=== PATIENT | female | born 1960 | race Caucasian/White ===

== ENCOUNTER → 2017-06-28 07:54 | Outpatient (CLI) | payer OTHER, SELFPAY ==
[2017-06-28 11:01] LABS: T4 Free Direct 1.04 ng/dL (0.76-1.46); Thyroid Stim Hormone (TSH) 3.73 uIU/mL (0.358-3.74)
== END ==
PROVIDERS: Nurse Practitioner Family; Family Provider Internal Medicine; PCP Internal Medicine; Visit Provider Internal Medicine
DX: E03.9 Hypothyroidism, unspecified (principal)
CPT/HCPCS: 36415; 84439; 84443

== ENCOUNTER → 2018-01-20 15:39 | Outpatient (CLI) | payer OTHER, SELFPAY | PROVIDERS: Family Provider Internal Medicine; PCP Internal Medicine; Visit Provider Nurse Practitioner Women's Health | DX: Z12.31 Encounter for screening mammogram for malignant neoplasm of breast (principal) | CPT/HCPCS: 77063; 77067 ==

== ENCOUNTER → 2018-03-27 09:25 | Outpatient (CLI) | payer OTHER, SELFPAY ==
[2018-03-27 10:38] LABS: Absolute Lymphocyte Count 1.65 X10^3/ul (0.83-4.51); Absolute Neutrophil Count 3.3 X10^3/uL (2.0-7.7); Basophil# 0.04 X10^3/uL; Basophil% 0.7 % (0-1); Eosinophil# 0.07 X10^3/uL; Eosinophils% 1.2 % (0-5); Hematocrit 44.8 % (37-47); Hemoglobin 14.3 g/dl (12.0-15.0); Lymphocyte # 1.65 X10^3/ul (4.0); Lymphocyte % 28.7 % (19-41); Mean Corp Hgb Conc 31.9 g/gl (32-36); Mean Corpuscular Hgb 27.3 pg (27.0-32.0); Mean Corpuscular Volume 85.7 fL (81-99); Mean Platelet Vol. 10.9 fl (6.2-12.0); Monocyte# 0.67 X10^3/uL; Monocyte% 11.7 % (0-10); Neutrophil # 3.31 X10^3/uL (2.7-7.7); Neutrophil % 57.7 % (47-70); Platelet Count 213 K/mm3 (150-450); RBC Distribution Width CV 13.8 % (11.6-14.6); Red Blood Count 5.23 M/mm3 (4.2-5.4); White Blood Count 5.7 K/mm3 (4.4-11.0)
[2018-03-27 10:39] LABS: POSITIVE COUNT NO; POSITIVE DIFFERENTIAL NO; POSITIVE MORPHOLOGY NO
[2018-03-27 11:15] LABS: AST(SGOT) 17 U/L (15-37); Alanine Aminotransfer ALT/SGPT 26 U/L (13-56); Albumin, Serum 3.5 g/dL (3.2-5.0); Alkaline Phosphatase 82 U/L (45-117); Anion Gap 6 (5-15); BUN 16 mg/dL (7-18); BUN/Creat Ratio 19.5 RATIO (10-20); Calcium,Total 8.9 mg/dL (8.5-10.1); Chloride 107 mmol/L (98-107); Cholesterol 219 mg/dL (200); Creatinine, Serum 0.82 mg/dL (0.55-1.02); EST Glomerular Filtration Rate 76 mL/min (>60); Est Glom Filt Rate - Afr Amer 92 mL/min (>60); Globulin 3.5 g/dL (2.2-4.2); Glucose 79 mg/dL (74-106); High Density Lipoprotein 45 mg/dL; Potassium 3.9 mmol/L (3.5-5.1); Sodium Level 140 mmol/L (136-145); Triglycerides 165 mg/dL; Very Low Density Lipoprotein 33 mg/dL (5-40)
== END ==
PROVIDERS: Family Provider Internal Medicine; PCP Internal Medicine; Referring Provider Internal Medicine; Visit Provider Internal Medicine
DX: Z00.00 Encounter for general adult medical examination without abnormal findings (principal)
CPT/HCPCS: 36415; 80053; 80061; 85025

== ENCOUNTER → 2018-09-24 | Outpatient (CLI) | payer OTHER, SELFPAY ==
[2018-09-11 18:24] VITALS: BMI 31.9
[2018-09-24 14:37] LABS: T4 Free Direct 1.04 ng/dL (0.76-1.46); Thyroid Stim Hormone (TSH) 2.18 uIU/mL (0.358-3.74)
== END | disposition home or self-care (01) ==
LOC: BIMLAB 09:08
PROVIDERS: Family Provider Internal Medicine; PCP Internal Medicine; Visit Provider Internal Medicine
DX: E03.9 Hypothyroidism, unspecified (principal)
CPT/HCPCS: 36415; 84439; 84443

== ENCOUNTER → 2019-01-21 14:27 | Outpatient (CLI) | payer OTHER, SELFPAY ==
[2018-07-22 13:49] VITALS: BMI 31.9
[2018-10-04 11:37] VITALS: BMI 31.9
--- NOTE | 2019-01-21 14:31 | BI_ITS ---
MAMMOGRAPHY - BILATERAL SCREENING REASON FOR EXAM: Female, 58 years old. Routine annual screening examination. PERTINENT HISTORY: Non-contributory. TECHNIQUE: Digital bilateral breast yandel (3D mammographic acquisition) in the CC and MLO projections. 2-D mediolateral oblique (MLO) and craniocaudad (CC) views of both breasts were obtained. CAD: Full Field Digital Mammography with Computer Added Detection was performed. COMPARISON: Comparison is made with prior study dated January 20, 2018. FINDINGS: Breast Composition: The breasts are heterogeneously dense, which may obscure small masses. There are no dominant masses or suspicious calcifications. No other significant abnormalities are identified. There has been no significant change since the prior study. BI/SCREEN MAMM (CAD) W/YANDEL BILAT IMPRESSION: Stable bilateral screening mammogram. Yearly follow-up mammogram recommended. (A) ASSESSMENT CATEGORY: BIRADS Category 1: Negative. A letter regarding these results will be sent to the patient by the facility within 30 days. Approximately 10% of breast cancers are not detected by mammography. A normal mammogram should not delay biopsy of a clinically suspicious abnormality. [id number] Electronically Signed: Irineo Cruz, at 8:14 EDT , Service support ,
== END ==
PROVIDERS: Family Provider Internal Medicine; PCP Internal Medicine; Referring Provider Nurse Practitioner Women's Health; Visit Provider Nurse Practitioner Women's Health
DX: Z12.31 Encounter for screening mammogram for malignant neoplasm of breast (principal)
CPT/HCPCS: 77063; 77067

== ENCOUNTER → 2019-03-13 08:18 | Outpatient (CLI) | payer OTHER, SELFPAY ==
[2019-03-11 17:56] VITALS: BMI 33.1
[2019-03-13 10:42] LABS: Absolute Lymphocyte Count 1.73 X10^3/uL (0.83-4.51); Absolute Neutrophil Count 2.8 X10^3/uL (2.0-7.7); Basophil# 0.06 X10^3/uL; Basophil% 1.1 % (0-1); Eosinophil# 0.09 X10^3/uL; Eosinophils% 1.7 % (0-5); Hematocrit 48.7 % (37-47); Hemoglobin 15.2 g/dL (12.0-15.0); Lymphocyte # 1.73 X10^3/ul (4.0); Lymphocyte % 32.9 % (19-41); Mean Corp Hgb Conc 31.2 g/dL (32-36); Mean Corpuscular Hgb 27.1 pg (27.0-32.0); Mean Platelet Vol. 10.9 fl (6.2-12.0); Monocyte# 0.53 X10^3/uL; Monocyte% 10.1 % (0-10); NRBC Flagged by Analyzer 0 % (0-5); Neutrophil # 2.84 X10^3/uL (2.7-7.7); Platelet Count 222 K/mm3 (150-450); RBC Distribution Width CV 13.1 % (11.6-14.6); RBC Distribution Width SD 41.8 fl (35.1-43.9); White Blood Count 5.3 K/mm3 (4.4-11.0)
[2019-03-13 10:44] LABS: ALB/GLOB Ratio 1.1 RATIO (0.9-2.4); AST(SGOT) 14 U/L (15-37); Alanine Aminotransfer ALT/SGPT 26 U/L (13-56); Albumin, Serum 3.8 g/dL (3.2-5.0); Alkaline Phosphatase 86 U/L (45-117); Anion Gap 5 (5-15); BUN 15 mg/dL (7-18); BUN/Creat Ratio 16.7 RATIO (10-20); Calcium,Total 9.3 mg/dL (8.5-10.1); Chloride 106 mmol/L (98-107); Cholesterol 237 mg/dL (200); EST Glomerular Filtration Rate 68 mL/min (>60); Est Glom Filt Rate - Afr Amer 82 mL/min (>60); Globulin 3.5 g/dL (2.2-4.2); Glucose 89 mg/dL (74-106); High Density Lipoprotein 47 mg/dL; Potassium 4.1 mmol/L (3.5-5.1); Protein, Total 7.3 g/dL (6.4-8.2); Sodium Level 141 mmol/L (136-145); Triglycerides 216 mg/dL; Very Low Density Lipoprotein 43 mg/dL (5-40)
== END ==
PROVIDERS: Family Provider Internal Medicine; PCP Internal Medicine; Referring Provider Internal Medicine; Visit Provider Internal Medicine
DX: E78.5 Hyperlipidemia, unspecified (principal); M25.561 Pain in right knee; M19.90 Unspecified osteoarthritis, unspecified site; K21.9 Gastro-esophageal reflux disease without esophagitis
CPT/HCPCS: 36415; 80053; 80061; 85025

== ENCOUNTER → 2019-03-13 08:33 | Outpatient (CLI) | payer OTHER, SELFPAY ==
[2019-03-11 17:56] VITALS: BMI 33.1
--- NOTE | 2019-03-13 08:35 | RAD_ITS ---
STUDY: X-RAY - RIGHT KNEE REASON FOR EXAM: Female, 59 years old. Right knee pain without reported injury TECHNIQUE: 4 view(s) of the knee. COMPARISON: None. FINDINGS: Normal visualized distal femur. Normal visualized proximal tibia and fibula. Normal proximal tibiofibular articulation. There is moderate degenerative arthrosis of the medial femorotibial compartment with moderate joint space narrowing. There is mild degenerative arthrosis of the lateral femorotibial compartment. There is moderate degenerative arthrosis of the patellofemoral articulation. There is a soft tissue prominence in the suprapatellar region suggesting a small volume joint effusion. The soft tissue structures are unremarkable. RAD/Knee 4 or More Views IMPRESSION: No fracture or malalignment. Tricompartmental osteoarthrosis. Trace joint effusion. Electronically Signed: Lazaro Mendieta MD ([place]) at 12:10 EDT , Service support ,
== END ==
PROVIDERS: Family Provider Internal Medicine; PCP Internal Medicine; Referring Provider Internal Medicine; Visit Provider Internal Medicine
DX: M17.11 Unilateral primary osteoarthritis, right knee (principal)
CPT/HCPCS: 73564

== ENCOUNTER 2019-05-18 15:00 | Outpatient (RCR) | payer OTHER, SELFPAY ==
[2019-04-07 14:59] VITALS: BMI 33.1
--- NOTE | 2019-04-17 10:47 | HP.PTEVAL_ITS ---
Patient's Visit Information SANDRA HO is a 59 year old F referred to Physical Therapy by Selene Gramajo DO with a diagnosis of Right Knee OA. Date of Evaluation: 04/17/19 Physical Therapist: Kavya Yates DPT - Visit Plan Frequency: 2x /Week Duration: 4 Weeks Plan: Right Knee OA-Focus on LE and core s/s for functional mobility - Subjective Findings: Patient reports that the right knee has been bothering her for years- she has OA an swells under the knee cap. Days it hurts to put weight on it and other days where its not so bad. Slowed her down a lot this summer not able to garden due to pain. Had a cortisone injection last week. Does have tenderness in the knee but its not to bad- she can get up and walk around. She works from home and sits at a desk all day. Pain is located on the medial and lateral joint line-Pain radiates to the whole leg when its really bad. Describes the pain as dull and achy but does have some sharp pains at night. Worst: 2/10 since the injection Agg: kneeling on it, walking long distances. Eases: ice, cortisone injection, sitting. X-rays- tricompartmental OA. Sleep:once in awhile but its better. PMHX/Meds: no changes. - Objective Posture: FH, RS- can correct but does not maintain. Gait: slight deviation- decreased stance and heel/toe pattern on the right. Stairs asc/desc 8 recip with 1 HR poor control with descent. HR/TR: able without UE A. SLS: 30 sec without LOB but does have increase muscle activation. Palpation: not tender touch. ROM: 10-120 degrees- reports feeling like it needs to crack at 120 degrees. Strength: Core: fair minus, Hip: 4/5 throughout, Knee: 4+/5, Ankle: 5/5. Flex: HS: moderate, Gastroc: moderate - Goals Goal 1:: Patient will be I with HEP and progression Goal Time Frame: 4-6 Weeks Goal 2:: Patient will maintain proper posture t/o tx session to demo increased core s/s Goal Time Frame: 4-6 Weeks Goal 3:: Patient will demo 5/5 strength in LE Goal Time Frame: 4-6 Weeks Goal 4:: Patient will asc/desc 8 stairs recip with 1 HR and good control Goal Time Frame: 8-12 Weeks - Rehabilitation Potential Physical Therapy Diagnosis: Patient presents with hypomobility- she has decreased strength and muscular endurnace leading to increased pain with ADL's Rehabilitation Potential: Good - Anticipated Interventions Patient/Client Instruction: Educate patient on: Benefits of Fitness Program Therapeutic Exercise to Include: Strength training, Endurance training, Balance training, Agility training, Body mechanics, Postural training, Flexibilty training, Gait and locomotor training, Dynamic Lumbar Stabilization, Scapular Strength/Stabilization For the Purpose of:: To improve muscle performance and motor function TENS: Yes Cryotherapy (ice pack, ice massage): Yes Thermo therapy (hot pack): Yes Ultrasound (thermal/non thermal): Yes For the Purpose of:: To decrease pain Thank you for the opportunity to evaluate your patient. For Medicare and Medicare HMO plans, please review the plan of care and approve it. It will need to be FAXED BACK to us at [phone] for Medicare purposes. For Medicare only, by signing this I certify the plan of care. Please let me know if there are questions or concerns regarding this plan of care. Physician Si gnature: Date:
--- NOTE | 2019-05-18 15:27 | HP.PTDCSUM ---
HP - PT D/C Summary It has been my pleasure to treat SANDRA OH under orders from Selene Gramajo DO, for the diagnosis of Right Knee OA for a total of 9 visit(s). Discharge Date: Please see the following information for a summary of their discharge status. - Subjective Subjective: Patient reports that her knee is doing really well. She has tenderness and a little bit of pain every once in awhile but nothing like it was before. She went to [place] for a trade show and she walked a ton and she only had to take Advil one time and did not keep her up at night. - Pain right knee Pain Intensity (Out of 10): 0 - Objective Objective/Function: Posture: FH, RS- can correct but does not maintain. Gait: no deviation noted Stairs asc/desc 8 recip with 1 HR good control. HR/TR: able without UE A. SLS: 30 sec without LOB but does have increase muscle activation. Palpation: not tender touch. ROM: 0-120 degrees. Strength: Core: fair, Hip: 4/5 throughout, Knee: 4+/5, Ankle: 5/5. Flex: HS: moderate, Gastroc: moderate - Goals Goal 1:: Patient will be I with HEP and progression Goal Progress: Goal Met Goal 2:: Patient will maintain proper posture t/o tx session to demo increased core s/s Goal Progress: Progressing Goal 3:: Patient will demo 5/5 strength in LE Goal Progress: Progressing Goal 4:: Patient will asc/desc 8 stairs recip with 1 HR and good control Goal Progress: Goal Met - Plan Plan: Discharge to I HEP - D/C Information If there are questions or concerns regarding this patient's physical therapy, please feel free to call me at [phone]. Thank you for the referral of this patient. Sincerely, DALI OliveiraT
== END 2019-05-18 19:00 | disposition home or self-care (01) ==
LOC: PT 15:00
PROVIDERS: Family Provider Internal Medicine; PCP Internal Medicine; Referring Provider Orthopaedic Surgery; Visit Provider Orthopaedic Surgery
DX: M17.11 Unilateral primary osteoarthritis, right knee (principal)
CPT/HCPCS: 97110; 97161; 97164

== ENCOUNTER 2019-06-05 09:10 | Day surgery (SDC) | payer OTHER, SELFPAY ==
[2019-04-30 16:07] VITALS: BMI 33.1
--- NOTE | 2019-06-04 19:56 | PCM.HP.BLA ---
History and Physical Date of Admission: 06/05/19 HISTORY OF PRESENT ILLNESS 59 year old woman presents with a soft tissue mass anterior frontal scalp that has increased in size over the last several months. She denies trauma. She denies infection. It becomes irritated when she brushes her hair. She has also noted some thinning of hair in this area of her anterior frontal scalp. She denies drainage. She also has concerns about a mass on her volar radial aspect left wrist that is clinically consistent with a ganglion cyst. She denies any pain in the cyst. She denies trauma. She has no functional issues with her left hand. She denies numbness. She presents at this time for further evaluation and treatment. PAST MEDICAL HISTORY GERD (gastroesophageal reflux disease) Osteoarthritis Hypothyroidism Frequent headaches History of recurrent UTIs PAST SURGICAL HISTORY bladder repair surgery hysterectomy tonsillectomy wisdom tooth extraction ALLERGIES diclofenac MEDICATIONS calcium carbonate and lactate 200 mg calcium-vitamin D3 omeprazole levothyroxine estradiol FAMILY HISTORY Mother - Diabetes, Hypertension, CVA (cerebral vascular accident) Brother - Diabetes Daughter - Primary malignant neuroendocrine neoplasm of pancreas, Diabetes SOCIAL HISTORY Smoking Status: Former smoker how long ago did patient quit smokin alcohol intake: current alcohol intake frequency: 0-2 drinks per day substance use type: does not use REVIEW OF SYSTEMS General - Denies fever, fatigue, and weight loss. Eyes - Denies cataracts and glaucoma. ENT - Denies nasal congestion and sore throat. Endocrine - Denies excessive thirst and urination. Has thyroid disease. Skin - Denies skin cancer. Has an enlarging soft tissue mass anterior frontal scalp. Musculoskeletal - Has joint pain, joint stiffness, and arthritis. Denies weakness of muscles and joints, back pain. Has a ganglion cyst volar radial aspect left wrist. Neuro - Denies headaches. Cardiovascular - Denies chest pain, fatigue, and shortness of breath with exertion. Psych - Denies anxiety and depression. Respiratory - Denies chronic cough and shortness of breath. Patient is a former smoker. Gastrointestinal - Denies nausea, vomiting, diarrhea, and constipation. Hematologic - Denies abnormal bruising and bleeding. Genitourinary - Denies hematuria and urinary frequency. PHYSICAL EXAMINATION General - Alert and Oriented. HEENT - PERRL. EOMI. Throat is clear. On the anterior frontal scalp is a soft tissue mass that measures 1.5 cm. Mild alopecia present. Mass is mobile. Slight tenderness to palpation and when brushing her hair. No ulceration. No evidence of infection. Neck - Supple and nontender. No cervical adenopathy. Lungs - Clear to auscultation. Heart - Regular rate and rhythm. Abdomen - Soft and nondistended. Extremities - FROM. No axillary adenopathy. Radial pulses are palpable. On the left volar radial wrist is a ganglion cyst that measures 1.5 cm. Cristi test is ok. No sensory deficits to pinprick in her left hand. No ulceration. It is nontender. Neuro - CN II-XII grossly intact. Psych - Normal mood and affect. ASSESSMENT 1. 1.5 cm painful soft tissue mass anterior frontal scalp. 2. 1.5 cm ganglion cyst volar radial aspect left wrist. 3. Former smoker. PLAN Recommend excision of this enlarging soft tissue mass anterior frontal scalp. Will send tissue to Pathology for analysis to rule out carcinoma. Generally these masses are benign. However if there is a recurrence then carcinoma can develop. In that situation, extra skin would need to be excised with the scar to minimize recurrence. Reconstruction would be with skin grafting. The soft tissue mass is clinically consistent with a trichilemmal cyst. Surgery would be done under local anesthesia and IV sedation on an outpatient basis. If the mass is adherent to the skin then additional scalp skin would need to be removed with probable skin graft reconstruction. After healing has occurred with the scalp mass, can proceed with excision of her ganglion cyst volar radial aspect left wrist. Will discuss at future visits. She would need an x-ray of the left wrist before the surgery occurs. She voiced understanding. Patient was informed of the risks and complications of the procedure including alternatives to surgery. These were discussed with the patient personally. Patient voices understanding and wishes to proceed. Some of the risks and complications were included in a form from the [employer].
[2019-06-05] VITALS (8 sets, daily range): BP systolic 96–126; BP diastolic 65–76; PULSE 46–58; RESP 16; TEMP 36.3–36.6; O2SAT 93–95; BMI 32.7
[2019-06-05] MEDS: Lactated Ringers 1,000 ML 100 ML IV (09:43)
--- NOTE | 2019-06-05 10:45 | MASS_PTH ---
PATIENT: SANDRA OH LOC: [facility] – [place] U#:[id number] AGE/SX: 59/F ROOM: RE06/05/[address]: Dr. Scooter Aguilar MD : 1960 BED: DIS: 06/05/2019 SPEC #: [id number] RECD: 06/05/19 12:59 STATUS: ANJALI RELewis #: [id number] MARICRUZ: 06/05/19 10:[address]: Scooter Aguilar DEPT: SURGICAL PATHOLOGY RECD BY: Yinka Henderson ENTERED: 06/05/19 13:22 SP TYPE: Mass OTHR DR: Dr. Katy Lindsey MD Tissues: Scalp, NOS Procedures: Surgery Specimen Level III HEADER OPERATION: Anterior frontal scalp mass excision PRE-OP DIAGNOSIS: 1.5 cm painful soft tissue mass anterior frontal scalp TISSUE SUBMITTED: Anterior frontal scalp mass MICROSCOPIC DIAGNOSIS Anterior frontal scalp mass, excisional biopsy: Trichilemmal cyst with focal calcifications. SJ:tatiana 06/08/19 MICROSCOPIC DESCRIPTION Slides are reviewed. GROSS DESCRIPTION Received in fixative is one container labeled with the patient's name and designated anterior frontal scalp mass. The specimen consists of light robles skin measuring 1.2 x 0.2 cm. Attached to this is a robles-white, firm nodule measuring 1.5 cm in greatest diameter. Cut sections of the nodule reveal cystic area containing granular robles material. The specimen is serially sectioned and totally submitted in two cassettes. / AM:tatiana 06/05/19 TC:5 CPT: 51676
[2019-06-05] MEDS: Mupirocin Ointment 22gm Tube 1 APPLIC (11:50)
--- NOTE | 2019-06-05 11:57 | PCM.OPRPT ---
Report of Operation Date of Procedure: 06/05/19 Pre-Operative Diagnosis: 1. 1.5 cm painful soft tissue mass anterior frontal scalp. 2. Former smoker. Post-Operative Diagnosis: Same. Surgery/Procedure Performed:: Excision 1.5 cm painful soft tissue mass anterior frontal scalp with 1.5 cm layered closure.. Description of Surgical Findings:: 59 year old woman presents with a soft tissue mass anterior frontal scalp that has increased in size over the last several months. She denies trauma. She denies infection. It becomes irritated when she brushes her hair. She has also noted some thinning of hair in this area of her anterior frontal scalp. She denies drainage. Patient was informed of the risks and complications of the procedure including alternatives to surgery. These were discussed with the patient personally. Patient voices understanding and wishes to proceed. Some of the risks and complications were included in a form from the [employer]. auto service dispatcher: None Type of Anesthesia:: Local MAC - xylocaine with epinephrine and IV sedation. Specimen's removed: Painful soft tissue mass anterior frontal scalp to Pathology. Drains: None. Estimated Blood Loss (mL): 5 ml. Description of Procedure: Patient was taken to OR in supine position and was given IV sedation. The scalp and right neck areas were prepped and draped in the usual fashion. SCD's were placed for DVT prophylaxis. Perioperative antibiotics were given intravenously. The soft tissue mass anterior frontal scalp was infiltrated with xylocaine and epinephrine. After waiting 5 minutes for the anesthetic to take effect, I made an oblique incision across the mass and dissected into the subcutaneous tissue. There was a well encapsulated mass present consistent with a trichilemmal cyst. I dissected the mass off the galea and sent it to Pathology for analysis to rule out carcinoma. The wound was irrigated with saline. Hemostasis was obtained with electrocautery. The skin edges appeared strong enough for closure without having to excise more tissue and place a skin graft for closure. I proceeded with a layered closure with 5-0 Monocryl interrupted sutures for the deep dermis and subcutaneous tissue. The skin was approximated with 5-0 Monocryl interrupted sutures. The length of the wound closure was 1.5 cm. Antibiotic ointment was applied to the incision. Patient tolerated the procedure well and was sent to PACU in satisfactory condition. Patient will be sent home on antibiotics and pain medication. She will keep her head elevated during the initial postoperative period. Patient will followup in a week for a wound check and for discussion of the pathology report. Grafts/Implants Used: None. - Complications None. - Admit VTE Documentation VTE Present on Admission: No VTE Mechan Device Prophylaxis: SCD's VTE Pharm Prophylaxis ordered?: No Code Visit Surgery Charges CPT - 71239 ICD-10 - R22.0, R20.8, Z87.891 94949 R22.0, R20.8, Z87.891
--- NOTE | 2019-06-05 12:03 | PCM.DC ---
You will use the following diet at home:: No restrictions Discharge Activity: May not drive while taking narcotic pain medications., May Shower - in two days., - - no heavy lifting. keep head elevated. May shower in (days): 2 May resume sexual activity in: No Restrictions Weight Bearing Status: Weight bearing as tolerated Lifting Restrictions: 20 lbs. Keep extremity elevated above heart level: - - elevate head. Call your doctor if your incision/area has: Continuous Slow Oozing, Sudden Increased Bleeding, Increased Pain/ Swelling, Increased Redness, Foul Smelling Discharge, Swelling at the incision site Call your doctor if you observe: Fever of 101 or Higher, Coldness, Increased Pain, Shortness of breath, Chest pain, Calf discomfort, Uncontrolled pain Suture Line Care: - - apply antibiotic ointment to suture line daily. Cleanse incision/area with: - - may get the incision wet in the shower in two days. Allergies/Adverse Reactions: Allergies diclofenac Allergy (Severe, Verified 06/05/19 09:44) Rash Medications to take at Discharge calcium carbonat and lactate 200 mg calcium-vitamin D3 250 unit tablet 1 tab PO DAILY 07/03/17 omeprazole 40 mg capsule,delayed release 40 mg PO DAILY #90 cap 07/22/18 levothyroxine 150 mcg tablet 150 mcg PO QDAY #90 tab 09/26/18 estradiol 10 mcg vaginal tablet 10 mcg VAGINAL .COMPLEX #24 tab 01/21/19 Clindamycin HCl [Cleocin] 300 mg PO TID #15 cap 06/05/19 Oxycodone HCl/Acetaminophen [Percocet 5/325] 1 tablet PO TID PRN PRN 7 Days #20 tablet 06/05/19 The following prescriptions were given: Clindamycin HCl [Cleocin] 300 mg PO TID #15 cap Transmission Status: Pending to [address] Oxycodone HCl/Acetaminophen [Percocet 5/325] 1 tablet PO TID PRN PRN 7 Days #20 tablet PRN Reason: Pain Score 4-5/10 Transmission Status: Sent to [address] Primary Care Physician: Katy Lindsey MD [Primary Care Provider] - Test Results: Test results from this visit will be discussed in further detail at your follow-up appointment, if applicable. Please Follow Up With: Scooter Aguilar MD When: one week. call [phone] for appt. Proposed Discharge Date: 06/05/19
[2019-06-05] MEDS: Acetaminophen 325 MG Tablet 650 MG PO (12:51)
== END 2019-06-05 13:05 | disposition home or self-care (01) ==
LOC: SDC 09:10 → AC 09:11
PROVIDERS: Family Provider Internal Medicine; PCP Internal Medicine; Referring Provider Surgery; Visit Provider Surgery
PROC: (CPT 11422; principal; 2019-06-05 10:30)
DX: L72.12 Trichodermal cyst (principal); E78.00 Pure hypercholesterolemia, unspecified; E03.9 Hypothyroidism, unspecified; K21.9 Gastro-esophageal reflux disease without esophagitis; M19.90 Unspecified osteoarthritis, unspecified site; M67.432 Ganglion, left wrist; Z87.891 Personal history of nicotine dependence
CPT/HCPCS: 00300; 11422; 12031; 88304; 88305; J7120; J2405

== ENCOUNTER → 2019-07-17 | Outpatient (CLI) | payer OTHER, SELFPAY ==
[2019-07-10 10:30] VITALS: BMI 32.7
== END | disposition home or self-care (01) ==
LOC: LABSPEC 17:21
PROVIDERS: PCP Internal Medicine; Visit Provider Nurse Practitioner Family
DX: L98.492 Non-pressure chronic ulcer of skin of other sites with fat layer exposed (principal); L72.12 Trichodermal cyst; R20.8 Other disturbances of skin sensation
CPT/HCPCS: 87070; 87075; 87205

== ENCOUNTER → 2019-11-20 10:37 | Outpatient (CLI) | payer OTHER, SELFPAY ==
[2019-11-20 10:06] VITALS: BMI 32.7
[2019-11-20 13:04] LABS: Cholesterol 246 mg/dL (200); High Density Lipoprotein 50 mg/dL; Thyroid Stim Hormone (TSH) 2.08 uIU/mL (0.358-3.74); Triglycerides 178 mg/dL; Very Low Density Lipoprotein 36 mg/dL (5-40)
== END ==
PROVIDERS: PCP Internal Medicine; Referring Provider Internal Medicine; Visit Provider Internal Medicine
DX: E78.5 Hyperlipidemia, unspecified (principal); E03.9 Hypothyroidism, unspecified
CPT/HCPCS: 36415; 80061; 84443

== ENCOUNTER → 2020-01-01 11:56 | Outpatient (CLI) | payer OTHER, SELFPAY ==
[2019-12-18 13:28] VITALS: BMI 32.7
[2019-12-29 11:59] VITALS: BMI 32.7
--- NOTE | 2020-01-01 11:57 | BI_ITS ---
MAMMOGRAPHY - BILATERAL SCREENING REASON FOR EXAM: Female, 59 years old. Routine annual screening examination. PERTINENT HISTORY: Non-contributory. TECHNIQUE: Digital bilateral breast yandel (3D mammographic acquisition) in the CC and MLO projections. 2-D mediolateral oblique (MLO) and craniocaudad (CC) views of both breasts were obtained. CAD: Full Field Digital Mammography with Computer Added Detection was performed. COMPARISON: Comparison is made with prior examination dated 01/21/2019 and 01/20/2018. FINDINGS: Breast Composition: The breasts are heterogeneously dense, which may obscure small masses. There are no dominant masses or suspicious calcifications. Stable benign-appearing bilateral axillary lymph nodes. No other significant abnormalities are identified. There has been no significant change since the prior study. BI/SCREEN MAMM (CAD) W/YANDEL BILAT IMPRESSION: Stable bilateral screening mammogram. Yearly follow-up mammogram recommended. (A) ASSESSMENT CATEGORY: BIRADS Category 2: Benign. A letter regarding these results will be sent to the patient by the facility within 30 days. Approximately 10% of breast cancers are not detected by mammography. A normal mammogram should not delay biopsy of a clinically suspicious abnormality. [id number] Electronically Signed: Irineo Cruz, at 13:25 EDT , Service support ,
== END ==
PROVIDERS: PCP Internal Medicine; Referring Provider Nurse Practitioner Women's Health; Visit Provider Nurse Practitioner Women's Health
DX: Z12.31 Encounter for screening mammogram for malignant neoplasm of breast (principal)
CPT/HCPCS: 77063; 77067

== ENCOUNTER 2020-01-18 06:57 | Day surgery (SDC) | payer OTHER, SELFPAY ==
--- NOTE | 2019-12-18 01:33 | HP_ITS ---
Intake Vital Signs 12/18/19 BMI 32.7 12/18/19 Height 5 ft 5 in 12/18/19 Weight: 200 lb 12/18/19 BMI 33.3 12/18/19 BP 118/76 12/18/19 Blood Pressure Location Rt brachial 12/18/19 Position Sitting 12/18/19 Respiration 18 12/18/19 Pulse 60 12/18/19 Pulse Source Monitor 12/18/19 Temp 98.0 F 12/18/19 Temp Source Temporal 12/18/19 Pulse Oximetry (%) 99 12/18/19 Oxygen Delivery Method room air Intake Visit Reasons: CSCOPE/ EGD Chief Complaint: EGD/C-scope consult [employer] Operator Required: No Is patient in pain?: No Allergies diclofenac Allergy (Severe, Verified 12/18/19 13:28) Rash Medications calcium carbonat and lactate 200 mg calcium-vitamin D3 250 unit tablet 1 tab PO DAILY 07/03/17 [History Confirmed 12/18/19] estradiol 10 mcg vaginal tablet 10 mcg VAGINAL .COMPLEX #24 tab 01/21/19 [Rx Confirmed 12/18/19] omeprazole 40 mg capsule,delayed release See Rx Instructions .ROUTE .COMPLEX #90 cap 07/17/19 [Rx Confirmed 12/18/19] levothyroxine 150 mcg tablet 150 mcg PO QDAY #90 tab 08/04/19 [Rx Confirmed 12/18/19] [facility] Medical History Trichilemmal cyst (Chronic) GERD (gastroesophageal reflux disease) (Chronic) Osteoarthritis (Chronic) Seasonal allergies (Chronic) Hypothyroidism (Chronic) Barretts esophagus (Acute) Allergies (Acute) Frequent headaches (Acute) History of recurrent UTIs (Acute) Surgical History H/O: hysterectomy (Acute) History of bladder repair surgery (Acute) History of hysterectomy (Acute) History of tonsillectomy (Acute) History of wisdom tooth extraction (Acute) History of wisdom tooth extraction (Acute) H/O local excision of skin lesion (Chronic) Family History Mother Diabetes Hypertension CVA (cerebral vascular accident) Brother Diabetes Daughter Primary malignant neuroendocrine neoplasm of pancreas Diabetes Social History (Updated 12/18/19 @ 13:[address] Sam Mclean MD) number of children: 2 current occupational status: employed current occupation: [email or web address] Smoking Status: Former smoker how long ago did patient quit smokin alcohol intake: current alcohol intake frequency: 0-2 drinks per day substance use type: does not use what type of physical activity do you participate in: none seatbelt use: always do you feel safe at home: Yes additional social history: Harvey Works for the [employer] DOES USE ASPIRIN NEEDED DOES USE IBUPROFEN NEEDED Female Reproductive History Menstrual Ab spontaneous: 2 HPI HPI Surgical H&P: Yes HPI: SANDRA OH, is a 59 F who presents to the office today for Evaluation for Lopez's esophagus. I last did an EGD on her on 09/17/2016 she was noted to have a Z line at 38 cm I did multiple biopsies of her distal esophagus all of these came back as chronically inflamed gastric cardiac type mucosa with reactive epithelial changes. It was negative for intestinal metaplasia or dysplasia. She has not been having any difficulty with eating. She is not complaining of any epigastric pain. She had a colonoscopy completed on January 09, 2011. It was a normal colonoscopy. No biopsies were obtained. It was for screening. She has no family history of colon cancer. She will need another colonoscopy January 09, 2021. ROS General General: No weight change, appetite, fatigue, colon cancer, breast cancer or weakness HEENT HEENT: No difficulty swallowing, eye injury, eye surgery, swollen glands or hoarseness Endo Endocrine: Yes thyroid disease; no diabetes mellitus, thyroid cancer, Hair loss, heat intolerance or cold intolerance Skin Skin: Yes rash; no changing moles Breast Breast: No left breast lump, right breast lump, nipple discharge, breast pain, abnormal mammogram, abnormal US or breast enlargement Musc Musculoskeletal: Yes arthritis; no back problems, rheumatoid arthritis, gout or joint pain Cardio Cardiovascular: No murmur, pacemaker, heart disease, atrial fibrillation, high blood pressure, heart attack, heart stent, palpitations, shortness of breat with exertion or chest pain Psych Psychiatric: No depression, anxiety or hearing voices Resp Respiratory: No shortness of breath, No sleep apnea, No cough, No COPD, No asthma, No emphysema, No wheezing Gastro Gastrointestinal: No abdominal pain, No nausea or vomiting, No diarrhea, No constipation, No blood in stool, Yes acid reflux, Yes hemorrhoids, No ulcers, No gallbladder problem, No black,tarry stools Sylvester Hematologic: No blood thinners, No blood disorders, No bleeding, No anemia, No blood clots Neuro Neurologic: No system reviewed and no additional complaints, except as docu, No as per HPI, No abnormal walking, No abnormal hearing, No abnormal movements, No abnormal speech, No behavioral changes, No burning sensations, No confusion, No seizure-like activity, No unsteadiness, No dizziness, No localized weakness, No frequent falls, No headache(s), No lack of coordination, No loss of vision, No memory loss, No numbness, No other visual disturbances, No radiating pain, No restless legs, No sensory deficit, No fainting, No tingling, No tremor(s), No weakness, No other Exam Const General: no acute distress, well developed, well hydrated Orientation: oriented to person, oriented to place, oriented to time [facility] Head: normocephalic, atraumatic Ears: external ears normal Mouth: moist mucous membranes Eyes Sclera: sclerae normal Pupils: normal by confrontation Neck Neck: no lymphadenopathy noted Neck mass: No Thyroid: thyroid normal, symmetrical Chest Chest palpation & inspection: normal inspection of the chest Breast Palpation: No nipple discharge Resp Effort & Inspection: normal respiratory effort Auscultation: clear to auscultation bilaterally Percussion: percussion normal Cardio Rate: regular rate Rhythm: regular rhythm Heart Sounds: no murmurs GI Palpation: soft, no hepatosplenomegaly, no masses, nontender Rectal Exam: other Other: Rectal exam deferred. Extrem General: normal to inspection, no clubbing, cyanosis or edema Assessment & Plan Problems 1. History of Lopez's esophagus Z87.19 Plan I have discussed the above with the patient. I have offered the patient esophagogastroduodenoscopy for evaluation. I have explained the risks/benefits of the procedure and described the procedure. I have discussed the risks with the patient, including but not limited to: infection, bleeding, perforation of the GI tract requiring emergency surgery, inability to complete the procedure, injury to any internal organs, complications of anesthesia, etc. - the patient understands and agrees to proceed. I have answered all the patient's questions to the patient's satisfaction and the patient has no further questions. The patient has been given instructions for the colon cleansing preparation. We will be doing distal esophageal biopsies. Coding Level of Care Code Off vis,new,level 3 Diagnoses History of Lopez's esophagus Z87.19 COVID (Procedure Consent) Procedure Criteria Procedure Criteria: Yes Elective The surgeon/proceduralist and patient have discussed in detail the risk of exposure to and/or potential harm posed by the COVID-19 virus with having a surgery/procedure at this time versus the risk of? delaying the surgery/procedure. It is not possible to know either the risk of delaying the surgery or procedure or chance of getting an infection with perfect accuracy, but a joint decision was made between the patient and the surgeon/proceduralist ?to proceed at this time with the scheduled surgery/procedure as indicated on the consent form. 12/18/19 [id number] <Electronically signed by Sam bennett MD> Date _ Sam Mclean MD I have re-examined the patient. There are no clinical changes since date of exam.
[2019-12-18 13:28] VITALS: BMI 32.7
[2019-12-29 11:59] VITALS: BMI 32.7
[2020-01-18] VITALS (7 sets, daily range): BP systolic 88–107; BP diastolic 55–62; PULSE 44–54; RESP 14–16; TEMP 36.3–36.7; O2SAT 93–96; BMI 33.3
[2020-01-18] MEDS: Lactated Ringers 1,000 ML 100 ML IV (07:40)
--- NOTE | 2020-01-18 08:00 | EGD_PTH ---
PATIENT: SANDRA OH LOC: EN U#:[id number] AGE/SX: 59/F ROOM: RE01/18/[address]: Dr. Sam Mclean MD : 1960 BED: DIS: 01/18/2020 SPEC #: [id number] RECD: 01/18/20 08:37 STATUS: ANJALI SAMMY #: [id number] MARICRUZ: 01/18/20 08:[address]: Sam Mclean DEPT: SURGICAL PATHOLOGY RECD BY: Yinka Henderson ENTERED: 01/18/20 09:13 SP TYPE: EGD BIOPSY OT DR: Dr. Katy Lindsey MD Tissues: A - Gastric mucous membrane B - Esophageal mucous membrane Procedures: Special Stain Group II Surgery Specimen Level IV Alcian Blue/PAS (control) HEADER OPERATION: EGD ([facility] [place]) PRE-OP DIAGNOSIS: Lopez's esophagus TISSUE SUBMITTED: A - Antrum biopsy for H. pylori and path, B - Distal esophagus biopsy MICROSCOPIC DIAGNOSIS A. Gastric antrum, biopsy: Mild chronic gastritis. See comment. B. Distal esophagus, biopsy: Gastroesophageal junctional mucosa with mild chronic inflammation. No evidence of intestinal metaplasia. Focal changes of reflux. See comment. AM:tatiana 01/19/20 COMMENT A. The results of immunohistochemistry for Helicobacter pylori will be reported separately ([id number]). B. Alcian blue/PAS stain with matched control is used in the evaluation of the specimen. MICROSCOPIC DESCRIPTION Slides are reviewed. GROSS DESCRIPTION A - Received in fixative is one container labeled with the patient's name and designated antrum biopsy. The specimen consists of one irregular fragment of light robles soft tissue that measures 0.6 x 0.2 x 0.1 cm. The specimen is totally submitted in one cassette. B - Received in fixative is one container labeled with the patient's name and designated distal esophagus biopsy. The specimen consists of multiple irregular fragments of light robles soft tissue that in aggregate measure 1.5 x 0.5 x 0.1 cm. The specimen is totally submitted in one cassette. / SJ:tatiana 01/18/20 TC:5 CPT: 83891 x2, 65810
--- NOTE | 2020-01-18 08:00 | IMM_PTH ---
PATIENT: SANDRA OH LOC: EN U#:[id number] AGE/SX: 59/F ROOM: RE01/18/[address]: Dr. Sam Mclean MD : 1960 BED: DIS: 01/18/2020 SPEC #: [id number] RECD: 01/18/20 12:16 STATUS: ANJALI REQ #: [id number] MARICRUZ: 01/18/20 08:[address]: Sam Mclean DEPT: IMMUNOHISTOCHEMISTRY RECD BY: Lupe Justice ENTERED: 01/18/20 12:16 SP TYPE: IMMUNO OTHR DR: Dr. Katy Lindsey MD Tissues: A - Stomach, NOS Procedures: H Pylori (initial) PHYSICIAN & INSTITUTION [place] [id number] SPECIMEN INFORMATION: Tissue Source: A - Antrum biopsy Clinical Info: Lopez's esophagus Specimen Number: [id number] CPT code: 90290 METHODOLOGY: Deparaffinized sections of prefer/formalin-fixed tissue or PAP/DQ stained slides are incubated with monoclonal/polyclonal antibodies/oligonucleotide probes. Localization is made via biotin free immunoperoxidase method. Appropriate controls are performed and reacted as expected. Results on target cell population are indicated in the following table: RESULTS: ANTIBODY / CLONE RESULT Block A H Pylori (polyclonal) negative These tests were developed and their performance characteristics determined by [facility]. They may not have been cleared or approved by the U.S. Food and Drug Administration. The FDA has determined that such clearance or approval is not necessary. INTERPRETATION: A. Antrum biopsy: Negative for Helicobacter pylori organisms. AM:tatiana 01/19/20
--- NOTE | 2020-01-18 08:15 | OP.CCLET_ITS ---
01/18/2020 Katy Lindsey MD [address] [place] [address] [place] [address] Re : Upper GI endoscopy procedure for Natasha Holder Dear Dr. Lindsey This procedure was performed on Saturday, January 18, 2020. My impressions and recommendations are as follows: Impressions : - Non-severe reflux esophagitis. Rule out Lopez's esophagus. Biopsied. - Normal stomach. Biopsied. - Normal examined duodenum. No specimens collected. Recommendations : - Discharge patient to home. - Resume previous diet. - Continue present medications. - Await pathology results. - Repeat upper endoscopy in 3 years for surveillance based on pathology results. - Return to my office in 1 week. My findings are described in the full procedure note, which is enclosed. If I can be of further assistance, please feel free to contact me at Doctor phone number(s): , Fax: [phone], Work: . Sincerely, MD Sam Stokes MD 01/18/2020 8:14:26 AM This report has been signed electronically.
--- NOTE | 2020-01-18 08:15 | OP.EGD_ITS ---
Patient Name: Natasha Holder Procedure Date: 01/18/2020 7:59 AM Date of : 1960 Age: 59 Procedure: Upper GI endoscopy Indications: Follow-up of Lopez's esophagus Providers: Sam Mclean MD Referring MD: Katy Lindsey MD Medicines: See the Anesthesia note for documentation of the administered medications Patient Profile: This is a 59 year old female. Refer to note in patient chart for documentation of history and physical. Complications: No immediate complications. Procedure: Pre-Anesthesia Assessment: - Prior to the procedure, a History and Physical was performed, and patient medications and allergies were reviewed. The patient's tolerance of previous anesthesia was also reviewed. The risks and benefits of the procedure and the sedation options and risks were discussed with the patient. All questions were answered, and informed consent was obtained. Prior Anticoagulants: The patient has taken no previous anticoagulant or antiplatelet agents. ASA Grade Assessment: II - A patient with mild systemic disease. After reviewing the risks and benefits, the patient was deemed in satisfactory condition to undergo the procedure. After obtaining informed consent, the endoscope was passed under direct vision. Throughout the procedure, the patient's blood pressure, pulse, and oxygen saturations were monitored continuously. The gastroscope was introduced through the mouth, and advanced to the second part of duodenum. The upper GI endoscopy was accomplished without difficulty. The patient tolerated the procedure well. Scope In: 8:06:53 AM Scope Out: 8:10:32 AM Total Procedure Duration Time 0 hours 3 minutes 39 seconds Findings: Non-severe esophagitis with no bleeding was found in the distal esophagus. Biopsies were taken with a cold forceps for histology. The entire examined stomach was normal. Biopsies were taken with a cold forceps for Helicobacter pylori testing. The examined duodenum was normal. No biopsies or other specimens were collected for this exam. Impression: - Non-severe reflux esophagitis. Rule out Lopez's esophagus. Biopsied. - Normal stomach. Biopsied. - Normal examined duodenum. No specimens collected. Recommendation: - Discharge patient to home. - Resume previous diet. - Continue present medications. - Await pathology results. - Repeat upper endoscopy in 3 years for surveillance based on pathology results. - Return to my office in 1 week. Procedure Code(s): --- Professional --- 14594, Esophagogastroduodenoscopy, flexible, transoral; with biopsy, single or multiple Diagnosis Code(s): --- Professional --- K21.0, Gastro-esophageal reflux disease with esophagitis K22.70, Lopez's esophagus without dysplasia CPT copyright 2017 [employer]. All rights reserved. The codes documented in this report are preliminary and upon brick paver review may be revised to meet current compliance requirements. MD Sam Stokes MD 01/18/2020 8:14:26 AM This report has been signed electronically. Number of Addenda: 0 Note Initiated On: 01/18/2020 7:59 AM
== END 2020-01-18 09:09 | disposition home or self-care (01) ==
LOC: EN 06:57 → AC 06:59
PROVIDERS: Anesthesiology; PCP Internal Medicine; Referring Provider Internal Medicine; Visit Provider Surgery
PROC: 0DJ08ZZ Inspection of Upper Intestinal Tract, Via Natural or Artificial Opening Endoscopic (ICD-10-PCS; CPT 43235; principal; 2020-01-18 07:55)
DX: K22.70 Barrett's esophagus without dysplasia (principal); K21.0 Gastro-esophageal reflux disease with esophagitis; K29.50 Unspecified chronic gastritis without bleeding; E03.9 Hypothyroidism, unspecified; M19.90 Unspecified osteoarthritis, unspecified site; Z87.891 Personal history of nicotine dependence; Z20.828 Contact with and (suspected) exposure to other viral communicable diseases
CPT/HCPCS: 43239; 87635; 88305; 88313; 88342; 94799; J7120; J2405; U0003

== ENCOUNTER → 2020-04-28 08:14 | Outpatient (CLI) | payer OTHER, SELFPAY ==
[2020-03-07 08:18] VITALS: BMI 33.3
[2020-04-28 13:05] LABS: ALB/GLOB Ratio 1.2 RATIO (0.9-2.4); AST(SGOT) 16 U/L (15-37); Alanine Aminotransfer ALT/SGPT 34 U/L (13-56); Albumin, Serum 4.1 g/dL (3.2-5.0); Alkaline Phosphatase 90 U/L (45-117); Anion Gap 4 (5-15); BUN 16 mg/dL (7-18); Calcium,Total 9.5 mg/dL (8.5-10.1); Chloride 107 mmol/L (98-107); Creatinine, Serum 0.89 mg/dL (0.55-1.02); EST Glomerular Filtration Rate 69 mL/min (>60); Est Glom Filt Rate - Afr Amer 83 mL/min (>60); Globulin 3.5 g/dL (2.2-4.2); Glucose 93 mg/dL (74-106); Protein, Total 7.6 g/dL (6.4-8.2); Sodium Level 138 mmol/L (136-145)
== END ==
PROVIDERS: PCP Internal Medicine; Referring Provider Internal Medicine; Visit Provider Internal Medicine
DX: E78.5 Hyperlipidemia, unspecified (principal)
CPT/HCPCS: 36415; 80053

== ENCOUNTER → 2020-09-16 08:22 | Outpatient (CLI) | payer OTHER, SELFPAY ==
[2020-06-14 13:04] VITALS: BMI 33.1
[2020-09-16 12:39] LABS: Absolute Lymphocyte Count 1.78 X10^3/uL (0.83-4.51); Basophil# 0.06 X10^3/uL; Basophil% 1.1 % (0-1); Eosinophil# 0.09 X10^3/uL; Eosinophils% 1.7 % (0-5); Hematocrit 48.3 % (37-47); Hemoglobin 14.6 g/dL (12.0-15.0); Lymphocyte # 1.78 X10^3/ul (0.83-4.51); Lymphocyte % 32.8 % (19-41); Mean Corp Hgb Conc 30.2 g/dL (32-36); Mean Corpuscular Hgb 26.2 pg (27.0-32.0); Mean Corpuscular Volume 86.6 fL (81-99); Mean Platelet Vol. 10.9 fl (6.2-12.0); Monocyte# 0.44 X10^3/uL; Monocyte% 8.1 % (0-10); NRBC Flagged by Analyzer 0 % (0-5); Neutrophil # 3.04 X10^3/uL (2.7-7.7); Neutrophil % 56.1 % (47-70); Platelet Count 239 K/mm3 (150-450); RBC Distribution Width CV 13.7 % (11.6-14.6); RBC Distribution Width SD 43.6 fl (35.1-43.9); Red Blood Count 5.58 M/mm3 (4.2-5.4); White Blood Count 5.4 K/mm3 (4.4-11.0)
[2020-09-16 13:09] LABS: ALB/GLOB Ratio 1.1 RATIO (0.9-2.4); AST(SGOT) 17 U/L (15-37); Alanine Aminotransfer ALT/SGPT 27 U/L (13-56); Albumin, Serum 3.7 g/dL (3.2-5.0); Alkaline Phosphatase 91 U/L (45-117); Anion Gap 4 (5-15); BUN 13 mg/dL (7-18); BUN/Creat Ratio 16.5 RATIO (10-20); Calcium,Total 9.3 mg/dL (8.5-10.1); Chloride 107 mmol/L (98-107); Cholesterol 177 mg/dL (200); Creatinine, Serum 0.79 mg/dL (0.55-1.02); EST Glomerular Filtration Rate 79 mL/min (>60); Est Glom Filt Rate - Afr Amer 95 mL/min (>60); Globulin 3.4 g/dL (2.2-4.2); Glucose 87 mg/dL (74-106); High Density Lipoprotein 45 mg/dL; Potassium 4.1 mmol/L (3.5-5.1); Protein, Total 7.1 g/dL (6.4-8.2); Sodium Level 141 mmol/L (136-145); Thyroid Stim Hormone (TSH) 1.84 uIU/mL (0.358-3.74); Triglycerides 167 mg/dL; Very Low Density Lipoprotein 33 mg/dL (5-40)
== END ==
PROVIDERS: PCP Internal Medicine; Referring Provider Internal Medicine; Visit Provider Internal Medicine
DX: I10 Essential (primary) hypertension (principal); E78.5 Hyperlipidemia, unspecified; E03.9 Hypothyroidism, unspecified
CPT/HCPCS: 36415; 80053; 80061; 84443; 85025

== ENCOUNTER → 2020-10-13 15:45 | Outpatient (CLI) | payer OTHER, SELFPAY ==
[2020-09-30 09:24] VITALS: BMI 33.1
--- NOTE | 2020-10-13 15:55 | BD_ITS ---
STUDY: DUAL ENERGY X-RAY ABSORPTIOMETRY / DXA REASON FOR EXAM: Female, 60 years old. Post menopausal screening TECHNIQUE: Bone Mineral Density (BMD) measurements of lumbar spine and bilateral hips were obtained. COMPARISON: None. FINDINGS: Lumbar Spine (L1-L4): g/cm2 (1.123) / T-score (-0.6) / Z-score (0.7) Findings are suggestive of normal bone density with a low fracture risk. Left Femur Total: g/cm2 (0.815) / T-score (-1.5) / Z-score (-0.5) Left Femoral Neck: g/cm2 (0.762) / T-score (-2.0) / Z-score (-0.7) Right Femur Total: g/cm2 (0.767) / T-score (-1.9) / Z-score (-0.9) Right Femoral Neck: g/cm2 (0.772) / T-score (-1.9) / Z-score (-0.6) BD/Dexa Bone Density Study IMPRESSION: The patient is considered osteopenic as outlined below according to World Johnny Organization (WHO) criteria with a moderate fracture risk. Reference Information: The T-score is the number of standard deviations above or below the standard which is normal for young adults at their peak bone mineral density. The World Health Organization (WHO) interprets the T-scores as follows: Above -1 Normal bone density Between -1 and -2.5 Osteopenia Equal to / or below -2.5 Osteoporosis As a practical clinical guideline, osteopenia may be graded as follows: Mild -1 through -1.5 Moderate -1.6 through -2.0 Severe -2.1 through -2.4 The Z-score is the number of standard deviations above or below age-matched controls. A Z-score of less than -1.5 would be considered abnormal. References: 1. NIH Osteoporosis and Related Bone Diseases www osteo.org 2. International Society for Clinical Densitometry www iscd.org 3. National Osteoporosis Foundation www nof.org Electronically Signed: Marcin Littlejohn MD at 8:19 EDT , Service support ,
== END ==
PROVIDERS: PCP Internal Medicine; Referring Provider Internal Medicine; Visit Provider Internal Medicine
DX: Z13.820 Encounter for screening for osteoporosis (principal); Z78.0 Asymptomatic menopausal state
CPT/HCPCS: 77080

== ENCOUNTER → 2021-01-02 10:17 | Outpatient (CLI) | payer OTHER, SELFPAY ==
[2019-12-29 11:59] VITALS: BMI 32.7
[2020-12-30 09:47] VITALS: BMI 33.1
--- NOTE | 2021-01-02 10:19 | BI_ITS ---
MAMMOGRAPHY - BILATERAL SCREENING REASON FOR EXAM: Female, 60 years old. Routine annual screening examination. PERTINENT HISTORY: Non-contributory. TECHNIQUE: Digital bilateral breast yandel (3D mammographic acquisition) in the CC and MLO projections. 2-D mediolateral oblique (MLO) and craniocaudad (CC) views of both breasts were obtained. CAD: Full Field Digital Mammography with Computer Added Detection was performed. COMPARISON: Comparison is made with prior study dated 01/01/2020 and 01/21/2019. FINDINGS: Breast Composition: The breasts are heterogeneously dense, which may obscure small masses. There are no dominant masses or suspicious calcifications. Stable small benign-appearing bilateral axillary lymph nodes. No other significant abnormalities are identified. There has been no significant change since the prior study. BI/SCRN MAMM (CAD)W/YANDEL BILAT IMPRESSION: Stable bilateral screening mammogram. Yearly follow-up mammogram recommended. (A) ASSESSMENT CATEGORY: BIRADS Category 2: Benign. A letter regarding these results will be sent to the patient by the facility within 30 days. Approximately 10% of breast cancers are not detected by mammography. A normal mammogram should not delay biopsy of a clinically suspicious abnormality. [id number] Electronically Signed: Irineo Cruz MD at 11:51 EDT , Service support ,
== END ==
PROVIDERS: PCP Internal Medicine; Referring Provider Nurse Practitioner Women's Health; Visit Provider Nurse Practitioner Women's Health
DX: Z12.31 Encounter for screening mammogram for malignant neoplasm of breast (principal)
CPT/HCPCS: 77063; 77067

== ENCOUNTER → 2021-02-13 12:57 | Outpatient (CLI) | payer OTHER, SELFPAY ==
--- NOTE | 2021-02-13 13:00 | RAD_ITS ---
STUDY: X-RAY CHEST REASON FOR EXAM: Female, 61 years old. covid TECHNIQUE: PA and lateral views of the chest. COMPARISON: None. FINDINGS: Elevation of the right hemidiaphragm. Mild increased markings at the lung bases suggestive mild degree of scarring. No focal infiltrate is seen. There is no demonstrated pleural abnormality. Normal size heart. Normal mediastinum and benjy. Normal visualized pulmonary arteries. Normal visualized aortic arch and descending thoracic aorta. There are diffuse degenerative changes of the visualized thoracic spine. Normal visualized ribs, clavicles, and shoulders. There is no demonstrated abnormality of the visualized soft tissue structures of the upper abdomen. RAD/Chest PA and Lateral IMPRESSION: Findings suggest mild degree of bibasilar scarring. Electronically Signed: Irineo Cruz MD at 15:25 EDT , Service support ,
== END ==
PROVIDERS: PCP Internal Medicine; Referring Provider Internal Medicine; Visit Provider Internal Medicine
DX: U07.1 COVID-19 (principal)
CPT/HCPCS: 71046

== ENCOUNTER → 2021-09-19 | Outpatient (CLI) | payer OTHER, SELFPAY ==
[2021-09-19 09:20] LABS: Absolute Lymphocyte Count 1.75 X10^3/uL (0.83-4.51); Absolute Neutrophil Count 2.7 X10^3/uL (2.0-7.7); Basophil# 0.05 X10^3/uL; Eosinophil# 0.14 X10^3/uL; Eosinophils% 2.7 % (0-5); Hematocrit 43.7 % (37-47); Hemoglobin 14.1 g/dL (12.0-15.0); Lymphocyte # 1.75 X10^3/ul (0.83-4.51); Lymphocyte % 33.9 % (19-41); Mean Corp Hgb Conc 32.3 g/dL (32-36); Mean Corpuscular Hgb 27.8 pg (27.0-32.0); Mean Platelet Vol. 11.1 fl (6.2-12.0); Monocyte# 0.52 X10^3/uL; Monocyte% 10.1 % (0-10); NRBC Flagged by Analyzer 0 % (0-5); Neutrophil # 2.69 X10^3/uL (2.7-7.7); Neutrophil % 52.1 % (47-70); Platelet Count 206 K/mm3 (150-450); RBC Distribution Width CV 13.5 % (11.6-14.6); Red Blood Count 5.08 M/mm3 (4.2-5.4); White Blood Count 5.2 K/mm3 (4.4-11.0)
[2021-09-19 09:56] LABS: AST(SGOT) 14 U/L (15-37); Alanine Aminotransfer ALT/SGPT 23 U/L (13-56); Albumin, Serum 3.5 g/dL (3.2-5.0); Alkaline Phosphatase 78 U/L (45-117); Anion Gap 2 (5-15); BUN 9 mg/dL (7-18); BUN/Creat Ratio 11.7 RATIO (10-20); Calcium,Total 9.1 mg/dL (8.5-10.1); Chloride 110 mmol/L (98-107); Cholesterol 171 mg/dL (200); Creatinine, Serum 0.77 mg/dL (0.55-1.02); EST Glomerular Filtration Rate 80 mL/min (>60); Est Glom Filt Rate - Afr Amer 97 mL/min (>60); Globulin 3.4 g/dL (2.2-4.2); Glucose 89 mg/dL (74-106); High Density Lipoprotein 48 mg/dL; Protein, Total 6.9 g/dL (6.4-8.2); Sodium Level 141 mmol/L (136-145); Thyroid Stim Hormone (TSH) 0.77 uIU/mL (0.358-3.74); Triglycerides 171 mg/dL; Very Low Density Lipoprotein 34 mg/dL (5-40)
== END | disposition home or self-care (01) ==
LOC: LAB 07:47
PROVIDERS: PCP Internal Medicine; Referring Provider Nurse Practitioner Family; Visit Provider Nurse Practitioner Family
DX: I10 Essential (primary) hypertension (principal); E03.9 Hypothyroidism, unspecified; E78.5 Hyperlipidemia, unspecified; M19.90 Unspecified osteoarthritis, unspecified site; K21.9 Gastro-esophageal reflux disease without esophagitis
CPT/HCPCS: 36415; 80053; 80061; 84443; 85025

== ENCOUNTER → 2022-01-03 | Outpatient (CLI) | payer OTHER, SELFPAY ==
[2021-01-02 10:46] VITALS: BMI 33.1
--- NOTE | 2022-01-03 13:13 | BI_ITS ---
MAMMOGRAPHY - BILATERAL SCREENING REASON FOR EXAM: Female, 61 years old. Routine annual screening examination. PERTINENT HISTORY: Non-contributory. TECHNIQUE: Digital bilateral breast yandel (3D mammographic acquisition) in the CC and MLO projections. 2-D mediolateral oblique (MLO) and craniocaudad (CC) views of both breasts were obtained. CAD: Full Field Digital Mammography with Computer Added Detection was performed. COMPARISON: Comparison is made with prior study dated 01/02/2021 and 01/01/2020. FINDINGS: Breast Composition: The breasts are heterogeneously dense, which may obscure small masses. There are no dominant masses or suspicious calcifications. Stable small benign appearing bilateral axillary lymph nodes. No other significant abnormalities are identified. There has been no significant change since the prior study. BI/SCRN MAMM (CAD)W/YANDEL BILAT IMPRESSION: Stable bilateral screening mammogram. Yearly follow-up mammogram recommended. (A) ASSESSMENT CATEGORY: BIRADS Category 2: Benign. A letter regarding these results will be sent to the patient by the facility within 30 days. Approximately 10% of breast cancers are not detected by mammography. A normal mammogram should not delay biopsy of a clinically suspicious abnormality. [id number] Electronically Signed: Irineo Cruz MD at 14:02 EDT ,
== END | disposition home or self-care (01) ==
PROVIDERS: PCP Internal Medicine; Visit Provider Nurse Practitioner Women's Health
DX: Z12.31 Encounter for screening mammogram for malignant neoplasm of breast (principal)
CPT/HCPCS: 77063; 77067

== ENCOUNTER → 2022-03-30 | Outpatient (CLI) | payer OTHER, SELFPAY ==
[2022-03-30 12:57] LABS: Thyroid Stim Hormone (TSH) 0.49 uIU/mL (0.358-3.74)
== END | disposition home or self-care (01) ==
LOC: BIMLAB 09:39
PROVIDERS: PCP Internal Medicine; Referring Provider Nurse Practitioner Family; Visit Provider Nurse Practitioner Family
DX: E03.9 Hypothyroidism, unspecified (principal)
CPT/HCPCS: 36415; 84443

== ENCOUNTER → 2022-10-05 | Outpatient (CLI) | payer OTHER, SELFPAY ==
[2022-10-05 12:37] LABS: Absolute Lymphocyte Count 1.52 X10^3/uL (0.83-4.51); Absolute Neutrophil Count 2.7 X10^3/uL (2.0-7.7); Basophil# 0.08 X10^3/uL; Basophil% 1.6 % (0-1); Eosinophil# 0.17 X10^3/uL; Eosinophils% 3.5 % (0-5); Hematocrit 45.8 % (37-47); Hemoglobin 14.9 g/dL (12.0-15.0); Lymphocyte # 1.52 X10^3/ul (0.83-4.51); Mean Corp Hgb Conc 32.5 g/dL (32-36); Mean Corpuscular Hgb 28.1 pg (27.0-32.0); Mean Corpuscular Volume 86.3 fL (81-99); Mean Platelet Vol. 11.2 fl (6.2-12.0); Monocyte# 0.49 X10^3/uL; NRBC Flagged by Analyzer 0 % (0-5); Neutrophil # 2.65 X10^3/uL (2.7-7.7); Neutrophil % 53.9 % (47-70); Platelet Count 227 K/mm3 (150-450); RBC Distribution Width CV 13.2 % (11.6-14.6); RBC Distribution Width SD 41.5 fl (35.1-43.9); Red Blood Count 5.31 M/mm3 (4.2-5.4); White Blood Count 4.9 K/mm3 (4.4-11.0)
[2022-10-05 13:28] LABS: ALB/GLOB Ratio 1.1 RATIO (0.9-2.4); AST(SGOT) 16 U/L (15-37); Alanine Aminotransfer ALT/SGPT 30 U/L (13-56); Albumin, Serum 3.7 g/dL (3.2-5.0); Alkaline Phosphatase 92 U/L (45-117); Anion Gap 7 (5-15); BUN 12 mg/dL (7-18); BUN/Creat Ratio 14.5 RATIO (10-20); Calcium,Total 9.4 mg/dL (8.5-10.1); Chloride 110 mmol/L (98-107); Cholesterol 155 mg/dL (200); Creatinine, Serum 0.82 mg/dL (0.55-1.02); EST Glomerular Filtration Rate 74 mL/min (>60); Est Glom Filt Rate - Afr Amer 90 mL/min (>60); Globulin 3.4 g/dL (2.2-4.2); Glucose 96 mg/dL (74-106); High Density Lipoprotein 44 mg/dL; Potassium 3.9 mmol/L (3.5-5.1); Protein, Total 7.1 g/dL (6.4-8.2); Sodium Level 143 mmol/L (136-145); Thyroid Stim Hormone (TSH) 0.19 uIU/mL (0.358-3.74); Triglycerides 136 mg/dL; Very Low Density Lipoprotein 27 mg/dL (5-40)
== END | disposition home or self-care (01) ==
LOC: BIMLAB 09:05
PROVIDERS: PCP Internal Medicine; Referring Provider Nurse Practitioner Family; Visit Provider Nurse Practitioner Family
DX: Z00.00 Encounter for general adult medical examination without abnormal findings (principal)
CPT/HCPCS: 36415; 80053; 80061; 84443; 85025

== ENCOUNTER → 2022-11-02 | Outpatient (CLI) | payer OTHER, SELFPAY ==
--- NOTE | 2022-11-02 10:55 | RAD_ITS ---
HISTORY: Chronic cough. TECHNIQUE: XR Chest 2 Views. COMPARISON: 02/13/2021. FINDINGS: CARDIOMEDIASTINAL BORDERS: Cardiac silhouette within normal limits in size. Mediastinal contour unremarkable with calcification of the aorta. LUNGS: Chronic interstitial opacities with a peripheral and bibasilar predominance. Chronic elevation of the right hemidiaphragm. PLEURA: No pleural effusion or pneumothorax seen. OSSEOUS STRUCTURES: Degenerative change. RAD/Chest PA and Lateral IMPRESSION: Chronic interstitial scarring or lung disease. Electronically Signed: Karmen Gonzalez MD at 9:05 EDT ,
== END | disposition home or self-care (01) ==
LOC: RAD 10:54
PROVIDERS: PCP Internal Medicine; Referring Provider Internal Medicine; Visit Provider Internal Medicine
DX: R05.3 Chronic cough (principal)
CPT/HCPCS: 71046

== ENCOUNTER → 2022-11-06 | Outpatient (CLI) | payer OTHER, SELFPAY ==
--- NOTE | 2022-11-06 16:06 | PFT_ITS ---
INTRODUCTION: The patient is a 62-year-old female that presents for pulmonary function studies secondary to a diagnosis of cough. Respiratory therapy reported good patient effort. Bronchodilators were used during testing. INTERPRETATION: Forced expiration spirometry demonstrates no evidence of a large airways obstructive ventilatory defect. There was no significant response to aerosolized bronchodilators. Spirograms are of good quality and plateau normally. Body plethysmography was performed and revealed a decreased TLC to 4.14 L, 82% of predicted, indicative of a mild restrictive ventilatory impairment. Diffusing capacity by single breath CO was within normal limits. IMPRESSION: Mild restrictive ventilatory impairment with preserved diffusing capacity, like ly secondary to body habitus.
== END | disposition home or self-care (01) ==
PROVIDERS: PCP Internal Medicine; Referring Provider Internal Medicine; Visit Provider Internal Medicine
DX: R05.3 Chronic cough (principal)
CPT/HCPCS: 94060; 94726; 94729

== ENCOUNTER → 2022-12-07 | Outpatient (CLI) | payer OTHER, SELFPAY ==
[2022-12-07 12:59] LABS: Thyroid Stim Hormone (TSH) 0.51 uIU/mL (0.358-3.74)
== END | disposition home or self-care (01) ==
LOC: BIMLAB 08:02
PROVIDERS: PCP Internal Medicine; Referring Provider Nurse Practitioner Family; Visit Provider Nurse Practitioner Family
DX: E03.9 Hypothyroidism, unspecified (principal)
CPT/HCPCS: 36415; 84443

== ENCOUNTER → 2022-12-21 | Outpatient (CLI) | payer OTHER, SELFPAY ==
--- NOTE | 2022-12-21 07:49 | CT_ITS ---
STUDY: CT CHEST WITHOUT CONTRAST REASON FOR EXAM: Female, 62 years old. Abnormal Chest X-ray. Lung scarring. COUGH X 1 YEAR RADIATION DOSAGE (If Supplied By Facility): CTDIvol = ( 14.79 ) mGy, DLP = ( 539.70 ) mGycm TECHNIQUE: Transaxial imaging was performed without the administration of intravenous contrast material. Multiplanar coronal and sagittal images were reformatted. Individualized dose optimization techniques were used for this CT. COMPARISON: Comparison is made with prior chest radiograph dated November 02, 2022. FINDINGS: CHEST Small benign-appearing bilateral axillary lymph nodes. Increased interstitial markings in both lungs in a preferential peripheral pattern worse in the lower lobes. There is evidence of a subpleural scarring as well as a blebs. This is suggestive of a chronic interstitial fibrosis. There is no demonstrated pleural abnormality. There are calcifications of the coronary arteries. There are multiple small lymph nodes within the mediastinum, which are normal in size and morphology most compatible with reactive lymph hyperplasia. Normal hilar regions. Normal unenhanced pulmonary arteries. Normal aorta arch and descending thoracic aorta. There are multi-level degenerative changes of the thoracic spine. Small gallstones. Small hiatal hernia. CT/Chest without Contrast IMPRESSION: Findings suggestive of a chronic interstitial fibrosis. Electronically Signed: Irineo Cruz MD at 10:52 EDT ,
== END | disposition home or self-care (01) ==
LOC: CT 07:48
PROVIDERS: PCP Internal Medicine; Referring Provider Internal Medicine; Visit Provider Internal Medicine
DX: R93.89 Abnormal findings on diagnostic imaging of other specified body structures (principal); R05.3 Chronic cough
CPT/HCPCS: 71250

== ENCOUNTER → 2023-01-04 | Outpatient (CLI) | payer OTHER, SELFPAY ==
[2023-01-04 12:31] LABS: Thyroid Stim Hormone (TSH) 0.15 uIU/mL (0.358-3.74)
== END | disposition home or self-care (01) ==
LOC: BIMLAB 10:22
PROVIDERS: PCP Internal Medicine; Referring Provider Internal Medicine; Visit Provider Internal Medicine
DX: E03.9 Hypothyroidism, unspecified (principal)
CPT/HCPCS: 36415; 84443

== ENCOUNTER → 2023-01-08 | Outpatient (CLI) | payer OTHER, SELFPAY ==
--- NOTE | 2023-01-08 15:07 | BI_ITS ---
MAMMOGRAPHY - BILATERAL SCREENING REASON FOR EXAM: Female, 62 years old. Routine annual screening examination. PERTINENT HISTORY: Non-contributory. TECHNIQUE: Digital bilateral breast yandel (3D mammographic acquisition) in the CC and MLO projections. 2-D mediolateral oblique (MLO) and craniocaudad (CC) views of both breasts were obtained. CAD: Full Field Digital Mammography with Computer Added Detection was performed. COMPARISON: Comparison is made with prior study dated January 12, 2022 and January 02, 2021. FINDINGS: Breast Composition: The breasts are heterogeneously dense, which may obscure small masses. There are no dominant masses or suspicious calcifications. Stable small benign appearing bilateral axillary lymph nodes. No other significant abnormalities are identified. There has been no significant change since the prior study. BI/SCRN MAMM (CAD)W/YANDEL BILAT IMPRESSION: Stable bilateral screening mammogram. Yearly follow-up mammogram recommended. (A) ASSESSMENT CATEGORY: BIRADS Category 2: Benign. A letter regarding these results will be sent to the patient by the facility within 30 days. Approximately 10% of breast cancers are not detected by mammography. A normal mammogram should not delay biopsy of a clinically suspicious abnormality. [id number] Electronically Signed: Irineo Cruz MD at 8:12 EDT ,
== END | disposition home or self-care (01) ==
PROVIDERS: PCP Internal Medicine; Referring Provider Nurse Practitioner Women's Health; Visit Provider Nurse Practitioner Women's Health
DX: Z12.31 Encounter for screening mammogram for malignant neoplasm of breast (principal)
CPT/HCPCS: 77063; 77067; 87070; 87205

== ENCOUNTER → 2023-01-14 | Outpatient (CLI) | payer OTHER, SELFPAY ==
[2023-01-14 10:37] LABS: Erythrocyte Sedimentation Rate 12 mm/hr (0-30)
[2023-01-14 14:45] LABS: CRP < 2.90 mg/L (0.0-3.0); Rheumatoid Factor < 10.0 IU/mL (<15)
[2023-01-15 12:08] LABS: ANTINUCLEAR ANTIBODIES DIRECT Negative (Negative)
[2023-01-15 13:07] LABS: CCP IgG Antibodies 6 units (0-19); Cytoplasmic Ab (C-ANCA) <1:20 titer (Neg:<1:20); Perinuclear Ab (P-ANCA) <1:20 titer (Neg:<1:20)
== END | disposition home or self-care (01) ==
PROVIDERS: PCP Internal Medicine; Referring Provider Internal Medicine Critical Care Medicine; Visit Provider Internal Medicine Critical Care Medicine
DX: J84.10 Pulmonary fibrosis, unspecified (principal)
CPT/HCPCS: 36415; 85652; 86038; 86140; 86200; 86225; 86235; 86256; 86431

== ENCOUNTER → 2023-01-17 | Outpatient (CLI) | payer OTHER, SELFPAY ==
[2023-01-17 11:54] VITALS: PULSE 70; PULSE 74; PULSE 79; PULSE 80; PULSE 82; PULSE 84; PULSE 85; O2SAT 94; O2SAT 95; O2SAT 97; O2SAT 98
--- NOTE | 2023-01-17 11:57 | BD_ITS ---
STUDY: DUAL ENERGY X-RAY ABSORPTIOMETRY / DXA REASON FOR EXAM: Female, 62 years old. Osteopenia TECHNIQUE: Bone Mineral Density (BMD) measurements of lumbar spine and bilateral hips were obtained. COMPARISON: Comparison is made with prior study dated October 13, 2020. FINDINGS: Lumbar Spine (L1-L4): g/cm2 (1.039) / T-score (-0.1) / Z-score (1.6) Findings are suggestive of normal bone density with a low fracture risk. Left Femur Total: g/cm2 (0.794) / T-score (-1.2) / Z-score (-0.1) Left Femoral Neck: g/cm2 (0.673) / T-score (-1.6) / Z-score (-0.1) Right Femur Total: g/cm2 (0.743) / T-score (-1.6) / Z-score (-0.5) Right Femoral Neck: g/cm2 (0.656) / T-score (-1.7) / Z-score (-0.3) The T-Scores on the most recent prior examination were: Lumbar Spine (L1-L4): There has been worsening of bone density since the previous examination. Left Femur Total: which represents an improvement of 5.1%. Right Femur Total: which represents an improvement of 5%. BD/Dexa Bone Density Study IMPRESSION: The patient is considered osteopenic as outlined below according to World Johnny Organization (WHO) criteria with a moderate fracture risk. There has been improvement of bone density since the previous examination. Reference Information: The T-score is the number of standard deviations above or below the standard which is normal for young adults at their peak bone mineral density. The World Health Organization (WHO) interprets the T-scores as follows: Above -1 Normal bone density Between -1 and -2.5 Osteopenia Equal to / or below -2.5 Osteoporosis As a practical clinical guideline, osteopenia may be graded as follows: Mild -1 through -1.5 Moderate -1.6 through -2.0 Severe -2.1 through -2.4 The Z-score is the number of standard deviations above or below age-matched controls. A Z-score of less than -1.5 would be considered abnormal. References: 1. NIH Osteoporosis and Related Bone Diseases www osteo.org 2. International Society for Clinical Densitometry www iscd.org 3. National Osteoporosis Foundation www nof.org Electronically Signed: Irineo Cruz MD at 15:41 EDT ,
--- NOTE | 2023-01-21 07:52 | WT_ITS ---
PSN 6 Minute Walk Test 6 Minute Walk Test 6 Minute Walk Test: 6 Minute Walk Test PSN:6-Minute Walk Test Start: 01/17/23 11:54 Freq: Status: Active Protocol: RESP.6MINW Document 01/17/23 11:54 [facility] (Rec: 01/17/23 11:57 [facility] [id number]) 6 Minute Walk Test Date Performed 01/17/23 Time Performed 11:30 Height 5 ft 5 in Weight: 200 lb Weight in Pounds 200.[address]: Lobo Marcano Assistive device used: None Pre-test Oxygen Delivery Method Room Air Pulse Ox 97 Pulse Rate (60-100) 70 Dyspnea Tj Scale (0-10) 0 1st minute Oxygen Delivery Method Room Air Pulse Ox 98 Pulse Rate (60-100) 74 Dyspnea Tj Scale (0-10) 0 Number of Rests Taken 0 2nd minute Oxygen Delivery Method Room Air Pulse Ox 95 Pulse Rate (60-100) 80 Dyspnea Tj Scale (0-10) 1 Number of Rests Taken 0 3rd minute Oxygen Delivery Method Room Air Pulse Ox 95 Pulse Rate (60-100) 82 Dyspnea Tj Scale (0-10) 1 Number of Rests Taken 0 4th minute Oxygen Delivery Method Room Air Pulse Ox 95 Pulse Rate (60-100) 84 Dyspnea Tj Scale (0-10) 1 Number of Rests Taken 0 5th minute Oxygen Delivery Method Room Air Pulse Ox 95 Pulse Rate (60-100) 84 Dyspnea Tj Scale (0-10) 1 Number of Rests Taken 0 6th minute Oxygen Delivery Method Room Air Pulse Ox 94 Pulse Rate (60-100) 85 Dyspnea Tj Scale (0-10) 1 Number of Rests Taken 0 Post-test Oxygen Delivery Method Room Air Pulse Ox 98 Pulse Rate (60-100) 79 Dyspnea Tj Scale (0-10) 0 Full Laps Walked 21 Partial Lap, Number of Tiles Walked 0 Total Distance Walked (ft) 1239 Interpretation Interpretation: The patient ambulated 1239 feet over the course of 6 minutes beginning on room air without assistive devices. Pretesting oxygen saturation was noted to be 97% on room air. With ambulation, the efrain oxygen saturation was 94%. There was no significant exertional oxygen desaturation. Recommendations Recommendations: There is no indication for the use of supplemental oxygen at this time.
== END | disposition home or self-care (01) ==
PROVIDERS: PCP Internal Medicine; Referring Provider Nurse Practitioner Women's Health; Visit Provider Nurse Practitioner Women's Health
DX: J84.10 Pulmonary fibrosis, unspecified (principal); M85.80 Other specified disorders of bone density and structure, unspecified site
CPT/HCPCS: 77080; 94618

== ENCOUNTER → 2023-05-10 | Outpatient (CLI) | payer OTHER, SELFPAY ==
[2023-05-10 12:25] LABS: Absolute Lymphocyte Count 2.05 X10^3/uL (0.83-4.51); Absolute Neutrophil Count 4.2 X10^3/uL (2.0-7.7); Basophil# 0.06 X10^3/uL; Basophil% 0.8 % (0-1); Eosinophil# 0.13 X10^3/uL; Eosinophils% 1.8 % (0-5); Hematocrit 49.1 % (37-47); Hemoglobin 15.2 g/dL (12.0-15.0); Lymphocyte # 2.05 X10^3/ul (0.83-4.51); Lymphocyte % 28.6 % (19-41); Mean Corpuscular Hgb 26.3 pg (27.0-32.0); Mean Corpuscular Volume 85.1 fL (81-99); Mean Platelet Vol. 10.9 fl (6.2-12.0); Monocyte# 0.75 X10^3/uL; Monocyte% 10.4 % (0-10); NRBC Flagged by Analyzer 0 % (0-5); Neutrophil # 4.17 X10^3/uL (2.7-7.7); Neutrophil % 58.1 % (47-70); Platelet Count 255 K/mm3 (150-450); RBC Distribution Width CV 13.2 % (11.6-14.6); RBC Distribution Width SD 40.9 fl (35.1-43.9); Red Blood Count 5.77 M/mm3 (4.2-5.4); White Blood Count 7.2 K/mm3 (4.4-11.0)
[2023-05-10 12:38] LABS: Thyroid Stim Hormone (TSH) 0.22 uIU/mL (0.358-3.74)
== END | disposition home or self-care (01) ==
LOC: BIMLAB 11:09
PROVIDERS: PCP Internal Medicine; Referring Provider Internal Medicine; Visit Provider Internal Medicine
DX: E03.9 Hypothyroidism, unspecified (principal)
CPT/HCPCS: 36415; 84443; 85025

== ENCOUNTER → 2023-06-28 | Outpatient (CLI) | payer OTHER, SELFPAY ==
--- NOTE | 2023-06-28 12:44 | PFTCOMP_ITS ---
COMPLETE PULMONARY FUNCTION TEST INTERPRETATION Brief HPI: Patient is a 63-year-old female, currently under the care of myself, who presents to [facility] for complete pulmonary function tests secondary to diagnosis of pulmonary fibrosis. Respiratory therapist reports good effort and reproducible results. Interpretation: Forced expiration spirometry shows no large airways obstructive ventilatory defect with an FEV1 of 113% predicted. There is no significant bronchodilator response by strict ATS criteria. Spirograms are of good quality and plateau normally. The respiratory flow volume loop shows a normal pattern. Lung volumes by body plethysmography show a normal total lung capacity at 4.28 L, 84% predicted. All other lung volumes are within normal limits. Diffusion capacity by carbon monoxide is slightly decreased at 73% predicted. The airway resistance is slightly elevated. Compared to previous pulmonary function tests from 11/06/2022, there has been no significant change. Impression: Grossly normal pulmonary function test with diffusion capacity at the lower limit of normal, but no significant change compared to October 2022
== END | disposition home or self-care (01) ==
PROVIDERS: PCP Internal Medicine; Referring Provider Internal Medicine Critical Care Medicine; Visit Provider Internal Medicine Critical Care Medicine
DX: J84.10 Pulmonary fibrosis, unspecified (principal); Z87.891 Personal history of nicotine dependence
CPT/HCPCS: 94060; 94726; 94729

== ENCOUNTER → 2023-09-18 | Outpatient (CLI) | payer OTHER, SELFPAY ==
[2023-09-18 13:11] LABS: Thyroid Stim Hormone (TSH) 0.31 uIU/mL (0.358-3.74)
== END | disposition home or self-care (01) ==
LOC: BIMLAB 08:04
PROVIDERS: PCP Internal Medicine; Visit Provider Internal Medicine
DX: E03.9 Hypothyroidism, unspecified (principal)
CPT/HCPCS: 36415; 84443

== ENCOUNTER → 2023-10-24 | Outpatient (CLI) | payer OTHER, SELFPAY ==
[2023-10-24 17:03] LABS: Absolute Neutrophil Count 4.7 X10^3/uL (2.0-7.7); Basophil# 0.09 X10^3/uL; Basophil% 1.1 % (0-1); Eosinophil# 0.17 X10^3/uL; Eosinophils% 2.1 % (0-5); Hematocrit 46.5 % (37-47); Hemoglobin 14.6 g/dL (12.0-15.0); Lymphocyte % 28.8 % (19-41); Mean Corp Hgb Conc 31.4 g/dL (32-36); Mean Corpuscular Hgb 26.6 pg (27.0-32.0); Mean Corpuscular Volume 84.7 fL (81-99); Mean Platelet Vol. 10.9 fl (6.2-12.0); Monocyte# 0.71 X10^3/uL; Monocyte% 8.9 % (0-10); NRBC Flagged by Analyzer 0 % (0-5); Neutrophil % 58.8 % (47-70); Platelet Count 251 K/mm3 (150-450); RBC Distribution Width CV 13.7 % (11.6-14.6); RBC Distribution Width SD 42.3 fl (35.1-43.9); Red Blood Count 5.49 M/mm3 (4.2-5.4)
[2023-10-24 17:29] LABS: AST(SGOT) 18 U/L (15-37); Alanine Aminotransfer ALT/SGPT 24 U/L (13-56); Albumin, Serum 3.7 g/dL (3.2-5.0); Alkaline Phosphatase 100 U/L (45-117); Anion Gap 5 (5-15); BUN 10 mg/dL (7-18); BUN/Creat Ratio 9.7 RATIO (10-20); Calcium,Total 9.6 mg/dL (8.5-10.1); Chloride 106 mmol/L (98-107); Cholesterol 189 mg/dL (200); Creatinine, Serum 1.03 mg/dL (0.55-1.02); EST Glomerular Filtration Rate 57 mL/min (>60); Est Glom Filt Rate - Afr Amer 69 mL/min (>60); Globulin 3.6 g/dL (2.2-4.2); Glucose 98 mg/dL (74-106); High Density Lipoprotein 46 mg/dL; Potassium 4.2 mmol/L (3.5-5.1); Protein, Total 7.3 g/dL (6.4-8.2); Sodium Level 139 mmol/L (136-145); Thyroid Stim Hormone (TSH) 0.72 uIU/mL (0.358-3.74); Triglycerides 230 mg/dL; Very Low Density Lipoprotein 46 mg/dL (5-40)
== END | disposition home or self-care (01) ==
LOC: BIMLAB 15:27
PROVIDERS: PCP Internal Medicine; Visit Provider Internal Medicine
DX: Z00.00 Encounter for general adult medical examination without abnormal findings (principal); E03.9 Hypothyroidism, unspecified
CPT/HCPCS: 36415; 80053; 80061; 84443; 85025

== ENCOUNTER → 2023-12-02 | Outpatient (CLI) | payer OTHER, SELFPAY ==
[2023-12-02 12:56] LABS: Anion Gap 4 (5-15); BUN 13 mg/dL (7-18); BUN/Creat Ratio 14.9 RATIO (10-20); Calcium,Total 9.5 mg/dL (8.5-10.1); Chloride 107 mmol/L (98-107); Creatinine, Serum 0.87 mg/dL (0.55-1.02); EST Glomerular Filtration Rate 69 mL/min (>60); Est Glom Filt Rate - Afr Amer 84 mL/min (>60); Glucose 81 mg/dL (74-106); Potassium 4.5 mmol/L (3.5-5.1); Sodium Level 139 mmol/L (136-145)
== END | disposition home or self-care (01) ==
LOC: BIMLAB 09:47
PROVIDERS: PCP Internal Medicine; Referring Provider Internal Medicine; Visit Provider Internal Medicine
DX: I10 Essential (primary) hypertension (principal)
CPT/HCPCS: 36415; 80048

== ENCOUNTER → 2024-01-14 | Outpatient (CLI) | payer OTHER, SELFPAY ==
--- NOTE | 2024-01-14 14:31 | BI_ITS ---
MAMMOGRAPHY - BILATERAL SCREENING REASON FOR EXAM: Female, 63 years old. Routine annual screening examination. PERTINENT HISTORY: Non-contributory. TECHNIQUE: Digital bilateral breast yandel (3D mammographic acquisition) in the CC and MLO projections. 2-D mediolateral oblique (MLO) and craniocaudad (CC) views of both breasts were obtained. CAD: Full Field Digital Mammography with Computer Added Detection was performed. COMPARISON: Comparison is made with prior study January 08, 2023 and January 03, 2022. FINDINGS: Breast Composition: The breasts are heterogeneously dense, which may obscure small masses. There are no dominant masses or suspicious calcifications. No other significant abnormalities are identified. There has been no significant change since the prior study. BI/SCRN MAMM (CAD)W/YANDEL BILAT IMPRESSION: Stable bilateral screening mammogram. Yearly follow-up mammogram recommended. (A) ASSESSMENT CATEGORY: BIRADS Category 1: Negative. A letter regarding these results will be sent to the patient by the facility within 30 days. Approximately 10% of breast cancers are not detected by mammography. A normal mammogram should not delay biopsy of a clinically suspicious abnormality. [id number] Electronically Signed: Irineo Cruz MD at 15:25 EDT ,
== END | disposition home or self-care (01) ==
LOC: OPBD 14:31
PROVIDERS: PCP Internal Medicine; Referring Provider Nurse Practitioner Women's Health; Visit Provider Nurse Practitioner Women's Health
DX: Z12.31 Encounter for screening mammogram for malignant neoplasm of breast (principal)
CPT/HCPCS: 77063; 77067

== ENCOUNTER → 2024-01-16 | Outpatient (CLI) | payer OTHER, SELFPAY | END | disposition home or self-care (01) | LOC: LABSPEC 10:03 | PROVIDERS: PCP Internal Medicine; Referring Provider Physician Assistant Surgical; Visit Provider Physician Assistant Surgical | DX: N39.0 Urinary tract infection, site not specified (principal) | CPT/HCPCS: 87086; 87088; 87186 ==

== ENCOUNTER 2024-02-26 15:30 | Outpatient (RCR) | payer OTHER, SELFPAY ==
--- NOTE | 2024-01-21 15:24 | HP.PTEVAL ---
Patient's Visit Information Visit Information Visit Information: SANDRA OH is a 63 year old F referred to Physical Therapy by Dr. Isai Gage DO with a diagnosis of R knee OA. Date of Evaluation: 01/15/24 Physical Therapist: Bridger Bryson DPT Visit Plan Frequency: 2x /Week Duration: 6 Weeks Plan: Start with quad, hip core strengthening. Initially OKC progressing to CKC. Add in knee flexion/extension ROM and HS stretching. Consider tibialfemoral joint mobs grade III/IV Bike to work on ROM as well. Subjective Subjective: Pt. is here today for her initial evaluation with diagnosis of R knee OA. Pt. reports she was about to have a R TKA just prior to the COVID pandemic. Pt. decided not to have it done due to this. She is now back at the point where she considering this again. 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 She reports not being able to leave her computer much and has been more stationary than previously. Pt. is hopeful to increase her ROM and strength prior to having a TKA. She was concerned about some of the potential side effects of surgery, I did talk with her about yes than can occur, but typically they do not. Pt. reports having some comfort after talking about this as well. Pain R knee: Pain Intensity (Out of 10): 2 Pain Intensity Range: 0 and 4 Objective Objective: POSTURE: Pt. has fairly normal posture in stance. No obvious lateral weight shifting noted. PALPATION: PT. has tenderness at medial joint line, but not much else. NEURO: normal throughout BLEs. ROM: lacking 8 deg of extension, but did improve after stretching. Flexion 113deg. with progressive flexion ROM this date. MMT: RLE: knee: ext 13.7#, flexion 12.9#; hip flexion 11.3#, abd 13.4#. LLE: knee: ext 19.7#, flexion 15.3#; hip: flexion 15.3#, abd 13.4#. Core strength: fair-. GAIT: Pt. has fairly normal gait pattern, slight lack of TKE on R knee with stance phase. No marked pain with her mobility. Slight hip ER with R stance phase, no circumduction noted. STAIRS: mild increase in symptoms with controlled descending. Uses 2 HR to complete. Balance/Special Test Scores Lower Extremity Functional Score: 55 Goals Goal 1:: LTG: Pt. to be I with HEP for R knee ROM and strengthening. Goal Time Frame: 4-6 Weeks Goal 2:: LTG: Pt. to be able to ambulate with normal gait pattern without increase in symptoms. Goal Time Frame: 4-6 Weeks Goal 3:: LTG: Pt. to have increased R knee ROM to 0-0-120deg. Goal Time Frame: 4-6 Weeks Goal 4:: LTG: Pt. to have symmetrical strength between BLEs, note to quad, HS, hip abd allowing for increased stability with gait and functional mobility. Goal Time Frame: 4-6 Weeks Goal 5:: LTG: Pt. to complete stair negotiation with 1 HR with reciprocal pattern without increase in R knee pain. Goal Time Frame: 4-6 Weeks Rehabilitation Potential Physical Therapy Diagnosis: Pt. has signs and symptoms consistent with R knee OA. Pt. has marked hypomobility, weakness of her RLE. These limitations are limiting her general functional mobility. Rehabilitation Potential: Excellent Anticipated Interventions Patient/Client Instruction: Educate patient on: Condition, Plan of Care, Risk Factors and Benefits of Fitness Program For the Purpose of:: To improve self management, To prevent re-injury, To improve ability to perform tasks related to life management and To improve tolerance to ADL's Therapeutic Exercise to Include: Strength training, Power training, Postural training and Dynamic Lumbar Stabilization For the Purpose of:: To decrease pain, To increase ROM, To increase oxygenation perfusion, To increase flexibility/ROM, To improve endurance, To improve balance and To improve safety with gait Manual Therapy Techniques to Include: Mobilization and Passive ROM For the Purpose of:: To decrease pain, To increase ROM, To improve gait and locomotor functions and To decrease soft tissue restriction Text: Thank you for the opportunity to evaluate your patient. For Medicare and Medicare HMO plans, please review the plan of care and approve it. It will need to be FAXED BACK to us at [phone] for Medicare purposes. For Medicare only, by signing this I certify the plan of care. Please let me know if there are questions or concerns regarding this plan of care. Physician Signature: Date:
--- NOTE | 2024-07-02 10:52 | HP.PTDCSUM ---
Discharge Summary D/C summary: It has been my pleasure to treat SANDRA OH referred by Dr. Isai Gage DO, with the diagnosis of R knee OA for a total of 12 visit(s). Discharge Date: 02/26/24 Please see the following information for a summary of their discharge status. Subjective Subjective: Pt reporting she is ready for d/c- feels good about HEP and gym routine at [facility] Pain R knee: Pain Intensity (Out of 10): 2 Overall Improvement % Improvement: 20 Objective Objective/Function: Pt feels like she has a good program to cont with at home and at center for strengthening. reviewed gym equip ex's again today with pt. Goals Goal 1:: LTG: Pt. to be I with HEP for R knee ROM and strengthening. Goal Progress: Progressing Goal 2:: LTG: Pt. to be able to ambulate with normal gait pattern without increase in symptoms. Goal Progress: Progressing Goal 3:: LTG: Pt. to have increased R knee ROM to 0-0-120deg. Goal Progress: Goal Met Goal 4:: LTG: Pt. to have symmetrical strength between BLEs, note to quad, HS, hip abd allowing for increased stability with gait and functional mobility. Goal Progress: Goal Met Goal 5:: LTG: Pt. to complete stair negotiation with 1 HR with reciprocal pattern without increase in R knee pain. Goal Progress: Progressing Plan Plan: re- check by PT today. Pt has a copy of ex log for her to complete [facility]. Pt is still pending TKR but its not scheduled yet. Good understanding of gym/home ex's D/C Information d/c sentence: If there are questions or concerns regarding this patient's physical therapy, please feel free to call me at [phone]. Thank you for the referral of this patient. Sincerely, Bridger Simmonsos, DPT Balance/Gait/Functional tests Balance/Special Test Scores Lower Extremity Functional Score: 64 Improvement % Improvement: 20
== END 2024-02-26 19:00 | disposition home or self-care (01) ==
LOC: PT 15:30
PROVIDERS: PCP Internal Medicine; Referring Provider Orthopaedic Surgery; Visit Provider Orthopaedic Surgery
DX: M17.11 Unilateral primary osteoarthritis, right knee (principal)
CPT/HCPCS: 97110; 97161; 97530

== ENCOUNTER → 2024-05-02 | Outpatient (CLI) | payer OTHER, SELFPAY ==
[2024-05-02 10:34] LABS: AST(SGOT) 12 U/L (15-37); Alanine Aminotransfer ALT/SGPT 25 U/L (13-56); Albumin, Serum 3.6 g/dL (3.2-5.0); Alkaline Phosphatase 106 U/L (45-117); Anion Gap 0 (5-15); BUN 10 mg/dL (7-18); BUN/Creat Ratio 13.2 RATIO (10-20); Calcium,Total 9.2 mg/dL (8.5-10.1); Chloride 110 mmol/L (98-107); Cholesterol 150 mg/dL (200); Creatinine, Serum 0.76 mg/dL (0.55-1.02); EST Glomerular Filtration Rate 82 mL/min (>60); Est Glom Filt Rate - Afr Amer 99 mL/min (>60); Globulin 3.6 g/dL (2.2-4.2); Glucose 95 mg/dL (74-106); High Density Lipoprotein 48 mg/dL; Potassium 4.5 mmol/L (3.5-5.1); Protein, Total 7.2 g/dL (6.4-8.2); Sodium Level 141 mmol/L (136-145); Thyroid Stim Hormone (TSH) 0.676 uIU/mL (0.358-3.740); Triglycerides 106 mg/dL; Very Low Density Lipoprotein 21 mg/dL (5-40)
== END | disposition home or self-care (01) ==
LOC: LAB 08:46
PROVIDERS: PCP Internal Medicine; Referring Provider Internal Medicine; Visit Provider Internal Medicine
DX: I10 Essential (primary) hypertension (principal); E03.9 Hypothyroidism, unspecified
CPT/HCPCS: 36415; 80053; 80061; 84443

== ENCOUNTER → 2024-06-13 | Outpatient (CLI) | payer OTHER, SELFPAY ==
[2024-06-13 09:17] LABS: ALB/GLOB Ratio 0.9 RATIO (0.9-2.4); AST(SGOT) 14 U/L (15-37); Alanine Aminotransfer ALT/SGPT 19 U/L (13-56); Albumin, Serum 3.5 g/dL (3.2-5.0); Alkaline Phosphatase 104 U/L (45-117); Anion Gap 1 (5-15); BUN 13 mg/dL (7-18); Calcium,Total 9.5 mg/dL (8.5-10.1); Chloride 109 mmol/L (98-107); Creatinine, Serum 0.93 mg/dL (0.55-1.02); EST Glomerular Filtration Rate 64 mL/min (>60); Est Glom Filt Rate - Afr Amer 78 mL/min (>60); Globulin 3.7 g/dL (2.2-4.2); Glucose 98 mg/dL (74-106); Potassium 4.2 mmol/L (3.5-5.1); Protein, Total 7.2 g/dL (6.4-8.2); Sodium Level 140 mmol/L (136-145)
== END | disposition home or self-care (01) ==
PROVIDERS: PCP Internal Medicine; Referring Provider Internal Medicine; Visit Provider Internal Medicine
DX: I10 Essential (primary) hypertension (principal)

== ENCOUNTER → 2024-08-04 | Outpatient (CLI) | payer OTHER, SELFPAY | END | disposition home or self-care (01) | LOC: LABSPEC 08:49 | PROVIDERS: PCP Internal Medicine; Visit Provider Physician Assistant | DX: R30.0 Dysuria (principal) | CPT/HCPCS: 87086; 87088 ==

== ENCOUNTER → 2024-10-17 | Outpatient (CLI) | payer OTHER, SELFPAY ==
[2024-10-17 08:42] LABS: Absolute Lymphocyte Count 1.72 X10^3/uL (0.83-4.51); Absolute Neutrophil Count 4.5 X10^3/uL (2.0-7.7); Basophil# 0.08 X10^3/uL; Basophil% 1.1 % (0-1); Eosinophils% 1.4 % (0-5); Hematocrit 46.9 % (37-47); Hemoglobin 15.1 g/dL (12.0-15.0); Lymphocyte # 1.72 X10^3/ul (0.83-4.51); Lymphocyte % 24.6 % (19-41); Mean Corp Hgb Conc 32.2 g/dL (32-36); Mean Corpuscular Hgb 27.3 pg (27.0-32.0); Mean Corpuscular Volume 84.8 fL (81-99); Mean Platelet Vol. 10.6 fl (6.2-12.0); Monocyte# 0.59 X10^3/uL; Monocyte% 8.5 % (0-10); NRBC Flagged by Analyzer 0 % (0-5); Neutrophil # 4.48 X10^3/uL (2.7-7.7); Neutrophil % 64.3 % (47-70); Platelet Count 243 K/mm3 (150-450); RBC Distribution Width CV 14.1 % (11.6-14.6); RBC Distribution Width SD 43.5 fl (35.1-43.9); Red Blood Count 5.53 M/mm3 (4.2-5.4)
[2024-10-17 09:22] LABS: ALB/GLOB Ratio 1.5 RATIO (0.9-2.4); AST(SGOT) 19 U/L (<=31); Alanine Aminotransfer ALT/SGPT 13 U/L (<=34); Albumin, Serum 4.3 g/dL (3.4-4.8); Alkaline Phosphatase 97 U/L (35-104); Anion Gap 9 (5-15); BUN 14 mg/dL (4-19); BUN/Creat Ratio 15.8 RATIO (10-20); Calcium,Total 9.8 mg/dL (7.6-11.0); Carbon Dioxide 26.2 mmol/L (21.0-32.0); Chloride 105 mmol/L (98-108); Cholesterol 174 mg/dL (<=200); Creatinine, Serum 0.86 mg/dL (0.70-1.20); EST Glomerular Filtration Rate 75 (>60); Globulin 2.8 g/dL (2.2-4.2); Glucose 100 mg/dL (70-99); High Density Lipoprotein 46 mg/dL; Low Density Lipoprotein Calc. 98 mg/dL; Potassium 4.5 mmol/L (3.3-5.1); Protein, Total 7.1 g/dL (5.9-8.4); Sodium Level 140 mmol/L (133-145); Total Bilirubin 0.57 mg/dL (0.00-1.30); Triglycerides 148 mg/dL; Very Low Density Lipoprotein 30 mg/dL (5-40); cholesterol:hdl ratio screen 3.77
== END | disposition home or self-care (01) ==
LOC: LAB 08:03
PROVIDERS: PCP Internal Medicine; Referring Provider Internal Medicine; Visit Provider Internal Medicine
DX: Z00.00 Encounter for general adult medical examination without abnormal findings (principal); E03.9 Hypothyroidism, unspecified
CPT/HCPCS: 36415; 80053; 80061; 84443; 85025

== ENCOUNTER 2024-11-17 09:27 | Outpatient (CLI) | payer OTHER, SELFPAY | END 2024-11-17 23:59 | disposition home or self-care (01) | LOC: PSN 09:28 | PROVIDERS: PCP Internal Medicine; Referring Provider Internal Medicine; Visit Provider Nurse Practitioner Acute Care | DX: J84.10 Pulmonary fibrosis, unspecified (principal); G47.10 Hypersomnia, unspecified | CPT/HCPCS: 94060; 94726; 94729; 95811 ==

== ENCOUNTER → 2024-11-17 | Outpatient (CLI) | payer OTHER, SELFPAY | END | disposition home or self-care (01) | PROVIDERS: PCP Internal Medicine; Referring Provider Internal Medicine; Visit Provider Internal Medicine | DX: G47.10 Hypersomnia, unspecified (principal) | CPT/HCPCS: 95811 ==

== ENCOUNTER → 2024-11-18 | Outpatient (CLI) | payer OTHER, SELFPAY ==
--- NOTE | 2024-11-18 12:16 | CT_ITS ---
PROCEDURE: CHEST WITHOUT CONTRAST 11/18/2024 REASON FOR EXAM: PULMONARY FIBROSIS TECHNIQUE: Chest CT without contrast. Coronal and Sagittal reconstruction series were provided. One or more dose reduction techniques were used (e.g., Automated exposure control, adjustment of the mA and/or kV according to patient size, use of iterative reconstruction technique RADIATION DOSE SUMMARY: CTDlvol: 16.63 mGy DLP: 606.59 mGycm COMPARISON: Prior study dated December 21, 2022. FINDINGS: Hardware: None Lymph nodes: Small benign-appearing mediastinal lymph nodes. Heart and Vasculature: The heart is not enlarged. Coronary Artery Calcifications: Present Lungs and Airways: Since prior study, there has been progression of increased interstitial markings in both lungs involving both upper and lower lobes Pleura: No pleural effusion. Upper Abdomen: Unremarkable Bones: Degenerative changes of the thoracic spine. CT/Chest without Contrast IMPRESSION: Coronary artery calcification (CAC) is is present Progressive interstitial markings in the both lungs as described. Reading Location: [id number]
[2024-11-18 12:37] VITALS: PULSE 66; PULSE 67; PULSE 74; PULSE 80; PULSE 87; PULSE 88; PULSE 89; O2SAT 90; O2SAT 91; O2SAT 92; O2SAT 94; O2SAT 96
--- NOTE | 2024-11-20 10:54 | PCM.PSN.6M ---
PSN 6 Minute Walk Test 6 Minute Walk Test 6 Minute Walk Test: 6 Minute Walk Test PSN:6-Minute Walk Test Start: 11/18/24 12:37 Freq: Status: Active Protocol: RESP.6MINW Document 11/18/24 12:37 [facility] (Rec: 11/18/24 12:39 [facility] [id number]) 6 Minute Walk Test Date Performed 11/18/24 Time Performed 12:20 Height 5 ft 5 in Weight: 200 lb Weight in Pounds 200.[address]: Olena Cervantes [employer] Assistive device None used: Pre-test Oxygen Delivery Room Air Method Pulse Ox (%) 96 Pulse Rate (60-100 67 beats/min) Dyspnea Tj Scale ( 0.5 0-10) Exertion Tj Scale 6 (6-20) 1st minute Oxygen Delivery Room Air Method Pulse Ox (%) 94 Pulse Rate (60-100 74 beats/min) 2nd minute Oxygen Delivery Room Air Method Pulse Ox (%) 90 Pulse Rate (60-100 80 beats/min) 3rd minute Oxygen Delivery Room Air Method Pulse Ox (%) 91 Pulse Rate (60-100 87 beats/min) 4th minute Oxygen Delivery Room Air Method Pulse Ox (%) 91 Pulse Rate (60-100 88 beats/min) 5th minute Oxygen Delivery Room Air Method Pulse Ox (%) 91 Pulse Rate (60-100 89 beats/min) 6th minute Oxygen Delivery Room Air Method Pulse Ox (%) 92 Pulse Rate (60-100 89 beats/min) Dyspnea Tj Scale ( 3 0-10) Exertion Tj Scale 13 (6-20) Post-test Oxygen Delivery Room Air Method Pulse Ox (%) 96 Pulse Rate (60-100 66 beats/min) Full Laps Walked 18 Partial Lap, Number 27 of Tiles Walked Total Distance 1089 Walked (ft) Interpretation Interpretation: The patient ambulated 1089 feet over the course of 6 minutes beginning on room air without assistive devices. Pretesting oxygen saturation was noted to be 96% on room air. With ambulation, the efrain oxygen saturation was 90%. This represents a significant exertional oxygen desaturation, consistent with a pulmonary limitation to exercise tolerance. Recommendations Recommendations: There is no indication for the use of supplemental oxygen at this time. However, close interval follow-up is recommended, given the degree of oxygen desaturation noted during this study.
== END | disposition home or self-care (01) ==
PROVIDERS: PCP Internal Medicine; Referring Provider Nurse Practitioner Acute Care; Visit Provider Nurse Practitioner Acute Care
DX: J84.10 Pulmonary fibrosis, unspecified (principal)
CPT/HCPCS: 71250; 94618

== ENCOUNTER → 2024-11-30 | Outpatient (CLI) | payer OTHER, SELFPAY ==
[2024-12-01 12:08] LABS: ANTINUCLEAR ANTIBODIES DIRECT Negative (Negative)
[2024-12-03 16:09] LABS: Aspirgillus flavus Negative (Neg:<1:1); Aspirgillus fumigatus Negative (Neg:<1:1); Aspirgillus niger Negative (Neg:<1:1); Cytoplasmic Ab (C-ANCA) <1:20 titer (Neg:<1:20); Perinuclear Ab (P-ANCA) <1:20 titer (Neg:<1:20)
== END | disposition home or self-care (01) ==
LOC: LAB 12:02
PROVIDERS: PCP Internal Medicine; Referring Provider Internal Medicine Critical Care Medicine; Visit Provider Internal Medicine Critical Care Medicine
DX: J84.9 Interstitial pulmonary disease, unspecified (principal)
CPT/HCPCS: 36415; 82785; 86037; 86038; 86225; 86606

== ENCOUNTER → 2025-01-19 | Outpatient (CLI) | payer OTHER, SELFPAY ==
--- NOTE | 2025-01-19 16:24 | BI_ITS ---
EXAM: SCRN MAMM (CAD)W/YANDEL BILAT DATE: 01/19/2025 CLINICAL HISTORY: F, Age 64 y/o , SCREEN FOR BREAST CANCER No family history. TECHNIQUE: SCRN MAMM (CAD)W/YANDEL BILAT COMPARISON: Prior exam(s) dated prior study dated January 14, 2024.. FINDINGS: TISSUE DENSITY: The breasts are heterogeneously dense, which may obscure small masses. Bilateral Breast Mammographic Findings: No significant masses, calcifications or other abnormalities are identified. Stable bilateral fat containing axillary lymph nodes. No suspicious masses, areas of developing architectural distortion, or suspicious calcifications. There has been no significant interval change. BI/SCRN MAMM (CAD)W/YANDEL BILAT IMPRESSION: Stable examination. OVERALL FINAL ASSESSMENT BI-RADS 2: BENIGN RECOMMENDATION: Routine annual follow-up in 1 Year A letter with findings and recommendations will be mailed to the patient. Reading Location: [id number]
--- NOTE | 2025-01-19 16:28 | BD_ITS ---
PROCEDURE: DEXA BONE DENSITY STUDY 01/19/2025 REASON FOR EXAM: ROUTINE SCREENING FOR OSTEO F, age 64 y/o . Postmenopausal. TECHNIQUE: DEXA BONE DENSITY STUDY COMPARISON: Prior study dated January 17, 2023. FINDINGS: BMD and T-SCORES Lumbar spine: 1.003 g/cm2, T-score -0.4 Levels: L1 through L4 Change from prior: Loss of 3.5%. Left femoral neck: 0.605 g/cm2, T-score -2.2 Femoral neck comparison data not recommended for monitoring change. Left total hip: 0.732 g/cm2, T-score -1.7 Change from prior: Loss of 7.8%. Right femoral neck: 0.623 g/cm2, T-score -2.0 Femoral neck comparison data not recommended for monitoring change. Right total hip: 0.703 g/cm2, T-score -2.0 Change from prior: Loss of 5.5%. The World Health Organization has defined the following categories based on bone density: Normal bone density: T-score equal to or greater than -1.0 Osteopenia: T-score between -1.0 and -2.5 Osteoporosis: T-score equal to or less than -2.5 FRAX (or Comparable) Fracture Risk Assessment: 10 Year Probability of Fracture: Major Osteoporotic Fracture: 17% Hip Fracture: 3.2% (Note: FRAX is not to be reported in setting of normal range bone density, osteoporosis on DEXA, known history of osteoporosis, prior osteoporotic hip or vertebral fracture, or for any patient undergoing pharmacological treatment for bone loss.) The National Osteoporosis Foundation (NOF) recommends pharmacological treatment for patients with a FRAX 10-year risk of 3% or higher for a hip fracture, or 20% or higher for a major osteoporotic fracture, to prevent osteoporosis and reduce fracture risk. The patient does meet the pharmacological treatment recommendations for prevention of osteoporosis. BD/Dexa Bone Density Study IMPRESSION: OSTEOPENIA. Recommend follow-up as clinically warranted. Reading Location: [id number]
== END | disposition home or self-care (01) ==
LOC: OPBD 16:24
PROVIDERS: PCP Internal Medicine; Referring Provider Nurse Practitioner Women's Health; Visit Provider Nurse Practitioner Women's Health
DX: Z12.31 Encounter for screening mammogram for malignant neoplasm of breast (principal); Z13.820 Encounter for screening for osteoporosis
CPT/HCPCS: 77063; 77067; 77080

== ENCOUNTER → 2025-01-26 | Outpatient (CLI) | payer OTHER, SELFPAY ==
--- OUTSIDE RECORDS SUMMARY | 2025-01-26 23:34 | XMS RPT_ITS | CCD ---
Author Organization [facility] CliniSyme Care Team Providers Care Chain Maker Hand Name Role Phone Dr. Karli Lindsey Primary Care Provider [phone] Dr. Karli Lindsey Referring Provider [phone] rAian [employer], [employer] Elmer Attending Provider [phone] Pham [employer], [employer] Celeste Attending Provider [phone] Dr. Karli Lindsey Primary Care Provider [phone] Dr. Karli Lindsey Referring Provider [phone] HUNG Ortiz Attending Provider Dr. Karli Lindsey Attending Provider [phone] Arian [employer], [employer] Elmer Attending Provider [phone] Dr. Karli Lindsey Other Provider [phone] Dr. Caleb Bah Attending Provider Dr. Karli Lindsey Primary Care Provider [phone] Dr. Karli Lindsey Referring Provider [phone] [employer], [employer] Celeste Attending Provider [phone] Dr. Lobo Marcano Attending Provider [employer], [employer] Celeste Referring Provider [phone] Pham [employer], [employer] Celeste Other Provider Dr. Karli Lindsey Primary Care Provider [phone] Dr. Karli Lindsey Referring Provider [phone] Dr. Lobo Marcano Attending Provider Pham [employer], [employer] Celeste Referring Provider Pham [employer], [employer] Celeste Other Provider Dr. Caleb Bah Attending Provider Dr. Karli Lindsey Attending Provider [phone] RICKIE Boyce Attending Provider Unavailable Dr. Karli Lindsey Primary Care Provider Dr. Karli Lindsey Referring Provider [phone] Dr. Lobo Marcano Attending Provider Jeet, Dr. Diamond Referring Provider Jeet, Dr. Diamond Other Provider Karli Lindsey MD Primary Care Provider [phone] Dr. Karli Lindsey Primary Care Provider [phone] Dr. Lobo Marcano Attending Provider Jeet, Dr. Diamond Referring Provider Jeet, Dr. Diamond Other Provider Dr. Karli Lindsey Referring Provider [phone] Karli Lindsey MD Primary Care Provider [phone] SAM DOMINGUEZ Attending Unavailable KARLI LINDSEY B Primary Care Unavailable GI GALICIA Referring Unavailable SAM DOMINGUEZ Attending Unavailable KARLI LINDSEY B Primary Care Unavailable Dr. Karli Lindsey MD Primary Care Provider Dr. Karli Lindsey MD Attending Provider [phone] Dr. Karli Lindsey MD Referring Provider [phone] Olena Braun Attending Provider Darien Marie Attending Provider Silver Swanson Attending Provider Rosalia KEITH, Dr. Burns Primary Care Provider Rosalia KEITH, Dr. Burns Referring Provider [phone] Rosalia KEITH, Dr. Burns Attending Provider [phone] Billy [employer], Olena Attending Provider Billy [employer], Olena Referring Provider Billy [employer], Olena Other Provider Dr. Caleb Bah DO Attending Provider Rosalia KEITH, Dr. Burns Primary Care Provider Rosalia KEITH, Dr. Burns Referring Provider [phone] Darien Marie Attending Provider Dr. Caleb Bah DO Referring Provider Oleghe, Efewongbe Primary Care Unavailable Oleghe, Efewongbe Referring Unavailable Darien Marie Attending Unavailable Oleghe, Efewongbe Attending Unavailable Oleghe, Efewongbe Primary Care Unavailable Oleghe, Efewongbe Referring Unavailable Oleghe, Efewongbe Referring Unavailable Caleb Bah Attending Unavailable Oleghe, Efewongbe Primary Care Unavailable Oleghe, Efewongbe Primary Care Unavailable Billy LOPEZ, Olena Attending Unavailable Oleghe, Efewongbe Referring Unavailable Pham [employer]eleste Attending Unavailable Oleghe, Efewongbe Primary Care Unavailable Hickman [employer], Celeste Referring Unavailable Oleghe, Efewongbe Primary Care Unavailable Cervantes [employer], Olena Attending Unavailable Billy [employer], Olena Referring Unavailable Caleb Bah Referring Unavailable Caleb Bah Attending Unavailable Oleghe, Efewongbe Primary Care Unavailable Oleghe, Efewongbe Attending Unavailable Oleghe, Efewongbe Primary Care Unavailable Oleghe, Efewongbe Referring Unavailable Oleghe, Efewongbe Attending Unavailable Oleghe, Efewongbe Primary Care Unavailable Oleghe, Efewongbe Referring Unavailable Oleghe, Efewongbe Attending Unavailable Oleghe, Efewongbe Primary Care Unavailable Oleghe, Efewongbe Referring Unavailable Oleghe, Efewongbe Referring Unavailable Pham [employer], Celeste Attending Unavailable Oleghe, Efewongbe Primary Care Unavailable Caleb Bah Attending Unavailable Oleghe, Efewongbe Primary Care Unavailable Billy [employer], Olena Referring Unavailable Caleb Bah Attending Unavailable Oleghe, Efewongbe Primary Care Unavailable Billy [employer], Olena Consulting Unavailable Billy [employer], Olena Referring Unavailable Oleghe, Efewongbe Primary Care Unavailable Oleghe, Efewongbe Referring Unavailable Darien Marie Attending Unavailable Oleghe, Efewongbe Referring Unavailable Oleghe, Efewongbe Primary Care Unavailable Isai Gage Attending Unavailable Oleghe, Efewongbe Attending Unavailable Oleghe, Efewongbe Referring Unavailable Oleghe, Efewongbe Primary Care Unavailable Oleghe, Efewongbe Referring Unavailable Oleghe, Efewongbe Primary Care Unavailable Billy [employer], Olena Attending Unavailable Oleghe, Efewongbe Primary Care Unavailable Darien Marie Attending Unavailable Oleghe, Efewongbe Attending Unavailable Oleghe, Efewongbe Referring Unavailable Oleghe, Efewongbe Primary Care Unavailable Oleghe, Efewongbe Primary Care Unavailable Billy [employer], Olena Referring Unavailable Billy [employer], Olena Attending Unavailable Oleghe, Efewongbe Attending Unavailable Oleghe, Efewongbe Primary Care Unavailable Oleghe, Efewongbe Referring Unavailable Billy [employer], Olena Attending Unavailable Oleghe, Efewongbe Referring Unavailable Oleghe, Efewongbe Primary Care Unavailable Isai Gage Referring Unavailable Isai Gage Attending Unavailable Oleghe, Efewongbe Primary Care Unavailable Oleghe, Efewongbe Referring Unavailable Silver Martinez Attending Unavailable Alfredghe Dr. Karli KEITH Primary Care Provider Dr. Karli Lindsey MD Referring Provider [employer]el[employer] Attending Provider Pham [employer] Referring Provider Allergies Allergy Classification Reported Allergen(s) Allergy Type Date of Onset Reaction(s) Facility (20 sources) Diclofenac; Translations: [DICLOFENAC] Drug Allergy 09-12-2016 Hives [facility] (1 source) Diclofenac Drug Allergy 11-30-2024 [facility] Repository Medications Current Medications Medication Drug Class(es) Dates Sig (Normalized) Sig (Original) calcium citrate 1500 mg / cholecalciferol 250 unt oral tablet (20 sources) Vitamin D Start: 01-02-2021 Nctbwej-M0-Ypco-C opper-Tomi 325 mg-12.5 mcg -2.75 mg tablet Active 1 {tbl} PO TWICE A DAY January 02, 2021 11:00am supplement Start: 01-02-2021 take 1 tablet by april th twice daily Rmkbiul-U8-Zkde-Copper-Tomi Active 1 T ABLET PO TWICE A DAY January 02, 2021 11:00am Start: 01-04-2020 End: 01-02-2021 take 1 tablet by mouth once daily Wpzktur-O2-Fcbt-Copper-Tomi 1 EACH tab let Discontinued 1 NMA PO DAILY January 04, 2020 12:00am January 02, 2021 11:00am supplement Start: 01-04-2020 End: 01-02-2021 Qyovidv-G6-Xnif-Copper-Manga n Discontinued 1 EACH PO DAILY January 04, 2020 12:00am January 02, 2021 11:00am estradiol 0.1 mg/ml vaginal cream (20 sources) Estrogen Start: 01-26-2025 Estradiol 0.01 % (0.1 mg/gram) cream Active 0 VAGINAL .COMPLEX 42.5 2 January 26, 2025 12:00am small amount(.25mg) as directed vaginal every other day X 4 weeks then twice a week; Start: 04-30-2018 End: 01-26-2025 Estradiol (Yuvafem) 10 mcg t ablet Discontinued 10 ug VAGINAL .COMPLEX 24 January 20, 2024 3:19pm January 26, 2025 3:34pm 10 mcg VAGINAlly twice a week Start: 04-30-2018 End: 01-08-2023 Estradiol (Yuvafem) 10 mcg t ablet Discontinued 10 MCG VAGINAL .COMPLEX January 03, 2022 1:56pm January 08, 2023 2:51pm 10 mcg VAGINAlly twice a week Start: 01-20-2018 End: 04-30-2018 Estradiol (Yuvafem) 10 mcg t ablet Discontinued 10 ug VAGINAL .COMPLEX 24 January 20, 2018 12:00am April 30, 2018 2:10pm 10 mcg VAGINAL daily X 2 weeks then twice a week Start: 01-20-2018 End: 04-30-2018 Estradiol (Yuvafem) 10 mcg t ablet Discontinued 10 MCG VAGINAL .COMPLEX January 20, 2018 12:00am April 30, 2018 2:10pm 10 mcg VAGINAL daily X 2 weeks then twice a week levothyroxine sodium 0.137 mg oral tablet (20 sources) l-Thyroxine Start: 05-10-2023 End: 01-26-2025 Levothyroxine 137 mcg tablet Active 137 ug PO DAILY 90 January 26, 2025 1:03pm 1 tab 6 days, on one day take 1/2 tab Start: 10-09-2022 End: 05-10-2023 take 1 tablet by mouth once daily Levothyroxine 137 mcg tablet Discontinued 0 .ROUTE .COMPLEX May 10, 2023 5:11pm May 10, 2023 5:15pm TAKE 1 TABLET BY MOUTH EVERY DAY Start: 10-30-2016 End: 01-04-2023 take 1 tablet by mouth once daily Levothyroxine 150 mcg tablet Discontinued 150 ug PO daily 90 August 23, 2022 9:27am January 04, 2023 9:42am Start: 09-07-2016 End: 07-03-2017 take 0.15 mg by mouth once daily Synthroid Discontinued 0.15 mg PO DAILY September 07, 2016 12:00am July 03, 2017 7:20pm Comment on above: 1 tablet daily 6 day s a week, and one half tablet one day a week. pantoprazole 40 mg delayed release oral tablet (20 sources) Proton Pump Inhibitor Start: 4 End: 5 take 1 tablet by mouth once daily Pantoprazole 40 mg tablet,delayed release (DR/EC) Active 40 mg PO daily 90 October 14, 2024 3:34pm Completed/Discontinued Medications Medication Drug Class(es) Dates Sig (Normalized) Sig (Original) acetaminophen 325 mg / oxyCODONE hydrochloride 5 mg oral tablet (20 sources) Opioid Agonist Start: 06-05-2019 End: 06-12-2019 Oxycodone-Acetaminoph en 1 TABLET tablet Discontinued 1 {tbl} PO 3 TIMES DAILY NEEDED as needed for Pain Score 4-5/10 20 7 0 June 05, 2019 June 11, 2019 1:00am June 12, 2019 1:08am Other acute postprocedural pain 20 tabs (twenty) Start: 06-05-2019 End: 06-12-2019 take 1 tablet by mouth three times daily as needed Oxycodone-Acetaminophen Discontinued 1 TABLET PO 3 TIMES DAILY NEEDED 20 7 June 05, 2019 June 12, 2019 1:08am 20 tabs (twenty) [id number] 200 actuat albuterol 0.09 mg/actuat metered dose inhaler (20 sources) beta2-Adrenergic Agonist Start: 01-04-2023 End: 01-26-2025 Albuterol Sulfate 90 mcg/actuation HFA aerosol inhaler Discontinued 2 NMA INHALATION EVERY 6 HOURS as needed for shortness of breath or wheezing 8.5 2 April 16, 2023 11:59am October 21, 2024 10:13am Start: 01-04-2023 End: 04-16-2023 take 1 puff(s) by inhalation every six hours Albuterol Sulfate Active 2 PUFF INHALATION EVERY 6 HOURS 8.5 April 16, 2023 11:59am amoxicillin 875 mg / clavulanate 125 mg oral tablet (20 sources) Penicillin-class Antibacterial Start: 07-22-2019 End: 07-31-2019 Amoxicillin-Pot Clavulanate (Augmentin) 875-125 mg tablet Discontinued 1 {tbl} PO TWICE A DAY 20 10 0 July 22, 2019 1:00am July 31, 2019 1:00am July 31, 2019 11:39am Non-pressure chronic ulcer of skin of other sites with fat layer exposed atorvastatin 10 mg oral tablet (20 sources) HMG-CoA Reductase Inhibitor Start: 06-14-2020 End: 10-01-2024 take 1 tablet by mouth at bedtime Atorvastatin 10 mg tablet Discontinued 10 mg PO AT BEDTIME 90 1 June 24, 2024 2:07pm October 01, 2024 1:02pm Comment on above: Take 10 mg by mouth once daily. azithromycin 250 mg oral tablet (20 sources) Macrolide Antimicrobial Start: 08-15-2022 End: 09-24-2022 take 2-5 tablets by mouth once daily Azithromycin 250 mg tablet Discontinued 0 PO .COMPLEX 6 0 August 15, 2022 12:00am September 24, 2022 3:11pm take 500 mg today (day 1), then 250 mg for 4 days (days 2-5) PO Benzocaine (1 source) Standardized Chemical Allergen Start: 10-17-2023 End: 10-17-2023 benzocaine 20% 1 [place] (TOPEX) benzonatate 100 mg oral capsule (20 sources) Non-narcotic Antitussive Start: 09-24-2022 End: 05-10-2023 Benzonatate 100 mg capsule Discontinued 100 mg PO 2 to 3 times per day as needed for cough 90 September 24, 2022 12:00am May 10, 2023 11:43am biotin 5 mg oral capsule (20 sources) Start: 09-29-2021 End: 09-24-2022 take 1 capsule by mouth once daily Biotin 5 mg capsule Discontinued 5 mg PO DAILY September 29, 2021 12:00am September 24, 2022 3:16pm Budesonide (20 sources) Corticosteroid Start: 10-26-2024 End: 01-26-2025 take 180 ug by inhalation twice daily Budesonide (Pulmicort Flexhaler) 180 mcg/actuation aerosol powdr breath activated Discontinued 1 NMA INHALATION TWICE A DAY 3 3 October 26, 2024 3:17pm January 26, 2025 3:19pm Start: 10-26-2024 take 180 ug by inhal ation twice daily Budesonide (Pulmicort Flexhaler) 180 mcg/actuation aerosol powdr breath activated Active 1 NMA INHALATION TWICE A DAY 3 3 October 26, 2024 3:17pm Start: 10-26-2024 take 180 ug by inhal ation twice daily Budesonide (Pulmicort Flexhaler) 180 mcg/actuation aerosol powdr breath activated Active 1 NMA INHALATION TWICE A DAY 3 October 26, 2024 3:17pm Start: 04-20-2024 End: 09-14-2024 take 180 ug by inhalation twice daily Budesonide (Pulmicort Flexhaler) 180 mcg/actuation aerosol powdr breath activated Discontinued 1 NMA INHALATION TWICE A DAY 3 3 April 20, 2024 9:27am September 14, 2024 2:47pm Start: 04-20-2024 End: 09-14-2024 take 180 ug by inhalation twice daily Budesonide (Pulmicort Flexhaler) 180 mcg/actuation aerosol powdr breath activated Discontinued 1 NMA INHALATION TWICE A DAY 3 April 20, 2024 9:27am September 14, 2024 2:47pm Start: 04-20-2024 take 180 ug by inhal ation twice daily Budesonide (Pulmicort Flexhaler) 180 mcg/actuation aerosol powdr breath activated Active 1 NMA INHALATION TWICE A DAY 3 April 20, 2024 9:27am Start: 08-15-2023 take 1 puff(s) by in halation twice daily PULMICORT FLEXHALER 180 mcg/actuation aepb Inhale 1 Puff as instructed two times a day. 0 08/15/2023 Active Start: 07-30-2023 End: 04-20-2024 take 1 puff(s) by inhalation twice daily Budesonide (Pulmicort Flexhaler) 180 mcg/actuation aerosol powdr breath activated Discontinued 0 .ROUTE .COMPLEX 3 0 July 30, 2023 5:48pm April 20, 2024 9:28am INHALE 1 PUFF TWICE A DAY Start: 07-30-2023 End: 04-20-2024 take 1 puff(s) by inhalation twice daily Budesonide (Pulmicort Flexhaler) 180 mcg/actuation aerosol powdr breath activated Discontinued 0 .ROUTE .COMPLEX 3 July 30, 2023 5:48pm April 20, 2024 9:28am INHALE 1 PUFF TWICE A DAY Start: 07-30-2023 take 1 puff(s) by in halation twice daily Budesonide (Pulmicort Flexhaler) 180 mcg/actuation aerosol powdr breath activated Active 0 .ROUTE .COMPLEX 3 July 30, 2023 5:48pm INHALE 1 PUFF TWICE A DAY Start: 04-22-2023 End: 07-30-2023 Budesonide 180 mcg/actuation aerosol powdr breath activated Discontinued 1 NMA INHALATION TWICE A DAY 1 2 April 22, 2023 9:33am July 30, 2023 5:48pm Start: 04-22-2023 End: 07-30-2023 Budesonide 180 mcg/actuation aerosol powdr breath activated Discontinued 1 NMA INHALATION TWICE A DAY 1 April 22, 2023 9:33am July 30, 2023 5:48pm Start: 04-22-2023 End: 07-30-2023 Budesonide Discontinued 1 IN H INHALATION TWICE A DAY 1 April 22, 2023 9:33am July 30, 2023 5:48pm Start: 04-22-2023 Budesonide Act shirin 1 INH INHALATION TWICE A DAY 1 April 22, 2023 8:33am Start: 01-16-2023 End: 04-22-2023 Budesonide 180 mcg/actuation aerosol powdr breath activated Discontinued 1 NMA INHALATION TWICE A DAY 1 2 January 16, 2023 5:14pm April 22, 2023 9:33am Start: 01-16-2023 End: 04-22-2023 Budesonide 180 mcg/actuation aerosol powdr breath activated Discontinued 1 NMA INHALATION TWICE A DAY 1 January 16, 2023 5:14pm April 22, 2023 9:33am Start: 01-16-2023 End: 04-22-2023 Budesonide Discontinued 1 IN H INHALATION TWICE A DAY 1 January 16, 2023 5:14pm April 22, 2023 9:33am Start: 01-16-2023 End: 04-22-2023 Budesonide Discontinued 1 IN H INHALATION TWICE A DAY 1 January 16, 2023 4:14pm April 22, 2023 8:33am Start: 01-16-2023 Budesonide Act shirin 1 INH INHALATION TWICE A DAY 1 January 16, 2023 5:14pm Start: 09-24-2022 End: 01-16-2023 Budesonide 180 mcg/actuation aerosol powdr breath activated Discontinued 1 NMA INHALATION TWICE A DAY 1 2 September 24, 2022 12:00am January 16, 2023 5:14pm Start: 09-24-2022 End: 01-16-2023 Budesonide 180 mcg/actuation aerosol powdr breath activated Discontinued 1 NMA INHALATION TWICE A DAY September 24, 2022 12:00am January 16, 2023 5:14pm Start: 09-24-2022 End: 01-16-2023 Budesonide Discontinued 1 IN H INHALATION TWICE A DAY 1 September 23, 2022 11:00pm January 16, 2023 4:14pm Start: 09-24-2022 End: 01-16-2023 Budesonide Discontinued 1 IN H INHALATION TWICE A DAY September 24, 2022 12:00am January 16, 2023 5:14pm Start: 09-24-2022 Budesonide Act shirin 1 INH INHALATION TWICE A DAY September 24, 2022 12:00am calcium chloride 0.0014 meq/ml / potassium chloride 0.004 meq/ml / sodium chloride 0.103 meq/ml / sodium lactate 0.028 meq/ml injectable solution (1 source) Start: 10-17-2023 End: 10-17-2023 lactated ringers iv infusion cetirizine hydrochloride 10 mg oral tablet (20 sources) Histamine-1 Receptor Antagonist Start: 05-10-2023 End: 01-26-2025 take 1 tablet by mouth once daily as needed Cetirizine (Zyrtec) 10 mg tablet Discontinued 10 mg PO DAILY as needed May 10, 2023 1:00am January 26, 2025 3:20pm Start: 09-07-2016 End: 07-03-2017 take 1 tablet by mouth once daily Cetirizine 10 MG tablet Discontinued 10 mg PO DAILY 14 September 07, 2016 12:00am July 03, 2017 7:19pm clindamycin 300 mg oral capsule (20 sources) Lincosamide Antibacterial Start: 06-05-2019 End: 06-26-2019 take 1 capsule by mouth three times daily Clindamycin Hcl 300 MG capsule Discontinued 300 mg PO THREE TIMES A DAY 15 June 05, 2019 1:00am June 26, 2019 11:31am famotidine 20 mg oral tablet (20 sources) Histamine-2 Receptor Antagonist Start: 09-07-2016 End: 07-03-2017 take 1 tablet by mouth twice daily Famotidine 20 MG tablet Discontinued 20 mg PO TWICE A DAY 28 September 07, 2016 12:00am July 03, 2017 7:19pm 1 ml fentaNYL 0.05 mg/ml injection (1 source) Opioid Agonist Start: 10-17-2023 End: 10-17-2023 fentaNYL 50 mcg/mL 25-100 mcg injection (SUBLIMAZE) fexofenadine hydrochloride 60 mg oral tablet (20 sources) Histamine-1 Receptor Antagonist Start: 10-02-2022 End: 05-10-2023 take 1 tablet by mouth once daily Fexofenadine (Amarilis Allergy) 60 mg tablet Discontinued 60 mg PO DAILY October 02, 2022 12:00am May 10, 2023 11:43am fluconazole 150 mg oral tablet (17 sources) Azole Antifungal Start: 01-13-2023 End: 05-10-2023 Fluconazole 150 mg tablet Discontinued 150 mg PO .COMPLEX 2 0 January 13, 2023 12:00am May 10, 2023 11:43am 150 mg PO take one po now and repeat in 3 days fluticasone propionate 0.05 mg/actuat metered dose nasal spray (20 sources) Corticosteroid Start: 08-15-2022 End: 01-26-2025 take 50 ug nasal route once daily as needed Fluticasone Propionate (Flonase Allergy Relief) 50 mcg/actuation spray,suspension Discontinued 1 NMA INTRANASAL DAILY as needed August 15, 2022 12:00am January 26, 2025 3:20pm administer into each nostril Start: 08-15-2022 take 1 spray(s) nasa l route once daily Fluticasone Propionate (Flonase Allergy Relief) 50 mcg/actuation spray,suspension Active 1 SPRAY INTRANASAL DAILY August 15, 2022 12:00am administer into each nostril Fluticasone Propion-Salmeterol (10 sources) Corticosteroid, beta2-Adrenergic Agonist Start: 09-14-2024 End: 01-26-2025 Fluticasone Propion-Salmeterol (Advair Hfa) 230-21 mcg/actuation HFA aerosol inhaler Discontinued 2 NMA INHALATION TWICE A DAY 1 September 14, 2024 12:00am January 26, 2025 3:20pm Start: 09-14-2024 Fluticasone Pr opion-Salmeterol (Advair Hfa) 230-21 mcg/actuation HFA aerosol inhaler Active 2 NMA INHALATION TWICE A DAY 1 September 14, 2024 12:00am Start: 09-14-2024 Fluticasone Pr opion-Salmeterol (Advair Hfa) 230-21 mcg/actuation HFA aerosol inhaler Active 2 NMA INHALATION TWICE A DAY 1 September 14, 2024 12:00am ipratropium bromide 0.021 mg/actuat metered dose nasal spray (9 sources) Anticholinergic Start: 10-21-2024 End: 01-26-2025 Ipratropium [place] 21 mcg (0.03 %) spray,non-aerosol Discontinued 2 NMA INTRANASAL TWICE A DAY 23 08October 21, 2024 12:00am January 26, 2025 3:20pm Interstitial pulmonary fibrosis Pulmonary fibrosis, unspecified administer into each nostril lansoprazole 30 mg disintegrating oral tablet (20 sources) Proton Pump Inhibitor Start: 07-03-2017 End: 07-22-2018 take 1 tablet by mouth once daily Lansoprazole (Prevacid Solutab) 30 mg tablet,disintegrat, delay rel Discontinued 30 mg PO daily July 03, 2017 1:00am July 22, 2018 12:34pm levocetirizine dihydrochloride 5 mg oral tablet (20 sources) Histamine-1 Receptor Antagonist Start: 08-15-2022 End: 10-02-2022 take 1 tablet by mouth once daily in the evening as needed Levocetirizine (Xyzal) 5 mg tablet Discontinued 5 mg PO EVERY EVENING as needed August 15, 2022 12:00am October 02, 2022 3:01pm meloxicam 15 mg oral tablet (20 sources) Nonsteroidal Anti-inflammatory Drug Start: 07-18-2021 End: 01-06-2024 take 1 tablet by mouth once daily as needed for pain Meloxicam 15 mg tablet Discontinued 15 mg PO DAILY as needed for knee pain 90 0 May 29, 2022 9:51am January 06, 2024 3:39pm Start: 07-07-2021 End: 07-18-2021 take 1 tablet by mouth once daily as needed for pain Meloxicam (Mobic) 7.5 mg tablet Discontinued 7.5 mg PO DAILY as needed for knee pain 30 July 07, 2021 1:00am July 18, 2021 11:04am methylPREDNISolone 4 mg oral tablet (20 sources) Corticosteroid Start: 08-08-2024 End: 10-21-2024 take 1 tablet by mouth once Methylprednisolone (Medrol (Irving)) 4 mg tablets,dose pack Discontinued 0 PO per package directions August 08, 2024 12:00am October 21, 2024 9:22am PO PER PKG DIR Start: 08-15-2022 End: 08-21-2022 take 1 tablet by mouth once Methylprednisolone (Medrol (Irving)) 4 mg tablets,dose pack Discontinued 4 mg PO per package directions 21 6 0 August 15, 2022 12:00am August 20, 2022 12:00am August 21, 2022 12:04am 5 ml midazolam 1 mg/ml injection (1 source) Benzodiazepine Start: 10-17-2023 End: 10-17-2023 midazolam (PF) 1-5 mg injection (VERSED) montelukast 10 mg oral tablet (20 sources) Leukotriene Receptor Antagonist Start: 01-21-2024 End: 01-26-2025 take 1 tablet by mouth once daily in the evening Montelukast 10 mg tablet Discontinued 10 mg PO EVERY EVENING 90 3 May 18, 2024 1:22pm October 21, 2024 10:13am multivitamin capsule (11 sources) Start: 07-03-2017 End: 03-11-2019 take 1 capsule by mouth once daily in the morning multivitamin capsule Discontinued 1 CAP PO EVERY MORNING July 03, 2017 12:00am March 11, 2019 4:55pm Start: 07-03-2017 End: 03-11-2019 take 1 capsule by mouth once daily in the morning multivitamin capsule Discontinued 1 CAP PO EVERY MORNING July 03, 2017 1:00am March 11, 2019 5:55pm Multivitamin capsule (11 sources) Start: 07-03-2017 End: 03-11-2019 Multivitamin capsule Discontinued 1 NMA PO EVERY MORNING July 03, 2017 1:00am March 11, 2019 5:55pm nitrofurantoin, macrocrystals 25 mg / nitrofurantoin, monohydrate 75 mg oral capsule (20 sources) Nitrofuran Antibacterial Start: 08-04-2024 End: 08-09-2024 take 1 capsule by mouth every twelve hours at mealtime Nitrofurantoin Monohyd/M-Cryst (Macrobid) 100 mg capsule Discontinued 100 mg PO Q12H 10 5 0 August 04, 2024 12:00am August 08, 2024 12:00am August 09, 2024 12:15am must administer with a meal/food Start: 01-16-2024 End: 01-23-2024 take 1 capsule by mouth every twelve hours at mealtime Nitrofurantoin Monohyd/M-Cryst 100 mg capsule Discontinued 1 NMA PO Q12H 14 7 0 January 16, 2024 12:00am January 22, 2024 12:00am January 23, 2024 12:03am administer with a meal/food; swallow whole; do not open, crush, dissolve , or chew omeprazole 40 mg delayed release oral capsule (20 sources) Proton Pump Inhibitor Start: 10-29-2016 End: 03-11-2024 take 1 capsule by mouth once daily Omeprazole 40 mg capsule,delayed release(DR/EC) Discontinued 40 mg PO DAILY 90 3 July 15, 2023 6:20pm March 11, 2024 3:21pm gerd TAKE 1 CAPSULE DAILY Comment on above: Take 1 capsule by [facility] once daily. predniSONE 20 mg oral tablet (20 sources) Start: 09-07-2016 End: 07-03-2017 take 3 tablets by mouth once daily Prednisone 20 MG tablet Discontinued 60 mg PO DAILY 15 September 07, 2016 12:00am July 03, 2017 7:20pm Start: 09-07-2016 End: 07-03-2017 take 60 mg by mouth once daily Prednisone Discontinued 60 MG PO DAILY September 07, 2016 12:00am July 03, 2017 7:20pm rosuvastatin calcium 10 mg oral tablet (20 sources) HMG-CoA Reductase Inhibitor Start: 02-19-2020 End: 06-14-2020 take 1 tablet by mouth once daily Rosuvastatin 10 mg tablet Discontinued 10 mg PO DAILY 60 2 February 19, 2020 12:00am June 14, 2020 2:28pm Problems Active Problems Problem Classification Problem Date Documented Date Episodic/Chronic Acute bronchitis (5 sources) Acute bronchitis; Translations: [Acute bronchitis, unspecified] 08-15-2022 Episodic Chronic ulcer of skin (20 sources) Chronic ulcer of skin; Translations: [Non-pressure chronic ulcer of skin of other sites with fat layer exposed] 08-02-2019 Chronic Comment on above: anterior frontal sca lp Disorders of lipid metabolism (20 sources) Hyperlipidemia; Translations: [Hyperlipidemia, unspecified] Onset: 04-16-2008 Chronic Esophageal disorders (20 sources) Gastroesophageal reflux disease; Translations: [Gastro-esophageal reflux disease without esophagitis] Onset: 05-04-2010 07-03-2017 Chronic Essential hypertension (20 sources) Hypertensive disorder; Translations: [Essential (primary) hypertension] Onset: 07-01-2024 02-19-2020 Chronic Inflammatory diseases of female pelvic organs (3 sources) Acute vaginitis; Translations: [Vaginitis and vulvovaginitis, unspecified] 01-08-2023 Episodic Influenza (20 sources) Influenza due to Influenza A virus; Translations: [Influenza due to other identified influenza virus with other respiratory manifestations] 08-08-2024 Episodic Menopausal disorders (20 sources) Atrophic vaginitis; Translations: [Postmenopausal atrophic vaginitis] Chronic Comment on above: yuvafem Osteoarthritis (20 sources) Osteoarthritis; Translations: [Unspecified osteoarthritis, unspecified site] Chronic Osteoporosis (1 source) Age-related osteoporosis without current pathological fracture; Translations: [Age-related osteoporosis without current pathological fracture] Onset: 01-19-2025 Chronic Other bone disease and musculoskeletal deformities (17 sources) Osteopenia; Translations: [Other specified disorders of bone density and structure, unspecified site] 01-08-2023 Episodic Other bone disease and musculoskeletal deformities (3 sources) Other specified disorders of bone density and structure, unspecified site; Translations: [Disorder of bone and cartilage, unspecified] 01-08-2023 Episodic Other connective tissue disease (11 sources) Ganglion of wrist; Translations: [Ganglion, left wrist] 06-04-2019 Episodic Other connective tissue disease (11 sources) Ganglion cyst of left volar wrist; Translations: [Ganglion, left wrist] 05-02-2019 Episodic Comment on above: 1.5 cm ganglion cyst volar radial aspect left wrist Other lower respiratory disease (19 sources) Fibrosis of lung; Translations: [Pulmonary fibrosis, unspecified] 12-21-2022 Chronic Other lower respiratory disease (12 sources) Pulmonary fibrosis, unspecified; Translations: [Postinflammatory pulmonary fibrosis] Onset: 12-08-2024 01-04-2023 Chronic Other lower respiratory disease (6 sources) Interstitial lung disease; Translations: [Interstitial pulmonary disease, unspecified] 11-30-2024 Chronic Other lower respiratory disease (1 source) Interstitial pulmonary disease, unspecified; Translations: [Interstitial pulmonary disease, unspecified] Onset: 12-03-2024 Chronic Other lower respiratory disease (20 sources) Chronic cough; Translations: [Chronic cough] Onset: 10-21-2024 09-24-2022 Episodic Other nervous system disorders (20 sources) Dysesthesia of scalp; Translations: [Other disturbances of skin sensation] 06-04-2019 Episodic Comment on above: 1.5 cm painful soft tissue mass anterior frontal scalp Other nutritional; endocrine; and metabolic disorders (4 sources) Obesity; Translations: [Obesity, unspecified] Onset: 12-29-2012 12-29-2012 Chronic Other screening for suspected conditions (not mental disorders or infectious disease) (10 sources) Imaging of thorax abnormal; Translations: [Abnormal findings on diagnostic imaging of other specified body structures] 11-05-2022 Chronic Other screening for suspected conditions (not mental disorders or infectious disease) (4 sources) Patient encounter status; Translations: [Encounter for screening for malignant neoplasm of colon] Onset: 11-10-2020 Resolved: 11-10-2020 11-10-2020 Episodic Other skin disorders (20 sources) Trichilemmal cyst; Translations: [Trichodermal cyst] 06-28-2019 Episodic Comment on above: 1.5 cm trichilemmal cyst anterior frontal scalp Other upper respiratory disease (20 sources) Seasonal allergic rhinitis; Translations: [Other seasonal allergic rhinitis] 10-04-2018 Chronic Other upper respiratory disease (20 sources) Allergic rhinitis; Translations: [Allergic rhinitis, unspecified] 03-30-2022 Chronic Residual codes; unclassified (13 sources) Hypersomnia; Translations: [Hypersomnia, unspecified] 10-26-2024 Chronic Residual codes; unclassified (4 sources) Obstructive sleep apnea syndrome; Translations: [Obstructive sleep apnea (adult) (pediatric)] 12-01-2024 Chronic Residual codes; unclassified (1 source) Hypersomnia, unspecified; Translations: [Hypersomnia, unspecified] Onset: 11-23-2024 Chronic Residual codes; unclassified (20 sources) History of vaccination; Translations: [Personal history of other drug therapy] 12-30-2020 Episodic Residual codes; unclassified (20 sources) Postmenopausal state; Translations: [Asymptomatic menopausal state] 09-30-2020 Episodic Screening and history of mental health and substance abuse codes (20 sources) Ex-smoker; Translations: [Personal history of nicotine dependence] 06-04-2019 Episodic Thyroid disorders (20 sources) Hypothyroidism; Translations: [Hypothyroidism, unspecified] Onset: 10-14-2024 07-03-2017 Chronic Viral infection (20 sources) COVID-19; Translations: [Severe acute respiratory syndrome coronavirus 2 (SARS-CoV-2) detected] 01-03-2022 Episodic Comment on above: 02/05/21 Past or Other Problems Problem Classification Problem Date Documented Da te Episodic/Chronic Cardiac dysrhythmias (4 sources) Bradycardia; Translations: [Bradycardia, unspecified] Onset: 07-06-2014 07-06-2014 Episodic Genitourinary symptoms and ill-defined conditions (2 sources) Painful micturition, unspecified; Translations: [Dysuria] Onset: 08-13-2024 Episodic Mood disorders (3 sources) Depressive disorder; Translations: [Other specified depressive episodes] Resolved: 08-04-2015 08-04-2015 Chronic Other connective tissue disease (4 sources) Disorder of Achilles tendon; Translations: [Achilles tendinitis, unspecified leg] Onset: 10-05-2010 10-05-2010 Episodic Other connective tissue disease (4 sources) Pain in limb; Translations: [Pain in unspecified limb] Onset: 10-05-2010 10-05-2010 Episodic Results Test Name Value Interpretation Reference Range Facility Dexa Bone Density Studyon Dexa Bone Density Study [facility] Imaging Services [address] [place] [id number] Dexa Bone Density Study MR#: [id number] Acct: [id number] Name: NATASHA HOLDER Rep #: [id number] : 1960 F 64 From: Irineo ortiz MD PCP: Dr. Karli Lindsey MD Status: [facility] Study: Dexa Bone Density Study Date of Exam: 01/19/25 Exam# [id number] Ordering Dr: Celeste Nath [employer] PROCEDURE: DEXA BONE DENSITY STUDY 01/19/2025 REASON FOR EXAM: ROUTINE SCREENING FOR OSTEO F, age 64 y/o . Postmenopausal. TECHNIQUE: DEXA BONE DENSITY STUDY COMPARISON: Prior study dated January 17, 2023. FINDINGS: BMD and T-SCORES Lumbar spine: 1.003 g/cm2, T-score -0.4 Levels: L1 through L4 Change from prior: Loss of 3.5%. Left femoral neck: 0.605 g/cm2, T-score -2.2 Femoral neck comparison data not recommended for monitoring change. Left total hip: 0.732 g/cm2, T-score -1.7 Change from prior: Loss of 7.8%. Right femoral neck: 0.623 g/cm2, T-score -2.0 Femoral neck comparison data not recommended for monitoring change. Right total hip: 0.703 g/cm2, T-score -2.0 Change from prior: Loss of 5.5%. The World Health Organization has defined the following categories based on bone density: Normal bone density: T-score equal to or greater than -1.0 Osteopenia: T-score between -1.0 and -2.5 Osteoporosis: T-score equal to or less than -2.5 FRAX (or Comparable) Fracture Risk Assessment: 10 Year Probability of Fracture: Major Osteoporotic Fracture: 17% Hip Fracture: 3.2% (Note: FRAX is not to be reported in setting of normal range bone density, osteoporosis on DEXA, known history of osteoporosis, prior osteoporotic hip or vertebral fracture, or for any patient undergoing pharmacological treatment for bone loss.) The National Osteoporosis Foundation (NOF) recommends pharmacological treatment for patients with a FRAX 10-year risk of 3% or higher for a hip fracture, or 20% or higher for a major osteoporotic fracture, to prevent osteoporosis and reduce fracture risk. The patient does meet the pharmacological treatment recommendations for prevention of osteoporosis. BD/Dexa Bone Density Study IMPRESSION: OSTEOPENIA. Recommend follow-up as clinically warranted. Reading Location: [id number] CC: HILLARY Nath; Dr. Karli Lindsey MD Title Lawyer: Signed Normal [facility] SCRN MAMM (CAD)W/YANDEL BILATo n 01-19-2025 SCRN MAMM (CAD)W/YANDEL BILAT [facility] Imaging Services [address] [place] [address] SCRN MAMM (CAD)W/YANDEL BILAT MR#: [id number] Acct: [id number] Name: NATASHA HOLDER Rep #: [id number] : 1960 F 64 From: Irineo ortiz MD PCP: Dr. Karli Lindsey MD Status: REG CLI Study: SCRN MAMM (CAD)W/YANDEL BILAT Date of Exam: 12/26 11/18 Exam# [id number] Ordering Dr: Celeste Nath NP, NP -Neeraj EXAM: SCRN MAMM (CAD)W/YANDEL BILAT DATE: 01/19/2025 CLINICAL HISTORY: F, Age 64 y/o , SCREEN FOR BREAST CANCER No family history. TECHNIQUE: SCRN MAMM (CAD)W/YANDEL BILAT COMPARISON: Prior exam(s) dated prior study dated January 14, 2024.. FINDINGS: TISSUE DENSITY: The breasts are heterogeneously dense, which may obscure small masses. Bilateral Breast Mammographic Findings: No significant masses, calcifications or other abnormalities are identified. Stable bilateral fat containing axillary lymph nodes. No suspicious masses, areas of developing architectural distortion, or suspicious calcifications. There has been no significant interval change. BI/SCRN MAMM (CAD)W/YANDEL BILAT IMPRESSION: Stable examination. OVERALL FINAL ASSESSMENT BI-RADS 2: BENIGN RECOMMENDATION: Routine annual follow-up in 1 Year A letter with findings and recommendations will be mailed to the patient. Reading Location: [id number] CC: HILLARY Nath; Dr. Karli Lindsey MD Title Lawyer: Signed Normal [facility] L3410.9992on 12-07-2024 [facility] COMMENT Normal . [facility] Comment on above: Order Comment: [id number] 0PNEUMONITIS PROF, SERUM RMT Result Comment: Test Ordered: [id number] Hypersensitivity Pneumonitis Aspergillus fumigatus IgG Negative BN Reference Range: Negative Micropolyspora faeni IgG Negative BN Reference Range: Negative Thermoactinomyces vulgaris IgG Negative BN Reference Range: Negative Aureobasidium pullulans IgG Negative BN Reference Range: Negative Thermoactinomyces sacchari IgG Negative BN Reference Range: Negative Gideon Serum IgG Negative BN Reference Range: Negative Performed at: [facility] [address] [id number] Quality Assurance Lead: Monica Kessler MD, Phone: [phone] Performed at: [facility] [place] [id number] Quality Assurance Lead: Cristian Titus PhD, Phone: [phone] Performed By: #### L 3410.9992, L3500.3600, L3200.1600, L3300.1200, L3100.5450 ####[facility] [address] [place], [place], [id number] ANCAon 12-03-2024 Atypical pANCA <1:20 Normal Neg:<1:20 [facility] Comment on above: Result Comment: The atypical pANCA pattern has been observed in a significant percentage of patients with ulcerative colitis, primary sclerosing cholangitis and autoimmune hepatitis. Performed By: #### L 3410.9992, L3500.3600, L3200.1600, L3300.1200, L3100.5450 ####[facility] [address] [place], [address] Cytoplasmic Ab <1:20 Normal Neg:<1:20 [facility] Comment on above: Performed By: #### L 3410.9992, L3500.3600, L3200.1600, L3300.1200, L3100.5450 ####[facility] [address] [place], [place], [id number] Perinuclear Ab. <1:20 Normal Neg:<1:20 [facility] Comment on above: Result Comment: The presence of positive fluorescence exhibiting P-ANCA or C-ANCA patterns alone is not specific for the diagnosis of Arvind's Granulomatosis (WG) or microscopic polyangiitis. Decisions about treatment should not be based solely on ANCA IFA results. The International ANCA Group Consensus recommends follow up testing of positive sera with both PA- 3 and MPO-ANCA enzyme immunoassays. As many as 5% serum samples are positive only by EIA. Ref. AM J Clin Pathol 1999;111:507-513. Performed By: #### L 3410.9992, L3500.3600, L3200.1600, L3300.1200, L3100.5450 ####[facility] [address] [place], [address] Aspergillus Antibodieson Asp. flavus Negative Normal Neg:<1:1 [facility] Comment on above: Performed By: #### L 3410.9992, L3500.3600, L3200.1600, L3300.1200, L3100.5450 ####[facility] [address] [place], [address] Asp. fumigatus Negative Normal Neg:<1:1 [facility] Comment on above: Performed By: #### L 3410.9992, L3500.3600, L3200.1600, L3300.1200, L3100.5450 ####[facility] [address] [place], [address] Asp. niger Negative Normal Neg:<1:1 [facility] Comment on above: Performed By: #### L 3410.9992, L3500.3600, L3200.1600, L3300.1200, L3100.5450 ####[facility] [address] [place], [address] Immunoglobulin Ricci 5 IMMUNOGLOB E QN 6 IU/mL Normal 6-495 [facility] Comment on above: Result Comment: Perf ormed at: [facility] [address] [id number] Quality Assurance Lead: Cristian Titus PhD, Phone: [phone] Performed at: [facility] [address] [id number] Quality Assurance Lead: Monica Kessler MD, Phone: [phone] Performed By: #### L 3410.9992, L3500.3600, L3200.1600, L3300.1200, L3100.5450 ####[facility] [address] [place], [address] EFREN w/ Reflex Mult Confirmon 12-02-2024 ANTI-DNA (DS)AB TNP Normal [facility] Comment on above: Performed By: #### L 3410.9992, L3500.3600, L3200.1600, L3300.1200, L3100.5450 ####[facility] [address] [place], [address] ANTI-SS-A TNP Normal [facility] Comment on above: Performed By: #### L 3410.9992, L3500.3600, L3200.1600, L3300.1200, L3100.5450 ####[facility] [address] [place], [address] ANTI-SS-B TNP Normal [facility] Comment on above: Performed By: #### L 3410.9992, L3500.3600, L3200.1600, L3300.1200, L3100.5450 ####[facility] [address] [place], [address] IgEOrdered By: Caleb valencia 11-30-2024 IgE 6 IU/mL 6-495 [facility] Comment on above: Performed at: [employer] [facility] [employer] [address] [id number] Director: Cristian Titus PhD, Phone: [phone] at: [facility] [address] [id number] Director: Monica Kessler MD, Phone: [phone] Pulmonary Visit Reporton Pulmonary Visit Report [facility] [address] [place] [address] OFFICE VISIT Date of Service: 11/30/24 MR#: [id number] Acct: [id number] Name: NATASHA HOLDER Rep #: [id number] : 1960 Provider: Dr. Caleb Bah DO Age/Sex: 64/F Location: [facility] Status: Signed Assessment and Plan Assessment and Plan (1) Interstitial lung disease: Status: Acute Plan: The patient has evidence of basilar predominant interstitial lung disease on CT imaging of the chest of unclear etiology. Given that it has been approximately 2 years since her last autoimmune workup, we will plan to repeat a rheumatologic workup and we will also plan to check a hypersensitivity pneumonitis panel. At a minimum, I would recommend that we continue to follow the patient serially with repeat PFTs in 6 to 12 months. If there is further decline in the patient's TLC and/or DLCO, high-resolution chest CT should be obtained. Ultimately, if there is progressive interstitial disease/fibrosis, we will consider the initiation of antifibrotic therapy. (2) Chronic cough: Status: Chronic Plan: Most likely related to upper airway cough syndrome in the setting of postnasal drip due to allergic rhinitis, which has improved with allergy injections over the course of the last year. From my perspective, bronchodilator therapy can be discontinued. Continue PPI therapy given the patient's history of GERD/Lopez's esophagus. (3) CARLTON (obstructive sleep apnea): Status: Acute Plan: This was newly identified based upon split-night sleep study in October 2024, ordered by the patient's PCP. The patient is awaiting delivery of her equipment. I have asked that the patient return to our office for a review of her compliance report within 90 days. Orders: Orders [facility] Misc. 11/30/24 J84.9 - Interstitial pulmonary disease, unspecified Immunoglobulin E 11/30/24 J84.9 - Interstitial pulmonary disease, unspecified Aspergillus Antibodies 11/30/24 J84.9 - Interstitial pulmonary disease, unspecified ANCA 11/30/24 J84.9 - Interstitial pulmonary disease, unspecified EFREN w/ Reflex Mult Confirm 11/30/24 J84.9 - Interstitial pulmonary disease, unspecified HPI HPI Comments Details: The patient is a 64-year-old female who presents to the clinic today for a routine scheduled follow- up office visit. If you recall, the patient was previously under the care of Dr. Marcano until his departure. The patient has been followed in our office due to a history of chronic cough and seasonal allergic rhinitis. In addition, the patient has radiographic evidence of interstitial lung disease of unclear etiology. The patient does not currently keep any animals as pets in her home environment. She does continue to work remotely from home. She has never had any significant environmental or occupational exposure history. She does endorse a history of gastroesophageal reflux disease, which is controlled on pantoprazole. The patient has been followed by allergy/immunology and currently receives weekly allergy shots. The patient also recently completed a split-night sleep study in October 2024 which revealed evidence of moderate obstructive sleep apnea, for which nocturnal CPAP with a pressure support of 9 cm of water was recommended. The patient's primary care provider is apparently ordering the patient's CPAP machine and supplies. She has yet to be set up with any equipment yet. The patient's most recent pulmonary function studies demonstrated evidence of a mild restrictive ventilatory impairment with symmetric reduction in diffusing capacity. A 6-minute walk test was also completed which demonstrated significant exertional oxygen desaturation. However, there was no indication for the use of supplemental oxygen. CT chest completed on November 18, 2024 demonstrated bilateral lower lobe predominant subpleural interstitial septal thickening and groundglass changes. Today, the patient reported that her chronic cough has improved somewhat, but it is unclear as to what led to the improvement in her symptoms, as the patient has been placed on a myriad of different medications over the course of the last year. The patient indicated that the previously prescribed inhalers never led to any significant improvement in her symptoms. She denies any chest tightness or wheezing. Intake Vital Signs 11/18/24 12:37 11/30/24 07:18 Height 5 ft 5 in 5 ft 5 in Weight: 202 lb BMI 33.6 BP 145/90 H Blood Pressure Location Rt brachial Position Sitting Respiration 18 Pulse 59 L Pulse Source Monitor Temp 97.4 F L Temperature Source Temporal Artery Pulse Oximetry (%) 94 Oxygen Delivery Method room air Intake Visit Reasons: Follow up Chief Complaint: Annual Distance Education Coordinator Required: No Accompanied by: Allergi (more content not included)... Normal [facility] Serum Aspergillus flavus ant ibody detection by immunodiffusionOrdered By: Caleb Bah on 11-30-2024 A. flavus Ab Immune diff Ql (S) Negative Neg:<1:1 [facility] Serum Aspergillus fumigatus antibody detection by immunodiffusionOrdered By: Caleb Bah on 11-30-2024 A. fumigatus Ab Immune diff Ql (S) Negative Neg:<1:1 [facility] Serum Aspergillus niger anti body detection by immunodiffusionOrdered By: Caleb Bah on 11-30-2024 A. niger Ab Immune diff Ql (S) Negative Neg:<1:1 [facility] Serum DNA double strand anti body assay (units/volume)Ordered By: Caleb Bah on 11-30-2024 DNA double strand Ab Qn (S) [facility] Comment on above: Test not performed Serum Scl-70 antibody assay (units/volume)Ordered By: Caleb Bah on 11-30-2024 SCL-70 extractable nuclear Ab Qn (S) [facility] Comment on above: Test not performed Serum classic neutrophil cyt oplasmic antibody assay (units/volume)Ordered By: Caleb Bah on 11-30-2024 Neutrophil cytoplasmic Ab.classic Qn (S) <1:20 titer Neg:<1:20 [facility] Serum perinuclear neutrophil cytoplasmic antibody titer by immunofluorescenceOrdered By: Caleb Bah on 11-30-2024 Neutrophil cytoplasmic Ab.perinuclear IF (S) [Titer] <1:20 titer Neg:<1:20 [facility] Comment on above: The presence of posi tive fluorescence exhibiting P-ANCA orC-ANCA patterns alone is not specific for the diagnosis ofWegener's Granulomatosis (WG) or microscopic polyangiitis.Decisions about treatment should not be based solely onANCA IFA results. The International ANCA Group Consensusrecommends follow up testing of positive sera with both PA-3 and MPO-ANCA enzyme immunoassays. As many as 5% serumsamples are positive only by EIA. Ref. AM J Clin Cvqfpp1788;111:507-513. 6 Minute Walk Teston 025 6 Minute Walk Test y [facility] Pulmonary Services/Neurology [address] [place] [address] MR#: [id number] Acct: [id number] Name: NATASHA HOLDER Rep #: [id number] : 1960 64 From: Caleb Bah DO Referring Dr: Olena Cervantes [employer] Status: REG CLI Location: CT Date: Sex: F C PSN 6 Minute Walk Test 6 Minute Walk Test 6 Minute Walk Test: 6 Minute Walk Test PSN:6-Minute Walk Test Start: 11/18/24 12:37 Freq: Status: Active Protocol: RESP.6MINW Document 11/18/24 12:37 ALFREDOON (Rec: 11/18/24 12:39 PERICOON [id number]) 6 Minute Walk Test Date Performed 11/18/24 Time Performed 12:20 Height 5 ft 5 in Weight: 200 lb Weight in Pounds 200.[address]: Olena Cervantes [employer] Assistive device None used: Pre-test Oxygen Delivery Room Air Method Pulse Ox (%) 96 Pulse Rate (60-100 67 beats/min) Dyspnea Tj Scale ( 0.5 0-10) Exertion Tj Scale 6 (6-20) 1st minute Oxygen Delivery Room Air Method Pulse Ox (%) 94 Pulse Rate (60-100 74 beats/min) 2nd minute Oxygen Delivery Room Air Method Pulse Ox (%) 90 Pulse Rate (60-100 80 beats/min) 3rd minute Oxygen Delivery Room Air Method Pulse Ox (%) 91 Pulse Rate (60-100 87 beats/min) 4th minute Oxygen Delivery Room Air Method Pulse Ox (%) 91 Pulse Rate (60-100 88 beats/min) 5th minute Oxygen Delivery Room Air Method Pulse Ox (%) 91 Pulse Rate (60-100 89 beats/min) 6th minute Oxygen Delivery Room Air Method Pulse Ox (%) 92 Pulse Rate (60-100 89 beats/min) Dyspnea Tj Scale ( 3 0-10) Exertion Tj Scale 13 (6-20) Post-test Oxygen Delivery Room Air Method Pulse Ox (%) 96 Pulse Rate (60-100 66 beats/min) Full Laps Walked 18 Partial Lap, Number 27 of Tiles Walked Total Distance 1089 Walked (ft) Interpretation Interpretation: The patient ambulated 1089 feet over the course of 6 minutes beginning on room air without assistive devices. Pretesting oxygen saturation was noted to be 96% on room air. With ambulation, the efrain oxygen saturation was 90%. This represents a significant exertional oxygen desaturation, consistent with a pulmonary limitation to exercise tolerance. Recommendations Recommendations: There is no indication for the use of supplemental oxygen at this time. However, close interval follow-up is recommended, given the degree of oxygen desaturation noted during this study. 11/20/24 1055 Date Caleb Bah DO CC: Date Dictated: 11/20/24 1054 Date Transcribed: 11/20/241053 Title Lawyer: Dr. Caleb Bah DO Signed Normal [facility] Chest without Contraston Chest without Contrast [facility] Imaging Services [address] [place] [address] Chest without Contrast MR#: [id number] Acct: [id number] Name: NATASHA HOLDER Rep #: [id number] : 1960 F 64 From: Irineo ortiz MD PCP: Dr. Karli Lindsey MD Status: REG CLI Study: Chest without Contrast Date of Exam: 11/18/24 Exam# [id number] Ordering Dr: Olena Cervantes NP [employer] PROCEDURE: CHEST WITHOUT CONTRAST 11/18/2024 REASON FOR EXAM: PULMONARY FIBROSIS TECHNIQUE: Chest CT without contrast. Coronal and Sagittal reconstruction series were provided. One or more dose reduction techniques were used (e.g., Automated exposure control, adjustment of the mA and/or kV according to patient size, use of iterative reconstruction technique RADIATION DOSE SUMMARY: CTDlvol: 16.63 mGy DLP: 606.59 mGycm COMPARISON: Prior study dated December 21, 2022. FINDINGS: Hardware: None Lymph nodes: Small benign-appearing mediastinal lymph nodes. Heart and Vasculature: The heart is not enlarged. Coronary Artery Calcifications: Present Lungs and Airways: Since prior study, there has been progression of increased interstitial markings in both lungs involving both upper and lower lobes Pleura: No pleural effusion. Upper Abdomen: Unremarkable Bones: Degenerative changes of the thoracic spine. CT/Chest without Contrast IMPRESSION: Coronary artery calcification (CAC) is is present Progressive interstitial markings in the both lungs as described. Reading Location: [id number] CC: [employer] Olena Cervantes; Dr. Karli Lindsey MD Title Lawyer: Signed Normal [facility] Internal Medicine Office Vis jenifer 10-26-2024 Internal Medicine Office Visit [facility] [address] [place] [address] [place] [address] OFFICE VISIT Date of Service: 10/26/24 MR#: [id number] Acct: [id number] Name: NATASHA HOLDER Rep #: [id number] : 1960 Provider: Dr. Karli vigil MD Age/Sex: 64/F Location: [facility] Status: Signed Intake Vital Signs 08/04/24 08:04 10/21/24 07:51 10/26/24 15:26 Height 5 ft 5 in 5 ft 5 in 5 ft 5 in Weight: 203 lb BMI 33.7 BP 118/82 H Blood Pressure Location Lt brachial Position Sitting Respiration 18 Pulse 63 Pulse Source Monitor Temp 97.6 F L Temp Source Temporal Pulse Oximetry (%) 96 Oxygen Delivery Method room air Intake Visit Reasons: annual Chief Complaint: Annual Distance Education Coordinator Required: No Is patient in pain?: No Allergies diclofenac Allergy (Severe, Verified 10/26/24 15:08) Rash Medications ???Medication ???Instructions ???Recorded ???Confirmed ???Type calcium 325 mg-vit D3 12.5 1 tab PO BID supplement 01/02/21 0 10/26/24 History mcg-zinc 2.75 te-valiup-acdcbyqdg tablet fluticasone propionate 50 1 spray intranasal DAILY PRN 08/1510/26/24 History mcg/actuation nasal spray,suspension (Flonase Allergy Relief) cetirizine 10 mg tablet (Zyrtec) 10 mg PO DAILY PRN 05/10/23 History estradiol 10 mcg vaginal tablet 10 mcg vaginal .COMPLEX #24 tabs 0 01/20/24 10/26/24 Rx (Yuvafem) levothyroxine 137 mcg tablet 137 mcg PO DAILY #90 tabs 07/28/24 10/26/24 Rx fluticasone propionate 230 2 inh inhalation BID #1 ea 2 5 10/26/24 Rx mcg-salmeterol 21 mcg/actuation HFA inhaler (Advair HFA) atorvastatin 10 mg tablet 10 mg PO QHS #90 TABLETS 10/01/24 10/26/24 Rx pantoprazole 40 mg tablet,delayed 40 mg PO QDAY #90 tabs 10/14/24 0 10/26/24 Rx release albuterol sulfate 90 mcg/actuation 2 puff inhalation Q6H PRN 10/26/24 Rx aerosol inhaler shortness of breath or wheezing #8.5 grams ipratropium bromide 21 mcg (0.03 2 spray intranasal BID #30 mL 09/2510/26/24 Rx %) nasal spray montelukast 10 mg tablet 10 mg PO QPM #90 tabs 10/21/2407/21 Rx budesonide 180 mcg/actuation 1 inh inhalation BID #3 ea 5 10/26/24 Rx breath activated powder inhaler (Pulmicort Flexhaler) Have you fallen in the past year?: No Nurse's Note: Pt states her has been telling her more frequently she quits breathing for a few seconds at a time, and she does snore, pt has daytime somnolence. Is requesting a sleep study. [facility] Medical History (Updated 10/26/24 @ 15:[address] Karli Lindsey MD) Hypersomnolence Normal colonoscopy Preventative health care Pulmonary interstitial fibrosis Chronic cough Allergic rhinitis SARS-CoV-2 positive COVID-19 vaccine series completed Osteoarthritis Post-menopausal Chronic gastritis Barretts esophagus Trichilemmal cyst Frequent headaches History of recurrent UTIs Allergies GERD (gastroesophageal reflux disease) Osteoarthritis Seasonal allergies Hypothyroidism Surgical History (Updated 10/26/24 @ 15:19 by Koki Steiner MA) History of esophagogastroduodenoscop y (EGD) ( 01/18/20) H/O local excision of skin lesion History of bladder repair surgery History of wisdom tooth extraction H/O: hysterectomy History of tonsillectomy Family History Mother Diabetes Hypertension CVA (cerebral vascular accident) Brother Diabetes Daughter Primary malignant neuroendocrine neoplasm of pancreas Diabetes Social History (Updated 10/26/24 @ 15:24 by Koki Steiner MA) adopted: No household members: spouse and children number of children: 2 current occupational status: employed 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 pets and animals: No sexually active: Yes Smoking Status: Former smoker Tobacco: How many years used: 10 how long ago did patient quit smokin alcohol intake: current alcohol intake frequency: a few times a week details: <3 in 1 sitting substance use type: does not use caffeine: No (3-4) frequency: 1-2 times per week seatbelt use: always do you feel safe at home: Yes additional social history: Harvey Works for the [employer] [place] DOES USE ASPIRIN NEEDED DOES USE IBUPROFEN NEEDED Female Reproductive History Menstrual Ab spontaneous: 2 HPI HPI Chief Complaint: Annual Details: NATASHA HOLDER, is a 64 F who presents to the office today for her annual/ yearly visit. Overall, stable. Since her last visit, she states that her noted that she stops breathing in her sleep and has been snoring really loud. She now attests to fatigue which she had initially attributed to chronic cough. She states that she frequently takes naps during the (more content not included)... Normal [facility] Pulmonary Visit Reporton Pulmonary Visit Report [facility] [place] [address] [place] [address] [address] [place] [address] OFFICE VISIT Date of Service: 10/21/24 MR#: [id number] Acct: [id number] Name: NATASHA HOLDER Rep #: [id number] : 1960 Provider: HILLARY Cervantes Age/Sex: 64/F Location: [facility] Status: Signed Assessment and Plan Assessment and Plan (1) Chronic cough: Status: Chronic Plan: The patient is concerned over persistent chronic cough despite compliance with allergy shots and GERD treatment. Previously noted pulmonary fibrosis on CT scan. It has been quite sometime since we performed a pulmonary function test and a 6-minute walk test. I am going to repeat a CT scan of the chest to reevaluate for progression of pulmonary fibrosis, also obtaining pulmonary function test and pulmonary stress test. Return to the office in approximately 6 to 8 weeks to discuss test results. If you recall, autoimmune disease was previously ruled out. (2) Allergic rhinitis: Status: Chronic Qualifiers: Allergic rhinitis trigger: pollen Allergic rhinitis seasonality: seasonal Qualified Code(s): J30.1 - Allergic rhinitis due to pollen Plan: Management per ENT on allergy shots. (3) Seasonal allergies: Status: Chronic Qualifiers: Allergic rhinitis trigger: unspecified Qualified Code(s): J30.2 - Other seasonal allergic rhinitis Plan: Symptomatically stable. No maintenance medication changes. NIOX procedure performed in the office today returned within normal limits. This indicates that the patient does not require any additional corticosteroids. Orders: Orders NIOX Today R05.3 - Chronic cough Chest without Contrast Today J84.10 - Pulmonary fibrosis, unspecified PFT Complete - DLCO, Spirometry b/a bronchodilators, lung volumes Today J84.10 - Pulmonary fibrosis, unspecified Simple Pulmonary Exercise Test Today J84.10 - Pulmonary fibrosis, unspecified Medications: New ipratropium bromide administer into each nostril 2 sprays intranasal BID 30 mL 3RF J84.10 - Pulmonary fibrosis, unspecified Refilled albuterol sulfate 90 mcg/actuation 2 puffs inhalation Q6H PRN 8.5 grams 2RF shortness of breath or wheezing J84.10 - Pulmonary fibrosis, unspecified montelukast 10 mg PO QPM 90 tabs 3RF J84.10 - Pulmonary fibrosis, unspecified Plan Details Additional Comments: This note was generated with [employer]or[employer] dictation software. It may contain incorrect words, spelling, and punctuation that were not noted in checking the note before signing. Follow Up: 2 Months (CSM or DMB) HPI 6 M FU Chief Complaint: Chronic cough HPI Comments Details: This patient presents to the office today for follow-up of her chronic cough. She is ambulatory and currently on room air. She she was seen in the urgent care a few weeks ago and diagnosed with a cold. She has not recently required any antibiotics or prednisone for any breathing problems. She is not currently on a maintenance inhaler. It was not covered by her insurance provider. She does not believe symptoms are worse after stopping a daily maintenance inhaler. She is compliant with Flonase and Zyrtec daily. She has not recently tried the albuterol. She continues compliance with pantoprazole for reflux. She is not having difficulty with shortness of breath. She reports a daily cough. The cough is persistent. It can be productive of clear-colored sputum. It is problematic and bothersome. She has postnasal drip. She has occasional wheezing but denies any chest tightness, chest pain or palpitations. She denies any fever, chills or body aches. If you recall, she has a light smoking history. She smoked approximately 1 pack/week up until 2015. Intake Vital Signs 04/20/24 07:20 08/04/24 08:04 10/21/24 07:51 Height 5 ft 5 in 5 ft 5 in 5 ft 5 in Weight: 203 lb BMI 33.7 BP 135/83 H Blood Pressure Location Lt brachial Position Sitting Respiration 18 Pulse 64 Pulse Source NIBP Temp 97.4 F L Temperature Source Temporal Artery Pulse Oximetry (%) 96 Oxygen Delivery Method room air Intake Visit Reasons: 6 M FU Chief Complaint: Follow-up chronic conditions Distance Education Coordinator Required: No Accompanied by: Self Is patient in pain?: Yes (Muscle pain from coughing) Allergies diclofenac Allergy (Severe, Verified 10/21/24 09:21) Rash Medications ???Medication ???Instructions ???Recorded ???Confirmed ???Type calcium 325 mg-vit D3 12.5 1 tab PO BID supplement 01/02/21 0 10/21/24 History mcg-zinc 2.75 ti-mpiidf-tdytcvrqa tablet fluticasone propionate 50 1 spray intranasal DAILY PRN 08/1510/21/24 History mcg/actuation nasal spray,suspension (Flonase Allergy Relief) cetirizine 10 mg tablet (Zyrtec) 10 mg PO DAILY PRN 05/10/23 History estradiol 10 mcg (more content not included)... Normal [facility] Absolute lymphocyte countOrd ered By: Karli Lindsey on 10-17-2024 Lymphocytes Auto (Unsp spec) [#/Vol] 1.72 10*3/uL 0.83-4.51 [facility] Absolute neutrophil countOrd ered By: Karli Lindsey on 10-17-2024 Neutrophils (Bld) [#/Vol] 4.5 10*3/uL 2.0-7.7 [facility] Anion gap in Serum or Plasma Ordered By: Karli Lindsey on 10-17-2024 Anion gap [Moles/Vol] 9 mmol/L - [facility] Automated lymphocyte count a s percentage of total leukocytesOrdered By: Karli Lindsey on 10-17-2024 Lymphocytes/100 WBC Auto (Unsp spec) 24.6 % - [facility] BUN/creatinine ratioOrdered By: Karli Lindsey on 10-17-2024 Urea nitrogen/Creatinine [Mass ratio] 15.8 mg/mg 10- [facility] Basophil percentageOrdered B y: Karli Lindsey on 10-17-2024 Basophils/100 WBC (Bld) 1.1 % High 0-1 [facility] Bilirubin, totalOrdered By: Karli Lindsey on 10-17-2024 Bilirubin [Mass/Vol] 0.57 mg/dL 0.00-1.30 [facility] CBC W/Diff, Automatedon 09-25 Absolute Lymph 1.72 X10 3/uL Normal 0.83-4.51 [facility] Comment on above: Performed By: #### L 500.4050, L500.4100, L100.0100, [id number] #### [facility] [address] [place], [address] Absolute Neut 4.5 X10 3/uL Normal 2.0-7.7 [facility] Comment on above: Performed By: #### L 500.4050, L500.4100, L100.0100, [id number] #### [facility] [address] [place], [address] Basophils/100 WBC (Bld) 1.1 % High 0-1 [facility] Comment on above: Performed By: #### L 500.4050, L500.4100, L100.0100, [id number] #### [facility] [address] [place], [address] Eosinophils/100 WBC (Bld) 1.4 % Normal 0-5 [facility] Comment on above: Performed By: #### L 500.4050, L500.4100, L100.0100, [id number] #### [facility] [address] [place], [address] Erythrocyte distribution width (RBC) [Ratio] 14.1 % Normal 11.6-14.6 [facility] Comment on above: Performed By: #### L 500.4050, L500.4100, L100.0100, [id number] #### [facility] [address] [place], [address] Hematocrit (Bld) [Volume fraction] 46.9 % Normal 37-47 [facility] Comment on above: Performed By: #### L 500.4050, L500.4100, L100.0100, [id number] #### [facility] [address] [place], [address] Hemoglobin (Bld) [Mass/Vol] 15.1 g/dL High 12.0-15.0 [facility] Comment on above: Performed By: #### L 500.4050, L500.4100, L100.0100, [id number] #### [facility] [address] [place], [address] IG% 0.100 Normal 0.0-0.9 [facility] Comment on above: Result Comment: IG% - Immature Granulocytes (promyelocytes, myelocytes and metamyelocytes) > 1% indicates that a LEFT SHIFT is Present. Performed By: #### L 500.4050, L500.4100, L100.0100, L501.9520 #### [facility] [address] [place], [address] Lymphocytes/100 WBC (Bld) 24.6 % Normal 19-41 [facility] Comment on above: Performed By: #### L 500.4050, L500.4100, L100.0100, [id number] #### [facility] [address] [place], [address] MCH (RBC) [Entitic mass] 27.3 pg Normal 27.0-32.0 [facility] Comment on above: Performed By: #### L 500.4050, L500.4100, L100.0100, [id number] #### [facility] [address] [place], [address] MCHC (RBC) [Mass/Vol] 32.2 g/dL Normal 32-36 [facility] Comment on above: Performed By: #### L 500.4050, L500.4100, L100.0100, [id number] #### [facility] [address] [place], [address] MCV (RBC) [Entitic vol] 84.8 fL Normal 81-99 [facility] Comment on above: Performed By: #### L 500.4050, L500.4100, L100.0100, [id number] #### [facility] [address] [place], [address] Monocytes/100 WBC (Bld) 8.5 % Normal 0-10 [facility] Comment on above: Performed By: #### L 500.4050, L500.4100, L100.0100, [id number] #### [facility] [address] [place], [address] Neutrophils/100 WBC (Bld) 64.3 % Normal 47-70 [facility] Comment on above: Performed By: #### L 500.4050, L500.4100, L100.0100, [id number] #### [facility] [address] [place], [address] Nucleated RBC (Bld) [#/Vol] 0 10*3/uL Normal 0-5 [facility] Comment on above: Performed By: #### L 500.4050, L500.4100, L100.0100, [id number] #### [facility] [address] [place], [address] Platelet mean volume (Bld) [Entitic vol] 10.6 fL Normal 6.2-12.0 [facility] Comment on above: Performed By: #### L 500.4050, L500.4100, L100.0100, L501.9520 #### [facility] [address] [place], [address] Platelets (Bld) [#/Vol] 243 10*3/uL Normal 150-450 [facility] Comment on above: Performed By: #### L 500.4050, L500.4100, L100.0100, [id number] #### [facility] [address] [place], [address] RBC (Bld) [#/Vol] 5.53 10*6/uL High 4.2-5.4 [facility] Comment on above: Performed By: #### L 500.4050, L500.4100, L100.0100, [id number] #### [facility] [address] [place], [address] RDW SD 43.5 fl Normal 35.1-43.9 [facility] Comment on above: Performed By: #### L 500.4050, L500.4100, L100.0100, L501.9520 #### [facility] [address] [place], [address] WBC (Bld) [#/Vol] 7.0 10*3/uL Normal 4.4-11.0 [facility] Comment on above: Performed By: #### L 500.4050, L500.4100, L100.0100, L501.9520 #### [facility] [address] [place], [address] Calculated very low density lipoprotein (VLDL) cholesterol measurementOrdered By: Karli Lindsey on 10-17-2024 Calculated very low density lipoprotein (VLDL) cholesterol measurement 30 mg/dL 5-40 [facility] Carbon dioxide, total [Moles /volume] in Central venous bloodOrdered By: Karli Lindsey on 10-17-2024 CO2 [Moles/Vol] 26.2 mmol/L 21.0-32.0 [facility] Chloride assayOrdered By: Estrella omidmarlon Lindsey on 10-17-2024 Chloride [Moles/Vol] 105 mmol/L 98-108 [facility] Comprehensive Metabolic Prof ilon 10-17-2024 Albumin [Mass/Vol] 4.3 g/dL Normal 3.4-4.8 [facility] Comment on above: Performed By: #### L 500.4050, L500.4100, L100.0100, L501.9520 #### [facility] [address] [place], [address] Albumin/Globulin [Mass ratio] 1.5 {ratio} Normal 0.9-2.4 [facility] Comment on above: Performed By: #### L 500.4050, L500.4100, L100.0100, L501.9520 #### [facility] [address] [place], [address] ALK PHOS 97 U/L Normal 35-104 [facility] Comment on above: Performed By: #### L 500.4050, L500.4100, L100.0100, L501.9520 #### [facility] [address] [place], [address] ALT [Catalytic activity/Vol] 13 U/L Normal <=34 [facility] Comment on above: Performed By: #### L 500.4050, L500.4100, L100.0100, L501.9520 #### [facility] [address] [place], [address] AST [Catalytic activity/Vol] 19 U/L Normal <=31 [facility] Comment on above: Performed By: #### L 500.4050, L500.4100, L100.0100, L501.9520 #### [facility] [address] [place], [address] Bilirubin [Mass/Vol] 0.57 mg/dL Normal 0.00-1.30 [facility] Comment on above: Performed By: #### L 500.4050, L500.4100, L100.0100, L501.9520 #### [facility] [address] [place], [address] BUN/CRE 15.8 RATIO Normal 10-20 [facility] Comment on above: Performed By: #### L 500.4050, L500.4100, L100.0100, L501.9520 #### [facility] [address] [place], [address] Calcium [Mass/Vol] 9.8 mg/dL Normal 7.6-11.0 [facility] Comment on above: Performed By: #### L 500.4050, L500.4100, L100.0100, L501.9520 #### [facility] [address] [place], [address] Chloride [Moles/Vol] 105 mmol/L Normal 98-108 [facility] Comment on above: Performed By: #### L 500.4050, L500.4100, L100.0100, L501.9520 #### [facility] [address] [place], [address] CO2 [Moles/Vol] 26.2 mmol/L Normal 21.0-32.0 [facility] Comment on above: Performed By: #### L 500.4050, L500.4100, L100.0100, L501.9520 #### [facility] [address] [place], [address] Creatinine [Mass/Vol] 0.86 mg/dL Normal 0.70-1.20 [facility] Comment on above: Performed By: #### L 500.4050, L500.4100, L100.0100, L501.9520 #### [facility] [address] [place], [address] GAP 9 Normal 5-15 [facility] Comment on above: Performed By: #### L 500.4050, L500.4100, L100.0100, L501.9520 #### [facility] [address] [place], [address] GFR/1.73 sq M.predicted among non-blacks MDRD (S/P/Bld) [Vol rate/Area] 75 mL/min/{1.73_m2} Normal >60 [facility] Comment on above: Result Comment: mL/m in/1.73m2 CKD-EPI Creatinine Equation (2020) Performed By: #### L 500.4050, L500.4100, L100.0100, L501.9520 #### [facility] [address] [place], [address] Globulin (S) [Mass/Vol] 2.8 g/dL Normal 2.2-4.2 [facility] Comment on above: Performed By: #### L 500.4050, L500.4100, L100.0100, L501.9520 #### [facility] [address] [place], [address] Glucose [Mass/Vol] 100 mg/dL High 70-99 [facility] Comment on above: Performed By: #### L 500.4050, L500.4100, L100.0100, L501.9520 #### [facility] [address] [place], [address] Potassium [Moles/Vol] 4.5 mmol/L Normal 3.3-5.1 [facility] Comment on above: Performed By: #### L 500.4050, L500.4100, L100.0100, L501.9520 #### [facility] [address] [place], [address] Sodium [Moles/Vol] 140 mmol/L Normal 133-145 [facility] Comment on above: Performed By: #### L 500.4050, L500.4100, L100.0100, L501.9520 #### [facility] [address] [place], [address] T PROT 7.1 g/dL Normal 5.9-8.4 [facility] Comment on above: Performed By: #### L 500.4050, L500.4100, L100.0100, L501.9520 #### [facility] [address] [place], [address] Urea nitrogen [Mass/Vol] 14 mg/dL Normal 4-19 [facility] Comment on above: Performed By: #### L 500.4050, L500.4100, L100.0100, L501.9520 #### [facility] [address] [place], [address] Eosinophil percentageOrdered By: Karli Lindsey on 10-17-2024 Eosinophils/100 WBC (Bld) 1.4 % 0-5 [facility] Erythrocyte distribution wid th ratioOrdered By: Karli Lindsey on 10-17-2024 Erythrocyte distribution width (RBC) [Ratio] 14.1 % 11.6-14.6 [facility] Erythrocyte distribution wid th standard deviationOrdered By: Ginacromwellgloria Lindsey on 10-17-2024 Erythrocyte distribution width (RBC) [Ratio] 43.5 fl 35.1-43.9 [facility] Glomerular filtration rate ( GFR) estimation/1.73 sq m using serum, plasma, or whole bOrdered By: Karli Lindsey on 10-17-2024 GFR/1.73 sq M.predicted among non-blacks MDRD (S/P/Bld) [Vol rate/Area] 75 mL/min/{1.73_m2} >60 [facility] Comment on above: mL/min/1.73m2 CKD-EP I Creatinine Equation (2020) Hematocrit Auto (Bld) [Volum e fraction]Ordered By: Karli Lindsey on 10-17-2024 Hematocrit (Bld) [Volume fraction] 46.9 % 37-47 [facility] Hemoglobin measurementOrdere d By: Chrisgloria Simonsweetiedominga on 10-17-2024 Hemoglobin (Bld) [Mass/Vol] 15.1 g/dL High 12.0-15.0 [facility] Immature granulocytes/100 WB C Auto (Bld)Ordered By: omidcromwellgloria Simondominga on 10-17-2024 Immature granulocytes/100 WBC (Bld) 0.100 % 0.0-0.9 [facility] Comment on above: IG% - Immature Granu locytes (promyelocytes, myelocytes and metamyelocytes) > 1% indicates that a LEFT SHIFT is Present. LDL calc ser/plasOrdered By: omidcromwellgloria Lindsey on 10-17-2024 Cholesterol in LDL [Mass/Vol] 98 mg/dL [facility] Comment on above: Jvzivsxcbs=204-506 m g/dL & Higher Zjgl=760 mg/dL or greater Laboratory - Chemistry and C hemistry - challengeOrdered By: trish Simondominga on 10-17-2024 AST [Catalytic activity/Vol] 19 U/L <32 [facility] Lipid Profileon 10-17-2024 CHOL:HDL 3.77 Normal [facility] Comment on above: Performed By: #### L 500.4050, L500.4100, L100.0100, L501.9520 ####[facility] [id number] [place], [place], [id number] Cholesterol [Mass/Vol] 174 mg/dL Normal <=200 [facility] Comment on above: Result Comment: Chol esterol level, Desirable <200 mg/dL Borderline high cholesterol 200-239 mg/dL High cholesterol >=240 mg/dL Recommendations of the NCEP Adult Treatment Panel for the following risk-cutoff thresholds for the [place] population. Performed By: #### L 500.4050, L500.4100, L100.0100, L501.9520 ####[facility] [address] [place], [place], [id number] Cholesterol in HDL [Mass/Vol] 46 mg/dL Normal [facility] Comment on above: Result Comment: Kimmy onal Cholesterol Education Program (NCEP) guidelines: <40 mg/dL: Low HDL-cholesterol (major risk factor for CHD) >= 60 mg/dL: High HDL-cholesterol (negative risk factor for CHD) HDL-cholesterol is affected by a number of factors, e.g. smoking, exercise, hormones, sex and age. Performed By: #### L 500.4050, L500.4100, L100.0100, L501.9520 ####[facility] [address] [place], [address] Cholesterol in LDL [Mass/Vol] 98 mg/dL Normal [facility] Comment on above: Result Comment: Bord bbesry=111-771 mg/dL Higher Tlyn=824 mg/dL or greater Performed By: #### L 500.4050, L500.4100, L100.0100, L501.9520 ####[facility] [address] [place], [address] Cholesterol in VLDL [Mass/Vol] 30 mg/dL Normal 5-40 [facility] Comment on above: Performed By: #### L 500.4050, L500.4100, L100.0100, L501.9520 ####[facility] [address] [place], [address] Triglyceride [Mass/Vol] 148 mg/dL Normal [facility] Comment on above: Result Comment: The drugs N-Acetylcysteine and Metamizole may falsely depress this assay. Normal range: <150 mg/dL Borderline High: 150-199 mg/dL High: 200-499 mg/dL Very High: >500 mg/dL Performed By: #### L 500.4050, L500.4100, L100.0100, L501.9520 ####[facility] [address] [place], [address] MCV (mean corpuscular volume ) determinationOrdered By: Karli Lindsey on 10-17-2024 MCV (RBC) [Entitic vol] 84.8 fL 81-99 [facility] Mean corpuscular hemoglobin (MCH) determinationOrdered By: Karli Lindsey on 10-17-2024 MCH (RBC) [Entitic mass] 27.3 pg 27.0-32.0 [facility] Mean corpuscular hemoglobin concentration (MCHC) determinationOrdered By: Karli Lindsey on 10-17-2024 MCHC (RBC) [Mass/Vol] 32.2 g/dL 32-36 [facility] Mean platelet volume determi nationOrdered By: Karli Lindsey on 10-17-2024 Platelet mean volume (Bld) [Entitic vol] 10.6 fL 6.2-12.0 [facility] Monocyte percentageOrdered B y: Karli Lindsey on 10-17-2024 Monocytes/100 WBC (Bld) 8.5 % 0-10 [facility] Neutrophil percentageOrdered By: Karli Lindsey on 10-17-2024 Neutrophils/100 WBC (Bld) 64.3 % 47-70 [facility] Nucleated red blood cell per centageOrdered By: Karli Lindsey on 10-17-2024 Nucleated RBC/100 WBC (Bld) [Ratio] 0 % 0-5 [facility] Platelet countOrdered By: Estrella Lindsey on 10-17-2024 Platelets (Bld) [#/Vol] 243 10*3/uL 150-450 [facility] Potassium measurement (mass/ volume)Ordered By: Karli Lindsey on 10-17-2024 Potassium (Unsp spec) [Mass/Vol] 4.5 mmol/L 3.3-5.1 [facility] RBC Auto (Bld) [#/Vol]Ordere d By: Karli Lindsey on 10-17-2024 RBC (Bld) [#/Vol] 5.53 10*6/uL High 4.2-5.4 [facility] Screening total cholesterol/ high density lipoprotein (HDL) cholesterol ratioOrdered By: Karli Lindsey on 10-17-2024 Cholesterol.total/Cholest darin in HDL [Mass ratio] 3.77 {ratio} [facility] Serum creatinine measurement (mass/volume)Ordered By: Karli Lindsey on 10-17-2024 Creatinine [Mass/Vol] 0.86 mg/dL 0.70-1.20 [facility] Serum globulin measurementOr dered By: Karli Lindsey on 10-17-2024 Globulin (S) [Mass/Vol] 2.8 g/dL 2.2-4.2 [facility] Serum glucose measurement (m ass/volume)Ordered By: Karli Lindsey on 10-17-2024 Glucose [Mass/Vol] 100 mg/dL High 70-99 [facility] Serum or plasma alanine cai otransferase (ALT) measurementOrdered By: Karli Lindsey on 10-17-2024 ALT [Catalytic activity/Vol] 13 U/L <35 [facility] Serum or plasma albumin george urement (mass/volume)Ordered By: Karli Lindsey on 10-17-2024 Albumin [Mass/Vol] 4.3 g/dL 3.4-4.8 [facility] Serum or plasma albumin/glob ulin mass ratioOrdered By: Karli Lindsey on 10-17-2024 Albumin/Globulin [Mass ratio] 1.5 {ratio} 0.9-2.4 [facility] Serum or plasma alkaline abimbola sphatase measurementOrdered By: Karli Lindsey on 10-17-2024 ALP [Catalytic activity/Vol] 97 U/L 35-104 [facility] Serum or plasma calcium george urement (mass/volume)Ordered By: Karli Lindsey on 10-17-2024 Calcium [Mass/Vol] 9.8 mg/dL 7.6-11.0 [facility] Serum or plasma cholesterol in HDL measurement (mass/volume)Ordered By: Karli Lindsey on 10-17-2024 Cholesterol in HDL [Mass/Vol] 46 mg/dL >40 [facility] Comment on above: National Cholesterol Education Program (NCEP) guidelines:<40 mg/dL: Low HDL-cholesterol (major risk factor for CHD)>= 60 mg/dL: High HDL-cholesterol (negative risk factor for CHD)HDL-cholesterol is affected by a number of factors, e.g. smoking, exercise, hormones, sex and age. Serum or plasma cholesterol measurement (mass/volume)Ordered By: Karli Lindsey on 10-17-2024 Cholesterol [Mass/Vol] 174 mg/dL <201 [facility] Comment on above: Cholesterol level, D esirable <200 mg/dLBorderline high cholesterol 200-239 mg/dLHigh cholesterol >=240 mg/dLRecommendations of the NCEP Adult Treatment Panel for the following risk-cutoff thresholds for the [place] population. Serum or plasma urea nitroge n measurement (mass/volume)Ordered By: Karli Lindsey on 10-17-2024 Urea nitrogen [Mass/Vol] 14 mg/dL 4-19 [facility] Sodium levelOrdered By: Gina Lindsey on 10-17-2024 Sodium [Moles/Vol] 140 mmol/L 133-145 [facility] TSH DL <= 0.005 mIU/L QnOrde red By: Karli Lindsey on 10-17-2024 TSH Qn 1.510 uIU/mL 0.300-4.20 0 [facility] Thyroid Stim Hormone (TSH)on 10-17-2024 TSH 1.510 uIU/mL Normal 0.300-4.20 0 [facility] Comment on above: Performed By: #### L 500.4050, L500.4100, L100.0100, L501.9520 ####[facility] [id number] [place], [place], [id number] Total proteinOrdered By: Mathew Lindsey on 10-17-2024 Protein [Mass/Vol] 7.1 g/dL 5.9-8.4 [facility] Triglycerides measurementOrd ered By: Karli Lindsey on 10-17-2024 Triglyceride [Mass/Vol] 148 mg/dL <199 [facility] Comment on above: The drugs N-Acetylcy steine and Metamizole may falsely depress this assay. Normal range: <150 mg/dLBorderline High: 150-199 mg/dLHigh: 200-499 mg/dLVery High: >500 mg/dL White blood cell (WBC) count Ordered By: Karli Lindsey on 10-17-2024 WBC (Bld) [#/Vol] 7.0 10*3/uL 4.4-11.0 [facility] Internal Medicine Office Vis iton 10-14-2024 Internal Medicine Office Visit [facility] [address] [place] [address] [place] [address] OFFICE VISIT Date of Service: 10/14/24 MR#: [id number] Acct: [id number] Name: NATASHA HOLDER Rep #: [id number] : 1960 Provider: Dr. Karli vigil MD Age/Sex: 64/F Location: [facility] [place] Status: Signed Intake Vital Signs 04/15/24 15:06 08/04/24 08:04 10/14/24 15:08 Height 5 ft 5 in 5 ft 5 in 5 ft 5 in Weight: 203 lb 2 oz BMI 33.7 BP 128/80 H Blood Pressure Location Lt brachial Position Sitting Respiration 16 Pulse 73 Pulse Source Monitor Temp 96.5 F L Temp Source Temporal Pulse Oximetry (%) 94 Oxygen Delivery Method room air Intake Visit Reasons: 6 M FU Chief Complaint: Follow-up chronic conditions Distance Education Coordinator Required: No Accompanied by: Self Is patient in pain?: No Allergies diclofenac Allergy (Severe, Verified 10/14/24 15:03) Rash Medications ???Medication ???Instructions ???Recorded ???Confirmed ???Type calcium 325 mg-vit D3 12.5 1 tab PO BID supplement 01/02/21 0 10/14/24 History mcg-zinc 2.75 br-iwcfsv-yingqunhm tablet fluticasone propionate 50 1 spray intranasal DAILY PRN 08/1510/14/24 History mcg/actuation nasal spray,suspension (Flonase Allergy Relief) albuterol sulfate 90 mcg/actuation 2 puff inhalation Q6H PRN 10/14/24 Rx aerosol inhaler shortness of breath or wheezing #8.5 grams cetirizine 10 mg tablet (Zyrtec) 10 mg PO DAILY PRN 05/10/23 History estradiol 10 mcg vaginal tablet 10 mcg vaginal .COMPLEX #24 tabs 0 01/20/24 10/14/24 Rx (Yuvafem) montelukast 10 mg tablet 10 mg PO QPM #90 tabs 05/18/24 Rx levothyroxine 137 mcg tablet 137 mcg PO DAILY #90 tabs 07/28/24 10/14/24 Rx methylprednisolone 4 mg tablets in See Rx Instructions PO PER PKG D IR 08/08/24 10/14/24 Rx a dose pack (Medrol (Irving)) #21 tabs fluticasone propionate 230 2 inh inhalation BID #1 ea 5 10/14/24 Rx mcg-salmeterol 21 mcg/actuation HFA inhaler (Advair HFA) atorvastatin 10 mg tablet 10 mg PO QHS #90 TABLETS 10/01/24 10/14/24 Rx pantoprazole 40 mg tablet,delayed 40 mg PO QDAY #90 tabs 10/14/24 0 10/14/24 Rx release Have you fallen in the past year?: No PFSH Medical History (Updated 10/14/24 @ 15:[address] Karli Lindsey MD) Preventative health care Pulmonary interstitial fibrosis Chronic cough Allergic rhinitis SARS-CoV-2 positive COVID-19 vaccine series completed Osteoarthritis Post-menopausal Chronic gastritis Barretts esophagus Trichilemmal cyst Frequent headaches History of recurrent UTIs Allergies GERD (gastroesophageal reflux disease) Osteoarthritis Seasonal allergies Hypothyroidism Surgical History History of esophagogastroduodenoscop y (EGD) ( 01/18/20) H/O local excision of skin lesion History of bladder repair surgery History of wisdom tooth extraction History of hysterectomy H/O: hysterectomy History of tonsillectomy Family History Mother Diabetes Hypertension CVA (cerebral vascular accident) Brother Diabetes Daughter Primary malignant neuroendocrine neoplasm of pancreas Diabetes Social History adopted: No household members: spouse and children number of children: 2 current occupational status: employed current occupation: [employer] pets and animals: No sexually active: Yes Smoking Status: Former smoker Tobacco: How many years used: 10 how long ago did patient quit smokin alcohol intake: current alcohol intake frequency: a few times a week substance use type: does not use caffeine: Yes (3-4) Type: coffee what type of physical activity do you participate in: none frequency: does not exercise seatbelt use: always do you feel safe at home: Yes additional social history: Harvey Works for the [employer] DOES USE ASPIRIN NEEDED DOES USE IBUPROFEN NEEDED Female Reproductive History Menstrual Ab spontaneous: 2 HPI HPI Chief Complaint: Follow-up chronic conditions Details: NATASHA HOLDER, is a 64 F who presents to the office today for follow-up of her chronic medical conditions. History of chronic cough, she states that over recent months she has noted worsening again. She continues to use her inhaler as prescribed. Was seen at the urgent care for an acute respiratory illness and prescribed prednisone and as before, symptoms completely resolved while she was on prednisone and returned afterwards. Follows up with pulmonary. Also currently on Singulair. While she was away on vacation, she held off coffee/caffeine and noted an improvement in the cough. History of reflux, was sw (more content not included)... Normal [facility] Laboratory - Chemistry and C hemistry - challengeOrdered By: Darien Sheridan on 09-14-2024 Bilirubin Ql (U) Negative [facility] Glucose Ql (U) Negative [facility] Ketones Ql (U) Negative [facility] pH (U) 5.0 [pH] [facility] Specific gravity (U) [Rel density] 1.020 [facility] Urobilinogen (U) [Mass/Vol] 0.9821888 mg/dL [facility] Laboratory - Hematology and Cell countsOrdered By: Darien Sheridan on 09-14-2024 Hemoglobin Ql (U) Negative [facility] Laboratory - Specimen inform ationOrdered By: Darien Sheridan on 09-14-2024 Clarity (U) Clear [facility] Color (U) YELLOW [facility] Laboratory - UrinalysisOrder ed By: Darien Sheridan on 09-14-2024 Nitrite Ql (U) Negative [facility] Protein Ql (U) Negative [facility] No Panel InformationOrdered By: Darien Sheridan on 09-14-2024 Urine Leukocytes Negatve [facility] Urine Non-Hemolyzed Blood Negative [facility] Urgent Care Visit Reporton 0 09-14-2024 Urgent Care Visit Report [facility] [address], [address] [place] [address] OFFICE VISIT Date of Service: 09/14/24 MR#: [id number] Acct: [id number] Name: NATASHA HOLDER Rep #: [id number] : 1960 Provider: HUNG Estrada Age/Sex: 64/F Location: [facility] [place] Status: Signed Intake Vital Signs 08/04/24 08:04 09/14/24 15:11 Height 5 ft 5 in BP 136/92 H 122/88 H Blood Pressure Location Lt brachial Position Sitting Sitting Respiration 14 Pulse 67 64 Pulse Source Monitor Temp 97.7 F L 97.8 F Temp Source Oral Oral Pulse Oximetry (%) 97 94 Oxygen Delivery Method room air room air Intake Visit Reasons: CONCERN FOR UTI Accompanied by: Self Allergies diclofenac Allergy (Severe, Verified 09/14/24 15:10) Rash Medications ???Medication ???Instructions ???Recorded ???Confirmed ???Type calcium 325 mg-vit D3 12.5 1 tab PO BID supplement 01/02/21 0 09/14/24 History mcg-zinc 2.75 eu-niniuj-inizbcsex tablet fluticasone propionate 50 1 spray intranasal DAILY PRN 08/1509/14/24 History mcg/actuation nasal spray,suspension (Flonase Allergy Relief) albuterol sulfate 90 mcg/actuation 2 puff inhalation Q6H PRN 09/14/24 Rx aerosol inhaler shortness of breath or wheezing #8.5 grams cetirizine 10 mg tablet (Zyrtec) 10 mg PO DAILY PRN 05/10/23 History estradiol 10 mcg vaginal tablet 10 mcg vaginal .COMPLEX #24 tabs 0 01/20/24 09/14/24 Rx (Yuvafem) pantoprazole 40 mg tablet,delayed 40 mg PO QDAY 03/11/24 09/14/24 H istory release montelukast 10 mg tablet 10 mg PO QPM #90 tabs 05/18/24 Rx atorvastatin 10 mg tablet 10 mg PO QHS #90 TABLETS 06/24/24 09/14/24 Rx levothyroxine 137 mcg tablet 137 mcg PO DAILY #90 tabs 07/28/24 09/14/24 Rx methylprednisolone 4 mg tablets in See Rx Instructions PO PER PKG D IR 08/08/24 09/14/24 Rx a dose pack (Medrol (Irving)) #21 tabs fluticasone propionate 230 2 inh inhalation BID #1 ea 5 09/14/24 Rx mcg-salmeterol 21 mcg/actuation HFA inhaler (Advair HFA) Have you fallen in the past year?: No Nurse's Note: Patient has UTI symptoms. Patient has pain with urination and she is uncombable. Patient is leaving for Vacation tomorrow. [facility] Medical History Pulmonary interstitial fibrosis Chronic cough Allergic rhinitis SARS-CoV-2 positive COVID-19 vaccine series completed Osteoarthritis Post-menopausal Chronic gastritis Barretts esophagus Trichilemmal cyst Frequent headaches History of recurrent UTIs Allergies GERD (gastroesophageal reflux disease) Osteoarthritis Seasonal allergies Hypothyroidism Surgical History History of esophagogastroduodenoscop y (EGD) ( 01/18/20) H/O local excision of skin lesion History of bladder repair surgery History of wisdom tooth extraction History of hysterectomy H/O: hysterectomy History of tonsillectomy Family History Mother Diabetes Hypertension CVA (cerebral vascular accident) Brother Diabetes Daughter Primary malignant neuroendocrine neoplasm of pancreas Diabetes Social History adopted: No household members: spouse and children number of children: 2 current occupational status: employed current occupation: 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 No complaints of fever, chills, sweats, lightheadedness/dizziness , nausea/vomiting, or chest pain/shortness of breath/dyspnea on exertion/back pain. No changes in color/ character of urine or stool. Leaving out of state tomorrow evening and would appreciate treatment if she has a UTI dx'd today. No sliq-itl-gvoqkbz products taken to assist. No other associated symptoms and no alleviating/aggravating factors. ROS Const Constitutional: No other (As above) Exa (more content not included)... Normal [facility] Laboratory - Microbiology an d Antimicrobial susceptibilityOrdered By: Silver Martinez on 08-08-2024 SARS-CoV-2 (COVID-19) RNA ALONDRA+probe Ql (Unsp spec) Not detected [facility] No Panel InformationOrdered By: Silver Martinez on 08-08-2024 Influenza Types A,B Rapid (Clinic) Detected [facility] Urgent Care Visit Reporton 0 08-08-2024 Urgent Care Visit Report [facility] [address], [address] [place] [address] OFFICE VISIT Date of Service: 08/08/24 MR#: [id number] Acct: [id number] Name: NATASHA HOLDER Rep #: [id number] : 1960 Provider: HUNG Maguire Age/Sex: 64/F Location: [facility] [place] Status: Signed Intake Vital Signs 08/04/24 08:04 08/08/24 10:09 Height 5 ft 5 in BP 136/92 H 108/62 Blood Pressure Location Lt brachial Position Sitting Sitting Respiration 14 Pulse 67 80 Pulse Source Monitor Temp 97.7 F L 98.7 F Temp Source Oral Oral Pulse Oximetry (%) 97 95 Oxygen Delivery Method room air room air Intake Visit Reasons: COUGH/BACK PAIN Accompanied by: Allergies diclofenac Allergy (Severe, Verified 08/08/24 10:08) Rash Medications ???Medication ???Instructions ???Recorded ???Confirmed ???Type calcium 325 mg-vit D3 12.5 1 tab PO BID supplement 01/02/21 0 08/08/24 History mcg-zinc 2.75 np-vtgwsp-xejqovaiu tablet fluticasone propionate 50 1 spray intranasal DAILY PRN 08/1508/08/24 History mcg/actuation nasal spray,suspension (Flonase Allergy Relief) albuterol sulfate 90 mcg/actuation 2 puff inhalation Q6H PRN 08/08/24 Rx aerosol inhaler shortness of breath or wheezing #8.5 grams cetirizine 10 mg tablet (Zyrtec) 10 mg PO DAILY PRN 05/10/23 History estradiol 10 mcg vaginal tablet 10 mcg vaginal .COMPLEX #24 tabs 0 01/20/24 08/08/24 Rx (Yuvafem) pantoprazole 40 mg tablet,delayed 40 mg PO QDAY 03/11/24 08/08/24 H istory release budesonide 180 mcg/actuation 1 inh inhalation BID #3 ea 04/20/2 4 08/08/24 Rx breath activated powder inhaler (Pulmicort Flexhaler) montelukast 10 mg tablet 10 mg PO QPM #90 tabs 05/18/24 Rx atorvastatin 10 mg tablet 10 mg PO QHS #90 TABLETS 06/24/24 08/08/24 Rx levothyroxine 137 mcg tablet 137 mcg PO DAILY #90 tabs 07/28/24 08/08/24 Rx nitrofurantoin 100 mg PO Q12H 5 days #10 caps 04/2008/08/24 Rx monohydrate/macrocrystals 100 mg capsule (Macrobid) methylprednisolone 4 mg tablets in See Rx Instructions PO PER PKG D IR 08/08/24 08/08/24 Rx a dose pack (Medrol (Irving)) #21 tabs Have you fallen in the past year?: No Nurse's Note: Patient has a cough, back pain is lethargic and has had a bad headache for 3-4 days. [facility] Medical History Pulmonary interstitial fibrosis Chronic cough Allergic rhinitis SARS-CoV-2 positive COVID-19 vaccine series completed Osteoarthritis Post-menopausal Chronic gastritis Barretts esophagus Trichilemmal cyst Frequent headaches History of recurrent UTIs Allergies GERD (gastroesophageal reflux disease) Osteoarthritis Seasonal allergies Hypothyroidism Surgical History History of esophagogastroduodenoscop y (EGD) ( 01/18/20) H/O local excision of skin lesion History of bladder repair surgery History of wisdom tooth extraction History of hysterectomy H/O: hysterectomy History of tonsillectomy Family History Mother Diabetes Hypertension CVA (cerebral vascular accident) Brother Diabetes Daughter Primary malignant neuroendocrine neoplasm of pancreas Diabetes Social History adopted: No household members: spouse and children number of children: 2 current occupational status: employed current occupation: [employer] pets and animals: No sexually active: Yes Smoking Status: Former smoker Tobacco: How many years used: 10 how long ago did patient quit smokin alcohol intake: current alcohol intake frequency: a few times a week substance use type: does not use caffeine: Yes (3-4) Type: coffee what type of physical activity do you participate in: none frequency: does not exercise seatbelt use: always do you feel safe at home: Yes additional social history: Harvey Works for the [employer] DOES USE ASPIRIN NEEDED DOES USE IBUPROFEN NEEDED Female Reproductive History Menstrual Ab spontaneous: 2 HPI HPI Details: NATASHA HOLDER, is a 64 F who presents to the office today for persistent cough. Patient states that she has a history asthma for which she takes daily Pulmicort and PRN albuterol. Patient notes that her coughing has seemed to worsen over the past 3-4 days stating I have never coughed this much before. She states that she will have frequent coughing episodes that are non-productive and result in back pain, sore throat, and ear pain due to the severity of the coughing. She states that she has been using her Pulmicort as instructed but has only been taking her albute (more content not included)... Normal [facility] Urine Cultureon 08-05-2024 URC Mixed Gram Pos Gram Neg Org [place] Count 25,000-50,000 MIXC Mixed contaminants. Submit a new specimen if indicated. Normal [facility] Comment on above: Performed By: #### M 100.6882 ####[facility] [id number] [place], [address] Laboratory - Chemistry and C hemistry - challengeOrdered By: Darien Sheridan on 08-04-2024 Bilirubin Ql (U) Small (1+) [facility] Glucose Ql (U) Negative [facility] Ketones Ql (U) Negative [facility] pH (U) 6.5 [pH] [facility] Specific gravity (U) [Rel density] 1.005 [facility] Urobilinogen (U) [Mass/Vol] 0.6792227 mg/dL [facility] Laboratory - Hematology and Cell countsOrdered By: Darien Sheridan on 08-04-2024 Hemoglobin Ql (U) Large [facility] Laboratory - Specimen inform ationOrdered By: Darien Sheridan on 08-04-2024 Clarity (U) Cloudy [facility] Color (U) Yellow [facility] Laboratory - UrinalysisOrder ed By: Darien Sheridan on 08-04-2024 Nitrite Ql (U) Negative [facility] Protein Ql (U) Trace [facility] No Panel InformationOrdered By: Darien Sheridan on 08-04-2024 Urine Leukocytes Positive [facility] Urine Non-Hemolyzed Blood Large [facility] Urgent Care Visit Reporton 0 08-04-2024 Urgent Care Visit Report [facility] [address], [address] [place] [address] OFFICE VISIT Date of Service: 08/04/24 MR#: [id number] Acct: [id number] Name: ALTHEANATASHA GUERRERONE Rep #: [id number] : 1960 Provider: HUNG Estrada Age/Sex: 64/F Location: [facility] Status: Signed Intake Vital Signs 04/20/24 07:20 08/04/24 08:04 Height 5 ft 5 in 5 ft 5 in Weight: 199 lb BMI 33.1 BP 137/84 H 136/92 H Blood Pressure Location Lt brachial Lt brachial Position Sitting Sitting Respiration 20 H 14 Pulse 63 67 Pulse Source Monitor Monitor Temp 98.6 F 97.7 F L Temp Source Oral Pulse Oximetry (%) 98 97 Oxygen Delivery Method room air room air Intake Visit Reasons: CONCERN FOR UTI Chief Complaint: dysuria, pelvic discomfort Distance Education Coordinator Required: No Accompanied by: Self Is patient in pain?: No Allergies diclofenac Allergy (Severe, Verified 08/04/24 08:04) Rash Medications ???Medication ???Instructions ???Recorded ???Confirmed ???Type calcium 325 mg-vit D3 12.5 1 tab PO BID supplement 01/02/21 0 08/04/24 History mcg-zinc 2.75 fm-aggfud-lnhcmwfir tablet fluticasone propionate 50 1 spray intranasal DAILY PRN 08/1508/04/24 History mcg/actuation nasal spray,suspension (Flonase Allergy Relief) albuterol sulfate 90 mcg/actuation 2 puff inhalation Q6H PRN 08/04/24 Rx aerosol inhaler shortness of breath or wheezing #8.5 grams cetirizine 10 mg tablet (Zyrtec) 10 mg PO DAILY PRN 05/10/23 History estradiol 10 mcg vaginal tablet 10 mcg vaginal .COMPLEX #24 tabs 0 01/20/24 08/04/24 Rx (Yuvafem) pantoprazole 40 mg tablet,delayed 40 mg PO QDAY 03/11/24 08/04/24 H istory release budesonide 180 mcg/actuation 1 inh inhalation BID #3 ea 04/20/2 4 08/04/24 Rx breath activated powder inhaler (Pulmicort Flexhaler) montelukast 10 mg tablet 10 mg PO QPM #90 tabs 05/18/2404/20 Rx atorvastatin 10 mg tablet 10 mg PO QHS #90 TABLETS 06/24/24 08/04/24 Rx levothyroxine 137 mcg tablet 137 mcg PO DAILY #90 tabs 07/28/24 08/04/24 Rx nitrofurantoin 100 mg PO Q12H 5 days #10 caps 04/2008/04/24 Rx monohydrate/macrocrystals 100 mg capsule (Macrobid) Have you fallen in the past year?: No PFSH Medical History Pulmonary interstitial fibrosis Chronic cough Allergic rhinitis SARS-CoV-2 positive COVID-19 vaccine series completed Osteoarthritis Post-menopausal Chronic gastritis Barretts esophagus Trichilemmal cyst Frequent headaches History of recurrent UTIs Allergies GERD (gastroesophageal reflux disease) Osteoarthritis Seasonal allergies Hypothyroidism Surgical History History of esophagogastroduodenoscop y (EGD) ( 01/18/20) H/O local excision of skin lesion History of bladder repair surgery History of wisdom tooth extraction History of hysterectomy H/O: hysterectomy History of tonsillectomy Family History Mother Diabetes Hypertension CVA (cerebral vascular accident) Brother Diabetes Daughter Primary malignant neuroendocrine neoplasm of pancreas Diabetes Social History adopted: No household members: spouse and children number of children: 2 current occupational status: employed current occupation: [employer] pets and animals: No sexually active: Yes Smoking Status: Former smoker Tobacco: How many years used: 10 how long ago did patient quit smokin alcohol intake: current alcohol intake frequency: a few times a week substance use type: does not use caffeine: Yes (3-4) Type: coffee what type of physical activity do you participate in: none frequency: does not exercise seatbelt use: always do you feel safe at home: Yes additional social history: Harvey Works for the [employer] DOES USE ASPIRIN NEEDED DOES USE IBUPROFEN NEEDED Female Reproductive History Menstrual Ab spontaneous: 2 HPI HPI Chief Complaint: dysuria, pelvic discomfort Details: NATASHA HOLDER, is a 64 F who presents to the office today [facility] for approximately 3-4 day history of dysuria and urinary frequency with suprapubic pressure. No complaints of fever, chills, sweats, lightheadedness/dizziness , nausea/vomiting, or chest pain/shortness of breath/dyspnea on exertion/back pain. No changes in color/ character of urine or stool; no urethral/ vaginal discharge. No wcwr-fxm-phzfvrv products taken to assist. No other associated symptoms and no alleviating/aggravating factors. ROS Const Constitutional: No other (As above) Exam Const (more content not included)... Normal [facility] Urine cultureOrdered By: Rahul Sheridan on 08-04-2024 Bacteria identified Cx Nom (U) Mixed Gram Pos & Gram Neg Org Abnormal [facility] PT D/C Summary (1)on 025 PT D/C Summary (1) [facility] Physical Therapy [facility] [address] [place] [address] / REHABILITATION SERVICES DISCHARGE SUMMARY MR#: [id number] Acct: [id number] Name: NATASHA HOLDER Rep #: [id number] : 1960 64 From: Bridger Bryson DPT Referring Dr.: Dr. Isai Gage DO Status: R EG RCR Insurance: [employer] SELF PAY INSURANCE Discharge Summary D/C summary: It has been my pleasure to treat NATASHA HOLDER referred by Dr. Isai Gage DO, with the diagnosis of R knee OA for a total of 12 visit(s). Discharge Date: 02/26/24 Please see the following information for a summary of their discharge status. Subjective Subjective: Pt reporting she is ready for d/c- feels good about HEP and gym routine at [facility] Pain R knee: Pain Intensity (Out of 10): 2 Overall Improvement % Improvement: 20 Objective Objective/Function: Pt feels like she has a good program to cont with at home and at center for strengthening. reviewed gym equip ex's again today with pt. Goals Goal 1:: LTG: Pt. to be I with HEP for R knee ROM and strengthening. Goal Progress: Progressing Goal 2:: LTG: Pt. to be able to ambulate with normal gait pattern without increase in symptoms. Goal Progress: Progressing Goal 3:: LTG: Pt. to have increased R knee ROM to 0-0-120deg. Goal Progress: Goal Met Goal 4:: LTG: Pt. to have symmetrical strength between BLEs, note to quad, HS, hip abd allowing for increased stability with gait and functional mobility. Goal Progress: Goal Met Goal 5:: LTG: Pt. to complete stair negotiation with 1 HR with reciprocal pattern without increase in R knee pain. Goal Progress: Progressing Plan Plan: re- check by PT today. Pt has a copy of ex log for her to complete [facility] [place]. Pt is still pending TKR but its not scheduled yet. Good understanding of gym/home ex's D/C Information d/c sentence: If there are questions or concerns regarding this patient's physical therapy, please feel free to call me at [phone]. Thank you for the referral of this patient. Sincerely, Bridger Bryson, DPT Balance/Gait/Functional tests Balance/Special Test Scores Lower Extremity Functional Score: 64 Improvement % Improvement: 07/02/24 1052 CC: Dr. Karli Lindsey MD; Dr. Isai Gage DO CLS Signed Normal [facility] Albumin to globulin ratioOrd ered By: Karli Lindsey on 06-13-2024 Albumin/Globulin [Mass ratio] 0.9 {ratio} 0.9-2.4 [facility] Bilirubin, totalOrdered By: Karli Lindsey on 06-13-2024 Bilirubin [Mass/Vol] 0.50 mg/dL 0.20-1.00 [facility] Comment on above: For patients on eltr ombopag therapy, use of Dimension Jay TBIL is not recommended. Blood urea nitrogen (BUN)/cr eatinine ratioOrdered By: Karli Lindsey on 06-13-2024 Urea nitrogen/Creatinine [Mass ratio] 14.0 mg/mg 10-20 [facility] Carbon dioxide measurementOr dered By: Karli Lindsey on 06-13-2024 CO2 [Moles/Vol] 31.0 mmol/L 21.0-32.0 [facility] Chloride measurementOrdered By: Karli Lindsey on 06-13-2024 Chloride [Moles/Vol] 109 mmol/L High 98-107 [facility] Comprehensive Metabolic Prof ilon 06-13-2024 Albumin [Mass/Vol] 3.5 g/dL Normal 3.2-5.0 [facility] Comment on above: Performed By: #### L [id number] #### [facility] [address] [place], [address] Albumin/Globulin [Mass ratio] 0.9 {ratio} Normal 0.9-2.4 [facility] Comment on above: Performed By: #### L [id number] #### [facility] [address] [place], [address] ALK P 104 U/L Normal 45-117 [facility] Comment on above: Performed By: #### L [id number] #### [facility] [address] [place], [address] ALT [Catalytic activity/Vol] 19 U/L Normal 13-56 [facility] Comment on above: Performed By: #### L [id number] #### [facility] [address] [place], [address] AST [Catalytic activity/Vol] 14 U/L Low 15-37 [facility] Comment on above: Performed By: #### L [id number] #### [facility] [address] [place], [address] Bilirubin [Mass/Vol] 0.50 mg/dL Normal 0.20-1.00 [facility] Comment on above: Result Comment: For patients on eltrombopag therapy, use of Dimension Jay TBIL is not recommended. Performed By: #### L [id number] #### [facility] [address] [place], [address] BUN/CRE 14.0 RATIO Normal 10-20 [facility] Comment on above: Performed By: #### L [id number] #### [facility] [address] [place], [address] CA,Total 9.5 mg/dL Normal 8.5-10.1 [facility] Comment on above: Performed By: #### L [id number] #### [facility] [address] [place], [address] Chloride [Moles/Vol] 109 mmol/L High 98-107 [facility] Comment on above: Performed By: #### L [id number] #### [facility] [address] [place], [address] CO2 [Moles/Vol] 31.0 mmol/L Normal 21.0-32.0 [facility] Comment on above: Performed By: #### L [id number] #### [facility] [address] [place], [address] Creatinine [Mass/Vol] 0.93 mg/dL Normal 0.55-1.02 [facility] Comment on above: Result Comment: The validity of the calculated GFR GFRAA in patients over 70 years has not been determined. Clinical correlation is essential. Performed By: #### L [id number] #### [facility] [address] [place], [address] EST GFR - AA 78 mL/min Normal >60 [facility] Comment on above: Result Comment: Afri can Puerto Rican GFR Calc Performed By: #### L [id number] #### [facility] [address] [place], [address] GAP 1 Low 5-15 [facility] Comment on above: Performed By: #### L [id number] #### [facility] [address] [place], [address] GFR/1.73 sq M.predicted among non-blacks MDRD (S/P/Bld) [Vol rate/Area] 64 mL/min/{1.73_m2} Normal >60 [facility] Comment on above: Result Comment: Non- GFR Calc Performed By: #### L [id number] #### [facility] [address] [place], [address] Globulin (S) [Mass/Vol] 3.7 g/dL Normal 2.2-4.2 [facility] Comment on above: Performed By: #### L [id number] #### [facility] [address] [place], [address] Glucose [Mass/Vol] 98 mg/dL Normal 74-106 [facility] Comment on above: Performed By: #### L [id number] #### [facility] [address] [place], [address] Potassium [Moles/Vol] 4.2 mmol/L Normal 3.5-5.1 [facility] Comment on above: Performed By: #### L [id number] #### [facility] [address] [place], [address] Sodium [Moles/Vol] 140 mmol/L Normal 136-145 [facility] Comment on above: Performed By: #### L [id number] #### [facility] [address] [place], [address] T PROT 7.2 g/dL Normal 6.4-8.2 [facility] Comment on above: Performed By: #### L [id number] #### [facility] [address] [place], [address] Urea nitrogen [Mass/Vol] 13 mg/dL Normal 7-18 [facility] Comment on above: Performed By: #### L [id number] #### [facility] [address] [place], [address] Estimated glomerular filtrat ion rate (GFR) AmericanOrdered By: Karli Lindsey on 06-13-2024 Estimated GFR (MDRD) Amer 78 mL/min >60 [facility] Comment on above: GFR Calc Glomerular filtration rate ( GFR) estimationOrdered By: Karli Lindsey on 06-13-2024 Estimated GFR (MDRD) Non-Af Amer 64 mL/min >60 [facility] Comment on above: Non- GFR Calc Glucose measurementOrdered B y: Karli Lindsey on 06-13-2024 Glucose [Mass/Vol] 98 mg/dL 74-106 [facility] Laboratory - Chemistry and C hemistry - challengeOrdered By: Karli Lindsey on 06-13-2024 AST [Catalytic activity/Vol] 14 U/L Low 15-37 [facility] Potassium measurementOrdered By: Karli Lindsey on 06-13-2024 Potassium [Moles/Vol] 4.2 mmol/L 3.5-5.1 [facility] Serum anion gap measurementO rdered By: Karli Lindsey on 06-13-2024 Anion gap [Moles/Vol] 1 mmol/L Low 5-15 [facility] Serum globulin measurementOr dered By: Karli Lindsey on 06-13-2024 Globulin (S) [Mass/Vol] 3.7 g/dL 2.2-4.2 [facility] Serum or plasma alanine cai otransferase (ALT) measurementOrdered By: Karli Lindsey on 06-13-2024 ALT [Catalytic activity/Vol] 19 U/L 13-56 [facility] Serum or plasma albumin george urement (mass/volume)Ordered By: Karli Lindsey on 06-13-2024 Albumin [Mass/Vol] 3.5 g/dL 3.2-5.0 [facility] Serum or plasma alkaline abimbola sphatase measurementOrdered By: aKrli Lindsey on 06-13-2024 ALP [Catalytic activity/Vol] 104 U/L 45-117 [facility] Serum or plasma calcium george urement (mass/volume)Ordered By: Karli Lindsey on 06-13-2024 Calcium [Mass/Vol] 9.5 mg/dL 8.5-10.1 [facility] Serum or plasma creatinine m easurement (mass/volume)Ordered By: Karli Lindsey on 06-13-2024 Creatinine [Mass/Vol] 0.93 mg/dL 0.55-1.02 [facility] Comment on above: The validity of the calculated GFR & GFRAA in patients over 70 years has not been determined. Clinical correlation is essential. Serum or plasma urea nitroge n measurement (mass/volume)Ordered By: Karli Lindsey on 06-13-2024 Urea nitrogen [Mass/Vol] 13 mg/dL 7-18 [facility] Sodium levelOrdered By: Gina cranewilldominga Lindsey on 06-13-2024 Sodium [Moles/Vol] 140 mmol/L 136-145 [facility] Total proteinOrdered By: Mathew Lindsey on 06-13-2024 Protein [Mass/Vol] 7.2 g/dL 6.4-8.2 [facility] Albumin to globulin ratioOrd ered By: Karli Lindsey on 05-02-2024 Albumin/Globulin [Mass ratio] 1.0 {ratio} 0.9-2.4 [facility] Bilirubin, totalOrdered By: Karli Lindsey on 05-02-2024 Bilirubin [Mass/Vol] 0.40 mg/dL 0.20-1.00 [facility] Comment on above: For patients on eltr ombopag therapy, use of Dimension Jay TBIL is not recommended. Blood urea nitrogen (BUN)/cr eatinine ratioOrdered By: Karli Lindsey on 05-02-2024 Urea nitrogen/Creatinine [Mass ratio] 13.2 mg/mg 10-20 [facility] Carbon dioxide measurementOr dered By: Karli Lindsey on 05-02-2024 CO2 [Moles/Vol] 31.0 mmol/L 21.0-32.0 [facility] Chloride measurementOrdered By: Karli Lindsey on 05-02-2024 Chloride [Moles/Vol] 110 mmol/L High 98-107 [facility] Comprehensive Metabolic Prof ilon 05-02-2024 Albumin [Mass/Vol] 3.6 g/dL Normal 3.2-5.0 [facility] Comment on above: Performed By: #### L 501.9854, [id number], L500.4100 ####[facility] [address] [place], [address] Albumin/Globulin [Mass ratio] 1.0 {ratio} Normal 0.9-2.4 [facility] Comment on above: Performed By: #### L [id number], [id number], L500.4100 ####[facility] [address] [place], [address] ALK P 106 U/L Normal 45-117 [facility] Comment on above: Performed By: #### L [id number], [id number], L500.4100 ####[facility] [address] [place], [address] ALT [Catalytic activity/Vol] 25 U/L Normal 13-56 [facility] Comment on above: Performed By: #### L [id number], [id number], L500.4100 ####[facility] [address] [place], [address] AST [Catalytic activity/Vol] 12 U/L Low 15-37 [facility] Comment on above: Performed By: #### L [id number], [id number], L500.4100 ####[facility] [address] [place], [address] Bilirubin [Mass/Vol] 0.40 mg/dL Normal 0.20-1.00 [facility] Comment on above: Result Comment: For patients on eltrombopag therapy, use of Dimension Jay TBIL is not recommended. Performed By: #### L [id number], [id number], L500.4100 ####[facility] [address] [place], [address] BUN/CRE 13.2 RATIO Normal 10-20 [facility] Comment on above: Performed By: #### L [id number], [id number], L500.4100 ####[facility] [address] [place], [address] CA,Total 9.2 mg/dL Normal 8.5-10.1 [facility] Comment on above: Performed By: #### L [id number], [id number], L500.4100 ####[facility] [address] [place], [address] Chloride [Moles/Vol] 110 mmol/L High 98-107 [facility] Comment on above: Performed By: #### L [id number], [id number], L500.4100 ####[facility] [address] [place], [address] CO2 [Moles/Vol] 31.0 mmol/L Normal 21.0-32.0 [facility] Comment on above: Performed By: #### L 501.9520, [id number], L500.4100 ####[facility] [address] [place], [address] Creatinine [Mass/Vol] 0.76 mg/dL Normal 0.55-1.02 [facility] Comment on above: Result Comment: The validity of the calculated GFR GFRAA in patients over 70 years has not been determined. Clinical correlation is essential. Performed By: #### L 501.9520, [id number], L500.4100 ####[facility] [address] [place], [address] EST GFR - AA 99 mL/min Normal >60 [facility] Comment on above: Result Comment: Afri can Puerto [place]ican GFR Calc Performed By: #### L [id number], [id number], L500.4100 ####[facility] [address] [place], [address] GAP 0 Low 5-15 [facility] Comment on above: Performed By: #### L [id number], [id number], L500.4100 ####[facility] [address] [place], [address] GFR/1.73 sq M.predicted among non-blacks MDRD (S/P/Bld) [Vol rate/Area] 82 mL/min/{1.73_m2} Normal >60 [facility] Comment on above: Result Comment: Non- GFR Calc Performed By: #### L 501.9520, [id number], L500.4100 ####[facility] [address] [place], [address] Globulin (S) [Mass/Vol] 3.6 g/dL Normal 2.2-4.2 [facility] Comment on above: Performed By: #### L [id number], [id number], L500.4100 ####[facility] [address] [place], [address] Glucose [Mass/Vol] 95 mg/dL Normal 74-106 [facility] Comment on above: Performed By: #### L 501.9520, [id number], L500.4100 ####[facility] [address] [place], [address] Potassium [Moles/Vol] 4.5 mmol/L Normal 3.5-5.1 [facility] Comment on above: Performed By: #### L 501.9520, [id number], L500.4100 ####[facility] [address] [place], [address] Sodium [Moles/Vol] 141 mmol/L Normal 136-145 [facility] Comment on above: Performed By: #### L 501.9520, [id number], L500.4100 ####[facility] [address] [place], [address] T PROT 7.2 g/dL Normal 6.4-8.2 [facility] Comment on above: Performed By: #### L 501.9520, [id number], L500.4100 ####[facility] [address] [place], [address] Urea nitrogen [Mass/Vol] 10 mg/dL Normal 7-18 [facility] Comment on above: Performed By: #### L 501.9520, [id number], L500.4100 ####[facility] [address] [place], [address] Estimated glomerular filtrat ion rate (GFR) AmericanOrdered By: Karli Lindsey on 05-02-2024 Estimated GFR (MDRD) Amer 99 mL/min >60 [facility] Comment on above: GFR Calc Glomerular filtration rate ( GFR) estimationOrdered By: Karli Lindsey on 05-02-2024 Estimated GFR (MDRD) Non-Af Amer 82 mL/min >60 [facility] Comment on above: Non- GFR Calc Glucose measurementOrdered B y: Karli Lindsey on 05-02-2024 Glucose [Mass/Vol] 95 mg/dL 74-106 [facility] High density lipoprotein (HD L) measurementOrdered By: Karli Lindsey on 05-02-2024 Cholesterol in HDL [Mass/Vol] 48 mg/dL >40 [facility] Comment on above: The drugs N-Acetylcy steine and Metamizole may falsely depress this assay. Reference Range HDL <40 mg/dL Low HDL Cholesterol HDL >or= 60 mg/dL High HDL Cholesterol Laboratory - Chemistry and C hemistry - challengeOrdered By: Karli Lindsey on 05-02-2024 AST [Catalytic activity/Vol] 12 U/L Low 15-37 [facility] Lipid Profileon 05-02-2024 Cholesterol [Mass/Vol] 150 mg/dL Normal 200 [facility] Comment on above: Result Comment: <200 mg/dL Desirable 200-240 mg/dL Borderline >240 mg/dL High Risk Performed By: #### L [id number], [id number], L500.4100 ####[facility] [address] [place], [address] Cholesterol in HDL [Mass/Vol] 48 mg/dL Normal [facility] Comment on above: Result Comment: The drugs N-Acetylcysteine and Metamizole may falsely depress this assay. Reference Range HDL <40 mg/dL Low HDL Cholesterol HDL >or= 60 mg/dL High HDL Cholesterol Performed By: #### L 501.9520, [id number], L500.4100 ####[facility] [address] [place], [address] Cholesterol in LDL [Mass/Vol] 81 mg/dL Normal 0-130 [facility] Comment on above: Performed By: #### L 501.9520, [id number], L500.4100 ####[facility] [address] [place], [address] Cholesterol in VLDL [Mass/Vol] 21 mg/dL Normal 5-40 [facility] Comment on above: Performed By: #### L [id number], [id number], L500.4100 ####[facility] [address] [place], [address] Triglyceride [Mass/Vol] 106 mg/dL Normal [facility] Comment on above: Result Comment: The drugs N-Acetylcysteine and Metamizole may falsely depress this assay. Serum Triglycerides Reference Interval Normal <150 mg/dL Borderline high 150 - 199 mg/dL High 200 - 499 mg/dL Very High > or = 500 mg/dL Performed By: #### L 501.9520, L500.4050, L500.4100 ####[facility] [address] [place], [address] Low density lipoprotein (LDL ) cholesterol measurementOrdered By: Karli Lindsey on 05-02-2024 Cholesterol in LDL [Mass/Vol] 81 mg/dL 0-130 [facility] Potassium measurementOrdered By: Karli Lindsey on 05-02-2024 Potassium [Moles/Vol] 4.5 mmol/L 3.5-5.1 [facility] Serum anion gap measurementO rdered By: Karli Lindsey on 05-02-2024 Anion gap [Moles/Vol] 0 mmol/L Low 5-15 [facility] Serum globulin measurementOr dered By: Karli Lindsey on 05-02-2024 Globulin (S) [Mass/Vol] 3.6 g/dL 2.2-4.2 [facility] Serum or plasma alanine cai otransferase (ALT) measurementOrdered By: Karli Lindsey on 05-02-2024 ALT [Catalytic activity/Vol] 25 U/L 13-56 [facility] Serum or plasma albumin george urement (mass/volume)Ordered By: Karli Lindsey on 05-02-2024 Albumin [Mass/Vol] 3.6 g/dL 3.2-5.0 [facility] Serum or plasma alkaline abimbola sphatase measurementOrdered By: Karli Lindsey on 05-02-2024 ALP [Catalytic activity/Vol] 106 U/L 45-117 [facility] Serum or plasma calcium george urement (mass/volume)Ordered By: Karli Lindsey on 05-02-2024 Calcium [Mass/Vol] 9.2 mg/dL 8.5-10.1 [facility] Serum or plasma cholesterol measurement (mass/volume)Ordered By: Karli Lindsey 05-02-2024 Cholesterol [Mass/Vol] 150 mg/dL <200 [facility] Comment on above: <200 mg/dL Desirable 200-240 mg/dL Borderline >240 mg/dL High Risk Serum or plasma creatinine m easurement (mass/volume)Ordered By: Karli Lindsey on 05-02-2024 Creatinine [Mass/Vol] 0.76 mg/dL 0.55-1.02 [facility] Comment on above: The validity of the calculated GFR & GFRAA in patients over 70 years has not been determined. Clinical correlation is essential. Serum or plasma urea nitroge n measurement (mass/volume)Ordered By: Karli Lindsey on 05-02-2024 Urea nitrogen [Mass/Vol] 10 mg/dL 7-18 [facility] Sodium levelOrdered By: Gina cranegbe Alfrednewton on 05-02-2024 Sodium [Moles/Vol] 141 mmol/L 136-145 [facility] TSH QnOrdered By: Karli Lindsey on 05-02-2024 Thyroid Stimulating Hormone (TSH) 0.676 uIU/mL 0.358-3.74 0 [facility] Thyroid Stim Hormone (TSH)on 05-02-2024 TSH 0.676 uIU/mL Normal 0.358-3.74 0 [facility] Comment on above: Performed By: #### L 501.9520, L500.4050, L500.4100 ####[facility] [address] [place], [place], [address] Total proteinOrdered By: Mathew mackenzie Alfrednewton on 05-02-2024 Protein [Mass/Vol] 7.2 g/dL 6.4-8.2 [facility] Triglycerides measurementOrd ered By: Karli Alfrednewton on 05-02-2024 Triglyceride [Mass/Vol] 106 mg/dL <199 [facility] Comment on above: The drugs N-Acetylcy steine and Metamizole may falsely depress this assay.Serum Triglycerides Reference Interval Normal <150 mg/dL Borderline high 150 - 199 mg/dL High 200 - 499 mg/dL Very High > or = 500 mg/dL Very low density lipoprotein (VLDL) cholesterol measurementOrdered By: Estrellaomidmarlon Alfrednewton on 05-02-2024 VLDL Cholesterol 21 mg/dL 5-40 [facility] Pulmonary Visit Reporton Pulmonary Visit Report [facility] [place] [address] [place] [address] OFFICE VISIT Date of Service: 04/20/24 MR#: [id number] Acct: [id number] Name: ALTHEANATASHA WANG Rep #: [id number] : 1960 Provider: HILLARY Cervantes Age/Sex: 64/F [place] [facility] Status: Signed Assessment and Plan Assessment and Plan (1) Chronic cough: Status: Chronic Plan: Improving. The patient admits that over the past week and a half she has finally noticed a decrease in her cough frequency after being on allergy shots for 5 weeks. She is going to continue Singulair, as she has noticed a decrease in mucus production. If she decides to trial off of Singulair she was educated to monitor for symptom return. If mucus does return she should resume the use of Singulair. However, if mucus production does not return off of Singulair she may discontinue the medication altogether. She is agreeable with this plan. Follow-up in the office in 6 months to evaluate for continued symptoms, symptom improvement and to evaluate for the ability to de-escalate medications. (2) Allergic rhinitis: Status: Chronic Qualifiers: Allergic rhinitis seasonality: seasonal Allergic rhinitis trigger: pollen Qualified Code(s): J30.1 - Allergic rhinitis due to pollen Plan: Improved, responding well to allergy injections. (3) Seasonal allergies: Status: Chronic Qualifiers: Allergic rhinitis trigger: unspecified Qualified Code(s): J30.2 - Other seasonal allergic rhinitis Plan: Improved at this time. She has been encouraged to contact the office with any exacerbations. She is agreeable. Medications: Changed From budesonide 180 mcg/actuation (Pulmicort Flexhaler) INHALE 1 PUFF TWICE A DAY 3 inserts 0RF To budesonide 180 mcg/actuation (Pulmicort Flexhaler) 1 inh inhalation BID 3 ea 3RF Plan Details Follow Up: 6 Months ([facility]) HPI 3 M FU Chief Complaint: cough HPI Comments Details: This patient presents to the office today for follow-up of her chronic cough. She is ambulatory and currently on room air. She has not recently been seen in the ED or urgent care for any respiratory illness. She has not required any antibiotics or prednisone for any breathing problems. She is compliant with use of Pulmicort twice daily. She does report rinsing her mouth out after each use. She denies any medication side effect such as sore throat or thrush. She is also compliant with Flonase and Zyrtec daily. She has not recently tried the albuterol. She has been on allergy shots for the past 5 weeks with ENT. She is not having difficulty with shortness of breath. Cough frequency significantly reduced. Is not dry. Described as tickling. She denies any hemoptysis. She denies any difficulty with wheezing, chest tightness, chest pain or palpitations. She has not had any fever, chills or body aches. Intake Vital Signs 01/21/24 09:09 04/15/24 15:06 04/20/24 07:20 Height 5 ft 5 in 5 ft 5 in 5 ft 5 in Weight: 201 lb 203 lb 199 lb BMI 33.4 33.7 33.1 BP 131/88 H 118/76 137/84 H Blood Pressure Location Lt brachial Lt brachial Lt brachial Position Sitting Sitting Sitting Respiration 18 17 20 H Pulse 67 76 63 Pulse Source Monitor Monitor Monitor Temp 97.4 F L 97.8 F 98.6 F Temperature Source Temporal Artery Temporal Artery Pulse Oximetry (%) 95 97 98 Oxygen Delivery Method room air room air room air Intake Visit Reasons: 3 M FU Distance Education Coordinator Required: No DME Vendor: n/a Accompanied by: Self Is patient in pain?: No Allergies diclofenac Allergy (Severe, Verified 04/20/24 08:15) Rash Medications ???Medication ???Instructions ???Recorded ???Confirmed ???Type calcium 325 mg-vit D3 12.5 1 tab PO BID supplement 01/02/21 04/20/24 History mcg-zinc 2.75 zz-nfmldv-tpgrrfeqn tablet fluticasone propionate 50 1 spray intranasal DAILY PRN 08/15/22 04/20/24 History mcg/actuation nasal spray,suspension (Flonase Allergy Relief) albuterol sulfate 90 mcg/actuation 2 puff inhalation Q6H PRN 04/16/23 04/20/24 Rx aerosol inhaler shortness of breath or wheezing #8.5 grams cetirizine 10 mg tablet (Zyrtec) 10 mg PO DAILY PRN 05/10/23 04/20/24 History atorvastatin 10 mg tablet 10 mg PO QHS #90 TABLETS 11/21/23 04/20/24 Rx estradiol 10 mcg vaginal tablet 10 mcg vaginal .COMPLEX #24 tabs 01/20/24 04/20/24 Rx (Yuvafem) montelukast 10 mg tablet 10 mg PO QPM #30 tabs 01/21/24 04/20/24 Rx levothyroxine 137 mcg tablet 137 mcg PO DAILY #90 tabs 02/14/24 04/20/24 Rx pantoprazole 40 mg tablet,delayed 40 mg PO QDAY 03/11/24 04/20/24 History release budesonide 180 mcg/actuation 1 inh inhalation BID #3 ea 04/20/24 04/20/24 Rx breath activated powder inhaler (Pulmicort Flexhaler) Have you fallen in the past year?: No P (more content not included)... Normal [facility] Internal Medicine Office Vis iton 04-15-2024 Internal Medicine Office Visit [facility] [address] [place] [address] [place] [address] OFFICE VISIT Date of Service: 04/15/24 MR#: [id number] Acct: [id number] Name: NATASHA HOLDER Rep #: [id number] : 1960 Provider: Dr. Karli vigil MD Age/Sex: 64/F Location: [facility] Status: Signed Intake Vital Signs 10/24/23 14:56 01/21/24 09:09 04/15/24 15:06 Height 5 ft 5 in 5 ft 5 in 5 ft 5 in Weight: 203 lb BMI 33.7 BP 118/76 Blood Pressure Location Lt brachial Position Sitting Respiration 17 Pulse 76 Pulse Source Monitor Temp 97.8 F Temp Source Temporal Pulse Oximetry (%) 97 Oxygen Delivery Method room air Intake Visit Reasons: 6 M FU Chief Complaint: 6 M FU Is patient in pain?: No Allergies diclofenac Allergy (Severe, Verified 04/15/24 15:07) Rash Medications ???Medication ???Instructions ???Recorded ???Confirmed ???Type calcium 325 mg-vit D3 12.5 1 tab PO BID supplement 01/02/21 04/15/24 History mcg-zinc 2.75 jw-ssffyr-rzfhkpdfo tablet fluticasone propionate 50 1 spray intranasal DAILY PRN 08/15/22 04/15/24 History mcg/actuation nasal spray,suspension (Flonase Allergy Relief) albuterol sulfate 90 mcg/actuation 2 puff inhalation Q6H PRN 04/16/23 04/15/24 Rx aerosol inhaler shortness of breath or wheezing #8.5 grams cetirizine 10 mg tablet (Zyrtec) 10 mg PO DAILY PRN 05/10/23 04/15/24 History budesonide 180 mcg/actuation See Rx Instructions .Route 07/30/23 04/15/24 Rx breath activated powder inhaler .COMPLEX #3 inserts (Pulmicort Flexhaler) atorvastatin 10 mg tablet 10 mg PO QHS #90 TABLETS 11/21/23 04/15/24 Rx estradiol 10 mcg vaginal tablet 10 mcg vaginal .COMPLEX #24 tabs 01/20/24 04/15/24 Rx (Yuvafem) montelukast 10 mg tablet 10 mg PO QPM #30 tabs 01/21/24 04/15/24 Rx levothyroxine 137 mcg tablet 137 mcg PO DAILY #90 tabs 02/14/24 04/15/24 Rx pantoprazole 40 mg tablet,delayed 40 mg PO QDAY 03/11/24 04/15/24 History release Have you fallen in the past year?: No Nurse's Note: p PFSH Medical History Pulmonary interstitial fibrosis Chronic cough Allergic rhinitis SARS-CoV-2 positive COVID-19 vaccine series completed Osteoarthritis Post-menopausal Chronic gastritis Barretts esophagus Trichilemmal cyst Frequent headaches History of recurrent UTIs Allergies GERD (gastroesophageal reflux disease) Osteoarthritis Seasonal allergies Hypothyroidism Surgical History History of esophagogastroduodenoscop y (EGD) ( 01/18/20) H/O local excision of skin lesion History of bladder repair surgery History of wisdom tooth extraction History of hysterectomy H/O: hysterectomy History of tonsillectomy Family History Mother Diabetes Hypertension CVA (cerebral vascular accident) Brother Diabetes Daughter Primary malignant neuroendocrine neoplasm of pancreas Diabetes Social History adopted: No household members: spouse and children number of children: 2 current occupational status: employed current occupation: [employer] pets and animals: No sexually active: Yes Smoking Status: Former smoker Tobacco: How many years used: 10 how long ago did patient quit smokin alcohol intake: current alcohol intake frequency: a few times a week substance use type: does not use caffeine: Yes (3-4) Type: coffee what type of physical activity do you participate in: none frequency: does not exercise seatbelt use: always do you feel safe at home: Yes additional social history: Harvey Works for the [employer] [place] DOES USE ASPIRIN NEEDED DOES USE IBUPROFEN NEEDED Female Reproductive History Menstrual Ab spontaneous: 2 HPI HPI Chief Complaint: 6 M FU Details: NATASHA HOLDER, is a 64 F who presents to the office today for follow-up of her chronic conditions. No acute concerns at this time. Since her last visit, she states that she started seeing ENT and has had allergy shots which have been helpful. Has also been taking her Pulmicort twice a day, breathing better. No new concerns reported in that regard. History of hypertension, blood pressure today at 118/76 mmHg. Chest pain, palpitation, syncopal or near syncopal episodes. Also history of hyperlipidemia currently on atorvastatin, she states that she is taking them as prescribed. No muscle pain or weakness reported. Other chronic medical conditions are stable. ROS Const Constitutional: No body ache, chills, excessive sweating, fatigue, fever(s), frequent falls, headache(s), snoring, weight change, sleep problems, abnormal sleep pattern or c (more content not included)... Normal [facility] Orthopedic Visit Reporton Orthopedic Visit Report [facility] [address] [place] [address] OFFICE VISIT Date of Service: 03/11/24 MR#: [id number] Acct: [id number] Name: NATASHA HOLDER Rep #: [id number] : 1960 Provider: Dr. Isai patino DO Age/Sex: 64/F Location[place] [facility] [place] Status: Signed Intake Vital Signs 01/21/24 09:09 Height 5 ft 5 in Weight: 201 lb BMI 33.4 BP 131/88 H Blood Pressure Location Lt brachial Position Sitting Respiration 18 Pulse 67 Pulse Source Monitor Temp 97.4 F L Pulse Oximetry (%) 95 Oxygen Delivery Method room air Intake Visit Reasons: RIGHT KNEE Accompanied by: Self Is patient in pain?: Yes Allergies diclofenac Allergy (Severe, Verified 03/11/24 15:20) Rash Medications ???Medication ???Instructions ???Recorded ???Confirmed ???Type calcium 325 mg-vit D3 12.5 1 tab PO BID supplement 01/02/21 01/21/24 History mcg-zinc 2.75 xb-ftsfgd-klzysllwa tablet fluticasone propionate 50 1 spray intranasal DAILY PRN 08/15/22 01/21/24 History mcg/actuation nasal spray,suspension (Flonase Allergy Relief) albuterol sulfate 90 mcg/actuation 2 puff inhalation Q6H PRN 04/16/23 01/21/24 Rx aerosol inhaler shortness of breath or wheezing #8.5 grams cetirizine 10 mg tablet (Zyrtec) 10 mg PO DAILY PRN 05/10/23 01/21/24 History budesonide 180 mcg/actuation See Rx Instructions .Route 07/30/23 01/21/24 Rx breath activated powder inhaler .COMPLEX #3 inserts (Pulmicort Flexhaler) atorvastatin 10 mg tablet 10 mg PO QHS #90 TABLETS 11/21/23 01/21/24 Rx estradiol 10 mcg vaginal tablet 10 mcg vaginal .COMPLEX #24 tabs 01/20/24 01/21/24 Rx (Yuvafem) montelukast 10 mg tablet 10 mg PO QPM #30 tabs 01/21/24 01/21/24 Rx levothyroxine 137 mcg tablet 137 mcg PO DAILY #90 tabs 02/14/24 Rx pantoprazole 40 mg tablet,delayed 40 mg PO QDAY 03/11/24 03/11/24 History release Have you fallen in the past year?: No PFSH Medical History (Updated 01/20/24 @ 15:21 by Celeste Nath [employer]) Pulmonary interstitial fibrosis Chronic cough Allergic rhinitis SARS-CoV-2 positive COVID-19 vaccine series completed Osteoarthritis Post-menopausal Chronic gastritis Barretts esophagus Trichilemmal cyst Frequent headaches History of recurrent UTIs Allergies GERD (gastroesophageal reflux disease) Osteoarthritis Seasonal allergies Hypothyroidism Surgical History History of esophagogastroduodenoscop y (EGD) ( 01/18/20) H/O local excision of skin lesion History of bladder repair surgery History of wisdom tooth extraction History of hysterectomy H/O: hysterectomy History of tonsillectomy Family History Mother Diabetes Hypertension CVA (cerebral vascular accident) Brother Diabetes Daughter Primary malignant neuroendocrine neoplasm of pancreas Diabetes Social History adopted: No household members: spouse and children number of children: 2 current occupational status: employed current occupation: [employer] pets and animals: No sexually active: Yes Smoking Status: Former smoker Tobacco: How many years used: 10 how long ago did patient quit smokin alcohol intake: current alcohol intake frequency: a few times a week substance use type: does not use caffeine: Yes (3-4) Type: coffee what type of physical activity do you participate in: none frequency: does not exercise seatbelt use: always do you feel safe at home: Yes additional social history: Harvey Works for the [employer] DOES USE ASPIRIN NEEDED DOES USE IBUPROFEN NEEDED HPI RIGHT KNEE Details: This documentation accurately reflects the service provided and the decisions made by me, Dr. Isai Gage, DO 03/11/24 1338. Part of today???s visit was documented by [ ], acting as scribe. NATASHA HOLDER is a 64 year old F 03/11/2024: here today for a followup on her right knee. Patient notes that her knee isnt too bad. Patient did formal physical therapy and she notes that she has been doing a home exercise program which is helpful and has improved her strength. She notes that she was having difficulty sleeping prior to PT, but that has improved.Patient notes that she is worried she is doing surgery too quickly although she doesnt want to proceed with surgery when she is older. Patient has increased pain with ambulation over 5k steps. She notes that she isnt able to squat without pain or twisting. She has increased pain with ambulating stairs. She avoids the activities that increase her pain. Patient has popping, clicking and grinding which is not painful. Patient denies any instability. She d (more content not included)... [facility] [id number] 10-17-2023 [id number] HNO ID: [id number] Author: KARMEN LAMB RN Service: ? Author Type: Registered Nurse Type: [id number] Filed: 10/17/2023 13:40 Note Text: The patient received a copy of EGD discharge instructions that contain information for how to contact the physician who performed the procedure and when to seek medical care. Normal [facility] EGD Study observation Deandre espinal 10-17-2023 Pearl [facility] Gastrointestinal Endoscopy Patient Name: Natasha Holder Procedure Date: 10/17/2023 12:46 PM Date of : 1960 Admit Type: Outpatient Age: 63 Gender: Female Note Status: Finalized Procedure: Upper GI endoscopy Indications: Surveillance for malignancy due to personal history of Lopez's esophagus Providers: Sam Dominguez MD Patient Profile: This is a 63 year old female. Refer to note in patient chart for documentation of history and physical. Referring Physician: Gi Galicia (Referring MD) Medicines: Fentanyl 50 micrograms IV, Midazolam 3 mg IV, Diphenhydramine 50 mg IV, Benzocaine spray Complications: No immediate complications. Estimated blood loss: Minimal. Requesting Provider: Procedure: Pre-Anesthesia Assessment: - Prior to the procedure, a History and Physical was performed, and patient medications and allergies were reviewed. The patient's tolerance of previous anesthesia was also reviewed. The risks and benefits of the procedure and the sedation options and risks were discussed with the patient. All questions were answered, and informed consent was obtained. Prior Anticoagulants: The patient has taken no anticoagulant or antiplatelet agents. ASA Grade Assessment: II - A patient with mild systemic disease. After reviewing the risks and benefits, the patient was deemed in satisfactory condition to undergo the procedure. After obtaining informed consent, the endoscope was passed under direct vision. Throughout the procedure, the patient's blood pressure, pulse, and oxygen saturations were monitored continuously. The Endoscope was introduced through the mouth, and advanced to the second part of duodenum. The upper GI endoscopy was accomplished without difficulty. The patient tolerated the procedure well. Moderate Sedation: The administration of moderate sedation was initiated at 12:59 PM. Moderate (conscious) sedation was personally administered by the endoscopist. The following parameters were monitored: oxygen saturation, heart rate, blood pressure, respiratory rate, EKG, adequacy of pulmonary ventilation, and response to care. Total physician intraservice time was 8 minutes. Findings: There were esophageal mucosal changes consistent with short-segment Lopez's esophagus present in the distal esophagus. The maximum longitudinal extent of these mucosal changes was 1 cm in length. This was biopsied with a cold forceps for histology. The entire examined stomach was normal. Biopsies were taken with a cold forceps for Helicobacter pylori testing. The examined duodenum was normal. Biopsies for histology were taken with a cold forceps for evaluation of celiac disease. The Z-line was variable and was found 36 cm from the incisors. Impression: - Esophageal mucosal changes consistent with short-segment Lopez's esophagus. Biopsied. - Normal stomach. Biopsied. - Normal examined duodenum. Biopsied. - Z-line variable, 36 cm from the incisors. Recommendation: - Patient has a contact number available for emergencies. The signs and symptoms of potential delayed complications were discussed with the patient. Return to normal activities tomorrow. Written discharge instructions were provided to the patient. - Resume previous diet. - Continue present medications. - Await pathology results. - Repeat upper endoscopy in 3 years for surveillance. - Return to nurse practitioner at appointment to be scheduled. Procedure Code(s): --- Professional --- 68972, Esophagogastroduodenoscop y, flexible, transoral; with biopsy, single or multiple Diagnosis Code(s): --- Professional --- K22.70, Lopez's esophagus without dysplasia K22.89, Other specified disease of esophagus CPT copyr (more content not included)... [facility] Radiology Study observation (narrative) [facility] HISTORY PHYSICALon HISTORY PHYSICAL HNO ID: [id number] Author: SAM DOMINGUEZ MD Service: General Surgery Author Type: Physician Type: H&P Filed: 10/17/2023 12:45 Note Text: HISTORY AND PHYSICAL NATASHA Holder 1960 REFERRING PHYSICIAN: Self CHIEF COMPLAINT: Consult (EGD) HPI: The patient is a 63 year old female referred for endoscopy. Tamiko notes continued cough for over 2 years. 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 Pt states she also thinks that the cough is related to allergies. She takes an OTC allergy pill and uses daily Pulmicort. Tamiko refers she was also informed of a small hernia but unsure of who told her that. Patient denies any change in bowel habits, weight changes, blood in stools, black tarry stools or abdominal pain. Denies family history of colon issues. Tamiko has a history of Lopez's esophagus but denies reflux, burping, bloody emesis. Tamiko has undergone prior endoscopy. Last EGD was completed by Dr. Dominguez at [facility] with the following results: Non-severe reflux esophagitis Normal stomach Normal duodenum Recommendation for repeat EGD in 3 years PAST MEDICAL HISTORY PAST MEDICAL HISTORY Diagnosis Date Bradycardia Depressive disorder, not elsewhere classified Esophageal reflux Gastroesophageal reflux. Lopez's esophagus Hypercholesteremia PMH - PAST MEDICAL HISTORY OF Cervical disc disease Snoring Unspecified hypothyroidism Hypothyroidism PAST SURGICAL HISTORY PAST SURGICAL HISTORY Procedure Laterality Date COLONOSCOPY FLX DX W/COLLJ SPEC WHEN PFRMD 11/10/2020 EGD 09/17/2016 repeat in 3 years ESOPHAGOGASTRODUODENOSCOP Y TRANSORAL DIAGNOSTIC EGD PROCEDURE tonsilectomy PROCEDURE wisdom teeth removed PROCEDURE 1999 partial hyterectomy with bladder repair, ovaries remain CURRENT MEDICATIONS Current Outpatient Medications Medication Sig PULMICORT FLEXHALER 180 mcg/actuation aepb Inhale 1 Puff as instructed two times a day. atorvastatin (LIPITOR) 10 mg tablet Take 10 mg by mouth once daily. levothyroxine (SYNTHROID) 150 mcg tablet 1 tablet daily 6 days a week, and one half tablet one day a week. Omeprazole (PRILOSEC) 40 mg capsule Take 1 capsule by mouth once daily. No current facility-administered medications for this visit. ALLERGIES: Diclofenac PERSONAL HISTORY: SOCIAL HISTORY Social History Tobacco Use Smoking status: Former Packs/day: .1 Types: Cigarettes Smokeless tobacco: Never Substance Use Topics Alcohol use: Yes Comment: occa. Drug use: No FAMILY HISTORY: FAMILY HISTORY FAMILY HISTORY Problem Relation Age of Onset Alzheimer's Disease Mother Hypertension Mother Diabetes Mother Diabetes Maternal Grandmother Heart Maternal Grandfather Diabetes Brother REVIEW OF SYMPTOMS: The review of systems data was entered by the nurse and reviewed by vt Nursing Notes: Whitney Damian RN 10/10/2023 3:44 PM Signed REVIEW OF SYSTEMS: General: The patient denies fatigue, denies weight loss, denies weight gain, denies feeling hot, and denies feelings of cold. Eyes: The patient denies glaucoma, denies eye injury/surgery, wears glasses or contacts. Ear/Nose/Throat: The patient NOTES allergies, denies hayfever, denies ear infections, and denies bloody noses. Cardiovascular: The patient denies chest pain, denies heart disease, denies high blood pressure,denies cardiac stent, denies prior heart attack, denies irregular heart beat, NOTES high cholesterol, denies poor circulation, denies heart failure, other cardiac issues, denies claudication, denies cold feet, denies peripheral arterial stent. Respiratory: The patient denies tuberculosis, denies pneumonia, NOTES frequent cough, denies pulmonary embolism, denies shortness of breath, and denies coughing up blood. Gastrointestinal: The patient denies difficulty swallowing, NOTES acid reflux, denies ulcers, denies vomiting, denies jaundice/hepatitis, denies gallbladder problems, denies black or tarry stools, NOTES hemorrhoids, denies bleeding from rectum, denies diverticulitis, denies constipation, denies diarrhea, denies loss of stool control, and denies hernias. Kidney/Bladder: The patient denies kidney stones, denies urine infections, and denies bloody urine. Skin: The patient denies a history of skin cancer, denies bleeding/changing moles, and denies a history of skin rash. Neurologic: The patient denies a history of epilepsy/convulsions, denies headaches, denies head/spinal injuries, and denies stroke/TIA. Psychiatric: The patient denies psychiatric medications, denies depression, and denies voices, denies substance abuse. Endocrine: The patient NOTES thyroid disorders, denies diabetes, and denies hormonal problems. Hematologic: The patient denies a history of bruising, denies bleeding, and denies anemia, denies blood clots. Infections: The patient denies a history (more content not included)... Normal [facility] NURSING PROGon 10-17-2023 NURSING PROG HNO ID: [id number] Author: KARMEN LAMB RN Service: ? Author Type: Registered Nurse Type: Nursing Progress Note Filed: 10/17/2023 13:39 Note Text: Pt arrived to phase 2 awake, resting on left side. SR up x 2, call light in reach. Denies pain. Daughter at bedside. Karmen Lamb RN Normal [facility] SURGICAL PATHOLOGYon 024 CASE REPORT Normal [facility] Comment on above: Order Comment: Speci men Type: TISSUE SPECIMEN Ordering Facility: [facility] Address: [address] [place] [address] Result Comment: Surg [facility] Pathology Report Case: [id number] Authorizing Provider: Sam Dominguez MD Collected: 10/17/2023 01:03 PM Ordering Location: Ambulatory Surgery Received: 10/17/2023 01:29 PM Pathologist: Sam Pereira MD Specimens: A) - Small Bowel, Duodenum, Biopsy B) - Stomach, Antrum, Biopsy, antral bx for h/h C) - Esophagus, Mid, Biopsy D) - Esophagus, Distal, Biopsy Performed By: #### S #### [facility] CLIA [id number] [address] [place] [address] [place] FINAL DIAGNOSIS Normal [facility] Comment on above: Order Comment: Speci men Type: TISSUE SPECIMEN Ordering Facility: [facility] Address: [address] [place] [address] Result Comment: A. D uodenum, biopsy: - Duodenal mucosa with no significant pathologic abnormality. B. Stomach, biopsy: - Gastric mucosa with no significant pathologic abnormality. C. Mid esophagus, biopsy: - Squamous mucosa with no significant pathologic abnormality. D. Distal esophagus, biopsy: - Gastric-type and squamous mucosae with no significant pathologic abnormality. Performed By: #### S #### [facility] CLIA [id number] [address] [place] [address] [place] FINAL PERFORMING LAB Normal [facility] Comment on above: Order Comment: Speci men Type: TISSUE SPECIMEN Ordering Facility: [facility] Address: [address] [place] [address] Result Comment: Diag nostic interpretation performed at [facility], [address] [place] [address] CLIA# [id number] Nurse Consultant: Dileep Barrera M.D. Performed By: #### S #### [facility] CLIA [id number] [address] [place] [address] [place] GROSS DESCRIPTION Normal [facility] Comment on above: Order Comment: Speci men Type: TISSUE SPECIMEN Ordering Facility: [facility] Address: [address] [place] [address], [place] [address] Result Comment: A. S mall Bowel, Duodenum, Biopsy Received in formalin is one piece of robles, soft tissue measuring 0.7 x 0.2 x 0.1 cm. Totally submitted in one cassette. B. Stomach, Antrum, Biopsy Received in formalin is one piece of robles, soft tissue measuring 1.1 x 0.2 x 0.1 cm. Totally submitted in one cassette. C. Esophagus, Mid, Biopsy Received in formalin is one piece of robles-white, soft tissue measuring 0.3 x 0.2 x 0.1 cm. Totally submitted in one cassette. D. Esophagus, Distal, Biopsy Received in formalin are multiple pieces of robles, soft tissue aggregating to 1.7 x 0.4 x 0.2 cm. Totally submitted in two cassettes. Gross examination performed at [facility], [address] [place] [address] FF 10/18/2023 1:35 AM Performed By: #### S #### [facility] CLIA [id number] [address] [place] [address] [place] [address] [place] Upper GI endoscopy 10-16- 024 Upper GI endoscopy [facility] Gastrointestinal Endoscopy Patient Name: Natasha Holder Procedure Date: 10/17/2023 12:46 PM Date of : 1960 Admit Type: Outpatient Age: 63 Gender: Female Note Status: Finalized Procedure: Upper GI endoscopy Indications: Surveillance for malignancy due to personal history of Lopez's esophagus Providers: Sam Dominguez MD Patient Profile: This is a 63 year old female. Refer to note in patient chart for documentation of history and physical. Referring Physician: Gi Galicia (Referring MD) Medicines: Fentanyl 50 micrograms IV, Midazolam 3 mg IV, Diphenhydramine 50 mg IV, Benzocaine spray Complications: No immediate complications. Estimated blood loss: Minimal. Requesting Provider: Procedure: Pre-Anesthesia Assessment: - Prior to the procedure, a History and Physical was performed, and patient medications and allergies were reviewed. The patient's tolerance of previous anesthesia was also reviewed. The risks and benefits of the procedure and the sedation options and risks were discussed with the patient. All questions were answered, and informed consent was obtained. Prior Anticoagulants: The patient has taken no anticoagulant or antiplatelet agents. ASA Grade Assessment: II - A patient with mild systemic disease. After reviewing the risks and benefits, the patient was deemed in satisfactory condition to undergo the procedure. After obtaining informed consent, the endoscope was passed under direct vision. Throughout the procedure, the patient's blood pressure, pulse, and oxygen saturations were monitored continuously. The Endoscope was introduced through the mouth, and advanced to the second part of duodenum. The upper GI endoscopy was accomplished without difficulty. The patient tolerated the procedure well. Moderate Sedation: The administration of moderate sedation was initiated at 12:59 PM. Moderate (conscious) sedation was personally administered by the endoscopist. The following parameters were monitored: oxygen saturation, heart rate, blood pressure, respiratory rate, EKG, adequacy of pulmonary ventilation, and response to care. Total physician intraservice time was 8 minutes. Findings: There were esophageal mucosal changes consistent with short-segment Lopez's esophagus present in the distal esophagus. The maximum longitudinal extent of these mucosal changes was 1 cm in length. This was biopsied with a cold forceps for histology. The entire examined stomach was normal. Biopsies were taken with a cold forceps for Helicobacter pylori testing. The examined duodenum was normal. Biopsies for histology were taken with a cold forceps for evaluation of celiac disease. The Z-line was variable and was found 36 cm from the incisors. Impression: - Esophageal mucosal changes consistent with short-segment Lopez's esophagus. Biopsied. - Normal stomach. Biopsied. - Normal examined duodenum. Biopsied. - Z-line variable, 36 cm from the incisors. Recommendation: - Patient has a contact number available for emergencies. The signs and symptoms of potential delayed complications were discussed with the patient. Return to normal activities tomorrow. Written discharge instructions were provided to the patient. - Resume previous diet. - Continue present medications. - Await pathology results. - Repeat upper endoscopy in 3 years for surveillance. - Return to nurse practitioner at appointment to be scheduled. Procedure Code(s): --- Professional --- 50450, Esophagogastroduodenoscop y, flexible, transoral; with biopsy, single or multiple Diagnosis Code(s): --- Professional --- K22.70, Lopez's esophagus without dysplasia K22.89, Other specified disease of esophagus CPT copyright 2020 [employer]. All rights reserved. The codes documented in this report are preliminary and upon orthopedic physician review may be revised to meet current compliance requirements. Attending Participation: I personally performed the entire procedure. Scope In: 1:02:22 PM Scope Out: 1:07:19 PM MD Sam Granger MD 10/17/2023 1:12:06 PM This report has been signed electronically by Sam Dominguez MD Number of Addenda: 0 Note Initiated On: 10/17/2023 12:46 PM Estimated Blood Loss: Estimated blood loss was minimal. Normal [facility] CNOVon 10-10-2023 CNOV Office Visit (EARLENE ) ----- NATASHA HOLDER ([id number]) 1960 F Date Time Provider Department 10/10/23 4:00 PM SAM DOMINGUEZ During your visit today, we recorded the following information about you: Temperature Pulse Blood pressure Weight 97.3 degrees 73/minute 126/84 92.4 kg Height 1.651 m Whitney Damian RN 10/10/2023 3:44 PM Signed REVIEW OF SYSTEMS: General: The patient denies fatigue, denies weight loss, denies weight gain, denies feeling hot, and denies feelings of cold. Eyes: The patient denies glaucoma, denies eye injury/surgery, wears glasses or contacts. Ear/Nose/Throat: The patient NOTES allergies, denies hayfever, denies ear infections, and denies bloody noses. Cardiovascular: The patient denies chest pain, denies heart disease, denies high blood pressure,denies cardiac stent, denies prior heart attack, denies irregular heart beat, NOTES high cholesterol, denies poor circulation, denies heart failure, other cardiac issues, denies claudication, denies cold feet, denies peripheral arterial stent. Respiratory: The patient denies tuberculosis, denies pneumonia, NOTES frequent cough, denies pulmonary embolism, denies shortness of breath, and denies coughing up blood. Gastrointestinal: The patient denies difficulty swallowing, NOTES acid reflux, denies ulcers, denies vomiting, denies jaundice/hepatitis, denies gallbladder problems, denies black or tarry stools, NOTES hemorrhoids, denies bleeding from rectum, denies diverticulitis, denies constipation, denies diarrhea, denies loss of stool control, and denies hernias. Kidney/Bladder: The patient denies kidney stones, denies urine infections, and denies bloody urine. Skin: The patient denies a history of skin cancer, denies bleeding/changing moles, and denies a history of skin rash. Neurologic: The patient denies a history of epilepsy/convulsions, denies headaches, denies head/spinal injuries, and denies stroke/TIA. Psychiatric: The patient denies psychiatric medications, denies depression, and denies voices, denies substance abuse. Endocrine: The patient NOTES thyroid disorders, denies diabetes, and denies hormonal problems. Hematologic: The patient denies a history of bruising, denies bleeding, and denies anemia, denies blood clots. Infections: The patient denies a history of measles and mumps, denies rheumatic fever, and denies sexually transmitted diseases. Musculoskeletal: The patient denies back pain/injury, denies back problems, denies sciatica, NOTES knee/foot trouble, NOTES arthritis, or denies gout. When was patient's last Mammogram screening? 12/2022 Last Colonoscopy: 11/10/20 GLADYS Green Daniel P, MD 10/10/2023 4:23 PM Signed HISTORY AND PHYSICAL NATASHA Holder 1960 REFERRING PHYSICIAN: Self CHIEF COMPLAINT: Consult (EGD) HPI: The patient is a 63 year old female referred for endoscopy. Tamiko notes continued cough for over 2 years. 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 Pt states she also thinks that the cough is related to allergies. She takes an OTC allergy pill and uses daily Pulmicort. Tamiko refers she was also informed of a small hernia but unsure of who told her that. Patient denies any change in bowel habits, weight changes, blood in stools, black tarry stools or abdominal pain. Denies family history of colon issues. Tamiko has a history of Lopez's esophagus but denies reflux, burping, bloody emesis. Tamiko has undergone prior endoscopy. Last EGD was completed by Dr. Dominguez at [facility] with the following results: Non-severe reflux esophagitis Normal stomach Normal duodenum Recommendation for repeat EGD in 3 years PAST MEDICAL HISTORY Diagnosis Date Bradycardia Depressive disorder, not elsewhere classified Esophageal reflux Gastroesophageal reflux. Lopez's esophagus Hypercholesteremia PMH - PAST MEDICAL HISTORY OF Cervical disc disease Snoring Unspecified hypothyroidism Hypothyroidism PAST SURGICAL HISTORY Procedure Laterality Date COLONOSCOPY FLX DX W/COLLJ SPEC WHEN PFRMD 11/10/2020 EGD 09/17/2016 repeat in 3 years ESOPHAGOGASTRODUODENOSCOP Y TRANSORAL DIAGNOSTIC EGD PROCEDURE tonsilectomy PROCEDURE wisdom teeth removed PROCEDURE 1999 partial hyterectomy with bladder repair, ovaries remain Current Outpatient Medications Medication Sig PULMICORT FLEXHALER 180 mcg/actuation aepb Inhale 1 Puff as instructed two times a day. atorvastatin (LIPITOR) 10 mg tablet Take 10 mg by mouth once daily. levothyroxine (SYNTHROID) 150 mcg tablet 1 tablet daily 6 days a week, and one half tablet one day a week. Omeprazole (PRILOSEC) 40 mg capsule Take 1 capsule by mouth once daily. No current facility-administered medications for this visit. ALLERGIES: Diclofenac (more content not included)... Normal [facility] Serum or plasma thyroid stim ulating hormone (TSH) measurement (units/volume)Ordered By: Karli Lindsey on 09-18-2023 TSH Qn 0.31 uIU/mL 0.358-3.74 [facility] Tayla 07-18-2023 CNPN Telephone ([employer]) ----- NATASHA HOLDER ([id number]) 1960 F Date Time Provider Department 07/18/23 SAM DOMINGUEZ During your visit today, we recorded the following information about you: Bunny BarberGuerita Eduardo 07/18/2023 10:52 AM Signed Patient asking for an EGD for Barretts Esophagus. Please advise if she needs to be seen. Please advise and call patient. Rob Mitchell 07/18/2023 11:52 AM Signed Patient has not be seen since 2020 and is now scheduled to be seen by Dr. Garcia on 08/19/2023 Rob Mitchell [employer] Allergies As of Date: 07/18/2023 Noted Allergy Reaction DICLOFENAC 09/12/2016 4 - Hives Date Reviewed: 11/25/2020 Reviewed by: Daphnie Peralta PA-C - Fully Assessed Reason for Visit: Patient Question [4287] Prescriptions as of 07/18/2023 - atorvastatin (LIPITOR) 10 mg tablet Take 10 mg by mouth once daily. - levothyroxine (SYNTHROID) 150 mcg tablet 1 tablet daily 6 days a week, and one half tablet one day a week. - Omeprazole (PRILOSEC) 40 mg capsule Take 1 capsule by mouth once daily. Problem List As Of Date 07/18/2023 Noted Resolved ESOPHAGEAL REFLUX [K21.9] Depressive disorder, not elsewhere classified [* 08/04/2015 Acquired hypothyroidism [E03.9] Mixed hyperlipidemia [E78.2] 04/16/2008 Lopez esophagus [K22.70] 05/04/2010 Achilles bursitis or tendinitis [M76.60] 10/05/2010 Pain in limb [M79.609] 10/05/2010 Obesity [E66.9] 12/29/2012 Bradycardia [R00.1] 07/06/2014 Encounter for screening for malignant neoplasm *11/10/2020 11/10/2020 Encounter Status:Closed by ROB MITCHELL on 07/18/23 Normal [facility] Absolute lymphocyte countOrd ered By: Karli Lindsey on 05-10-2023 Lymphocytes Auto (Unsp spec) [#/Vol] 2.05 10*3/uL 0.83-4.51 [facility] Basophil percentageOrdered B y: Karli Lindsey on 05-10-2023 Basophils/100 WBC (Bld) 0.8 % 0-1 [facility] Eosinophils/100 WBC (Bld) 1.8 % 0-5 [facility] Neutrophils (Bld) [#/Vol] 4.2 10*3/uL 2.0-7.7 [facility] Neutrophils/100 WBC (Bld) 58.1 % 47-70 [facility] WBC (Bld) [#/Vol] 7.2 10*3/uL 4.4-11.0 [facility] Blood erythrocytes count (nu mber/volume)Ordered By: Karli Lindsey on 05-10-2023 RBC (Bld) [#/Vol] 5.77 10*6/uL 4.2-5.4 [facility] Blood hemoglobin measurement (mass/volume)Ordered By: Karli Lindsey on 05-10-2023 Hemoglobin (Bld) [Mass/Vol] 15.2 g/dL 12.0-15.0 [facility] Blood lymphocytes/100 leukoc ytesOrdered By: Karli Lindsey on 05-10-2023 Lymphocytes/100 WBC (Bld) 28.6 % 19-41 [facility] Blood monocytes/100 leukocyt esOrdered By: Karli Lindsey on 05-10-2023 Monocytes/100 WBC (Bld) 10.4 % 0-10 [facility] Blood platelet mean volumeOr dered By: Karli Lindsey on 05-10-2023 Platelet mean volume (Bld) [Entitic vol] 10.9 fL 6.2-12.0 [facility] Determination of erythrocyte mean corpuscular volume (MCV)Ordered By: Karli Lindsey on 05-10-2023 MCV (RBC) [Entitic vol] 85.1 fL 81-99 [facility] Hematocrit Auto (Bld) [Volum e fraction]Ordered By: Karli Lindsey on 05-10-2023 Hematocrit (Bld) [Volume fraction] 49.1 % 37-47 [facility] Laboratory - Hematology and Cell countsOrdered By: Karli Lindsey on 12-15-2023 Erythrocyte distribution width (RBC) [Entitic vol] 40.9 fL 35.1-43.9 [facility] Erythrocyte distribution width (RBC) [Ratio] 13.2 % 11.6-14.6 [facility] Immature granulocytes/100 WBC (Bld) 0.300 % 0.0-0.9 [facility] Comment on above: IG% - Immature Granu locytes (promyelocytes, myelocytes and metamyelocytes) > 1% indicates that a LEFT SHIFT is Present. MCH (RBC) [Entitic mass] 26.3 pg 27.0-32.0 [facility] Nucleated RBC/100 WBC (Bld) [Ratio] 0 % 0-5 [facility] MCHC Auto (RBC) [Mass/Vol]Or dered By: Karli Lindsey on 05-10-2023 MCHC (RBC) [Mass/Vol] 31.0 g/dL 32-36 [facility] No Panel InformationOrdered By: Karli Lindsey on 05-10-2023 Thyroid Stimulating Hormone (TSH) 0.22 uIU/mL 0.358-3.74 [facility] Platelets bldOrdered By: Mathew Lindsey on 05-10-2023 Platelets (Bld) [#/Vol] 255 10*3/uL 150-450 [facility] Atypical perinuclear antineu trophil cytoplasmic antibodies measurementOrdered By: Lobo Marcano on 01-14-2023 Neutrophil cytoplasmic Ab.perinuclear.atypical IF (S) [Titer] <1:20 titer Neg:<1:20 [facility] Comment on above: The atypical pANCA p attern has been observed in asignificant percentage of patients with ulcerative colitis,primary sclerosing cholangitis and autoimmune hepatitis. Basophil percentageOrdered B y: Lobo Marcano on 01-14-2023 Basophil percentage Not Reportable [facility] Erythrocyte sedimentation ra teOrdered By: Lobo Marcano on 01-14-2023 ESR (Bld) [Velocity] 12 mm/h 0-30 [facility] No Panel InformationOrdered By: Lobo Marcano on 01-14-2023 Anti-Nuclear Antibody Screen Negative Negative [facility] Comment on above: Performed at: [address] [id number] Director: Cristian Titus PhD, Phone: [phone] [employer] B Antibody Not Reportable [facility] MAKEUP EDITOR Antibody Not Reportable [facility] Serum DNA double strand anti body assay (units/volume)Ordered By: Lobo Marcano on 01-14-2023 DNA double strand Ab Qn (S) Not Reportable [facility] Serum Natasha-1 antibody assay (u nits/volume)Ordered By: Lobo Marcano on 01-14-2023 Natasha-1 extractable nuclear Ab Qn (S) Not Reportable [facility] Serum Scl-70 extractable nuc lear antibody assay (units/volume)Ordered By: Lobo Marcano on 01-14-2023 SCL-70 extractable nuclear Ab Qn (S) Not Reportable [facility] Serum Lawson extractable nucl ear antibody detectionOrdered By: Lobo Marcano on 01-14-2023 Lawson extractable nuclear Ab Ql (S) Not Reportable [facility] Serum classic neutrophil cyt oplasmic antibody assay (units/volume)Ordered By: Lobo Marcano on 01-14-2023 Neutrophil cytoplasmic Ab.classic Qn (S) <1:20 titer Neg:<1:20 [facility] Serum cyclic citrullinated p eptide IgG antibody assay (units/volume)Ordered By: Lobo Marcano on 01-14-2023 Cyclic citrullinated peptide IgG Qn 6 units 0-19 [facility] Comment on above: Negative <20 Weak po sitive 20 - 39 Moderate positive 40 - 59 Strong positive >59Performed at: [facility] [id number] Director: Cristian Titus PhD, Phone: [phone] Serum or plasma C reactive p rotein measurement (mass/volume)Ordered By: Lobo Marcano on 01-14-2023 CRP [Mass/Vol] mg/L 0.0-3.0 [facility] Comment on above: C-Reactive Protein ( CRP) provides useful information for thediagnosis, therapy and monitoring of inflammatory processesand associated diseases. For the evaluation of Relative Riskfor Cardiovascular Disease, a High Sensitivity CRP (HSCRP)should be ordered. Serum perinuclear neutrophil cytoplasmic antibody titer by immunofluorescenceOrdered By: Lobo Marcano on 01-14-2023 Neutrophil cytoplasmic Ab.perinuclear IF (S) [Titer] <1:20 titer Neg:<1:20 [facility] Comment on above: The presence of posi tive fluorescence exhibiting P-ANCA orC-ANCA patterns alone is not specific for the diagnosis ofWegener's Granulomatosis (WG) or microscopic polyangiitis.Decisions about treatment should not be based solely onANCA IFA results. The [employer] ANCA Group Consensusrecommends follow up testing of positive sera with both PA-3 and MPO-ANCA enzyme immunoassays. As many as 5% serumsamples are positive only by EIA. Ref. AM J Clin [id number];111:507-513. Serum rheumatoid factor dete ctionOrdered By: Lobo Marcano on 01-14-2023 Rheumatoid factor Ql (S) < 10.0 IU/mL <15 [facility] Gram stain for investigation of transfusion reactionOrdered By: Celeste Nath on 01-08-2023 Microscopic observation Gram stain Nom (Unsp spec) [facility] Thin prep Papanicolaou smear with manual screeningOrdered By: Celeste Nath on 01-08-2023 Genital Culture Presumptive C albicans [facility] No Panel InformationOrdered By: Karli Lindsey on 01-04-2023 Thyroid Stimulating Hormone (TSH) 0.15 uIU/mL 0.358-3.74 [facility] No Panel InformationOrdered By: Elmer Don on 12-07-2022 Thyroid Stimulating Hormone (TSH) 0.51 uIU/mL 0.358-3.74 [facility] Absolute lymphocyte countOrd ered By: Elmer Don on 10-05-2022 Lymphocytes Auto (Unsp spec) [#/Vol] 1.52 10*3/uL 0.83-4.51 [facility] Basophil percentageOrdered B y: Elmer Don on 10-05-2022 Basophils/100 WBC (Bld) 1.6 % 0-1 [facility] Bilirubin [Mass/Vol] 0.60 mg/dL 0.20-1.00 [facility] Comment on above: For patients on eltr ombopag therapy, use of Dimension Jay TBIL is not recommended. Chloride [Moles/Vol] 110 mmol/L 98-107 [facility] Cholesterol [Mass/Vol] 155 mg/dL <200 [facility] Comment on above: <200 mg/dL Desirable 200-240 mg/dL Borderline >240 mg/dL High Risk Eosinophils/100 WBC (Bld) 3.5 % 0-5 [facility] Glucose [Mass/Vol] 96 mg/dL 74-106 [facility] Neutrophils (Bld) [#/Vol] 2.7 10*3/uL 2.0-7.7 [facility] Neutrophils/100 WBC (Bld) 53.9 % 47-70 [facility] Potassium [Moles/Vol] 3.9 mmol/L 3.5-5.1 [facility] Protein [Mass/Vol] 7.1 g/dL 6.4-8.2 [facility] Sodium [Moles/Vol] 143 mmol/L 136-145 [facility] Triglyceride [Mass/Vol] 136 mg/dL <199 [facility] Comment on above: The drugs N-Acetylcy steine and Metamizole may falsely depress this assay.Serum Triglycerides Reference Interval Normal <150 mg/dL Borderline high 150 - 199 mg/dL High 200 - 499 mg/dL Very High > or = 500 mg/dL WBC (Bld) [#/Vol] 4.9 10*3/uL 4.4-11.0 [facility] Blood erythrocytes count (nu mber/volume)Ordered By: Elmer Don on 10-05-2022 RBC (Bld) [#/Vol] 5.31 10*6/uL 4.2-5.4 [facility] Blood hemoglobin measurement (mass/volume)Ordered By: Elmer Don on 10-05-2022 Hemoglobin (Bld) [Mass/Vol] 14.9 g/dL 12.0-15.0 [facility] Blood lymphocytes/100 leukoc ytesOrdered By: Elmer Don on 10-05-2022 Lymphocytes/100 WBC (Bld) 31.0 % 19-41 [facility] Blood monocytes/100 leukocyt esOrdered By: Elmer Don on 10-05-2022 Monocytes/100 WBC (Bld) 10.0 % 0-10 [facility] Blood platelet mean volumeOr dered By: Elmer Don on 10-05-2022 Platelet mean volume (Bld) [Entitic vol] 11.2 fL 6.2-12.0 [facility] Determination of erythrocyte mean corpuscular volume (MCV)Ordered By: Elmer Don on 10-05-2022 MCV (RBC) [Entitic vol] 86.3 fL 81-99 [facility] Hematocrit Auto (Bld) [Volum e fraction]Ordered By: Elmer Don on 10-05-2022 Hematocrit (Bld) [Volume fraction] 45.8 % 37-47 [facility] Laboratory - Chemistry and C hemistry - challengeOrdered By: Elmer Don on 10-05-2022 ALP [Catalytic activity/Vol] 92 U/L 45-117 [facility] ALT [Catalytic activity/Vol] 30 U/L 13-56 [facility] CO2 [Moles/Vol] 26.0 mmol/L 21.0-32.0 [facility] Globulin (S) [Mass/Vol] 3.4 g/dL 2.2-4.2 [facility] Urea nitrogen/Creatinine [Mass ratio] 14.5 mg/mg 10-20 [facility] Laboratory - Hematology and Cell countsOrdered By: Elmer Don on 10-05-2022 Erythrocyte distribution width (RBC) [Entitic vol] 41.5 fL 35.1-43.9 [facility] Erythrocyte distribution width (RBC) [Ratio] 13.2 % 11.6-14.6 [facility] Immature granulocytes/100 WBC (Bld) 0.000 % 0.0-0.9 [facility] Comment on above: IG% - Immature Granu locytes (promyelocytes, myelocytes and metamyelocytes) > 1% indicates that a LEFT SHIFT is Present. MCH (RBC) [Entitic mass] 28.1 pg 27.0-32.0 [facility] Nucleated RBC/100 WBC (Bld) [Ratio] 0 % 0-5 [facility] MCHC Auto (RBC) [Mass/Vol]Or dered By: Elmer Don on 10-05-2022 MCHC (RBC) [Mass/Vol] 32.5 g/dL 32-36 [facility] No Panel InformationOrdered By: Elmer Don on 10-05-2022 Estimated GFR (MDRD) Amer 90 mL/min >60 [facility] Comment on above: GFR Calc Estimated GFR (MDRD) Non-Af Amer 74 mL/min >60 [facility] Comment on above: Non- GFR Calc Thyroid Stimulating Hormone (TSH) 0.19 uIU/mL 0.358-3.74 [facility] Platelets bldOrdered By: Charis Don on 10-05-2022 Platelets (Bld) [#/Vol] 227 10*3/uL 150-450 [facility] Serum or plasma albumin george urement (mass/volume)Ordered By: Elmer Don on 10-05-2022 Albumin [Mass/Vol] 3.7 g/dL 3.2-5.0 [facility] Serum or plasma albumin/glob ulin mass ratioOrdered By: Elmer Don on 10-05-2022 Albumin/Globulin [Mass ratio] 1.1 {ratio} 0.9-2.4 [facility] Serum or plasma calcium george urement (mass/volume)Ordered By: Elmer Don on 10-05-2022 Calcium [Mass/Vol] 9.4 mg/dL 8.5-10.1 [facility] Serum or plasma cholesterol in HDL measurement (mass/volume)Ordered By: Elmer Don on 10-05-2022 Cholesterol in HDL [Mass/Vol] 44 mg/dL >40 [facility] Comment on above: The drugs N-Acetylcy steine and Metamizole may falsely depress this assay. Reference Range HDL <40 mg/dL Low HDL Cholesterol HDL >or= 60 mg/dL High HDL Cholesterol Serum or plasma cholesterol in VLDL measurement (mass/volume)Ordered By: Elmer Don on 10-05-2022 Cholesterol in VLDL [Mass/Vol] 27 mg/dL 5-40 [facility] Serum or plasma creatinine m easurement (mass/volume)Ordered By: Elmer Don on 10-05-2022 Creatinine [Mass/Vol] 0.82 mg/dL 0.55-1.02 [facility] Comment on above: The validity of the calculated GFR & GFRAA in patients over 70 years has not been determined. Clinical correlation is essential. Serum or plasma low density lipoprotein (LDL) cholesterol measurement (mass/volume)Ordered By: Elmer Don on 10-05-2022 Cholesterol in LDL [Mass/Vol] 84 mg/dL 0-130 [facility] Serum or plasma urea nitroge n measurement (mass/volume)Ordered By: Elmer Don on 10-05-2022 Urea nitrogen [Mass/Vol] 12 mg/dL 7-18 [facility] Thin prep Papanicolaou smear with manual screeningOrdered By: Elmer Don on 10-05-2022 Thin prep Papanicolaou smear with manual screening 16 U/L 15-37 [facility] Thin prep Papanicolaou smear with manual screening 7 5-15 [facility] Absolute lymphocyte counton 09-19-2021 Lymphocytes Auto (Unsp spec) [#/Vol] 1.75 10*3/uL 0.83-4.51 [facility] Work Phone: [phone] Basophil percentageon 2021 Basophils/100 WBC (Bld) 1.0 % 0-1 [facility] Work Phone: [phone] Bilirubin [Mass/Vol] 0.50 mg/dL 0.20-1.00 [facility] Work Phone: [phone] Comment on above: For patients on eltr ombopag therapy, use of Dimension Jay TBIL is not recommended. Chloride [Moles/Vol] 110 mmol/L 98-107 [facility] Work Phone: [phone] Cholesterol [Mass/Vol] 171 mg/dL <200 [facility] Work Phone: [phone] Comment on above: <200 mg/dL Desirable 200-240 mg/dL Borderline >240 mg/dL High Risk Eosinophils/100 WBC (Bld) 2.7 % 0-5 [facility] Work Phone: [phone] Glucose [Mass/Vol] 89 mg/dL 74-106 [facility] Work Phone: Neutrophils (Bld) [#/Vol] 2.7 10*3/uL 2.0-7.7 [facility] Work Phone: [phone] Neutrophils/100 WBC (Bld) 52.1 % 47-70 [facility] Work Phone: [phone] Potassium [Moles/Vol] 4.0 mmol/L 3.5-5.1 [facility] Work Phone: [phone] Protein [Mass/Vol] 6.9 g/dL 6.4-8.2 [facility] Work Phone: [phone] Sodium [Moles/Vol] 141 mmol/L 136-145 [facility] Work Phone: [phone] Triglyceride [Mass/Vol] 171 mg/dL <199 [facility] Work Phone: Comment on above: The drugs N-Acetylcy steine and Metamizole may falsely depress this assay.Serum Triglycerides Reference Interval Normal <150 mg/dL Borderline high 150 - 199 mg/dL High 200 - 499 mg/dL Very High > or = 500 mg/dL WBC (Bld) [#/Vol] 5.2 10*3/uL 4.4-11.0 [facility] Work Phone: [phone] Blood erythrocytes count (nu mber/volume)on 09-19-2021 RBC (Bld) [#/Vol] 5.08 10*6/uL 4.2-5.4 [facility] Work Phone: [phone] Blood hemoglobin measurement (mass/volume)on 09-19-2021 Hemoglobin (Bld) [Mass/Vol] 14.1 g/dL 12.0-15.0 [facility] Work Phone: Blood lymphocytes/100 leukoc yteson 09-19-2021 Lymphocytes/100 WBC (Bld) 33.9 % 19-41 [facility] Work Phone: Blood monocytes/100 leukocyt eson 09-19-2021 Monocytes/100 WBC (Bld) 10.1 % 0-10 [facility] Work Phone: Blood platelet mean volumeon 09-19-2021 Platelet mean volume (Bld) [Entitic vol] 11.1 fL 6.2-12.0 [facility] Work Phone: [phone] Determination of erythrocyte mean corpuscular volume (MCV)on 09-19-2021 MCV (RBC) [Entitic vol] 86.0 fL 81-99 [facility] Work Phone: Hematocrit Auto (Bld) [Volum e fraction]on 09-19-2021 Hematocrit (Bld) [Volume fraction] 43.7 % 37-47 [facility] Work Phone: [phone] Laboratory - Chemistry and C hemistry - challengeon 09-19-2021 ALP [Catalytic activity/Vol] 78 U/L 45-117 [facility] Work Phone: ALT [Catalytic activity/Vol] 23 U/L 13-56 [facility] Work Phone: [phone] CO2 [Moles/Vol] 29.0 mmol/L 21.0-32.0 [facility] Work Phone: [phone] Globulin (S) [Mass/Vol] 3.4 g/dL 2.2-4.2 [facility] Work Phone: [phone] Urea nitrogen/Creatinine [Mass ratio] 11.7 mg/mg 10-20 [facility] Work Phone: [phone] Laboratory - Hematology and Cell countson 09-19-2021 Erythrocyte distribution width (RBC) [Entitic vol] 43.0 fL 35.1-43.9 [facility] Work Phone: [phone] Erythrocyte distribution width (RBC) [Ratio] 13.5 % 11.6-14.6 [facility] Work Phone: [phone] Immature granulocytes/100 WBC (Bld) 0.200 % 0.0-0.9 [facility] Work Phone: [phone] Comment on above: IG% - Immature Granu locytes (promyelocytes, myelocytes and metamyelocytes) > 1% indicates that a LEFT SHIFT is Present. MCH (RBC) [Entitic mass] 27.8 pg 27.0-32.0 [facility] Work Phone: [phone] Nucleated RBC/100 WBC (Bld) [Ratio] 0 % 0-5 [facility] Work Phone: [phone] MCHC Auto (RBC) [Mass/Vol]on 09-19-2021 MCHC (RBC) [Mass/Vol] 32.3 g/dL 32-36 [facility] Work Phone: No Panel Informationon 09-19 Estimated GFR (MDRD) Amer 97 mL/min >60 [facility] Work Phone: Comment on above: GFR Calc Estimated GFR (MDRD) Non-Af Amer 80 mL/min >60 [facility] Work Phone: Comment on above: Non- GFR Calc Thyroid Stimulating Hormone (TSH) 0.77 uIU/mL 0.358-3.74 [facility] Work Phone: Platelets bldon 09-19-2021 Platelets (Bld) [#/Vol] 206 10*3/uL 150-450 [facility] Work Phone: Serum or plasma albumin george urement (mass/volume)on 09-19-2021 Albumin [Mass/Vol] 3.5 g/dL 3.2-5.0 [facility] Work Phone: Serum or plasma albumin/glob ulin mass ratioon 09-19-2021 Albumin/Globulin [Mass ratio] 1.0 {ratio} 0.9-2.4 [facility] Work Phone: Serum or plasma calcium george urement (mass/volume)on 09-19-2021 Calcium [Mass/Vol] 9.1 mg/dL 8.5-10.1 [facility] Work Phone: Serum or plasma cholesterol in HDL measurement (mass/volume)on 09-19-2021 Cholesterol in HDL [Mass/Vol] 48 mg/dL >40 [facility] Work Phone: Comment on above: The drugs N-Acetylcy steine and Metamizole may falsely depress this assay. Reference Range HDL <40 mg/dL Low HDL Cholesterol HDL >or= 60 mg/dL High HDL Cholesterol Serum or plasma cholesterol in VLDL measurement (mass/volume)on 09-19-2021 Cholesterol in VLDL [Mass/Vol] 34 mg/dL 5-40 [facility] Work Phone: Serum or plasma creatinine m easurement (mass/volume)on 09-19-2021 Creatinine [Mass/Vol] 0.77 mg/dL 0.55-1.02 [facility] Work Phone: Comment on above: The validity of the calculated GFR & GFRAA in patients over 70 years has not been determined. Clinical correlation is essential. Serum or plasma low density lipoprotein (LDL) cholesterol measurement (mass/volume)on 09-19-2021 Cholesterol in LDL [Mass/Vol] 89 mg/dL 0-130 [facility] Work Phone: Serum or plasma urea nitroge n measurement (mass/volume)on 09-19-2021 Urea nitrogen [Mass/Vol] 9 mg/dL 7-18 [facility] Work Phone: Thin prep Papanicolaou smear with manual screeningon 09-19-2021 Thin prep Papanicolaou smear with manual screening 14 U/L 15-37 [facility] Work Phone: Thin prep Papanicolaou smear with manual screening 2 5-15 [facility] Work Phone: Vital Signs Date Time Vital Sign Value Performing Clinician Facility 01-26-2025 15:20-0400 Body height 165.[address] Karli Lindsey MD Work Phone: [facility] 01-26-2025 15:14-0400 Body mass index (BMI) [Ratio] 34 kg/m2 Dr. Karli Lindsey MD Work Phone: [facility] 01-26-2025 15:14-0400 Body weight 92.[address] Karli Lindsey MD Work Phone: [facility] 01-26-2025 15:14-0400 Diastolic blood pressure 82 mm[Hg] Dr. Karli Lindsey MD Work Phone: [facility] 01-26-2025 15:14-0400 Systolic blood pressure 128 mm[Hg] Dr. Karli Lindsey MD Work Phone: [facility] 11-30-2024 07:18-0400 Body height 165.[address] Karli Lindsey MD Work Phone: [facility] 11-30-2024 07:18-0400 Body mass index (BMI) [Ratio] 33.6 kg/m2 Dr. Karli Lindsey MD Work Phone: [facility] 11-30-2024 07:18-0400 Body temperature 97.4 [degF] Dr. Karli Lindsey MD Work Phone: [facility] 11-30-2024 07:18-0400 Body weight 91.[address] Karli Lindsey MD Work Phone: [facility] 11-30-2024 07:18-0400 Diastolic blood pressure 90 mm[Hg] Dr. Karli Lindsey MD Work Phone: [facility] 11-30-2024 07:18-0400 Heart rate 59 /min Dr. Karli Lindsey MD Work Phone: [facility] 11-30-2024 07:18-0400 Respiratory rate 18 /min Dr. Karli Lindsey MD Work Phone: [facility] 11-30-2024 07:18-0400 SaO2% (BldA) [Mass fraction] 94 % Dr. Karli Lindsey MD Work Phone: [facility] 11-30-2024 07:18-0400 Systolic blood pressure 145 mm[Hg] Dr. Karli Lindsey MD Work Phone: [facility] 11-18-2024 12:37-0400 Body height 165.[address] Karli Lindsey MD Work Phone: [facility] 11-18-2024 12:37-0400 Body weight 90.[address] Karli Lindsey MD Work Phone: [facility] 11-18-2024 12:37-0400 Heart rate 67 /min Dr. Karli Lindsey MD Work Phone: [facility] 11-18-2024 12:37-0400 SaO2% (BldA) [Mass fraction] 96 % Dr. Karli Lindsey MD Work Phone: [facility] 10-26-2024 15:26-0400 Body height 165.[address] Karli Lindsey MD Work Phone: [facility] 10-26-2024 15:26-0400 Body mass index (BMI) [Ratio] 33.7 kg/m2 Dr. Karli Lindsey MD Work Phone: [facility] 10-26-2024 15:26-0400 Body temperature 97.6 [degF] Dr. Karli Lindsey MD Work Phone: [facility] 10-26-2024 15:26-0400 Body weight 92.[address] Karli Lindsey MD Work Phone: [facility] 10-26-2024 15:26-0400 Diastolic blood pressure 82 mm[Hg] Dr. Karli Lindsey MD Work Phone: [facility] 10-26-2024 15:26-0400 Heart rate 63 /min Dr. Karli Lindsey MD Work Phone: [facility] 10-26-2024 15:26-0400 Respiratory rate 18 /min Dr. Karli Lindsey MD Work Phone: [facility] 10-26-2024 15:26-0400 SaO2% (BldA) [Mass fraction] 96 % Dr. Karli Lindsey MD Work Phone: [facility] 10-26-2024 15:26-0400 Systolic blood pressure 118 mm[Hg] Dr. Karli Lindsey MD Work Phone: [facility] 10-21-2024 07:51-0400 Body mass index (BMI) [Ratio] 33.7 kg/m2 Dr. Karli Lindsey MD Work Phone: [facility] 10-21-2024 07:51-0400 Body temperature 97.4 [degF] Dr. Karli Lindsey MD Work Phone: [facility] 10-21-2024 07:51-0400 Body weight 92.[address] Karli Lindsey MD Work Phone: [facility] 10-21-2024 07:51-0400 Diastolic blood pressure 83 mm[Hg] Dr. Karli Lindsey MD Work Phone: [facility] 10-21-2024 07:51-0400 Heart rate 64 /min Dr. Karli Lindsey MD Work Phone: [facility] 10-21-2024 07:51-0400 Respiratory rate 18 /min Dr. Karli Lindsey MD Work Phone: [facility] 10-21-2024 07:51-0400 SaO2% (BldA) [Mass fraction] 96 % Dr. Karli Lindsey MD Work Phone: [facility] 10-21-2024 07:51-0400 Systolic blood pressure 135 mm[Hg] Dr. Karli Lindsey MD Work Phone: [facility] 10-14-2024 15:08-0400 Body height 165.[address] Karli Lindsey MD Work Phone: [facility] 10-14-2024 15:08-0400 Body mass index (BMI) [Ratio] 33.7 kg/m2 Dr. Karli Lindsey MD Work Phone: [facility] 10-14-2024 15:08-0400 Body temperature 96.5 [degF] Dr. Karli Lindsey MD Work Phone: [facility] 10-14-2024 15:08-0400 Body weight 92.[address] Karli Lindsey MD Work Phone: [facility] 10-14-2024 15:08-0400 Diastolic blood pressure 80 mm[Hg] Dr. Karli Lindsey MD Work Phone: [facility] 10-14-2024 15:08-0400 Heart rate 73 /min Dr. Karli Lindsey MD Work Phone: [facility] 10-14-2024 15:08-0400 Respiratory rate 16 /min Dr. Karli Lindsey MD Work Phone: [facility] 10-14-2024 15:08-0400 SaO2% (BldA) [Mass fraction] 94 % Dr. Karli Lindsey MD Work Phone: [facility] 10-14-2024 15:08-0400 Systolic blood pressure 128 mm[Hg] Dr. Karli Lindsey MD Work Phone: [facility] 09-14-2024 15:11-0400 Body temperature 97.8 [degF] Dr. Karli Lindsey MD Work Phone: [facility] 09-14-2024 15:11-0400 Diastolic blood pressure 88 mm[Hg] Dr. Karli Lindsey MD Work Phone: [facility] 09-14-2024 15:11-0400 Heart rate 64 /min Dr. Karli Lindsey MD Work Phone: [facility] 09-14-2024 15:11-0400 SaO2% (BldA) [Mass fraction] 94 % Dr. Karli Lindsey MD Work Phone: [facility] 09-14-2024 15:11-0400 Systolic blood pressure 122 mm[Hg] Dr. Karli Lindsey MD Work Phone: [facility] 08-08-2024 10:09-0400 Body temperature 98.7 [degF] Dr. Karli Lindsey MD Work Phone: [facility] 08-08-2024 10:09-0400 Diastolic blood pressure 62 mm[Hg] Dr. Karli Lindsey MD Work Phone: [facility] 08-08-2024 10:09-0400 Heart rate 80 /min Dr. Karli Lindsey MD Work Phone: [facility] 08-08-2024 10:09-0400 SaO2% (BldA) [Mass fraction] 95 % Dr. Karli Lindsey MD Work Phone: [facility] 08-08-2024 10:09-0400 Systolic blood pressure 108 mm[Hg] Dr. Karli Lindsey MD Work Phone: [facility] 08-04-2024 08:04-0400 Body height 165.[address] Karli Lindsey MD Work Phone: [facility] 08-04-2024 08:04-0400 Body temperature 97.7 [degF] Dr. Karli Lindsey MD Work Phone: [facility] 08-04-2024 08:04-0400 Diastolic blood pressure 92 mm[Hg] Dr. Karli Lindsey MD Work Phone: [facility] 08-04-2024 08:04-0400 Heart rate 67 /min Dr. Karli Lindsey MD Work Phone: [facility] 08-04-2024 08:04-0400 Respiratory rate 14 /min Dr. Karli Lindsey MD Work Phone: [facility] 08-04-2024 08:04-0400 SaO2% (BldA) [Mass fraction] 97 % Dr. Karli Lindsey MD Work Phone: [facility] 08-04-2024 08:04-0400 Systolic blood pressure 136 mm[Hg] Dr. Karli Lindsey MD Work Phone: [facility] 04-20-2024 07:20-0500 Body mass index (BMI) [Ratio] 33.1 kg/m2 Dr. Karli Lindsey MD Work Phone: [facility] 04-20-2024 07:20-0500 Body temperature 98.6 [degF] Dr. Karli Lindsey MD Work Phone: [facility] 04-20-2024 07:20-0500 Body weight 90.[address] Karli Lindsey MD Work Phone: [facility] 04-20-2024 07:20-0500 Diastolic blood pressure 84 mm[Hg] Dr. Karli Lindsey MD Work Phone: [facility] 04-20-2024 07:20-0500 Heart rate 63 /min Dr. Karli Lindsey MD Work Phone: [facility] 04-20-2024 07:20-0500 Respiratory rate 20 /min Dr. Karli Lindsey MD Work Phone: [facility] 04-20-2024 07:20-0500 SaO2% (BldA) [Mass fraction] 98 % Dr. Karli Lindsey MD Work Phone: [facility] 04-20-2024 07:20-0500 Systolic blood pressure 137 mm[Hg] Dr. Karli Lindsey MD Work Phone: [facility] 04-15-2024 15:06-0500 Body mass index (BMI) [Ratio] 33.7 kg/m2 Dr. Karli Lindsey MD Work Phone: [facility] 04-15-2024 15:06-0500 Body temperature 97.8 [degF] Dr. Karli Lindsey MD Work Phone: [facility] 04-15-2024 15:06-0500 Body weight 92.[address] Karli Lindsey MD Work Phone: [facility] 04-15-2024 15:06-0500 Diastolic blood pressure 76 mm[Hg] Dr. Karli Lindsey MD Work Phone: [facility] 04-15-2024 15:06-0500 Heart rate 76 /min Dr. Karli Lindsey MD Work Phone: [facility] 04-15-2024 15:06-0500 Respiratory rate 17 /min Dr. Karli Lindsey MD Work Phone: [facility] 04-15-2024 15:06-0500 SaO2% (BldA) [Mass fraction] 97 % Dr. Karli Lindsey MD Work Phone: [facility] 04-15-2024 15:06-0500 Systolic blood pressure 118 mm[Hg] Dr. Karli Lindsey MD Work Phone: [facility] 10-17-2023 13:45-0400 Respiratory rate 16 /min Sam Dominguez MD Work Phone: [facility] 10-17-2023 13:10-0400 Diastolic blood pressure 73 mm[Hg] Sam Dominguez MD Work Phone: [facility] 10-17-2023 13:10-0400 Heart rate 69 /min Sam Dominguez MD Work Phone: [facility] 10-17-2023 13:10-0400 SaO2% (BldA) [Mass fraction] 99 % Sam Dominguez MD Work Phone: [facility] 10-17-2023 13:10-0400 Systolic blood pressure 132 mm[Hg] Sam Dominguez MD Work Phone: [facility] 10-17-2023 12:23-0400 Body mass index (BMI) [Ratio] 33.9 kg/m2 Sam Dominguez MD Work Phone: [facility] 10-17-2023 12:23-0400 Body temperature 97.39 [degF] Sam Dominguez MD Work Phone: [facility] 10-17-2023 12:23-0400 Body weight 92.4 kg Sam Dominguez MD Work Phone: [facility] 10-10-2023 15:31-0400 Body height 165.1 cm Sam Dominguez MD Work Phone: [facility] 10-10-2023 15:31-0400 Body mass index (BMI) [Ratio] 33.88 kg/m2 Sam Dominguez MD Work Phone: [facility] 10-10-2023 15:31-0400 Body temperature 97.3 [degF] Sam Dominguez MD Work Phone: [facility] 10-10-2023 15:31-0400 Body weight 92.35 kg Sam Dominguez MD Work Phone: [facility] 10-10-2023 15:31-0400 Diastolic blood pressure 84 mm[Hg] Sam Dominguez MD Work Phone: [facility] 10-10-2023 15:31-0400 Heart rate 73 /min Sam Dominguez MD Work Phone: [facility] 10-10-2023 15:31-0400 SaO2% (BldA) [Mass fraction] 95 % Sam Dominguez MD Work Phone: [facility] 10-10-2023 15:31-0400 Systolic blood pressure 126 mm[Hg] Sam Dominguez MD Work Phone: [facility] 07-16-2023 05:36-0500 Body height 165.[address] Karli Lindsey Work Phone: [facility] 07-16-2023 05:36-0500 Body mass index (BMI) [Ratio] 33.1 kg/m2 Dr. Karli Lindsey Work Phone: [facility] 07-16-2023 05:36-0500 Body temperature 97.8 [degF] Dr. Karli Lindsey Work Phone: [facility] 07-16-2023 05:36-0500 Body weight 90.[address] Karli Lindsey Work Phone: [facility] 07-16-2023 05:36-0500 Diastolic blood pressure 78 mm[Hg] Dr. Karli Lindsey Work Phone: [facility] 07-16-2023 05:36-0500 Heart rate 57 /min Dr. Karli Lindsey Work Phone: [facility] 07-16-2023 05:36-0500 Respiratory rate 18 /min Dr. Karli Lindsey Work Phone: [facility] 07-16-2023 05:36-0500 SaO2% (BldA) [Mass fraction] 98 % Dr. Karli Lindsey Work Phone: [facility] 07-16-2023 05:36-0500 Systolic blood pressure 132 mm[Hg] Dr. Karli Lindsey Work Phone: [facility] 05-10-2023 10:43-0500 Body height 165.[address] Karli Lindsey Work Phone: [facility] 05-10-2023 10:43-0500 Body mass index (BMI) [Ratio] 33 kg/m2 Dr. Karli Lindsey Work Phone: [facility] 05-10-2023 10:43-0500 Body temperature 98.2 [degF] Dr. Karli Lindsey Work Phone: [facility] 05-10-2023 10:43-0500 Body weight 89.[address] Karli Lindsey Work Phone: [facility] 05-10-2023 10:43-0500 Diastolic blood pressure 84 mm[Hg] Dr. Karli Lindsey Work Phone: [facility] 05-10-2023 10:43-0500 Heart rate 56 /min Dr. Karli Lindsey Work Phone: [facility] 05-10-2023 10:43-0500 Respiratory rate 16 /min Dr. Karli Lindsey Work Phone: [facility] 05-10-2023 10:43-0500 SaO2% (BldA) [Mass fraction] 95 % Dr. Karli Lindsey Work Phone: [facility] 05-10-2023 10:43-0500 Systolic blood pressure 126 mm[Hg] Dr. Karli Lindsey Work Phone: [facility] 01-17-2023 11:56-0400 Body height 165.[address] Karli Lindsey Work Phone: [facility] 01-17-2023 11:54-0400 Body weight 90.[address] Karli Lindsey Work Phone: [facility] 01-17-2023 11:54-0400 Heart rate 70 /min Dr. Karli Lindsey Work Phone: [facility] 01-17-2023 11:54-0400 SaO2% (BldA) [Mass fraction] 97 % Dr. Karli Lindsey Work Phone: [facility] 01-14-2023 06:58-0400 Body height 165.[address] Karli Lindsey Work Phone: [facility] 01-14-2023 06:58-0400 Body mass index (BMI) [Ratio] 32.9 kg/m2 Dr. Karli Lindsey Work Phone: [facility] 01-14-2023 06:58-0400 Body temperature 97.5 [degF] Dr. Karli Lindsey Work Phone: [facility] 01-14-2023 06:58-0400 Body weight 89.[address] Karli Lindsey Work Phone: [facility] 01-14-2023 06:58-0400 Diastolic blood pressure 84 mm[Hg] Dr. Karli Lindsey Work Phone: [facility] 01-14-2023 06:58-0400 Heart rate 56 /min Dr. Karli Lindsey Work Phone: [facility] 01-14-2023 06:58-0400 Respiratory rate 18 /min Dr. Karli Lindsey Work Phone: [facility] 01-14-2023 06:58-0400 SaO2% (BldA) [Mass fraction] 95 % Dr. Karli Lindsey Work Phone: [facility] 01-14-2023 06:58-0400 Systolic blood pressure 143 mm[Hg] Dr. Karli Lindsey Work Phone: [facility] 01-08-2023 14:46-0400 Body height 165.[address] Karli Lindsey Work Phone: [facility] 01-08-2023 14:40-0400 Body mass index (BMI) [Ratio] 33.3 kg/m2 Dr. Karli Lindsey Work Phone: [facility] 01-08-2023 14:40-0400 Body weight 90.[address] Karli Lindsey Work Phone: [facility] 01-08-2023 14:40-0400 Diastolic blood pressure 84 mm[Hg] Dr. Karli Lindsey Work Phone: [facility] 01-08-2023 14:40-0400 Systolic blood pressure 130 mm[Hg] Dr. Karli Lindsey Work Phone: [facility] 01-04-2023 09:43-0400 Body height 165.[address] Karli Lindsey Work Phone: [facility] 01-04-2023 09:43-0400 Body mass index (BMI) [Ratio] 33 kg/m2 Dr. Karli Lindsey Work Phone: [facility] 01-04-2023 09:43-0400 Body temperature 96.7 [degF] Dr. Karli Lindsey Work Phone: [facility] 01-04-2023 09:43-0400 Body weight 89.[address] Karli Lindsey Work Phone: [facility] 01-04-2023 09:43-0400 Diastolic blood pressure 90 mm[Hg] Dr. Karli Lindsey Work Phone: [facility] 01-04-2023 09:43-0400 Heart rate 72 /min Dr. Karli Lindsey Work Phone: [facility] 01-04-2023 09:43-0400 Respiratory rate 18 /min Dr. Karli Lindsey Work Phone: [facility] 01-04-2023 09:43-0400 SaO2% (BldA) [Mass fraction] 97 % Dr. Karli Lindsey Work Phone: [facility] 01-04-2023 09:43-0400 Systolic blood pressure 118 mm[Hg] Dr. Karli Lindsey Work Phone: [facility] 11-02-2022 10:13-0400 Body height 165.[address] Karli Lindsey Work Phone: [facility] 11-02-2022 10:13-0400 Body mass index (BMI) [Ratio] 33.3 kg/m2 Dr. Karli Lindsey Work Phone: [facility] 11-02-2022 10:13-0400 Body temperature 97.3 [degF] Dr. Karli Lindsey Work Phone: [facility] 11-02-2022 10:13-0400 Body weight 90.[address] Karli Lindsey Work Phone: [facility] 11-02-2022 10:13-0400 Diastolic blood pressure 84 mm[Hg] Dr. Karli Lindsey Work Phone: [facility] 11-02-2022 10:13-0400 Heart rate 67 /min Dr. Karli Lindsey Work Phone: [facility] 11-02-2022 10:13-0400 Respiratory rate 16 /min Dr. Karli Lindsey Work Phone: [facility] 11-02-2022 10:13-0400 SaO2% (BldA) [Mass fraction] 96 % Dr. Karli Lindsey Work Phone: [facility] 11-02-2022 10:13-0400 Systolic blood pressure 122 mm[Hg] Dr. Karli Lindsey Work Phone: [facility] 10-02-2022 15:03-0400 Body mass index (BMI) [Ratio] 33.4 kg/m2 Dr. Karli Lindsey Work Phone: [facility] 10-02-2022 15:03-0400 Body temperature 98.4 [degF] Dr. Karli Lindsey Work Phone: [facility] 10-02-2022 15:03-0400 Body weight 91.[address] Karli Lindsey Work Phone: [facility] 10-02-2022 15:03-0400 Diastolic blood pressure 90 mm[Hg] Dr. Karli Lindsey Work Phone: [facility] 10-02-2022 15:03-0400 Heart rate 48 /min Dr. Karli Lindsey Work Phone: [facility] 10-02-2022 15:03-0400 Respiratory rate 16 /min Dr. Karli Lindsey Work Phone: [facility] 10-02-2022 15:03-0400 SaO2% (BldA) [Mass fraction] 98 % Dr. Karli Lindsey Work Phone: [facility] 10-02-2022 15:03-0400 Systolic blood pressure 120 mm[Hg] Dr. Karli Lindsey Work Phone: [facility] 09-24-2022 15:19-0400 Body mass index (BMI) [Ratio] 33.9 kg/m2 Dr. Karli Lindsey Work Phone: [facility] 09-24-2022 15:19-0400 Body temperature 98.5 [degF] Dr. Karli Lindsey Work Phone: [facility] 09-24-2022 15:19-0400 Body weight 92.[address] Karli Lindsey Work Phone: [facility] 09-24-2022 15:19-0400 Diastolic blood pressure 78 mm[Hg] Dr. Karli Lindsey Work Phone: [facility] 09-24-2022 15:19-0400 Heart rate 68 /min Dr. Karli Lindsey Work Phone: [facility] 09-24-2022 15:19-0400 Respiratory rate 12 /min Dr. Karli Lindsey Work Phone: [facility] 09-24-2022 15:19-0400 SaO2% (BldA) [Mass fraction] 98 % Dr. Karli Lindsey Work Phone: [facility] 09-24-2022 15:19-0400 Systolic blood pressure 140 mm[Hg] Dr. Karli Lindsey Work Phone: [facility] 08-15-2022 12:18-0400 Body temperature 97.2 [degF] Dr. Karli Lindsey Work Phone: [facility] 08-15-2022 12:18-0400 Diastolic blood pressure 88 mm[Hg] Dr. Karli Lindsey Work Phone: [facility] 08-15-2022 12:18-0400 Heart rate 80 /min Dr. Karli Lindsey Work Phone: [facility] 08-15-2022 12:18-0400 Respiratory rate 16 /min Dr. Karli Lindsey Work Phone: [facility] 08-15-2022 12:18-0400 SaO2% (BldA) [Mass fraction] 99 % Dr. Karli Lindsey Work Phone: [facility] 08-15-2022 12:18-0400 Systolic blood pressure 122 mm[Hg] Dr. Karli Lindsey Work Phone: [facility] 01-03-2022 13:52-0400 Body height 165.[address] Karli Lindsey Work Phone: [facility] Work Phone: 01-03-2022 13:52-0400 Body mass index (BMI) [Ratio] 33.6 kg/m2 Dr. Karli Lindsey Work Phone: [facility] Work Phone: 01-03-2022 13:52-0400 Body weight 91.[address] Karli Lindsey Work Phone: [facility] Work Phone: 01-03-2022 13:52-0400 Diastolic blood pressure 78 mm[Hg] Dr. Karli Lindsey Work Phone: [facility] Work Phone: 01-03-2022 13:52-0400 Systolic blood pressure 124 mm[Hg] Dr. Karli Lindsey Work Phone: [facility] Work Phone: 09-29-2021 08:58-0400 Body mass index (BMI) [Ratio] 33.7 kg/m2 Dr. Karli Lindsey Work Phone: [facility] Work Phone: 09-29-2021 08:58-0400 Body temperature 98.1 [degF] Dr. Karli Lindsey Work Phone: [facility] Work Phone: 09-29-2021 08:58-0400 Body weight 92.[address] Karli Lindsey Work Phone: [facility] Work Phone: 09-29-2021 08:58-0400 Diastolic blood pressure 80 mm[Hg] Dr. Karli Lindsey Work Phone: [facility] Work Phone: 09-29-2021 08:58-0400 Heart rate 69 /min Dr. Karli Lindsey Work Phone: [facility] Work Phone: 09-29-2021 08:58-0400 Respiratory rate 16 /min Dr. Karli Lindsey Work Phone: [facility] Work Phone: 09-29-2021 08:58-0400 SaO2% (BldA) [Mass fraction] 97 % Dr. Karli Lindsey Work Phone: [facility] Work Phone: 09-29-2021 08:58-0400 Systolic blood pressure 124 mm[Hg] Dr. Karli Lindsey Work Phone: [facility] Work Phone: 01-02-2021 10:46-0400 Body mass index (BMI) [Ratio] 33.1 kg/m2 Dr. Karli Lindsey Work Phone: [facility] Work Phone: Encounters Encounter Date Encounter Type Care Provider Facility Start: 01-26-2025 End: 01-26-2025 ambulatory Karli Lindsey Facility:[facility] Start: 01-26-2025 End: 01-26-2025 Patient encounter procedure Celeste Nath [employer] -[facility] Work Phone: Start: 01-26-2025 End: 01-26-2025 Patient encounter status Celeste Nath [employer] [facility] Start: 01-19-2025 Patient encounter procedure Celeste Nath [employer] -[facility] Work Phone: Start: 01-19-2025 ambulatory Celeste Nath [employer] Facil ity:[facility] Start: 11-30-2024 End: 11-30-[address] Caleb Bah DO -[facility] Work Phone: Start: 11-30-2024 End: 11-30-[address] Karli Lindsey MD Work Phone: -[facility] Start: 11-30-2024 End: 11-30-2024 ambulatory Caleb Bah Facility:[facility] Start: 11-20-2024 ambulatory Caleb Bah Facility:[facility] Start: 11-20-2024 Non-patient / Non-visit Dr. Caleb Bah DO -[facility] Start: 11-18-2024 End: 11-18-[address] Karli Lindsey MD Work Phone: -Cat Scan [facility] Start: 11-18-2024 End: 11-18-2024 Patient encounter procedure Olena Cervantes [employer] -Cat Scan [facility] Work Phone: Start: 11-17-2024 End: 11-17-[address] Karli Lindsey MD Work Phone: -Sleep Lab Start: 11-17-2024 End: 11-17-[address] Karli Lindsey MD -Sleep Lab Work Phone: Start: 11-17-2024 End: 11-17-2024 Patient encounter procedure Olena THORNTON -Pulmonary Services/Neurology Work Phone: Start: 11-17-2024 End: 11-18-[address] Karli Lindsey MD Work Phone: -Pulmonary Services/Neurology Start: 11-17-2024 End: 11-17-[address] [facility] Facility:[facility] Start: 10-26-2024 End: 10-26-[address] Karli Lindsey MD -[facility] Work Phone: Start: 10-26-2024 End: 10-26-[address] Karli Lindsey MD [facility] Start: 10-26-2024 End: 10-26-[address] Karli Lindsey MD Work Phone: [facility] Work Phone: Start: 10-22-2024 Encounter for genera l adult medical examination without abnormal findings [facility] Start: 10-21-2024 End: 10-21-2024 Patient encounter procedure Olena THORNTON -[facility] Work Phone: Start: 10-21-2024 End: 10-21-[address] Karli Lindsey MD Work Phone: [facility] Work Phone: Start: 10-17-2024 End: 10-17-[address] Karli Lindsey MD Work Phone: [facility] Work Phone: Start: 10-17-2024 End: 10-17-[address] Karli Lindsey MD -Laboratory Work Phone: Start: 10-17-2024 End: 10-17-2024 [facility] Start: 10-14-[address] Karli Lindsey MD Work Phone: [facility] Start: 10-14-2024 End: 10-14-[address] Karli Lindsey MD -[facility] Work Phone: Start: 10-14-2024 End: 10-14-[address] Karli Lindsey MD Work Phone: [facility] Work Phone: Start: 09-14-2024 End: 09-14-2024 Patient encounter procedure Darien Sheridan PA -[facility] Work Phone: Start: 09-14-2024 End: 09-14-[address] [facility] Facility:[facility] Start: 08-08-2024 End: 08-08-2024 Patient encounter procedure Silver Martinez PA -[facility] Work Phone: Start: 08-08-2024 End: 08-08-[address] [facility] Facility:[facility] Start: 08-04-2024 End: 08-04-2024 Patient encounter procedure Darien Sheridan PA -[facility] Work Phone: Start: 08-04-2024 End: 08-04-[address] Karli Lindsey MD Work Phone: [facility] Work Phone: Start: 08-04-2024 End: 08-04-[address] [facility] Facility:[facility] Start: 06-13-2024 End: 06-13-[address] Karli Lindsey MD -Laboratory Work Phone: Start: 06-13-2024 End: 06-13-2024 ambulatory [facility] Facility:[facility] Start: 05-02-2024 End: 05-02-[address] Karli Lindsey MD -Laboratory Work Phone: Start: 05-02-2024 End: 05-02-[address] [facility] Facility:[facility] Start: 04-20-2024 End: 04-20-2024 Patient encounter procedure Olena PAGEC -[facility] Work Phone: Start: 04-20-2024 End: 04-20-[address] [facility] Facility:[facility] Start: 04-15-2024 End: 04-15-[address] Karli Lindsey MD -[facility] Work Phone: Start: 04-15-2024 End: 04-15-[address] [facility] Facility:[facility] Start: 03-11-2024 End: 03-11-[address] [facility] Facility:[facility] Start: 02-26-2024 End: 02-26-[address] 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 Karli Lindsey Work Phone: [facility] Work Phone: Start: 09-18-2023 End: 09-18-[address] Karli Lindsey Work Phone: [facility]-Laboratory, [place] Start: 07-18-2023 Telephone encounter Sam johnson MD Work Phone: General Surgery Comment on above: Patient Question Start: 07-16-2023 End: 07-16-[address] Karli Lindsey Work Phone: [facility] Pulmonary Medicine Work Phone: Start: 06-28-2023 Non-patient / Non-visit Dr. Karli Lindsey Work Phone: [facility] Start: 06-28-2023 End: 06-28-[address] Karli Lindsey Work Phone: [facility] Work Phone: Start: 06-28-2023 End: 06-28-[address] [facility] Work [facility] Start: 05-10-2023 Non-patient / Non-visit Dr. Karli Lindsey Work Phone: [facility] Internal Medicine Work Phone: Start: 05-10-2023 End: 05-10-[address] Karli Lindsey Work Phone: [facility] Work Phone: Start: 05-10-2023 End: 05-10-[address] Karli Lindsey Work Phone: [facility] Internal Medicine Work Phone: Start: 01-21-2023 Non-patient / Non-visit Dr. Karli Lindsey Work Phone: [facility] Start: 01-17-2023 End: 01-17-[address] Karli Lindsey Work Phone: [facility] Work Phone: Start: 01-17-2023 End: 01-17-[address] [facility] Work [facility] Start: 01-14-2023 End: 01-14-[address] Karli Lindsey Work Phone: [facility] Work Phone: Start: 01-14-2023 End: 01-14-[address] [facility] Work Phone: Start: 01-08-2023 End: 01-08-[address] Karli Lindsey Work Phone: [facility] Work Phone: Start: 01-08-2023 End: 01-08-[address] Karli Lindsey Work Phone: [facility] Work Phone: Start: 01-04-2023 End: 01-04-[address] Karli Lindsey Work Phone: [facility] Work Phone: Start: 01-04-2023 End: 01-04-[address] Karli Lindsey Work Phone: [facility] Internal Medicine Work Phone: Start: 12-21-2022 End: 12-21-[address] Karli Lindsey Work Phone: [facility] Work Phone: Start: 12-21-2022 End: 12-21-[address] Karli Lindsey [facility] Work Phone: Start: 12-07-2022 End: 12-07-[address] Karli Lindsey Work Phone: [facility]atory, [facility] Start: 11-06-2022 Non-patient / Non-visit Dr. Karli Lindsey Work Phone: [facility] Start: 11-06-2022 End: 11-06-[address] Karli Lindsey Work Phone: [facility] Work Phone: Start: 11-06-2022 End: 11-06-[address] Karli Lindsey Work Phone: [facility]-Pulmonary Services/Neurology Start: 11-02-2022 End: 11-02-[address] Karli Lindsey Work Phone: [facility] Work Phone: Start: 11-02-2022 End: 11-02-[address] Karli Lindsey Work Phone: [facility] Internal Medicine Start: 10-05-2022 End: 10-05-[address] [facility] Start: 10-02-[address] Karli Lindsey Work Phone: [facility] Start: 10-02-2022 End: 10-02-2022 Encounter for general adult medical examination without abnormal findings Dr. Karli Lindsey Work Phone: [facility] Start: 10-02-2022 End: 10-02-[address] Karli Lindsey Work Phone: [facility] Internal Medicine Start: 09-24-2022 End: 09-24-[address] Karli Lindsey Work Phone: [facility] Internal Medicine Start: 08-15-2022 End: 08-15-[address] Karli Lindsey Work Phone: [facility] Start: 01-03-2022 End: 01-03-[address] Karli Lindsey Work Phone: [facility] Start: 09-29-2021 End: 09-29-2021 Encounter for general adult medical examination without abnormal findings Dr. Karli Lindsey Work Phone: [facility] Internal Medicine Start: 09-29-2021 End: 09-29-[address] Karli Lindsey Work Phone: [facility] Internal Medicine Start: 09-19-2021 End: 09-19-[address] Karli Lindsey Work Phone: [facility]-Labor[facility] Procedures Date Procedure Procedure Detail Performing Clinician Start: 01-19-2025 Dual energy X-ray absorptiometry Dr. Mathew Lindsey MD Work Phone: Start: 01-19-[address] Karli Lindsey MD Work Phone: Start: 11-30-[address] Karli Lindsey MD Work Phone: Comment on above: Performed at: [id number] [place], [place] [id number] Director: Cristian Titus PhD, Phone: [phone] Start: 11-30-[address] Karli Lindsey MD Work Phone: Comment on above: The atypical pANCA pattern has been obse rved in asignificant percentage of patients with ulcerative colitis,primary sclerosing cholangitis and autoimmune hepatitis. Start: 11-30-2024 Antibody to centromere measurement Dr. Dominga Lindsey MD Work Phone: Comment on above: Test not performed Start: 11-30-2024 Antibody to extractable nuclear antigen measurement Dr. Karli Lindsey MD Work Phone: Comment on above: Test not performed Start: 11-30-2024 Antibody to NATASHA-[address] Chris Lindsey MD Work Phone: Comment on above: Test not performed Start: 11-30-2024 Antibody to lupus La protein measurement Dr. Karli Lindsey MD Work Phone: Comment on above: Test not performed Start: 11-30-2024 Antibody to SS-A measurement Dr. Chris Lindsey MD Work Phone: Comment on above: Test not performed Start: 11-30-[address] Karli Lindsey MD Work Phone: Comment on above: Test not performed Start: 11-30-[address] Karli Lindsey MD Work Phone: Comment on above: Test Ordered: [id number] Hypersensitivity Pn eumonitisAspergillus fumigatus IgG Negative BN Reference Range: NegativeMicropolyspora faeni IgG Negative BN Reference Range: NegativeThermoactinomyces vulgaris IgG Negative BN Reference Range: NegativeAureobasidium pullulans IgG Negative BN Reference Range: NegativeThermoactinomyces sacchari IgG Negative BN Reference Range: NegativePigeon Serum IgG Negative BN Reference Range: NegativePerformed at: [address] [id number] Director: Monica Kessler MD, Phone: [phone] at: [facility] [id number] Director: Cristian Titus PhD, Phone: [phone] Start: 11-30-2024 MAKEUP EDITOR antibody measurement Dr. Karli Lindsey MD Work Phone: Comment on above: Test not performed Start: 11-18-2024 CT of chest without contrast Dr. Chris Lindsey MD Work Phone: Start: 08-04-[address] Karli Lindsey MD Work Phone: Start: 10-17-2023 Esophagogastroduodenoscopy transoral diagnostic Gi Galicia APRNClaudiaMEDICAL OFFICE ASST Work Phone: Start: 01-17-2023 Dual energy X-ray absorptiometry Dr. Mathew Lindsey Work Phone: Start: 01-08-[address] Karli Lindsey Work Phone: Start: 01-08-2023 Cytopathology procedure, preparation of smear, genital source Dr. Karli Lindesy Work Phone: Start: 01-08-2023 Investigation of transfusion reaction Dr. Karli Lindsey Work Phone: Start: 12-21-2022 CT of chest without contrast Dr. Chris Lindsey Work Phone: Start: 11-02-2022 Plain chest X-ray Dr. Karli Lindsey Work Phone: Start: 01-03-[address] Karli Lindsey Work Phone: Start: 11-10-2020 Colonoscopy aSm Dominguez MD Work Phone: Start: 09-30-2015 Lipid 1996 panel - Serum or Plasma Carlos Dominguez MD Work Phone: Plan of Treatment Date Care Activity Detail Author Start: 11-10-2025 Screening for malign ant neoplasm of colon [facility] Start: 11-30-2024 IgE [Units/volume] i n Serum or Plasma [facility] Start: 11-30-2024 Procedure [facility] Start: 11-30-2024 [facility] Start: 11-18-2024 Walking distance 6 minutes [facility] Start: 11-17-2024 Measurement of respiratory function [facility] Start: 01-26-2024 Influenza vaccination Influenz a Vaccine (Season Ended) [facility] Start: 05-27-2023 Behavioral Health Screening Behavioral Health Screening [facility] Start: 05-27-2023 Depression Assessment Depression Ass essment [facility] Start: 01-25-2023 Covid-19 Vaccine ( season) Covid-19 Vaccine ( season) [facility] Start: 01-25-2023 Covid-19 Vaccine () Covid-19 Vaccine () [facility] Start: 01-25-2023 Influenza vaccination Influenza Vacc ine (#1) [facility] Start: 01-17-2023 Dual energy X-ray absorptiometry Dexa Bone Density Study [facility] Start: 01-17-2023 DXA Bone [Mass/Area] Bone density [facility] Start: 09-29-2021 Patient referral [facility] Work Phone: Start: 09-29-2020 Lipid panel Lipid Screening [facility] Start: 09-16-2019 Diabetes Screening Diabetes Screenin g [facility] Start: 2019 RSV Vaccine (1 - 1-d ose 60+ series) RSV Vaccine (1 - 1-dose 60+ series) [facility] Start: 04-16-2018 Urine microalbumin profile DTaP,Tdap,Td Vaccine (2 - Td or Tdap) [facility] Start: 10-09-2016 Screening for malign ant neoplasm of breast Mammogram Screening [facility] Start: 2009 Shingrix Vaccine (1 of 2) Case grix Vaccine (1 of 2) [facility] Start: 02-06-2004 Screening for malign ant neoplasm of colon [facility] Start: 1977 Annual PCP Team Inflated Pad Buffer francie Disease Visit Annual PCP Team Chronic Disease Visit [facility] Start: 1977 Hepatitis C screening Hepatitis C Sc reening [facility] Start: 1977 HIV screening HIV Screening [facility] Start: 1965 Pneumococcal vaccination Pneum ococcal Vaccine (1 of 2 - PCV) [facility] CBC W Auto Different ial panel - Blood [facility] Comprehensive metabo lic 1999 panel - Serum or Plasma [facility] CT Chest WO contrast [facility] DXA Bone [Mass/Area] Bone density [facility] Exercise tolerance test [facility] Lipid 1995 panel - S philip or Plasma [facility] Measurement of Aspergillus flavus antibody [facility] Measurement of Aspergillus fumigatus antibody [facility] Measurement of Aspergillus niger antibody [facility] Measurement of respiratory function [facility] Measurement of respiratory function [facility] Neutrophil cytoplasm ic Ab.classic [Units/volume] in Serum [facility] P-ANCA measurement [facility] Patient referral [facility] Work Phone: Polysomnography [facility] SURGICAL PATHOLOGY [facility] Work Phone: Comment on above: Release Upon Orderin g for 1 Occurrences starting 10/17/2023, 1 completed Thyroid stimulating hormone measurement [facility] Walking distance 6 minutes [facility] Immunizations Immunization Date Immunization Notes Care Provider [facility] 03-30-[address] Karli Lindsey MD Work Phone: [facility] 12-31-[address] Karli Lindsey MD Work Phone: [facility] 03-30-2022 influenza, injectabl e, quadrivalent, preservative free Dr. Karli Lindsey Work Phone: [facility] 03-30-2022 influenza, seasonal, injectable Dr. Karli Lindsey Work Phone: [facility] 03-30-2022 influenza virus vaccine, unspecified formulation Sam Dominguez MD Work Phone: [facility] 03-23-2021 Covid (Moderna) Dr. Armani Lindsey MD Work Phone: [facility] 07-01-2020 Covid (Moderna) Dr. Armani Lindsey Work Phone: [facility] 06-03-2020 Covid (Moderna) Dr. Armani Lindsey Work Phone: [facility] 02-19-2020 influenza, injectable,quadrivalent , preservative free, pediatric Dr. Karli Lindsey Work Phone: [facility] 02-19-2020 influenza, seasonal, injectable, preservative free Dr. Karli Lindsey MD Work Phone: [facility] 03-13-2012 influenza virus vaccine, unspecified formulation Sam Dominguez MD Work Phone: [facility] 04-26-2011 influenza virus vaccine, unspecified formulation Sam Dominguez MD Work Phone: [facility] 02-27-2010 influenza virus vaccine, unspecified formulation Sam Dominguez MD Work Phone: [facility] 04-11-2009 novel [id number], preservative-free, injectable Dr. Karli Lindsey MD Work Phone: [facility] 03-27-2009 novel [id number], all formulations Sam Dominguez MD Work Phone: [facility] 02-24-2009 influenza virus vaccine, unspecified formulation Sam Dominguez MD Work Phone: [facility] 04-16-2008 tetanus toxoid, redu graham diphtheria toxoid, and acellular pertussis vaccine, adsorbed Sam Dominguez MD Work Phone: [facility] Payers Date Payer Category Payer Self-pay [id number] [phone] [id number] 2019 Private Health Insurance [id number] 2019 Private Health Insurance AETNA A ETNA POS [id number] 2019-Present [phone] [address] [place] [address] POS [id number] 2016 Unknown [id number] Unknown [id number] [id number] 62 Unknown [id number] 2.16.840.1.798545.3.579.2.4 62 Unknown [id number] 2.16.840.1.080588.3.579.2.4 62 Unknown [id number] 2.16.840.1.550059.3.579.2.4 62 Unknown [id number] 2.16.840.1.702999.3.579.2.4 62 Unknown [id number] 2.16.840.1.920403.3.579.2.4 62 Unknown [id number] 2.16.840.1.296970.3.579.2.4 62 Unknown [id number] 2.16.840.1.194172.3.579.2.4 62 Unknown [id number] 2.16.840.1.979806.3.579.2.4 62 Unknown [id number] 2.16.840.1.102615.3.579.2.4 62 Unknown [id number] 2.16.840.1.630940.3.579.2.4 62 Unknown [id number] 2.16.840.1.000588.3.579.2.4 62 Unknown [id number] 2.16.840.1.546421.3.579.2.4 62 Unknown [id number] 2.16.840.1.211944.3.579.2.4 62 Unknown [id number] 2.16.840.1.838093.3.579.2.4 62 Unknown [id number] 2.16.840.1.098449.3.579.2.4 62 Unknown [id number] 2.16.840.1.850420.3.579.2.4 62 Unknown [id number] 2.16.840.1.105877.3.579.2.4 62 Unknown [id number] 2.16.840.1.778730.3.579.2.4 62 Unknown [id number] 2.16.840.1.267603.3.579.2.4 62 Unknown [id number] 2.16.840.1.163986.3.579.2.4 62 Unknown [id number] 2.16.840.1.924511.3.579.2.4 62 Unknown [id number] 2.16.840.1.526402.3.579.2.4 62 Unknown [id number] 2.16.840.1.189081.3.579.2.4 62 Social History Date Type Detail Facility Start: 01-03-2022 End: 07-16-2023 Tobacco smoking status MEIS Unknown if ever smoked [facility] Start: 01-04-2020 Cigars [facility] Start: 1960 Sex Assigned At Female [facility] Start: 01-11-2014 Tobacco smoking stat us MEIS Occasional tobacco smoker [facility] History of tobacco use Cigarette Smoker [facility] Start: 01-11-2014 End: 10-10-2023 Cigarettes smoked current (pack per day) - Reported 0.1 [facility] Start: 01-11-2014 End: 10-10-2023 Tobacco use and exposure Smokeless tobacco non-user [facility] Start: 11-25-2020 End: 10-17-2023 Alcohol intake Current drinker of alcohol (finding) [facility] Start: 11-25-2020 End: 10-10-2023 Tobacco use panel [facility] National Score (1-10 0), lower number is lower risk Not on file [facility] Start: 10-11-2020 Gender identity Identifies as female gender (finding) [facility] Start: 10-11-2020 Sexual orientation Heterosexual (fin ding) [facility] Start: 10-10-2023 End: 10-26-2024 Tobacco smoking status NHIS Ex-smoker [facility] History of tobacco use Current smoker [facility] Start: 08-13-2024 Sex Female (finding) [facility] Clinical Notes 11-10-2020 to 11-20-2024 Note Date & Type Note Facility 11-20-2024 Procedure note [facility] 11-19-2024 Radiology Diagnostic study note [facility] Imaging Services [address] [place], [place] [address] Chest without Contrast MR#: [id number] Acct: [id number] Name: NATASHA HOLDER Rep #: [id number] : 1960 F 64 From: George Cruz MD PCP: Dr. Karli Lindsey MD Status: R EG CLI Study:Chest without Contrast Date of Exam: 11/18/24 Exam# [id number] Ordering Dr: Neeraj Cervantes NP [employer] PROCEDURE: CHEST WITHOUT CONTRAST 11/18/2024 REASON FOR EXAM: PULMONARY FIBROSIS TECHNIQUE: Chest CT without contrast. Coronal and Sagittal reconstruction series were provided. One or more dose reduction techniques were used (e.g., Automated exposure control, adjustment of the mA and/or kV according to patient size, use of iterative reconstruction technique RADIATION DOSE SUMMARY: CTDlvol: 16.63 mGy DLP: 606.59 mGycm COMPARISON: Prior study dated December 21, 2022. FINDINGS: Hardware: None Lymph nodes: Small benign-appearing mediastinal lymph nodes. Heart and Vasculature: The heart is not enlarged. Coronary Artery Calcifications: Present Lungs and Airways: Since prior study, there has been progression of increased interstitial markings in both lungs involving both upper and lower lobes Pleura: No pleural effusion. Upper Abdomen: Unremarkable Bones: Degenerative changes of the thoracic spine. CT/Chest without Contrast IMPRESSION: Coronary artery calcification (CAC) is is present Progressive interstitial markings in the both lungs as described. Reading Location: [id number] CC: [employer] Olena Cervantes; Dr. Karli Lindsey MD ~ Title Lawyer: Signed [facility] 10-14-2024 Evaluation note Diagnosis Onset Date Resolution Chronic cough chronic October 14, 2 025 3:01pm GERD (gastroesophageal reflux disease) chronic October 14, 2024 3:01pm Hypertension chronic October 14 3:01pm Hypothyroidism chronic October 14, 2024 3:01pm Allergic rhinitis chronic September h, 2024 9:10am Chronic cough chronic October 21, 2 025 9:10am Seasonal allergies chronic October 212024 9:10am Hypersomnolence acute October 26, 2024 3:04pm Preventative health care deleted October 26, 2024 3:04pm Interstitial lung disease acute November 30, 2024 11:08am CARLTON (obstructive sleep apnea) acute November 30, 2024 11:08am Chronic cough chronic November 30, 2 025 11:08am Encounter for routine gynecological examination noneactive Sept2024 3:12pm [facility] Work Phone: 1(878) 804-260203-15-2025 Evaluation note* Diagnosis Onset Date Resolution Status Admit Date Influenza A acute August 08, 2 025 10:07am [facility] Work Phone: 1(296) 618-242703-15-2025 Evaluation note* Diagnosis Onset Date Resolution Status Admit Date Influenza A acute August 08, 2 025 10:07am Chronic cough chronic October 14, 2 025 3:01pm GERD (gastroesophageal reflu x disease) chronic October 14, 2024 3 :01pm Hypertension chronic October 14 3:01pm Hypothyroidism chronic October 14, 2024 3:01pm [facility] Work Phone: 1(518) 370-630903-15-2025 Evaluation note* Diagnosis Onset Date Resolution Status Admit Date Influenza A acute August 08, 2 025 10:07am Chronic cough chronic October 14, 2 025 3:01pm GERD (gastroesophageal reflu x disease) chronic October 14, 2024 3 :01pm Hypertension chronic October 14 3:01pm Hypothyroidism chronic October 14, 2024 3:01pm Allergic rhinitis chronic September h, 2024 9:10am Chronic cough chronic October 21, 2 025 9:10am Seasonal allergies chronic October 212024 9:10am [facility] Work Phone: 1(329) 181-566503-15-2025 Evaluation note* Diagnosis Onset Date Resolution Status Admit Date Influenza A acute August 08, 2 025 10:07am Chronic cough chronic October 14, 2 025 3:01pm GERD (gastroesophageal reflu x disease) chronic October 14, 2024 3 :01pm Hypertension chronic October 14 3:01pm Hypothyroidism chronic October 14, 2024 3:01pm Allergic rhinitis chronic September h, 2024 9:10am Chronic cough chronic October 21, 2 025 9:10am Seasonal allergies chronic October 212024 9:10am Hypersomnolence acute October 26, 2024 3:04pm Preventative health care acute October 26, 2024 3:04pm [facility] Work Phone: 1(477) 944-211103-15-2025 Evaluation note* Diagnosis Onset Date Resolution Status Admit Date Influenza A acute August 08, 2 025 10:07am Chronic cough chronic October 14, 2 025 3:01pm GERD (gastroesophageal reflu x disease) chronic October 14, 2024 3 :01pm Hypertension chronic October 14 3:01pm Hypothyroidism chronic October 14, 2024 3:01pm Allergic rhinitis chronic September h2024 9:10am Chronic cough chronic October 21, 2 025 9:10am Seasonal allergies chronic October 212024 9:10am Hypersomnolence acute October 26, 2024 3:04pm Preventative health care acute October 26, 2024 3:04pm Interstitial lung disease acute November 30, 2024 11:08am [facility] Work Phone: [phone] Evaluation note* Diagnosis Onset Date Resolution Status Admit Date Influenza A acute August 08, 2 025 10:07am Chronic cough chronic October 14, 2 025 3:01pm GERD (gastroesophageal reflu x disease) chronic October 14, 2024 3 :01pm Hypertension chronic October 14 3:01pm Hypothyroidism chronic October 14, 2024 3:01pm Allergic rhinitis chronic September h2024 9:10am Chronic cough chronic October 21, 2 025 9:10am Seasonal allergies chronic October 212024 9:10am Hypersomnolence acute October 26, 2024 3:04pm Preventative health care acute October 26, 2024 3:04pm Interstitial lung disease acute November 30, 2024 11:08am CARLTON (obstructive sleep apnea) acute November 30, 2024 11:08am Chronic cough chronic November 30, 2 025 11:08am [facility] Work Phone: 1(958) 724-485311-20-2024 Evaluation note* Diagnosis Onset Date Resolution Status Admit Date Chronic cough chronic April 152023 3:00pm GERD (gastroesophageal reflu x disease) chronic April 15, 2 024 3:00pm Hyperlipidemia chronic March 282023 3:00pm Hypertension chronic March 3:00pm Hypothyroidism chronic March 282023 3:00pm Allergic rhinitis chronic Novembe r 2023 8:08am Chronic cough chronic April 202023 8:08am Seasonal allergies chronic Novemb er 2023 8:08am Influenza A acute August 08, 025 10:07am [facility] Work Phone: 1(727) 153-908605-24-2024 Telephone encounter Note* Telephone Encounter - Gi Galicia APRN.MEDICAL OFFICE ASST - 10/18/2023 8:31 AM EDT FOLLOW UP ENDOSCOPY - RESULTS AND RECOMMENDATIONS NAME: NATASHA Holder CLINIC NO.: [id number] : 1960 DATE: October 18, 2023 PRIMARY CARE PROVIDER: Karli Lindsey MD REFERRING PHYSICIAN: No ref. provider found NATASHA Holder is a patient referred for endoscopy for Barretts esophagitis. The patient is a 63 year old female referred for endoscopy. Tamiko notes continued cough for over 2 years. 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 Pt states she also thinks that the cough is related to allergies. She takes an OTC allergy pill and uses daily Pulmicort. Tamiko refers she was also informed of a small hernia but unsure of who told her that. Patient denies any change in bowel habits, weight changes, blood in stools, black tarry stools or abdominal pain. Denies family history of colon issues. Tamiko has a history of Lopez's esophagus but denies reflux, burping, bloody emesis. Tamiko has undergone prior endoscopy. Last EGD was completed by Dr. Dominguez at [facility] with the following results: Non-severe reflux esophagitis Normal stomach Normal duodenum Recommendation for repeat EGD in 3 years Pt was referred by Dr. Rosalia Dominguez performed upper endoscopy on 10/16/23 The/ patient was found to have: Upper Endoscopy Impression: - Esophageal mucosal changes consistent with short-segment Lopez's esophagus. Biopsied. - Normal stomach. Biopsied. - Normal examined duodenum. Biopsied. - Z-line variable, 36 cm from the incisors. Pathology demonstrated: FINAL DIAGNOSIS A. Duodenum, biopsy: - Duodenal mucosa with no significant pathologic abnormality. B. Stomach, biopsy: - Gastric mucosa with no significant pathologic abnormality. C. Mid esophagus, biopsy: - Squamous mucosa with no significant pathologic abnormality. D. Distal esophagus, biopsy: - Gastric-type and squamous mucosae with no significant pathologic abnormality. IMPRESSION: s/p EGD for surveillance, personal history of Lopez's esophagus PLAN: Remain on PPI If the patient notes any problems or changes in bowel function, the patient should contact the office immediately. Otherwise I recommend follow up endoscopy in 3 years. INSTRUCTIONS FOR BARRETTS ESOPHAGITIS Your upper endoscopy demonstrated Lopez's esophagitis Esophagitis may be a form of peptic irritation, with acid moving from the stomach to the esophagus (gastroesophageal reflux). Lopez's changes are microscopic findings that have the lining of the esophagus look like the stomach lining. This finding of gastric metaplasia has been shown to be associated with an increased risk of developing esophageal cancer in the future. This is particularly worrisome if atypical cells (dysplasia) are found at biopsy. Esophagitis is related to many factors - acid production, obesity, foods, smoking and alcohol. Factors that increase acid production include smoking and stress. If you smoke, stopping smoking will often cure these issues without needing other medications. Prescription strength proton pump inhibitors (PPIs) are necessary for treatment of Lopez's esophagitis. Treatment with PPI are usually continued indefinitely, even if your symptoms improve or if you never had GERD symptoms. Avoiding smoking, alcohol and antiinflammatory medications are important in the successful treatment of reflux esophagitis and peptic diseases. Other factors that contribute to GERD and esophagitis are being overweight, eating large meals before laying down and certain foods. Weight loss will help improve many GERD complaints. Remaining upright after eating large meals and having a small supper will also help symptoms. Avoiding food that contribute to reflux - chocolate, caffeine, cheddar cheese may also help. Follow up upper endoscopy should be performed regularly to assure healing of the esophagus and to make sure that worsening Lopez's esophagitis is treated appropriately. New or worsening symptoms such are epigastric pain, burning, difficulty swallowing or food stickingshould be relayed to your physician. Feeling full early after eating, or black, tarry, foul smelling stools are also worrisome. If you have any difficulties or concerns, you should contact our office immediately. The patient is instructed to follow-up with your primary care provider I have instructed my staff to forward the above information to the patient and to the appropriate providers [facility] Work Phone: 1(565) 286-496105-24-2024 Miscellaneous Notes* Telephone Encounter - Gi Galicia APRN.CNP - 10/18/2023 8:31 AM EDT FOLLOW UP ENDOSCOPY - RESULTS AND RECOMMENDATIONS NAME: NATASHA Holder [facility] NO.: [id number] : 1960 DATE: October 18, 2023 PRIMARY CARE PROVIDER: Karli Lindsey MD REFERRING PHYSICIAN: No ref. provider found NATASHA Holder is a patient referred for endoscopy for Barretts esophagitis. The patient is a 63 year old female referred for endoscopy. Tamiko notes continued cough for over 2 years. 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 Pt states she also thinks that the cough is related to allergies. She takes an OTC allergy pill and uses daily Pulmicort. Tamiko refers she was also informed of a small hernia but unsure of who told her that. Patient denies any change in bowel habits, weight changes, blood in stools, black tarry stools or abdominal pain. Denies family history of colon issues. Tamiko has a history of Lopez's esophagus but denies reflux, burping, bloody emesis. Tamiko has undergone prior endoscopy. Last EGD was completed by Dr. Dominguez at [facility] with the following results: Non-severe reflux esophagitis Normal stomach Normal duodenum Recommendation for repeat EGD in 3 years Pt was referred by Dr. Rosalia Dominguez performed upper endoscopy on 10/16/23 The/ patient was found to have: Upper Endoscopy Impression: - Esophageal mucosal changes consistent with short-segment Lopez's esophagus. Biopsied. - Normal stomach. Biopsied. - Normal examined duodenum. Biopsied. - Z-line variable, 36 cm from the incisors. Pathology demonstrated: FINAL DIAGNOSIS A. Duodenum, biopsy: - Duodenal mucosa with no significant pathologic abnormality. B. Stomach, biopsy: - Gastric mucosa with no significant pathologic abnormality. C. Mid esophagus, biopsy: - Squamous mucosa with no significant pathologic abnormality. D. Distal esophagus, biopsy: - Gastric-type and squamous mucosae with no significant pathologic abnormality. IMPRESSION: s/p EGD for surveillance, personal history of Lopez's esophagus PLAN: Remain on PPI If the patient notes any problems or changes in bowel function, the patient should contact the office immediately. Otherwise I recommend follow up endoscopy in 3 years. INSTRUCTIONS FOR BARRETTS ESOPHAGITIS Your upper endoscopy demonstrated Lopez's esophagitis Esophagitis may be a form of peptic irritation, with acid moving from the stomach to the esophagus (gastroesophageal reflux). Lopez's changes are microscopic findings that have the lining of the esophagus look like the stomach lining. This finding of gastric metaplasia has been shown to be associated with an increased risk of developing esophageal cancer in the future. This is particularly worrisome if atypical cells (dysplasia) are found at biopsy. Esophagitis is related to many factors - acid production, obesity, foods, smoking and alcohol. Factors that increase acid production include smoking and stress. If you smoke, stopping smoking will often cure these issues without needing other medications. Prescription strength proton pump inhibitors (PPIs) are necessary for treatment of Lopez's esophagitis. Treatment with PPI are usually continued indefinitely, even if your symptoms improve or if you never had GERD symptoms. Avoiding smoking, alcohol and antiinflammatory medications are important in the successful treatment of reflux esophagitis and peptic diseases. Other factors that contribute to GERD and esophagitis are being overweight, eating large meals before laying down and certain foods. Weight loss will help improve many GERD complaints. Remaining upright after eating large meals and having a small supper will also help symptoms. Avoiding food that contribute to reflux - chocolate, caffeine, cheddar cheese may also help. Follow up upper endoscopy should be performed regularly to assure healing of the esophagus and to make sure that worsening Lopez's esophagitis is treated appropriately. New or worsening symptoms such are epigastric pain, burning, difficulty swallowing or food stickingshould be relayed to your physician. Feeling full early after eating, or black, tarry, foul smelling stools are also worrisome. If you have any difficulties or concerns, you should contact our office immediately. The patient is instructed to follow-up with your primary care provider I have instructed my staff to forward the above information to the patient and to the appropriate providers [facility] History and physical note * Sam Dominguez MD - 10/17/2023 2:30 PM EDT HISTORY AND PHYSICAL NATASHA Holder 1960 REFERRING PHYSICIAN: Self CHIEF COMPLAINT: Consult (EGD) HPI: The patient is a 63 year old female referred for endoscopy. Tamiko notes continued cough for over 2 years. She has been evaluated by pulm who noted scarring on her lungs post COVID, but questioncomplete cause of chronic cough. Pt states she also thinks that the cough is related to allergies. She takes an OTC allergy pill and uses daily Pulmicort. Tamiko refers she was also informed of a small hernia but unsure of who told her that. Patient denies any change in bowel habits, weight changes, blood in stools, black tarry stools or abdominal pain. Denies family history of colon issues. Tamiko has a history of Lopez's esophagus but denies reflux, burping, bloody emesis. Tamiko has undergone prior endoscopy. Last EGD was completed by Dr. Dominguez at [facility] with the following results: Non-severe reflux esophagitis Normal stomach Normal duodenum Recommendation for repeat EGD in 3 years PAST MEDICAL HISTORY PAST MEDICAL HISTORY Diagnosis Date Bradycardia Depressive disorder, not elsewhere classified Esophageal reflux Gastroesophageal reflux. Lopez's esophagus Hypercholesteremia PMH - PAST MEDICAL HISTORY OF Cervical disc disease Snoring Unspecified hypothyroidism Hypothyroidism PAST SURGICAL HISTORY PAST SURGICAL HISTORY Procedure Laterality Date COLONOSCOPY FLX DX W/COLLJ SPEC WHEN PFRMD 11/10/2020 EGD 09/17/2016 repeat in 3 years ESOPHAGOGASTRODUODENOSCOPY TRANSORAL DIAGNOSTIC EGD PROCEDURE tonsilectomy PROCEDURE wisdom teeth removed PROCEDURE 1999 partial hyterectomy with bladder repair, ovaries remain CURRENT MEDICATIONS Current Outpatient Medications Medication Sig PULMICORT FLEXHALER 180 mcg/actuation aepb Inhale 1 Puff as instructed two times a day. atorvastatin (LIPITOR) 10 mg tablet Take 10 mg by mouth once daily. levothyroxine (SYNTHROID) 150 mcg tablet 1 tablet daily 6 days a week, and one half tablet one day a week. Omeprazole (PRILOSEC) 40 mg capsule Take 1 capsule by mouth once daily. No current facility-administered medications for this visit. ALLERGIES: Diclofenac PERSONAL HISTORY: SOCIAL HISTORY Social History Tobacco Use Smoking status: Former Packs/day: .1 Types: Cigarettes Smokeless tobacco: Never Substance Use Topics Alcohol use: Yes Comment: occa. Drug use: No FAMILY HISTORY: FAMILY HISTORY FAMILY HISTORY Problem Relation Age of Onset Alzheimer's Disease Mother Hypertension Mother Diabetes Mother Diabetes Maternal Grandmother Heart Maternal Grandfather Diabetes Brother REVIEW OF SYMPTOMS: The review of systems data was entered by the nurse and reviewed by vt Nursing Notes: Whitney Damian RN 10/10/2023 3:44 PM Signed REVIEW OF SYSTEMS: General: The patient denies fatigue, denies weight loss, denies weight gain, denies feeling hot, and denies feelings of cold. Eyes: The patient denies glaucoma, denies eye injury/surgery, wears glasses or contacts. Ear/Nose/Throat: The patient NOTES allergies, denies hayfever, denies ear infections, and denies bloody noses. Cardiovascular: The patient denies chest pain, denies heart disease, denies high blood pressure,denies cardiac stent, denies prior heart attack, denies irregular heart beat, NOTES high cholesterol, denies poor circulation, denies heart failure, other cardiac issues, denies claudication, denies coldfeet, denies peripheral arterial stent. Respiratory: The patient denies tuberculosis, denies pneumonia, NOTES frequent cough, denies pulmonary embolism, denies shortness of breath, and denies coughing up blood. Gastrointestinal: The patient denies difficulty swallowing, NOTES acid reflux, denies ulcers, denies vomiting, denies jaundice/hepatitis, denies gallbladder problems, denies black or tarry stools, NOTES hemorrhoids, denies bleeding from rectum, denies diverticulitis, denies constipation, denies diarrhea, denies loss of stool control, and denies hernias. Kidney/Bladder: The patient denies kidney stones, denies urine infections, and denies bloody urine. Skin: The patient denies a history of skin cancer, denies bleeding/changing moles, and denies a history of skin rash. Neurologic: The patient denies a history of epilepsy/convulsions, denies headaches, denies head/spinal injuries, and denies stroke/TIA. Psychiatric: The patient denies psychiatric medications, denies depression, and denies voices, denies substance abuse. Endocrine: The patient NOTES thyroid disorders, denies diabetes, and denies hormonal problems. Hematologic: The patient denies a history of bruising, denies bleeding, and denies anemia, denies blood clots. Infections: The patient denies a history of measles and mumps, denies rheumatic fever, and denies sexually transmitted diseases. Musculoskeletal: The patient denies back pain/injury, denies back problems, denies sciatica, NOTES knee/foot trouble, NOTES arthritis, or denies gout. When was patient's last Mammogram screening? 12/2022 Last Colonoscopy: 11/10/20 Whitney Damian RN PHYSICAL EXAMINATION: General: The patient is 63 year old female, well nourished, well hydrated in no acute distress. Thepatient is oriented to time, place, and person. VITALS: Blood pressure 126/84, pulse 73, temperature 36.3 C (97.3 F), height 165.1 cm (5' 5), weight 92.4 kg (203 lb 9.6 oz), SpO2 95%. Body mass index is 33.88 kg/m . HEENT: Normal cephalic, ataumatic, pupils are equally round, sclera are anicteric, mucous membranesare moist, oropharynx is clear. Neck has no masses, asymmetry or lymphadenopathy. Respiratory: Clear to auscultation and percussion. Normal respiratory excursion and pattern. Cardiac: Examination is regular rate and rhythm. Normal S1/S2 Abdominal exam: Soft, nontender, with no palpable masses. No hepatosplenomegaly. No palpable hernias. Extremities: no clubbing, cyanosis or edema. No adenopathy. LABORATORY VALUES: As Noted RADIOLOGIC STUDIES: As Noted Assessment IMPRESSION: Lopez's esophagus without dysplasia PLAN: I have reviewed my findings with the surgeon. Will plan for upper endoscopy. We discussed therisks and benefits of the planned endoscopy. I have informed the patient that complications can occur including failure to complete the endoscopy and perforation. The patient had the opportunity to ask questions concerning the planned endoscopy. My staff has also explained the procedure to the patient in understandable terms and has given the patient printed material concerning the procedure. Thepatient freely consents to surgery. Diagnoses: (K22.70) Lopez's esophagus without dysplasia (primary encounter diagnosis) Gi Galicia APRN.RUBIO Dominguez III, MD [facility] This patient was seen in conjunction with Ana Galicia APRN.MEDICAL OFFICE ASST, I reviewed the above note, discussed the pertinent history and examined the patient and agreed with the above examination. We have discussed the diagnosis and plan. Those plans have been communicated to the patient. Sam Dominguez III, MD [facility] UPDATED HISTORY AND PHYSICAL EXAMINATION SERVICE DATE: 10/17/2023 SERVICE TIME: 12:45 PM PHYSICAL EXAM MUST BE COMPLETED ON ADMISSION The History and Physical (completed in the past 30 days) has been reviewed and the patient has beenexamined. The contents accurately reflect the patient's condition with the following additions or revisions since the H&P was completed. Examination indicates no changes. This H&P can be found in the attached. SIGNATURE: Sam Dominguez III, MD PATIENT NAME: NATASHA Holder DATE: October 17, 2023 TIME: 12:44 PM [facility] History and physical note* Sam Dominguez MD - 10/17/2023 2:30 PM EDT HISTORY AND PHYSICAL NATASHA Holder 1960 REFERRING PHYSICIAN: Self CHIEF COMPLAINT: Consult (EGD) HPI: The patient is a 63 year old female referred for endoscopy. Tamiko notes continued cough for over 2 years. She has been evaluated by pulm who noted scarring on her lungs post COVID, but questioncomplete cause of chronic cough. Pt states she also thinks that the cough is related to allergies. She takes an OTC allergy pill and uses daily Pulmicort. Tamiko refers she was also informed of a small hernia but unsure of who told her that. Patient denies any change in bowel habits, weight changes, blood in stools, black tarry stools or abdominal pain. Denies family history of colon issues. Tamiko has a history of Lopez's esophagus but denies reflux, burping, bloody emesis. Tamiko has undergone prior endoscopy. Last EGD was completed by Dr. Dominguez at [facility] with the following results: Non-severe reflux esophagitis Normal stomach Normal duodenum Recommendation for repeat EGD in 3 years PAST MEDICAL HISTORY PAST MEDICAL HISTORY Diagnosis Date Bradycardia Depressive disorder, not elsewhere classified Esophageal reflux Gastroesophageal reflux. Lopez's esophagus Hypercholesteremia PM - PAST MEDICAL HISTORY OF Cervical disc disease Snoring Unspecified hypothyroidism Hypothyroidism PAST SURGICAL HISTORY PAST SURGICAL HISTORY Procedure Laterality Date COLONOSCOPY FLX DX W/COLLJ SPEC WHEN PFRMD 11/10/2020 EGD 09/17/2016 repeat in 3 years ESOPHAGOGASTRODUODENOSCOPY TRANSORAL DIAGNOSTIC EGD PROCEDURE tonsilectomy PROCEDURE wisdom teeth removed PROCEDURE 1999 partial hyterectomy with bladder repair, ovaries remain CURRENT MEDICATIONS Current Outpatient Medications Medication Sig PULMICORT FLEXHALER 180 mcg/actuation aepb Inhale 1 Puff as instructed two times a day. atorvastatin (LIPITOR) 10 mg tablet Take 10 mg by mouth once daily. levothyroxine (SYNTHROID) 150 mcg tablet 1 tablet daily 6 days a week, and one half tablet one day a week. Omeprazole (PRILOSEC) 40 mg capsule Take 1 capsule by mouth once daily. No current facility-administered medications for this visit. ALLERGIES: Diclofenac PERSONAL HISTORY: SOCIAL HISTORY Social History Tobacco Use Smoking status: Former Packs/day: .1 Types: Cigarettes Smokeless tobacco: Never Substance Use Topics Alcohol use: Yes Comment: occa. Drug use: No FAMILY HISTORY: FAMILY HISTORY FAMILY HISTORY Problem Relation Age of Onset Alzheimer's Disease Mother Hypertension Mother Diabetes Mother Diabetes Maternal Grandmother Heart Maternal Grandfather Diabetes Brother REVIEW OF SYMPTOMS: The review of systems data was entered by the nurse and reviewed by vt Nursing Notes: Whitney Damian RN 10/10/2023 3:44 PM Signed REVIEW OF SYSTEMS: General: The patient denies fatigue, denies weight loss, denies weight gain, denies feeling hot, and denies feelings of cold. Eyes: The patient denies glaucoma, denies eye injury/surgery, wears glasses or contacts. Ear/Nose/Throat: The patient NOTES allergies, denies hayfever, denies ear infections, and denies bloody noses. Cardiovascular: The patient denies chest pain, denies heart disease, denies high blood pressure,denies cardiac stent, denies prior heart attack, denies irregular heart beat, NOTES high cholesterol, denies poor circulation, denies heart failure, other cardiac issues, denies claudication, denies coldfeet, denies peripheral arterial stent. Respiratory: The patient denies tuberculosis, denies pneumonia, NOTES frequent cough, denies pulmonary embolism, denies shortness of breath, and denies coughing up blood. Gastrointestinal: The patient denies difficulty swallowing, NOTES acid reflux, denies ulcers, denies vomiting, denies jaundice/hepatitis, denies gallbladder problems, denies black or tarry stools, NOTES hemorrhoids, denies bleeding from rectum, denies diverticulitis, denies constipation, denies diarrhea, denies loss of stool control, and denies hernias. Kidney/Bladder: The patient denies kidney stones, denies urine infections, and denies bloody urine. Skin: The patient denies a history of skin cancer, denies bleeding/changing moles, and denies a history of skin rash. Neurologic: The patient denies a history of epilepsy/convulsions, denies headaches, denies head/spinal injuries, and denies stroke/TIA. Psychiatric: The patient denies psychiatric medications, denies depression, and denies voices, denies substance abuse. Endocrine: The patient NOTES thyroid disorders, denies diabetes, and denies hormonal problems. Hematologic: The patient denies a history of bruising, denies bleeding, and denies anemia, denies blood clots. Infections: The patient denies a history of measles and mumps, denies rheumatic fever, and denies sexually transmitted diseases. Musculoskeletal: The patient denies back pain/injury, denies back problems, denies sciatica, NOTES knee/foot trouble, NOTES arthritis, or denies gout. When was patient's last Mammogram screening? 12/2022 Last Colonoscopy: 11/10/20 Whitney Damian RN PHYSICAL EXAMINATION: General: The patient is 63 year old female, well nourished, well hydrated in no acute distress. Thepatient is oriented to time, place, and person. VITALS: Blood pressure 126/84, pulse 73, temperature 36.3 C (97.3 F), height 165.1 cm (5' 5), weight 92.4 kg (203 lb 9.6 oz), SpO2 95%. Body mass index is 33.88 kg/m . HEENT: Normal cephalic, ataumatic, pupils are equally round, sclera are anicteric, mucous membranesare moist, oropharynx is clear. Neck has no masses, asymmetry or lymphadenopathy. Respiratory: Clear to auscultation and percussion. Normal respiratory excursion and pattern. Cardiac: Examination is regular rate and rhythm. Normal S1/S2 Abdominal exam: Soft, nontender, with no palpable masses. No hepatosplenomegaly. No palpable hernias. Extremities: no clubbing, cyanosis or edema. No adenopathy. LABORATORY VALUES: As Noted RADIOLOGIC STUDIES: As Noted Assessment IMPRESSION: Lopez's esophagus without dysplasia PLAN: I have reviewed my findings with the surgeon. Will plan for upper endoscopy. We discussed therisks and benefits of the planned endoscopy. I have informed the patient that complications can occur including failure to complete the endoscopy and perforation. The patient had the opportunity to ask questions concerning the planned endoscopy. My staff has also explained the procedure to the patient in understandable terms and has given the patient printed material concerning the procedure. Thepatient freely consents to surgery. Diagnoses: (K22.70) Lopez's esophagus without dysplasia (primary encounter diagnosis) Gi Galicia APRN.RUBIO Dominguez III, MD, FACS This patient was seen in conjunction with Ana Galicia APRN.RUBIO, I reviewed the above note, discussed the pertinent history and examined the patient and agreed with the above examination. We have discussed the diagnosis and plan. Those plans have been communicated to the patient. Sam Dominguez III, MD, FACS UPDATED HISTORY AND PHYSICAL EXAMINATION SERVICE DATE: 10/17/2023 SERVICE TIME: 12:45 PM PHYSICAL EXAM MUST BE COMPLETED ON ADMISSION The History and Physical (completed in the past 30 days) has been reviewed and the patient has beenexamined. The contents accurately reflect the patient's condition with the following additions or revisions since the H&P was completed. Examination indicates no changes. This H&P can be found in the attached. SIGNATURE: Sam Dominguez III, MD PATIENT NAME: NATASHA Holder DATE: October 17, 2023 TIME: 12:44 PM [facility] encounterGal[facility] Note* Discharge Instr - Nursing - Karmen Lamb RN - 10/17/2023 1:40 PM EDT The patient received a copy of EGD discharge instructions that contain information for how to contact the physician who performed the procedure and when to seek medical care. [facility] Miscellaneous Notes* Discharge Instr - Nursing - Karmen Lamb RN - 10/17/2023 1:40 PM EDT The patient received a copy of EGD discharge instructions that contain information for how to contact the physician who performed the procedure and when to seek medical care. [facility] Nurse Note* Karmen Lamb RN - 10/17/2023 1:15 PM EDT Pt arrived to phase 2 awake, resting on left side. SR up x 2, call light in reach. Denies pain. Daughter at bedside. Karmen Lamb RN [facility] Nurse Note* Karmen Lamb RN - 10/17/2023 1:15 PM EDT Pt arrived to phase 2 awake, resting on left side. SR up x 2, call light in reach. Denies pain. Daughter at bedside. Karmen Lamb, RN documented in this encounterGal[facility]05-16-[facility]24 NoteHNO ID: [id number] Author: SAM DOMINGUEZ MD Service: ? Author Type: Physician Type: Progress Notes Filed: 10/10/2023 16:23 Note Text: HISTORY AND PHYSICAL NATASHA Holder 1960 REFERRING PHYSICIAN: Self CHIEF COMPLAINT: Consult (EGD) HPI: The patient is a 63 year old female referred for endoscopy. Tamiko notes continued cough for over 2 years. 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 Pt states she also thinks that the cough is related to allergies. She takes an OTC allergy pill and uses daily Pulmicort. Tamiko refers she was also informed of a small hernia but unsure of who told her that. Patient denies any change in bowel habits, weight changes, blood in stools, black tarry stools or abdominal pain. Denies family history of colon issues. Tamiko has a history of Lopez's esophagus but denies reflux, burping, bloody emesis. Tamiko has undergone prior endoscopy. Last EGD was completed by Dr. Dominguez at [facility] with the following results: Non-severe reflux esophagitis Normal stomach Normal duodenum Recommendation for repeat EGD in 3 years PAST MEDICAL HISTORY Diagnosis Date Bradycardia Depressive disorder, not elsewhere classified Esophageal reflux Gastroesophageal reflux. Lopez's esophagus Hypercholesteremia PMH - PAST MEDICAL HISTORY OF Cervical disc disease Snoring Unspecified hypothyroidism Hypothyroidism PAST SURGICAL HISTORY Procedure Laterality Date COLONOSCOPY FLX DX W/COLLJ SPEC WHEN PFRMD 11/10/2020 EGD 09/17/2016 repeat in 3 years ESOPHAGOGASTRODUODENOSCOPY TRANSORAL DIAGNOSTIC EGD PROCEDURE tonsilectomy PROCEDURE wisdom teeth removed PROCEDURE 1999 partial hyterectomy with bladder repair, ovaries remain Current Outpatient Medications Medication Sig PULMICORT FLEXHALER 180 mcg/actuation aepb Inhale 1 Puff as instructed two times a day. atorvastatin (LIPITOR) 10 mg tablet Take 10 mg by mouth once daily. levothyroxine (SYNTHROID) 150 mcg tablet 1 tablet daily 6 days a week, and one half tablet one day a week. Omeprazole (PRILOSEC) 40 mg capsule Take 1 capsule by mouth once daily. No current facility-administered medications for this visit. ALLERGIES: Diclofenac PERSONAL HISTORY: Social History Tobacco Use Smoking status: Former Packs/day: .1 Types: Cigarettes Smokeless tobacco: Never Substance Use Topics Alcohol use: Yes Comment: occa. Drug use: No FAMILY HISTORY: FAMILY HISTORY Problem Relation Age of Onset Alzheimer's Disease Mother Hypertension Mother Diabetes Mother Diabetes Maternal Grandmother Heart Maternal Grandfather Diabetes Brother REVIEW OF SYMPTOMS: The review of systems data was entered by the nurse and reviewed by me Nursing Notes: Whitney Damian RN 10/10/2023 3:44 PM Signed REVIEW OF SYSTEMS: General: The patient denies fatigue, denies weight loss, denies weight gain, denies feeling hot, and denies feelings of cold. Eyes: The patient denies glaucoma, denies eye injury/surgery, wears glasses or contacts. Ear/Nose/Throat: The patient NOTES allergies, denies hayfever, denies ear infections, and denies bloody noses. Cardiovascular: The patient denies chest pain, denies heart disease, denies high blood pressure,denies cardiac stent, denies prior heart attack, denies irregular heart beat, NOTES high cholesterol, denies poor circulation, denies heart failure, other cardiac issues, denies claudication, denies cold feet, denies peripheral arterial stent. Respiratory: The patient denies tuberculosis, denies pneumonia, NOTES frequent cough, denies pulmonary embolism, denies shortness of breath, and denies coughing up blood. Gastrointestinal: The patient denies difficulty swallowing, NOTES acid reflux, denies ulcers, denies vomiting, denies jaundice/hepatitis, denies gallbladder problems, denies black or tarry stools, NOTES hemorrhoids, denies bleeding from rectum, denies diverticulitis, denies constipation, denies diarrhea, denies loss of stool control, and denies hernias. Kidney/Bladder: The patient denies kidney stones, denies urine infections, and denies bloody urine. Skin: The patient denies a history of skin cancer, denies bleeding/changing moles, and denies a history of skin rash. Neurologic: The patient denies a history of epilepsy/convulsions, denies headaches, denies head/spinal injuries, and denies stroke/TIA. Psychiatric: The patient denies psychiatric medications, denies depression, and denies voices, denies substance abuse. Endocrine: The patient NOTES thyroid disorders, denies diabetes, and denies hormonal problems. Hematologic: The patient denies a history of bruising, denies bleeding, and denies anemia, denies blood clots. Infections: The patient denies a history of measles and mumps, denies rheumatic fever, and denies sexually transmitted diseases. Musculoskeleta (more content not included)...[facility] 10-10-2023 History of Present illness Narrative* Sam Dominguez MD - 10/10/2023 4:11 PM EDT HISTORY AND PHYSICAL NATASHA Holder 1960 REFERRING PHYSICIAN: Self CHIEF COMPLAINT: Consult (EGD) HPI: The patient is a 63 year old female referred for endoscopy. Tamiko notes continued cough for over 2 years. She has been evaluated by pulm who noted scarring on her lungs post COVID, but questioncomplete cause of chronic cough. Pt states she also thinks that the cough is related to allergies. She takes an OTC allergy pill and uses daily Pulmicort. Tamiko refers she was also informed of a small hernia but unsure of who told her that. Patient denies any change in bowel habits, weight changes, blood in stools, black tarry stools or abdominal pain. Denies family history of colon issues. Tamiko has a history of Lopez's esophagus but denies reflux, burping, bloody emesis. Tamiko has undergone prior endoscopy. Last EGD was completed by Dr. Dominguez at [facility] with the following results: Non-severe reflux esophagitis Normal stomach Normal duodenum Recommendation for repeat EGD in 3 years PAST MEDICAL HISTORY Diagnosis Date Bradycardia Depressive disorder, not elsewhere classified Esophageal reflux Gastroesophageal reflux. Lopez's esophagus Hypercholesteremia PMH - PAST MEDICAL HISTORY OF Cervical disc disease Snoring Unspecified hypothyroidism Hypothyroidism PAST SURGICAL HISTORY Procedure Laterality Date COLONOSCOPY FLX DX W/COLLJ SPEC WHEN PFRMD 11/10/2020 EGD 09/17/2016 repeat in 3 years ESOPHAGOGASTRODUODENOSCOPY TRANSORAL DIAGNOSTIC EGD PROCEDURE tonsilectomy PROCEDURE wisdom teeth removed PROCEDURE 1999 partial hyterectomy with bladder repair, ovaries remain Current Outpatient Medications Medication Sig PULMICORT FLEXHALER 180 mcg/actuation aepb Inhale 1 Puff as instructed two times a day. atorvastatin (LIPITOR) 10 mg tablet Take 10 mg by mouth once daily. levothyroxine (SYNTHROID) 150 mcg tablet 1 tablet daily 6 days a week, and one half tablet one day a week. Omeprazole (PRILOSEC) 40 mg capsule Take 1 capsule by mouth once daily. No current facility-administered medications for this visit. ALLERGIES: Diclofenac PERSONAL HISTORY: Social History Tobacco Use Smoking status: Former Packs/day: .1 Types: Cigarettes Smokeless tobacco: Never Substance Use Topics Alcohol use: Yes Comment: occa. Drug use: No FAMILY HISTORY: FAMILY HISTORY Problem Relation Age of Onset Alzheimer's Disease Mother Hypertension Mother Diabetes Mother Diabetes Maternal Grandmother Heart Maternal Grandfather Diabetes Brother REVIEW OF SYMPTOMS: The review of systems data was entered by the nurse and reviewed by vt Nursing Notes: Whitney Damian RN 10/10/2023 3:44 PM Signed REVIEW OF SYSTEMS: General: The patient denies fatigue, denies weight loss, denies weight gain, denies feeling hot, and denies feelings of cold. Eyes: The patient denies glaucoma, denies eye injury/surgery, wears glasses or contacts. Ear/Nose/Throat: The patient NOTES allergies, denies hayfever, denies ear infections, and denies bloody noses. Cardiovascular: The patient denies chest pain, denies heart disease, denies high blood pressure,denies cardiac stent, denies prior heart attack, denies irregular heart beat, NOTES high cholesterol, denies poor circulation, denies heart failure, other cardiac issues, denies claudication, denies coldfeet, denies peripheral arterial stent. Respiratory: The patient denies tuberculosis, denies pneumonia, NOTES frequent cough, denies pulmonary embolism, denies shortness of breath, and denies coughing up blood. Gastrointestinal: The patient denies difficulty swallowing, NOTES acid reflux, denies ulcers, denies vomiting, denies jaundice/hepatitis, denies gallbladder problems, denies black or tarry stools, NOTES hemorrhoids, denies bleeding from rectum, denies diverticulitis, denies constipation, denies diarrhea, denies loss of stool control, and denies hernias. Kidney/Bladder: The patient denies kidney stones, denies urine infections, and denies bloody urine. Skin: The patient denies a history of skin cancer, denies bleeding/changing moles, and denies a history of skin rash. Neurologic: The patient denies a history of epilepsy/convulsions, denies headaches, denies head/spinal injuries, and denies stroke/TIA. Psychiatric: The patient denies psychiatric medications, denies depression, and denies voices, denies substance abuse. Endocrine: The patient NOTES thyroid disorders, denies diabetes, and denies hormonal problems. Hematologic: The patient denies a history of bruising, denies bleeding, and denies anemia, denies blood clots. Infections: The patient denies a history of measles and mumps, denies rheumatic fever, and denies sexually transmitted diseases. Musculoskeletal: The patient denies back pain/injury, denies back problems, denies sciatica, NOTES knee/foot trouble, NOTES arthritis, or denies gout. When was patient's last Mammogram screening? 12/2022 Last Colonoscopy: 11/10/20 Whitney Damian RN PHYSICAL EXAMINATION: General: The patient is 63 year old female, well nourished, well hydrated in no acute distress. Thepatient is oriented to time, place, and person. VITALS: Blood pressure 126/84, pulse 73, temperature 36.3 C (97.3 F), height 165.1 cm (5' 5), weight 92.4 kg (203 lb 9.6 oz), SpO2 95%. Body mass index is 33.88 kg/m . HEENT: Normal cephalic, ataumatic, pupils are equally round, sclera are anicteric, mucous membranesare moist, oropharynx is clear. Neck has no masses, asymmetry or lymphadenopathy. Respiratory: Clear to auscultation and percussion. Normal respiratory excursion and pattern. Cardiac: Examination is regular rate and rhythm. Normal S1/S2 Abdominal exam: Soft, nontender, with no palpable masses. No hepatosplenomegaly. No palpable hernias. Extremities: no clubbing, cyanosis or edema. No adenopathy. LABORATORY VALUES: As Noted RADIOLOGIC STUDIES: As Noted Assessment IMPRESSION: Lopez's esophagus without dysplasia PLAN: I have reviewed my findings with the surgeon. Will plan for upper endoscopy. We discussed therisks and benefits of the planned endoscopy. I have informed the patient that complications can occur including failure to complete the endoscopy and perforation. The patient had the opportunity to ask questions concerning the planned endoscopy. My staff has also explained the procedure to the patient in understandable terms and has given the patient printed material concerning the procedure. Thepatient freely consents to surgery. Diagnoses: (K22.70) Lopez's esophagus without dysplasia (primary encounter diagnosis) Gi Galicia APRN.MEDICAL OFFICE ASST Sam Dominguez III, MD FACS This patient was seen in conjunction with Ana Galicia APRN.MEDICAL OFFICE ASST, I reviewed the above note, discussed the pertinent history and examined the patient and agreed with the above examination. We have discussed the diagnosis and plan. Those plans have been communicated to the patient. Sam Dominguez III, MD FACS [facility] Note* Whitney Damian RN - 10/10/2023 3:40 PM EDT REVIEW OF SYSTEMS: General: The patient denies fatigue, denies weight loss, denies weight gain, denies feeling hot, and denies feelings of cold. Eyes: The patient denies glaucoma, denies eye injury/surgery, wears glasses or contacts. Ear/Nose/Throat: The patient NOTES allergies, denies hayfever, denies ear infections, and denies bloody noses. Cardiovascular: The patient denies chest pain, denies heart disease, denies high blood pressure,denies cardiac stent, denies prior heart attack, denies irregular heart beat, NOTES high cholesterol, denies poor circulation, denies heart failure, other cardiac issues, denies claudication, denies coldfeet, denies peripheral arterial stent. Respiratory: The patient denies tuberculosis, denies pneumonia, NOTES frequent cough, denies pulmonary embolism, denies shortness of breath, and denies coughing up blood. Gastrointestinal: The patient denies difficulty swallowing, NOTES acid reflux, denies ulcers, denies vomiting, denies jaundice/hepatitis, denies gallbladder problems, denies black or tarry stools, NOTES hemorrhoids, denies bleeding from rectum, denies diverticulitis, denies constipation, denies diarrhea, denies loss of stool control, and denies hernias. Kidney/Bladder: The patient denies kidney stones, denies urine infections, and denies bloody urine. Skin: The patient denies a history of skin cancer, denies bleeding/changing moles, and denies a history of skin rash. Neurologic: The patient denies a history of epilepsy/convulsions, denies headaches, denies head/spinal injuries, and denies stroke/TIA. Psychiatric: The patient denies psychiatric medications, denies depression, and denies voices, denies substance abuse. Endocrine: The patient NOTES thyroid disorders, denies diabetes, and denies hormonal problems. Hematologic: The patient denies a history of bruising, denies bleeding, and denies anemia, denies blood clots. Infections: The patient denies a history of measles and mumps, denies rheumatic fever, and denies sexually transmitted diseases. Musculoskeletal: The patient denies back pain/injury, denies back problems, denies sciatica, NOTES knee/foot trouble, NOTES arthritis, or denies gout. When was patient's last Mammogram screening? 12/2022 Last Colonoscopy: 11/10/20 Whitney Damian RN [facility] Nurse Note* Whitney Damian RN - 10/10/2023 3:40 PM EDT REVIEW OF SYSTEMS: General: The patient denies fatigue, denies weight loss, denies weight gain, denies feeling hot, and denies feelings of cold. Eyes: The patient denies glaucoma, denies eye injury/surgery, wears glasses or contacts. Ear/Nose/Throat: The patient NOTES allergies, denies hayfever, denies ear infections, and denies bloody noses. Cardiovascular: The patient denies chest pain, denies heart disease, denies high blood pressure,denies cardiac stent, denies prior heart attack, denies irregular heart beat, NOTES high cholesterol, denies poor circulation, denies heart failure, other cardiac issues, denies claudication, denies coldfeet, denies peripheral arterial stent. Respiratory: The patient denies tuberculosis, denies pneumonia, NOTES frequent cough, denies pulmonary embolism, denies shortness of breath, and denies coughing up blood. Gastrointestinal: The patient denies difficulty swallowing, NOTES acid reflux, denies ulcers, denies vomiting, denies jaundice/hepatitis, denies gallbladder problems, denies black or tarry stools, NOTES hemorrhoids, denies bleeding from rectum, denies diverticulitis, denies constipation, denies diarrhea, denies loss of stool control, and denies hernias. Kidney/Bladder: The patient denies kidney stones, denies urine infections, and denies bloody urine. Skin: The patient denies a history of skin cancer, denies bleeding/changing moles, and denies a history of skin rash. Neurologic: The patient denies a history of epilepsy/convulsions, denies headaches, denies head/spinal injuries, and denies stroke/TIA. Psychiatric: The patient denies psychiatric medications, denies depression, and denies voices, denies substance abuse. Endocrine: The patient NOTES thyroid disorders, denies diabetes, and denies hormonal problems. Hematologic: The patient denies a history of bruising, denies bleeding, and denies anemia, denies blood clots. Infections: The patient denies a history of measles and mumps, denies rheumatic fever, and denies sexually transmitted diseases. Musculoskeletal: The patient denies back pain/injury, denies back problems, denies sciatica, NOTES knee/foot trouble, NOTES arthritis, or denies gout. When was patient's last Mammogram screening? 12/2022 Last Colonoscopy: 11/10/20 Whitney Damian RN documented [facility] Miscellaneous Notes* Telephone Encounter - Rob Mitchell - 07/18/2023 11:51 AM EST Patient has not be seen since 2020 and is now scheduled to be seen by Dr. Garcia on 08/19/2023 Rob Mitchell [employer] * Telephone Encounter - Guerita Downing - 07/18/2023 10:48 AM EST Patient asking for an EGD for Barretts Esophagus. Please advise if she needs to be seen. Please advise and call patient. documented in this encounterGal[facility]02-[facility] Procedure [facility]23 [facility]23 [facility]06-17[facility] History of Past illness Narrative* Problem Noted Date Diagnosed Date Resolved Date Encounter for screening for malignant neoplasm of colon 11/10/2020 11/10/2020 Depressive disorder, not elsewhere classified 08/04/2015 documented as of this encounter (statuses as of 07/18/2023) [facility] Diagnosis Onset Date Resolution Status Hyperlipidemia chronic Osteoarthritis chronic Encounter for preventative a dult health care examination noneactive Atrophic vaginitis acute Encounter for routine gynecological examination noneactive [facility] Work Phone: Evaluation note* Diagnosis Onset Date Resolution Status Acute bronchitis acute Chronic cough chronic Hyperlipidemia chronic Hypertension chronic Encounter for preventative a dult health care examination acute Chronic cough chronic [facility] Work Phone: Evaluation note* Diagnosis Onset Date Resolution Status Chronic cough chronic Hyperlipidemia chronic Hypertension chronic Encounter for preventative a dult health care examination acute Chronic cough chronic [facility] Work Phone: Evaluation note* Diagnosis Onset Date Resolution Status Chronic cough chronic Hyperlipidemia chronic Hypertension chronic Chronic cough chronic Pulmonary interstitial fibrosis acute GERD (gastroesophageal reflux disease) chronic Hyperlipidemia chronic Hypertension chronic Hypothyroidism [facility] Work Phone: Evaluation note* Diagnosis Onset Date Resolution Status Chronic cough chronic Hyperlipidemia chronic Hypertension chronic Chronic cough chronic Pulmonary interstitial fibrosis acute GERD (gastroesophageal reflux disease) chronic Hyperlipidemia chronic Hypertension chronic Hypothyroidism chronic Atrophic vaginitis acute Osteopenia acute Encounter for routine gynecological examination noneactive Vaginitis noneactive [facility] Work Phone: Evaluation note* Diagnosis Onset Date Resolution Status Chronic cough chronic Hyperlipidemia chronic Hypertension chronic Chronic cough chronic Pulmonary interstitial fibrosis acute GERD (gastroesophageal reflux disease) chronic Hyperlipidemia chronic Hypertension chronic Hypothyroidism chronic Atrophic vaginitis acute Osteopenia acute Encounter for routine gynecological examination noneactive Vaginitis noneactive Pulmonary interstitial fibrosis acute Chronic cough [facility] Work Phone: Evaluation note* Diagnosis Onset Date Resolution Status Chronic cough chronic Pulmonary interstitial fibrosis chronic GERD (gastroesophageal reflux disease) chronic Hyperlipidemia chronic Hypertension chronic Hypothyroidism chronic Pulmonary interstitial fibrosis [facility] Work Phone: Evaluation note* Diagnosis Onset Date Resolution Status GERD (gastroesophageal reflux disease) chronic Hyperlipidemia chronic Hypertension chronic Hypothyroidism chronic Pulmonary interstitial fibrosis [facility] Work Phone: Evaluation note* Diagnosis Onset Date Resolution Status Chronic cough chronic Pulmonary interstitial fibrosis [facility] Work Phone: Evaluation note* Diagnosis Lopez's esophagus without dysplasia- Primary Lopez's esophagus documented in this encounter [facility] note* Diagnosis Lopez's esophagus without dysplasia Lopez's esophagus documented in this encounter [facility] for referral (narrative)* Outpatient Procedure (Routine) - Closed Specialty Diagnoses / Procedures Referred By Santo gilmore Referred To [facility] [place] Diagnoses Lopez's esophagus without dysplasia Procedures EGD DIAGNOSTIC ESOPHAGOGASTRODUODENOSC OPY TRANSORAL DIAGNOSTIC Gi Galicia APRN.CNP [address] [place] [address] [address] Referral ID Status Reason Start Date Expiration Date V isits Requested Visits Authorized [id number] Closed Auto-Generate d Referral 10/11/2023 10/10/2024 1 1 [facility] for referral (narrative)No reason for referral information [facility]WMari[facility] Work [facility]: Reason for visit Narrative* Outpatient Procedure (Routine) - Closed Specialty Diagnoses / Procedures Referred By Santo gilmore Referred To [facility] [place] Diagnoses Lopez's esophagus without dysplasia Procedures EGD DIAGNOSTIC ESOPHAGOGASTRODUODENOSC OPY TRANSORAL DIAGNOSTIC Gi Galicia APRN.MEDICAL OFFICE ASST [address] [place] [address] [facility] [address] [place] [address] Referral ID Status Reason Start Date Expiration Date V isits Requested Visits Authorized [id number] Closed Auto-Generate d Referral 10/11/2023 10/10/2024 1 1 [facility] Chief Complaint and Reason for Visit Chief Complaint E ORDERS yearly wellness check SCREENING Annual (TRANS ROUTER) Reason for Visit Hyperlipidemia Osteoarthritis Encounter for preventative adult health care examination Atrophic vaginitis Encounter for routine gynecological examination Chief Complaint Cough/SINUS DRAINAGE 6 M FU YEARLY 1 m fu Cough, ABN CXR Cough, ABN CXR Reason for Visit Acute bronchitis Chronic cough Hyperlipidemia Hypertension Encounter for preventative adult health care examination Chronic cough Chief Complaint 6 M FU YEARLY 1 m fu Cough, ABN CXR Cough, ABN CXR CHRONIC COUGH Reason for Visit Chronic cough Hyperlipidemia Hypertension Encounter for preventative adult health care examination Chronic cough Chief Complaint 6 M FU YEARLY 1 m fu Cough, ABN CXR Cough, ABN CXR CHRONIC COUGH 2 M FU Reason for Visit Chronic cough Hyperlipidemia Hypertension Chronic cough Pulmonary interstitial fibrosis GERD (gastroesophageal reflux disease) Hyperlipidemia Hypertension Hypothyroidism Chief Complaint 6 M FU YEARLY 1 m fu Cough, ABN CXR Cough, ABN CXR CHRONIC COUGH 2 M FU Annual (TRANS ROUTER) SCREENING Reason for Visit Chronic cough Hyperlipidemia Hypertension Chronic cough Pulmonary interstitial fibrosis GERD (gastroesophageal reflux disease) Hyperlipidemia Hypertension Hypothyroidism Atrophic vaginitis Osteopenia Encounter for routine gynecological examination Vaginitis Chief Complaint 6 M FU YEARLY 1 m fu Cough, ABN CXR Cough, ABN CXR CHRONIC COUGH 2 M FU Annual (TRANS ROUTER) SCREENING Pulmonary Fibrosis Reason for Visit Chronic cough Hyperlipidemia Hypertension Chronic cough Pulmonary interstitial fibrosis GERD (gastroesophageal reflux disease) Hyperlipidemia Hypertension Hypothyroidism Atrophic vaginitis Osteopenia Encounter for routine gynecological examination Vaginitis Pulmonary interstitial fibrosis Chronic cough Chief Complaint 6 M FU YEARLY 1 m fu Cough, ABN CXR Cough, ABN CXR CHRONIC COUGH 2 M FU Annual (TRANS ROUTER) SCREENING Pulmonary Fibrosis OSTEO, PULMONARY FIBROSIS OSTEO, PULMONARY FIBROSIS Reason for Visit Chronic cough Hyperlipidemia Hypertension Chronic cough Pulmonary interstitial fibrosis GERD (gastroesophageal reflux disease) Hyperlipidemia Hypertension Hypothyroidism Atrophic vaginitis Osteopenia Encounter for routine gynecological examination Vaginitis Pulmonary interstitial fibrosis Chronic cough Chief Complaint Pulmonary Fibrosis OSTEO, PULMONARY FIBROSIS OSTEO, PULMONARY FIBROSIS 4 m fu Amb Documentation Reason for Visit Chronic cough Pulmonary interstitial fibrosis GERD (gastroesophageal reflux disease) Hyperlipidemia Hypertension Hypothyroidism Pulmonary interstitial fibrosis Chief Complaint 4 m fu Amb Documentation PULMONARY FIBROSIS PULMONARY FIBROSIS Reason for Visit GERD (gastroesophage al reflux disease) Hyperlipidemia Hypertension Hypothyroidism Pulmonary interstitial fibrosis Chief Complaint PULMONARY FIBROSIS PULMONARY FIBROSIS 6 M FU Reason for Visit Chronic cough Pulmonary interstitial fibrosis Chief Complaint Admit Date 6 M FU April 15, 2024 3:00pm 3 M FU April 20, 2024 8:08am E-ORDER June 13, 2024 8 :31am CONCERN FOR UTI August 04, 2024 7:5 6am COUGH/BACK PAIN August 08, 2024 10: 07am Reason for Visit Admit Date Chronic cough April 15, 2024 3:00pm GERD (gastroesophageal reflux disease) N ov2023 3:00pm Hyperlipidemia April 15, 2024 3:00pm Hypertension April 15, 2024 3:00pm Hypothyroidism April 15, 2024 3:00pm Allergic rhinitis April 20, 2024 8:08am Chronic cough April 20, 2024 8:08am Seasonal allergies April 20, 2024 8:08am Influenza A August 08, 2024 10: 07am Chief Complaint Admit Date CONCERN FOR UTI August 04, 2024 7:5 6am COUGH/BACK PAIN August 08, 2024 10: 07am CONCERN FOR UTI September 14, 2024 3:1 0pm 6 M FU October 14, 2024 3:01p m Reason for Visit Admit Date Influenza A August 08, 2024 10: 07am Chief Complaint Admit Date CONCERN FOR UTI August 04, 2024 7:5 6am COUGH/BACK PAIN August 08, 2024 10: 07am CONCERN FOR UTI September 14, 2024 3:1 0pm 6 M FU October 14, 2024 3:01p m INT LAB ORDER October 17, 2024 8:02a m 6 M FU October 21, 2024 9:10a m Reason for Visit Admit Date Influenza A August 08, 2024 10: 07am Chronic cough October 14, 2024 3:01p m GERD (gastroesophageal reflux disease) M ay 2024 3:01pm Hypertension October 14, 2024 3:01p m Hypothyroidism October 14, 2024 3:01p m Reason for Visit Admit Date Influenza A August 08, 2024 10: 07am Chronic cough October 14, 2024 3:01p m GERD (gastroesophageal reflux disease) M ay 2024 3:01pm Hypertension October 14, 2024 3:01p m Hypothyroidism October 14, 2024 3:01p m Allergic rhinitis October 21, 2024 9:10a m Chronic cough October 21, 2024 9:10a m Seasonal allergies October 21, 2024 9:10a m Chief Complaint Admit Date CONCERN FOR UTI August 04, 2024 7:5 6am COUGH/BACK PAIN August 08, 2024 10: 07am CONCERN FOR UTI September 14, 2024 3:1 0pm 6 M FU October 14, 2024 3:01p m INT LAB ORDER October 17, 2024 8:02a m 6 M FU October 21, 2024 9:10a m annual October 26, 2024 3:04p m Chief Complaint Admit Date CONCERN FOR UTI August 04, 2024 7:5 6am COUGH/BACK PAIN August 08, 2024 10: 07am CONCERN FOR UTI September 14, 2024 3:1 0pm 6 M FU October 14, 2024 3:01p m INT LAB ORDER October 17, 2024 8:02a m 6 M FU October 21, 2024 9:10a m annual October 26, 2024 3:04p m J84.10 - Pulmonary fibrosis, unspecified November 17, 2024 9:27am Hypersomnolence November 17, 2024 7:57 pm PULMONARY FIBROSIS November 18, 2024 12:0 1pm PULMONARY FIBROSIS November 20, 2024 10:5 4am Reason for Visit Admit Date Influenza A August 08, 2024 10: 07am Chronic cough October 14, 2024 3:01p m GERD (gastroesophageal reflux disease) M ay 2024 3:01pm Hypertension October 14, 2024 3:01p m Hypothyroidism October 14, 2024 3:01p m Allergic rhinitis October 21, 2024 9:10a m Chronic cough October 21, 2024 9:10a m Seasonal allergies October 21, 2024 9:10a m Hypersomnolence October 26, 2024 3:04p m Preventative health care October 26, 2024 3:04pm Chief Complaint Admit Date CONCERN FOR UTI August 04, 2024 7:5 6am COUGH/BACK PAIN August 08, 2024 10: 07am CONCERN FOR UTI September 14, 2024 3:1 0pm 6 M FU October 14, 2024 3:01p m INT LAB ORDER October 17, 2024 8:02a m 6 M FU October 21, 2024 9:10a m annual October 26, 2024 3:04p m J84.10 - Pulmonary fibrosis, unspecified November 17, 2024 9:27am Hypersomnolence November 17, 2024 7:57 pm PULMONARY FIBROSIS November 18, 2024 12:0 1pm PULMONARY FIBROSIS November 20, 2024 10:5 4am Follow up November 30, 2024 11:08 am Reason for Visit Admit Date Influenza A August 08, 2024 10: 07am Chronic cough October 14, 2024 3:01p m GERD (gastroesophageal reflux disease) M 2024 3:01pm Hypertension October 14, 2024 3:01p m Hypothyroidism October 14, 2024 3:01p m Allergic rhinitis October 21, 2024 9:10a m Chronic cough October 21, 2024 9:10a m Seasonal allergies October 21, 2024 9:10a m Hypersomnolence October 26, 2024 3:04p m Preventative health care October 26, 2024 3:04pm Interstitial lung disease November 30, 2024 11:08am Chief Complaint Admit Date COUGH/BACK PAIN August 08, 2024 10: 07am CONCERN FOR UTI September 14, 2024 3:1 0pm 6 M FU October 14, 2024 3:01p m INT LAB ORDER October 17, 2024 8:02a m 6 M FU October 21, 2024 9:10a m annual October 26, 2024 3:04p m J84.10 - Pulmonary fibrosis, unspecified November 17, 2024 9:27am Hypersomnolence November 17, 2024 7:57 pm PULMONARY FIBROSIS November 18, 2024 12:0 1pm PULMONARY FIBROSIS November 20, 2024 10:5 4am Follow up November 30, 2024 11:08 am Reason for Visit Admit Date Influenza A August 08, 2024 10: 07am Chronic cough October 14, 2024 3:01p m GERD (gastroesophageal reflux disease) ay 2024 3:01pm Hypertension October 14, 2024 3:01p m Hypothyroidism October 14, 2024 3:01p m Allergic rhinitis October 21, 2024 9:10a m Chronic cough October 21, 2024 9:10a m Seasonal allergies October 21, 2024 9:10a m Hypersomnolence October 26, 2024 3:04p m Preventative health care October 26, 2024 3:04pm Interstitial lung disease November 30, 2024 11:08am CARLTON (obstructive sleep apnea) November 30, 2024 11:08am Chronic cough November 30, 2024 11:08 am Chief Complaint Admit Date 6 M FU October 14, 2024 3:01p m INT LAB ORDER October 17, 2024 8:02a m 6 M FU October 21, 2024 9:10a m annual October 26, 2024 3:04p m J84.10 - Pulmonary fibrosis, unspecified November 17, 2024 9:27am Hypersomnolence November 17, 2024 7:57 pm PULMONARY FIBROSIS November 18, 2024 12:0 1pm PULMONARY FIBROSIS November 20, 2024 10:5 4am Follow up November 30, 2024 11:08 am SCREENING OSTEO January 19, 2025 4: 15pm Annual (TRANS ROUTER) January 26, 2025 3:12pm Reason for Visit Admit Date Chronic cough October 14, 2024 3:01p m GERD (gastroesophageal reflux disease) M 2024 3:01pm Hypertension October 14, 2024 3:01p m Hypothyroidism October 14, 2024 3:01p m Allergic rhinitis October 21, 2024 9:10a m Chronic cough October 21, 2024 9:10a m Seasonal allergies October 21, 2024 9:10a m Hypersomnolence October 26, 2024 3:04p m Preventative health care October 26, 2024 3:04pm Interstitial lung disease November 30, 2024 11:08am CARLTON (obstructive sleep apnea) November 30, 2024 11:08am Chronic cough November 30, 2024 11:08 am Encounter for routine gynecological exam ination January 26, 2025 3:12pm Family History Relationship Condition Age at Onset Recorded Date/T kaylin mother Diabetes mellitus Unknown Hypertension Unknown Cerebrovascular accident (CVA) Unknown brother Diabetes mellitus Unknown daughter Primary malignant ne uroendocrine tumor of pancreas Unknown Diabetes mellitus Unknown Advance Directives Advance Directive Response Recorded Date/ Time Living Will No [place] [address], 202 0 1:07pm Power of Scrap Crane Operator No January 03 1:07pm Advance Directive Response Recorded Date/ Time Living Will No January 03 0 12:07pm Power of Scrap Crane Operator No January 03 12:07pm Advance Directive Response Recorded Date/ Time Living Will No July 11 024 2:46pm Power of Scrap Crane Operator No July 11, 2023 2:46pm Advance Directive Response Recorded Date/ Time Living Will No July 11 2:46pm Do you have a Healthcare Power of Scrap Crane Operator? No July 11, 2023 2:46pm Summary Purpose Additional Source Comments Goals (unrecognized section and content) Goals may be documented in a n alternate sectionGoals may be documented in an alternate sectionGoals may be documented in an alternate sectionGoals may be documented in an alternate sectionGoals may be documented in an alternate sectionGoals may be documented in an alternate sectionGoals may be documented in an alternate sectionGoals may be documented in an alternate sectionGoals may be documented in an alternate sectionGoals may be documented in an alternate sectionGoals may be documented in an alternate sectionGoals may be documented in an alternate sectionGoals may be documented in an alternate sectionGoals may be documented in an alternate sectionGoals may be documented in an alternate sectionGoals may be documented in an alternate sectionGoals may be documented in an alternate sectionGoals may be documented in an alternate sectionGoals may be documented in an alternate sectionGoals may be documented in an alternate sectionGoals may be documented in an alternate sectionGoals may be documented in an alternate section Care Teams (unrecognized sec tion and content) Team Status: Active Member Role Status Dates Dr. Karli Lindsey MD Family Provider Active Dr. Karli Lindsey MD Primary Care Provider Active Team Status: Inactive Member Role Status Dates Dr. Karli Lindsey MD Primary Care Nicolasa erazo, Attending Provider, Referring Provider Active Team Status: Inactive Member Role Status Dates Dr. Karli Lindsey MD Primary Care Provider, Refer ring Provider Active Eros Rendon PA, PA Attending Provider Active Team Status: Inactive Member Role Status Dates Dr. Karli Lindsey MD Primary Care Provider, Refer ring Provider Active Elmer Don [employer] Attending Provider Active Team Status: Active Member Role Status Dates Dr. Karli Lindsey MD Primary Care P rovider, Referring Provider, Other Provider Active Dr. Caleb Bah DO Attending Provider Active Team Status: Inactive Member Role Status Dates Dr. Karli Lindsey MD Primary Care Provider Active Elmer Don [employer] Attending Provider, Referring Prov ider Active Team Status: Active Member Role Status Dates Dr. Karli Lindsey MD Primary Care P rovider, Attending Provider, Referring Provider Active Team Status: Inactive Member Role Status Dates Dr. Karli Lindsey MD Primary Care Provider, Refer ring Provider Active Celeste Nath [employer] Attending Provider Active Team Status: Inactive Member Role Status Dates Dr. Karli Lindsey MD Primary Care Provider Active Celeste Nath [employer] Attending Provider, Referring Provider Active Team Status: Inactive Member Role Status Dates Dr. Karli Lindsey MD Primary Care Provider, Refer ring Provider Active Dr. Lobo Marcano MD Attending Provider Active Team Status: Inactive Member Role Status Dates Dr. Karli Lindsey MD Primary Care Provider Active Dr. Lobo Marcano MD Attending Provider, Referring Pr ovider Active Team Status: Active Member Role Status Dates Dr. Karli Lindsey MD Primary Care Provider Active Celeste Nath [employer] Referring Provider, Other Prov ider Active Dr. Caleb Bah DO Attending Provider Active Team Status: Inactive Member Role Status Dates Dr. Karli Lindsey MD Primary Care Provider Active Celeste Nath [employer] Attending Provid er, Referring Provider, Other Provider Active Team Status: Active Member Role Status Dates Dr. Karli Lindsey MD Primary Care Provider Active Katia Boyce MA Attending Provider Active Team Status: Active Member Role Status Dates Dr. Karli Lindsey MD Primary Care Provider Active Dr. Lobo Marcano MD Attending Provider , Referring Provider, Other Provider Active [employer] Relationship Specialty Start Date End Date Karli Lindsey MD [address] [facility] [place] [address] PCP - General Internal Medicine 10/03/20 Team Status: Inactive Member Role Status Dates Dr. Karli Lindsey MD Primary Care Provider, Atten ding Provider Active [employer] Relationship Specialty Start Date End Date Karli Lindsye MD [address] [address] PCP - General Internal Medicine 10/03/20 Chain Maker Hand Relationship Specialty Start Date End Date Karli Lindsey MD [address] [address] PCP - General Internal Medicine 10/03/20 Chain Maker Hand Relationship Specialty Start Date End Date Karli Lindsey MD [address] [address] PCP - General Internal Medicine 10/03/20 Team Status: Inactive Member Role Status Dates Dr. Karli Lindsey MD Primary Care Provider Active Start: April 15, 2024 End: April 15, 2024 Dr. Karli Lindsey MD Attending Provider Active Start: April 15, 2024 End: April 15, 2024 Dr. Karli Lindsey MD Referring Provider Active Start: April 15, 2024 End: April 15, 2024 Team Status: Inactive Member Role Status Dates Dr. Karli Lindsey MD Primary Care Provider Active Start: April 20, 2024 End: April 20, 2024 Dr. Karli Lindsey MD Referring Provider Active Start: April 20, 2024 End: April 20, 2024 Olena Cervantes [employer] Attending Provider Active Start: April 20, 2024 End: April 20, 2024 Team Status: Inactive Member Role Status Dates Dr. Karli Lindsey MD Primary Care Provider Active Start: May 02, 2024 End: May 02, 2024 Dr. Karli Lindsey MD Attending Provider Active Start: May 02, 2024 End: May 02, 2024 Dr. Karli Lindsey MD Referring Provider Active Start: May 02, 2024 End: May 02, 2024 Team Status: Inactive Member Role Status Dates Dr. Karli Lindsey MD Primary Care Provider Active Start: June 13, 2024 End: June 13, 2024 Dr. Karli Lindsey MD Attending Provider Active Start: June 13, 2024 End: June 13, 2024 Dr. Karli Lindsey MD Referring Provider Active Start: June 13, 2024 End: June 13, 2024 Team Status: Inactive Member Role Status Dates Dr. Karli Lindsey MD Primary Care Provider Active Start: August 04, 2024 End: August 04, 2024 Dr. Karli Lindsey MD Referring Provider Active Start: August 04, 2024 End: August 04, 2024 HUNG Donovan Attending Provider Active Start: August 04, 2024 End: August 04, 2024 Team Status: Inactive Member Role Status Dates Dr. Karli Lindsey MD Primary Care Provider Active Start: August 04, 2024 End: August 04, 2024 HUNG Donovan Attending Provider Active Start: August 04, 2024 End: August 04, 2024 Team Status: Inactive Member Role Status Dates Dr. Karli Lindsey MD Primary Care Provider Active Start: August 08, 2024 End: August 08, 2024 Dr. Karli Lindsey MD Referring Provider Active Start: August 08, 2024 End: August 08, 2024 HUNG Maguire Attending Provider Active Start: August 08, 2024 End: August 08, 2024 Team Status: Active Member Role Status Dates Dr. Karli Lindsey MD Primary Care Provider Active Team Status: Inactive Member Role Status Dates Dr. Karli Lindsey MD Primary Care Provider Active Start: September 14, 2024 End: September 14, 2024 Dr. Karli Lindsey MD Referring Provider Active Start: September 14, 2024 End: September 14, 2024 HUNG Donovan Attending Provider Active Start: September 14, 2024 End: September 14, 2024 Team Status: Inactive Member Role Status Dates Dr. Karli Lindsey MD Primary Care Provider Active Start: October 14, 2024 End: October 14, 2024 Dr. Karli Lindsey MD Attending Provider Active Start: October 14, 2024 End: October 14, 2024 Dr. Karli Lindsey MD Referring Provider Active Start: October 14, 2024 End: October 14, 2024 Team Status: Active Member Role Status Dates Dr. Karli Lindsey MD Primary Care Provider Active Start: October 17, 2024 Dr. Karli Lindsey MD Attending Provider Active Start: October 17, 2024 Dr. Karli Lindsey MD Referring Provider Active Start: October 17, 2024 Team Status: Inactive Member Role Status Dates Dr. Karli Lindsey MD Primary Care Provider Active Start: October 21, 2024 End: October 21, 2024 Dr. Karli Lindsey MD Referring Provider Active Start: October 21, 2024 End: October 21, 2024 Olena Cervantes [employer] Attending Provider Active Start: October 21, 2024 End: October 21, 2024 Team Status: Inactive Member Role Status Dates Dr. Karli Lindsey MD Primary Care Provider Active Start: October 17, 2024 End: October 17, 2024 Dr. Karli Lindsey MD Attending Provider Active Start: October 17, 2024 End: October 17, 2024 Dr. Karli Lindsey MD Referring Provider Active Start: October 17, 2024 End: October 17, 2024 Team Status: Inactive Member Role Status Dates Dr. Karli Lindsey MD Primary Care Provider Active Start: October 26, 2024 End: October 26, 2024 Dr. Karli Lindsey MD Attending Provider Active Start: October 26, 2024 End: October 26, 2024 Dr. Karli Lindsey MD Referring Provider Active Start: October 26, 2024 End: October 26, 2024 Team Status: Active Member Role/Relationship Status Dates Dr. Karli Lindsey MD Primary Care Provider Active Team Status: Inactive Member Role/Relationship Status Dates Dr. Karli Lindsey MD Primary Care Provider Active Start: August 04, 2024 End: August 04, 2024 Dr. Karli Lindsey MD Referring Provider Active Start: August 04, 2024 End: August 04, 2024 Darien PERSAUD PA Attending Provider Active Start: August 04, 2024 End: August 04, 2024 Team Status: Inactive Member Role/Relationship Status Dates Dr. Karli Lindsey MD Primary Care Provider Active Start: August 04, 2024 End: August 04, 2024 Darien PERSAUD PA Attending Provider Active Start: August 04, 2024 End: August 04, 2024 Team Status: Inactive Member Role/Relationship Status Dates Dr. Karli Lindsey MD Primary Care Provider Active Start: August 08, 2024 End: August 08, 2024 Dr. Karli Lindsey MD Referring Provider Active Start: August 08, 2024 End: August 08, 2024 HUNG Maguire Attending Provider Active Start: August 08, 2024 End: August 08, 2024 Team Status: Inactive Member Role/Relationship Status Dates Dr. Karli Lindsey MD Primary Care Provider Active Start: September 14, 2024 End: September 14, 2024 Dr. Karli Lindsey MD Referring Provider Active Start: September 14, 2024 End: September 14, 2024 Darien PERSAUD PA Attending Provider Active Start: September 14, 2024 End: September 14, 2024 Team Status: Inactive Member Role/Relationship Status Dates Dr. Karli Lindsey MD Primary Care Provider Active Start: October 14, 2024 End: October 14, 2024 Dr. Karli Lindsey MD Attending Provider Active Start: October 14, 2024 End: October 14, 2024 Dr. Kalri Lindsey MD Referring Provider Active Start: October 14, 2024 End: October 14, 2024 Team Status: Inactive Member Role/Relationship Status Dates Dr. Karli Lindsey MD Primary Care Provider Active Start: October 17, 2024 End: October 17, 2024 Dr. Karli Lindsey MD Attending Provider Active Start: October 17, 2024 End: October 17, 2024 Dr. Karli Lindsey MD Referring Provider Active Start: October 17, 2024 End: October 17, 2024 Team Status: Inactive Member Role/Relationship Status Dates Dr. Karli Lindsey MD Primary Care Provider Active Start: October 21, 2024 End: October 21, 2024 Dr. Karli Lindsey MD Referring Provider Active Start: October 21, 2024 End: October 21, 2024 Olena Cervantes [employer] Attending Provider Active Start: October 21, 2024 End: October 21, 2024 Team Status: Inactive Member Role/Relationship Status Dates Dr. Karli Lindsey MD Primary Care Provider Active Start: October 26, 2024 End: October 26, 2024 Dr. Karli Lindsey MD Attending Provider Active Start: October 26, 2024 End: October 26, 2024 Dr. Karli Lindsey MD Referring Provider Active Start: October 26, 2024 End: October 26, 2024 Team Status: Inactive Member Role/Relationship Status Dates Dr. Karli Lindsey MD Primary Care Provider Active Start: November 17, 2024 End: November 17, 2024 Dr. Karli Lindsey MD Referring Provider Active Start: November 17, 2024 End: November 17, 2024 Olena Cervantes [employer] Attending Provider Active Start: November 17, 2024 End: November 17, 2024 Team Status: Active Member Role/Relationship Status Dates Dr. Karli Lindsey MD Primary Care Provider Active Start: November 17, 2024 Dr. Karli Lindsey MD Attending Provider Active Start: November 17, 2024 Dr. Karli Lindsey MD Referring Provider Active Start: November 17, 2024 Team Status: Active Member Role/Relationship Status Dates Dr. Karli Lindsey MD Primary Care Provider Active Start: November 18, 2024 Olena Cervantes [employer] Attending Provider Active Start: November 18, 2024 Olena Cervantes [employer] Referring Provider Active Start: November 18, 2024 Team Status: Active Member Role/Relationship Status Dates Dr. Karli Lindsey MD Primary Care Provider Active Start: November 20, 2024 Olena Cervantes [employer], [employer] Referring Provider Active Start: November 20, 2024 Olena Cervantes [employer], [employer] Other Provider Active Start: November 20, 2024 Dr. Caleb Bah DO Attending Provider Active S tart: November 20, 2024 Team Status: Inactive Member Role/Relationship Status Dates Dr. Karli Lindsey MD Primary Care Provider Active Start: November 17, 2024 End: November 17, 2024 Dr. Karli Lindsey MD Attending Provider Active Start: November 17, 2024 End: November 17, 2024 Dr. Karli Lindsey MD Referring Provider Active Start: November 17, 2024 End: November 17, 2024 Team Status: Inactive Member Role/Relationship Status Dates Dr. Karli Lindsey MD Primary Care Provider Active Start: November 18, 2024 End: November 18, 2024 Olena Cervantes [employer], [employer] Attending Provider Active Start: November 18, 2024 End: November 18, 2024 Olena Cervantes [employer], [employer] Referring Provider Active Start: November 18, 2024 End: November 18, 2024 Team Status: Inactive Member Role/Relationship Status Dates Dr. Karli Lindsey MD Primary Care Provider Active Start: November 30, 2024 End: November 30, 2024 Dr. Karli Lindsey MD Referring Provider Active Start: November 30, 2024 End: November 30, 2024 Dr. Caleb Bah DO Attending Provider Active S tart: November 30, 2024 End: November 30, 2024 Team Status: Inactive Member Role/Relationship Status Dates Dr. Karli Lindsey MD Primary Care Provider Active Start: August 08, 2024 End: August 08, 2024 Dr. Karli Lindsey MD Referring Provider Active Start: August 08, 2024 End: August 08, 2024 HUNG Maguire Attending Provider Active Start: August 08, 2024 End: August 08, 2024 Team Status: Inactive Member Role/Relationship Status Dates Dr. Karli Lindsey MD Primary Care Provider Active Start: September 14, 2024 End: September 14, 2024 Dr. Karli Lindsey MD Referring Provider Active Start: September 14, 2024 End: September 14, 2024 Darien PERSAUD PA Attending Provider Active Start: September 14, 2024 End: September 14, 2024 Team Status: Inactive Member Role/Relationship Status Dates Dr. Karli Lindsey MD Primary Care Provider Active Start: October 14, 2024 End: October 14, 2024 Dr. Karli Lindsey MD Attending Provider Active Start: October 14, 2024 End: October 14, 2024 Dr. Karli Lindsey MD Referring Provider Active Start: October 14, 2024 End: October 14, 2024 Team Status: Inactive Member Role/Relationship Status Dates Dr. Karli Lindsey MD Primary Care Provider Active Start: October 17, 2024 End: October 17, 2024 Dr. Karli Lindsey MD Attending Provider Active Start: October 17, 2024 End: October 17, 2024 Dr. Karli Lindsey MD Referring Provider Active Start: October 17, 2024 End: October 17, 2024 Team Status: Inactive Member Role/Relationship Status Dates Dr. Karli Lindsey MD Primary Care Provider Active Start: October 21, 2024 End: October 21, 2024 Dr. Karli Lindsey MD Referring Provider Active Start: October 21, 2024 End: October 21, 2024 Olena Cervantes NP, [employer] Attending Provider Active Start: October 21, 2024 End: October 21, 2024 Team Status: Inactive Member Role/Relationship Status Dates Dr. Karli Lindsey MD Primary Care Provider Active Start: October 26, 2024 End: October 26, 2024 Dr. Karli Lindsey MD Attending Provider Active Start: October 26, 2024 End: October 26, 2024 Dr. Karli Lindsey MD Referring Provider Active Start: October 26, 2024 End: October 26, 2024 Team Status: Inactive Member Role/Relationship Status Dates Dr. Karli Lindsey MD Primary Care Provider Active Start: November 17, 2024 End: November 17, 2024 Dr. Karli Lindsey MD Referring Provider Active Start: November 17, 2024 End: November 17, 2024 Olena Cervantes NP, [employer] Attending Provider Active Start: November 17, 2024 End: November 17, 2024 Team Status: Inactive Member Role/Relationship Status Dates Dr. Karli Lindsey MD Primary Care Provider Active Start: November 17, 2024 End: November 17, 2024 Dr. Karli Lindsey MD Attending Provider Active Start: November 17, 2024 End: November 17, 2024 Dr. Karli Lindsey MD Referring Provider Active Start: November 17, 2024 End: November 17, 2024 Team Status: Inactive Member Role/Relationship Status Dates Dr. Karli Lindsey MD Primary Care Provider Active Start: November 18, 2024 End: November 18, 2024 Olena Cervantes [employer], [employer] Attending Provider Active Start: November 18, 2024 End: November 18, 2024 Olena Cervantes [employer], [employer] Referring Provider Active Start: November 18, 2024 End: November 18, 2024 Team Status: Active Member Role/Relationship Status Dates Dr. Karli Lindsey MD Primary Care Provider Active Start: November 20, 2024 Olena Cervantes [employer], [employer] Referring Provider Active Start: November 20, 2024 Olena Cervantes [employer], [employer] Other Provider Active Start: November 20, 2024 Dr. Caleb Bah DO Attending Provider Active S tart: November 20, 2024 Team Status: Inactive Member Role/Relationship Status Dates Dr. Karli Lindsey MD Primary Care Provider Active Start: November 30, 2024 End: November 30, 2024 Dr. Karli Lindsey MD Referring Provider Active Start: November 30, 2024 End: November 30, 2024 Dr. Caleb Bah DO Attending Provider Active S tart: November 30, 2024 End: November 30, 2024 Team Status: Inactive Member Role/Relationship Status Dates Dr. Karli Lindsey MD Primary Care Provider Active Start: November 30, 2024 End: November 30, 2024 Dr. Caleb Bah DO Attending Provider Active S tart: November 30, 2024 End: November 30, 2024 Dr. Caleb Bah DO Referring Provider Active S tart: November 30, 2024 End: November 30, 2024 Team Status: Inactive Member Role/Relationship Status Dates Dr. Karli Lindsey MD Primary Care Provider Active Start: October 14, 2024 End: October 14, 2024 Dr. Karli Lindsey MD Attending Provider Active Start: October 14, 2024 End: October 14, 2024 Dr. Karli Lindsey MD Referring Provider Active Start: October 14, 2024 End: October 14, 2024 Team Status: Inactive Member Role/Relationship Status Dates Dr. Karli Lindsey MD Primary Care Provider Active Start: October 17, 2024 End: October 17, 2024 Dr. Karli Lindsey MD Attending Provider Active Start: October 17, 2024 End: October 17, 2024 Dr. Karli Lindsey MD Referring Provider Active Start: October 17, 2024 End: October 17, 2024 Team Status: Inactive Member Role/Relationship Status Dates Dr. Karli Lindsey MD Primary Care Provider Active Start: October 21, 2024 End: October 21, 2024 Dr. Karli Lindsey MD Referring Provider Active Start: October 21, 2024 End: October 21, 2024 Olena Cervantes [employer], [employer] Attending Provider Active Start: October 21, 2024 End: October 21, 2024 Team Status: Inactive Member Role/Relationship Status Dates Dr. Karli Lindsey MD Primary Care Provider Active Start: October 26, 2024 End: October 26, 2024 Dr. Karli Lindsey MD Attending Provider Active Start: October 26, 2024 End: October 26, 2024 Dr. Karli Lindsey MD Referring Provider Active Start: October 26, 2024 End: October 26, 2024 Team Status: Inactive Member Role/Relationship Status Dates Dr. Karli Lindsey MD Primary Care Provider Active Start: November 17, 2024 End: November 17, 2024 Dr. Karli Lindsey MD Referring Provider Active Start: November 17, 2024 End: November 17, 2024 Olena Cervnates NP, [employer] Attending Provider Active Start: November 17, 2024 End: November 17, 2024 Team Status: Inactive Member Role/Relationship Status Dates Dr. Karli Lindsey MD Primary Care Provider Active Start: November 17, 2024 End: November 17, 2024 Dr. Karli Lindsey MD Attending Provider Active Start: November 17, 2024 End: November 17, 2024 Dr. Karli Lindsey MD Referring Provider Active Start: November 17, 2024 End: November 17, 2024 Team Status: Inactive Member Role/Relationship Status Dates Dr. Karli Lindsey MD Primary Care Provider Active Start: November 18, 2024 End: November 18, 2024 Olena Cervantes [employer], [employer] Attending Provider Active Start: November 18, 2024 End: November 18, 2024 Olena Cervantes [employer], [employer] Referring Provider Active Start: November 18, 2024 End: November 18, 2024 Team Status: Active Member Role/Relationship Status Dates Dr. Karli Lindsey MD Primary Care Provider Active Start: November 20, 2024 Olena Cervantes [employer], [employer] Referring Provider Active Start: November 20, 2024 Olena Cervantes [employer], [employer] Other Provider Active Start: November 20, 2024 Dr. Caleb Bah DO Attending Provider Active S tart: November 20, 2024 Team Status: Inactive Member Role/Relationship Status Dates Dr. Karli Lindsey MD Primary Care Provider Active Start: November 30, 2024 End: November 30, 2024 Dr. Karli Lindsey MD Referring Provider Active Start: November 30, 2024 End: November 30, 2024 Dr. Caleb Bah DO Attending Provider Active S tart: November 30, 2024 End: November 30, 2024 Team Status: Inactive Member Role/Relationship Status Dates Dr. Karli Lindsey MD Primary Care Provider Active Start: November 30, 2024 End: November 30, 2024 Dr. Caleb Bah DO Attending Provider Active S tart: November 30, 2024 End: November 30, 2024 Dr. Caleb Bah DO Referring Provider Active S tart: November 30, 2024 End: November 30, 2024 Team Status: Active Member Role/Relationship Status Dates Dr. Karli Lindsey MD Primary Care Provider Active Start: January 19, 2025 Celeste Nath [employer], [employer] Attending Provider Active Start: January 19, 2025 Celeste Nath [employer], [employer] Referring Provider Active Start: January 19, 2025 Team Status: Inactive Member Role/Relationship Status Dates Dr. Karli Lindsey MD Primary Care Provider Active Start: January 26, 2025 End: January 26, 2025 Dr. Karli Lindsey MD Referring Provider Active Start: January 26, 2025 End: January 26, 2025 Celeste Nath NP, [employer] Attending Provider Active Start: January 26, 2025 End: January 26, 2025 Source Comments (unrecognize d section and content) In the event this informatio n is protected by the Federal Confidentiality of Alcohol and Drug Abuse Patient Records regulations: The Federal rules restrict any use of the information to criminally investigate or prosecute any alcohol or drug abuse patient.[facility]In the event this information is protected by the Federal Confidentiality of Alcohol and Drug Abuse Patient Records regulations: The Federal rules restrict any use of the information to criminally investigate or prosecute any alcohol or drug abuse patient.[facility]In the event this information is protected by the Federal Confidentiality of Alcohol and Drug Abuse Patient Records regulations: The Federal rules restrict any use of the information to criminally investigate or prosecute any alcohol or drug abuse patient.[facility] the event this information is protected by the Federal Confidentiality of Alcohol and Drug Abuse Patient Records regulations: The Federal rules restrict any use of the information to criminally investigate or prosecute any alcohol or drug abuse patient.[facility] Reason for Visit (unrecogniz ed section and content) Reason Comments Patient Question Reason Comments Consult EGD Reason Comments Results INFORMATION SOURCE (unrecogn ized section and content) DATE CREATED AUTHOR 10/23/2023 [facility] DATE CREATED AUTHOR AUTHOR'S ORGANIZ ATION 01/23/2025 [facility] FOR RECORDS PERTAINING TO PATIENTS WHO ARE OR HAVE BEEN ENROLLED IN A CHEMICAL DEPENDENCY/SUBSTANCEABUSE PROGRAM, SOME INFORMATION MAY BE OMITTED. This clinical summary was aggregated from multiple sources. Caution should be exercised in using it in the provision of clinical care. This summary normalizes information from multiple sources, and as a consequence, information in this document may materially change the coding, format and clinical context of patient data. In addition, data may be omitted in some cases. CLINICAL DECISIONS SHOULD BE BASED ON THE PRIMARY CLINICAL RECORDS. [email or web address] [facility]. provides no warranty or guarantee of the accuracy or completeness of information in this document.
== END | disposition home or self-care (01) ==
LOC: LABSPEC 16:04
PROVIDERS: PCP Internal Medicine; Referring Provider Nurse Practitioner Women's Health; Visit Provider Nurse Practitioner Women's Health
DX: N89.8 Other specified noninflammatory disorders of vagina (principal)
CPT/HCPCS: 87070; 87205

== ENCOUNTER → 2025-03-10 | Outpatient (CLI) | payer OTHER, SELFPAY | END | disposition home or self-care (01) | LOC: LABSPEC 10:27 | PROVIDERS: PCP Internal Medicine; Referring Provider Physician Assistant; Visit Provider Physician Assistant | DX: R82.90 Unspecified abnormal findings in urine (principal) | CPT/HCPCS: 87086; 87088 ==

== ENCOUNTER → 2025-03-17 | Outpatient (CLI) | payer OTHER, SELFPAY ==
[2025-03-17 12:45] LABS: Hematocrit 46.1 % (37-47); Hemoglobin 14.5 g/dL (12.0-15.0); Immature Granulocytes Count 0.020 X10^3/uL (0.0-0.0); Mean Corp Hgb Conc 31.5 g/dL (32-36); Mean Corpuscular Volume 83.2 fL (81-99); Mean Platelet Vol. 9.9 fl (6.2-12.0); NRBC Flagged by Analyzer 0 % (0-5); Platelet Count 258 K/mm3 (150-450); RBC Distribution Width CV 13.9 % (11.6-14.6); RBC Distribution Width SD 42.5 fl (35.1-43.9); Red Blood Count 5.54 M/mm3 (4.2-5.4); White Blood Count 7.0 K/mm3 (4.4-11.0)
[2025-03-17 13:28] LABS: AST(SGOT) 22 U/L (<=31); Alanine Aminotransfer ALT/SGPT 21 U/L (<=34); Albumin, Serum 4.2 g/dL (3.4-4.8); Alkaline Phosphatase 100 U/L (35-104); Anion Gap 9 (5-15); BUN 12 mg/dL (4-19); BUN/Creat Ratio 15.4 RATIO (10-20); Calcium,Total 9.9 mg/dL (7.6-11.0); Carbon Dioxide 25.9 mmol/L (21.0-32.0); Chloride 105 mmol/L (98-108); Globulin 3.2 g/dL (2.2-4.2); Glucose 94 mg/dL (70-99); Magnesium 2.1 mg/dL (1.5-2.2); Potassium 4.3 mmol/L (3.3-5.1)
== END | disposition home or self-care (01) ==
LOC: LAB 12:31
PROVIDERS: PCP Internal Medicine; Referring Provider Internal Medicine; Visit Provider Internal Medicine
DX: I49.9 Cardiac arrhythmia, unspecified (principal); E03.9 Hypothyroidism, unspecified
CPT/HCPCS: 36415; 80053; 83735; 84443; 85025

== ENCOUNTER 2025-04-19 16:00 | Outpatient (RCR) | payer OTHER, SELFPAY ==
--- NOTE | 2025-02-15 12:42 | HP.PTEVAL ---
Patient's Visit Information Visit Information Visit Information: SANDRA OH is a 65 year old F referred to Physical Therapy by HILLARY Christensen with a diagnosis of STRESS URINARY INCONTINENCE. Date of Evaluation: 02/01/25 Physical Therapist: Sury Esteves PT, Cert MDT Visit Plan Frequency: 1x/Week Duration: 2-4 Months Plan: PF THERAPY FOR STRENGTHENING, LENGTHENING/RELAXATION AND ENDURANCE TRAINING. URINARY URGE AND FREQUENCY EDUCATION. HEALTHY BLADDER, BACK AND POSTURE HABIT EDUCATION. TRAINING IN COORDINATION OF PELVIC FLOOR MUSCULATURE WITH HIP AND CORE (TRANSVERSE ABDOMINUS) MUSCULATURE. CORE STRENGTHENING. LAZARO LE ROM, STRETCHING AND STRENGTHENING. TRAINING IN ABDOMINAL CAVITY PRESSURE MGMT WITH ADL'S. Subjective Subjective: Work/Leisure: JUST RETIRED SATURDAY FROM WORKING [employer] SAL[employer] REPRESENT[employer]IVE PLUS FROM HOME AT A SITTING JOB. Present symptoms: BLADDER LEAKAGE DUE TO CHRONIC COUGH. URINARY LEAKING 3 OR MORE TIMES A DAY. WEARING POISE #4 PADS. PATIENT REPORTS SHE HAS BEEN WANTING TO COME TO PHYSICAL THERAPY FOR THIS FOR ABOUT 3 OR 4 YEARS. Present since: 3-4 YEARS Pain Scale: PATIENT DENIES PELVIC PAIN. Is it getting better, worse or staying the same: GETTING WORSE Commenced as a result of: PATIENT RELATES HER SX'S TO COUGHING. Worse: COUGHING ONLY EXCEPT 2-3 TIMES SHE HAS HAD SOME LEAKING AFTER URINATING. Better: NOTHING Previous history/Previous treatment: BLADDER REPAIR AND HYSTERECTOMY IN THE LATE . STATES SHE TRIED KEGELS SHE WAS TOLD TO DO 3-4 YEARS AGO BUT WASN'T REALLY SURE HOW TO DO THEM OR IF SHE WAS DOING THEM RIGHT AND THEY DIDN'T SEEM TO HAVE ANY EFFECT. Treatment this episode: NONE Gait: NORMAL BUT HAS A BAD R KNEE AND HAS HAD PT. How long can you delay the need to urinate: LESS THAN 10 MIN. Prolapse (Falling out feeling): NO Frequency of Urination: 5-8 TIMES A DAY AND ONE TIME PER NIGHT. Fluid Intake per day: 1-2 8oz glasses and 0-1 caffinated glasses a day. Ability to stop urine flow: CAN PARTIALLY DEFLECT THE URINE STREAM Ability to initiate urine stream: NEVER DIFFICULT Dyspareunia: YES - PATIENT RELATES THIS TO DRYNESS AND STATES SHE WAS PRESCRIBED MEDICINE FOR THIS THAT SHE STARTED TODAY. Bowel Incontinence: NO Accidents: NO Unexplained weight loss: NO Imaging: NO PMH/Recent major surgery: Hypersomnolence Normal colonoscopy Pulmonary interstitial fibrosis Chronic cough Allergic rhinitis SARS-CoV-2 positive COVID-19 vaccine series completed Osteoarthritis Post-menopausal Chronic gastritis Barretts esophagus Trichilemmal cyst Frequent headaches History of recurrent UTIs Allergies GERD (gastroesophageal reflux disease) Seasonal allergies Hypothyroidism History of esophagogastroduodenoscopy (EGD) ~01/18/20 H/O local excision of skin lesion History of bladder repair surgery History of wisdom tooth extraction H/O: hysterectomy History of tonsillectomy Objective Objective: Sitting/Standing Posture: FAIR. DECREASED LORDOSIS BUT NO RELEVANT LATERAL LUMBAR SHIFT. Other Observations: INDEP GAIT AND TRANSFERS Sensory deficit: LAZARO LE LIGHT TOUCH SENSATION GROSSLY INTACT AND SYMMETRICAL ROM deficit: LAZARO LE HS, CALF, HIP ADDUCTOR AND HIP ROTATOR TIGHTNESS Motor deficit: LAZARO LE STRENGTH GROSSLY 5/5 WTIH MMT'ING EXCEPT HIPS 4/5. INTERNAL VAGINAL PELVIC FLOOR TESTIN/5 X 5 SEC X 4 REPS. Dural Signs: NEGATIVE LAZARO LE'S. Lumbar mvmt loss: flex - NIL ext - MOD R SG - MOD L SG - MOD PATIENT DENIES PAIN WITH LUMBAR ROM TESTING. Core strength: FAIR Palpation: PATIENT DENIES TENDERNES WITH INTERNAL MANUAL VAGINAL PALPATION OF PELVIC FLOOR MUSCULATURE. NO HIGH TONE OR TRIGGER POINTS PALPATED IN PELVIC FLOOR. FUNCTIONAL SCREEN: Pelvic Organ Prolapse Distress Inventory Score: 5 Colorectal-Anal Distress Inventory: 6 Urogenital Distress Inventory Score: 13 Goals Goal 1:: INCREASE PELVIC FLOOR STRENGTH FOR BETTER ORGAN SUPPORT AND IMROVE URINARY INCONTINENCE Goal Time Frame: 8-12 Weeks Goal 2:: IMPROVE PELVIC FLOOR MUSCLE ENDURANCE TO IMPROVE URINARY INCONTINENCE Goal Time Frame: 8-12 Weeks Goal 3:: INCREASE ABDOMINAL/TRUNK AND LE STRENGTH FOR OPTIMAL ORGAN SUPPORT Goal Time Frame: 8-12 Weeks Goal 4:: DEVELOP HEALTHY FLUID INTAKE HABITS WITH FLUID INTAKE OF ½ BODY WEIGHT IN OUNCES PER DAY AND 2/3 BEING WATER. Goal Time Frame: 4-6 Weeks Goal 5:: NORMALIZE VOIDING FREQUENCEY TO EVERY 3-4 HOURS. Goal Time Frame: 6-8 Weeks Goal 6:: PATIENT WILL BE INDEP WITH A HEP/HOME INSTRUCTIONS FOR CONTINUED IMPROVEMENT ONCE FORMAL PHYSICAL THERAPY CONCLUDES. Goal Time Frame: 8-12 Weeks Rehabilitation Potential Physical Therapy Diagnosis: PELVIC FLOOR WEAKNESS ALONG WITH CORE AND LE WEAKNESS AND STIFFNESS. Rehabilitation Potential: Good Anticipated Interventions Patient/Client Instruction: Educate patient on: Condition, Plan of Care and Risk Factors For the Purpose of:: To improve self management Therapeutic Exercise to Include: Strength training, Endurance training, Body mechanics, Postural training, Flexibilty training and Neuromotor development For the Purpose of:: To improve muscle performance and motor function, To increase tolerance to activity/condition/position, To improve ability of physical actions for home/community/work/leisure, To improve self management and To improve ability to perform tasks related to life management Text: Thank you for the opportunity to evaluate your patient. For Medicare and Medicare HMO plans, please review the plan of care and approve it. It will need to be FAXED BACK to us at [phone] for Medicare purposes. For Medicare only, by signing this I certify the plan of care. Please let me know if there are questions or concerns regarding this plan of care. Physician Signature: Date:
--- NOTE | 2025-04-19 16:57 | HP.PTDCSUM_ITS ---
Discharge Summary D/C summary: It has been my pleasure to treat SANDRA OH referred by Celeste Nath NP- Neeraj, with the diagnosis of STRESS URINARY INCONTINENCE for a total of 11 visit(s). Discharge Date: 04/19/25 Please see the following information for a summary of their discharge status. Subjective Subjective: PATIENT REPORTS SHE IS NO LONGER GETTING UP SEVERAL TIMES AT NIGHT TO URINATE AND "THAT IS A BIG IMPROVEMENT". SHE ALSO REPORTS "THE LAST COUPLE OF DAYS I HAVE BEEN COUGHING REALLY HARD AND I HAVEN'T BEEN LEAKING MUCH I THOUGH I WOULD AND THAT IS A GOOD SIGN". PATIENT REPORTS SHE HASN'T HAD MUCH IMPROVEMENT YET SHE HAD HOPED BUT SHE FEELS THAT SHE WILL WITH TIME. PATIENT REPORTS SHE IS AT ABOUT 80% OF RECOMMENDED FLUID INTAKE AND VOIDING EVERY 3 TO 4 HRS LATER IN THE DAY AND EVERY COUPLE HRS IN THE MORNINGS AFTER HAVING COFFEE. OVER-ALL SHE REPORTS SHE REPORTS LESS URINARY FREQUENCY AND THAT SHE HAS LEARNED A LOT IN THERAPY AND IS EXPRESSING APPRECIATION FOR THAT. Overall Improvement % Improvement: 15 Objective Objective/Function: ASSESSMENT OF CURRENT SX'S, HOME INST AND HEP CHECK. DISCHARGE INSTRUCTIONS. PROGRESSION OF HEP WITH PF ELEVATOR EX. PATIENT STATED - "I DIDN'T THINK I WAS GOING TO BE ABLE TO DO IT BUT I COULD". WRITTEN HEP INST PROVIDED. FUNCTIONAL SCREEN: Pelvic Organ Prolapse Distress Inventory Score: 3 Colorectal-Anal Distress Inventory: 4 Urogenital Distress Inventory Score: 8 Goals Goal 1:: INCREASE PELVIC FLOOR STRENGTH FOR BETTER ORGAN SUPPORT AND IMROVE URINARY INCONTINENCE Goal Progress: Progressing Goal 2:: IMPROVE PELVIC FLOOR MUSCLE ENDURANCE TO IMPROVE URINARY INCONTINENCE Goal Progress: Progressing Goal 3:: INCREASE ABDOMINAL/TRUNK AND LE STRENGTH FOR OPTIMAL ORGAN SUPPORT Goal Progress: Progressing Goal 4:: DEVELOP HEALTHY FLUID INTAKE HABITS WITH FLUID INTAKE OF ½ BODY WEIGHT IN OUNCES PER DAY AND 2/3 BEING WATER. Goal Progress: Progressing Goal 5:: NORMALIZE VOIDING FREQUENCEY TO EVERY 3-4 HOURS. Goal Progress: Progressing Goal 6:: PATIENT WILL BE INDEP WITH A HEP/HOME INSTRUCTIONS FOR CONTINUED IMPROVEMENT ONCE FORMAL PHYSICAL THERAPY CONCLUDES. Goal Progress: Goal Met Plan Plan: D/C TO INDEP PROGRAM. PATIENT AGREEABLE. D/C Information d/c sentence: If there are questions or concerns regarding this patient's physical therapy, please feel free to call me at [phone]. Thank you for the referral of this patient. Sincerely, Sury Esteves, PT, Cert MDT Balance/Gait/Functional tests Improvement % Improvement: 15
== END 2025-04-19 19:00 | disposition home or self-care (01) ==
LOC: PT 16:00
PROVIDERS: PCP Internal Medicine; Referring Provider Nurse Practitioner Women's Health; Visit Provider Nurse Practitioner Women's Health
DX: N39.3 Stress incontinence (female) (male) (principal)
CPT/HCPCS: 97162; 97530

== ENCOUNTER → 2025-04-26 | Outpatient (CLI) | payer OTHER, SELFPAY | END | disposition home or self-care (01) | PROVIDERS: PCP Internal Medicine; Referring Provider Nurse Practitioner Acute Care; Visit Provider Nurse Practitioner Acute Care | DX: J84.9 Interstitial pulmonary disease, unspecified (principal) | CPT/HCPCS: 94060; 94726; 94729 ==

== ENCOUNTER → 2025-04-27 | Outpatient (CLI) | payer OTHER, SELFPAY ==
[2025-04-27 12:36] VITALS: PULSE 80; PULSE 83; PULSE 85; PULSE 86; PULSE 87; PULSE 89; PULSE 92; O2SAT 88; O2SAT 89; O2SAT 91; O2SAT 92; O2SAT 95; O2SAT 96
--- NOTE | 2025-04-27 12:44 | CPS ---
PT WALKED 1162 FT DURING 6MWT. ROOM AIR SPO2 FLUCTUATED BETWEEN 88-89% NEAR END OF TESTING, PT DECLINED ADDITION OF SUPPLEMENTAL OXYGEN UNTIL SHE FOLLOWS UP WITH PULMONARY. SHE DECLINED SOB AND DID NOT TAKE ANY REST BREAKS DURING TESTING. EDUCATION GIVEN ON BENEFITS OF PROPER OXYGENATION FOR HER OVERALL CONDITION MOVING FORWARD. SHE EXPRESSED SOME INTEREST IN OUTPATIENT RESPIRATORY SERVICES AND WAS PROVIDED A PULMONARY REHAB BROCHURE AND AN OVERVIEW OF THE PROGRAM.
--- NOTE | 2025-04-30 11:43 | PCM.PSN.6M ---
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 None used: Pre-test Oxygen Delivery Room Air Method Pulse Ox (%) 95 Pulse Rate (60-100 83 beats/min) Dyspnea Tj Scale ( 0 0-10) 1st minute Oxygen Delivery Room Air Method Pulse Ox (%) 92 Pulse Rate (60-100 85 beats/min) Dyspnea Tj Scale ( 1 0-10) Number of Rests 0 Taken 2nd minute Oxygen Delivery Room Air Method Pulse Ox (%) 91 Pulse Rate (60-100 86 beats/min) Dyspnea Tj Scale ( 1 0-10) Number of Rests 0 Taken 3rd minute Oxygen Delivery Room Air Method Pulse Ox (%) 91 Pulse Rate (60-100 85 beats/min) Dyspnea Tj Scale ( 1 0-10) Number of Rests 0 Taken 4th minute Oxygen Delivery Room Air Method Pulse Ox (%) 88 Pulse Rate (60-100 89 beats/min) Dyspnea Tj Scale ( 1 0-10) Number of Rests 0 Taken 5th minute Oxygen Delivery Room Air Method Pulse Ox (%) 89 Pulse Rate (60-100 87 beats/min) Dyspnea Tj Scale ( 1 0-10) Number of Rests 0 Taken 6th minute Oxygen Delivery Room Air Method Pulse Ox (%) 88 Pulse Rate (60-100 92 beats/min) Dyspnea Tj Scale ( 2 0-10) Number of Rests 0 Taken Reported Symptoms Increased Work of Breathing Post-test Oxygen Delivery Room Air Method Pulse Ox (%) 96 Pulse Rate (60-100 80 beats/min) Dyspnea Tj Scale ( 0 0-10) Full Laps Walked 19 Partial Lap, Number 41 of Tiles Walked Total Distance 1162 Walked (ft) 04/27/25 12:44 Cardiopulmonary Services by Latanya Melendez PT WALKED 1162 FT DURING 6MWT. ROOM AIR SPO2 FLUCTUATED BETWEEN 88-89% NEAR END OF TESTING, PT DECLINED ADDITION OF SUPPLEMENTAL OXYGEN UNTIL SHE FOLLOWS UP WITH PULMONARY. SHE DECLINED SOB AND DID NOT TAKE ANY REST BREAKS DURING TESTING. EDUCATION GIVEN ON BENEFITS OF PROPER OXYGENATION FOR HER OVERALL CONDITION MOVING FORWARD. SHE EXPRESSED SOME INTEREST IN OUTPATIENT RESPIRATORY SERVICES AND WAS PROVIDED A PULMONARY REHAB BROCHURE AND AN OVERVIEW OF THE PROGRAM. Initialized on 04/27/25 12:44 - END OF NOTE Interpretation Interpretation: The patient ambulated 1162 feet over the course of 6 minutes beginning on room air without assistive devices. Pretesting oxygen saturation was noted to be 95% on room air. With ambulation, the efrain oxygen saturation was 88%. This represents a significant exertional oxygen desaturation, consistent with a pulmonary limitation to exercise tolerance. Recommendations Recommendations: Supplemental oxygen should be utilized with exertion. However, the patient declined therapy.
== END | disposition home or self-care (01) ==
LOC: PSN 11:29
PROVIDERS: PCP Internal Medicine; Referring Provider Nurse Practitioner Acute Care; Visit Provider Nurse Practitioner Acute Care
DX: J84.9 Interstitial pulmonary disease, unspecified (principal)
CPT/HCPCS: 94618

== ENCOUNTER → 2025-05-11 | Outpatient (CLI) | payer OTHER, SELFPAY | END | disposition home or self-care (01) | LOC: LAB 07:41 | PROVIDERS: PCP Internal Medicine; Referring Provider Internal Medicine; Visit Provider Internal Medicine | DX: E03.9 Hypothyroidism, unspecified (principal) | CPT/HCPCS: 36415; 84443 ==